=== PATIENT | male | born 1960 | race Caucasian/White ===

== ENCOUNTER → 2017-11-10 14:15 | Outpatient (CLI) | payer MEDICARE, MEDICAID, SELFPAY | PROVIDERS: PCP Family Medicine; Visit Provider Nurse Practitioner Adult Health | DX: G56.01 Carpal tunnel syndrome, right upper limb (principal); G56.21 Lesion of ulnar nerve, right upper limb; R20.2 Paresthesia of skin; I10 Essential (primary) hypertension; J44.9 Chronic obstructive pulmonary disease, unspecified; F17.210 Nicotine dependence, cigarettes, uncomplicated | CPT/HCPCS: 95909; 99214 ==

== ENCOUNTER → 2017-11-16 09:15 | Outpatient (CLI) | payer MEDICARE, MEDICAID, SELFPAY | PROVIDERS: PCP Family Medicine; Visit Provider Orthopaedic Surgery | DX: G56.01 Carpal tunnel syndrome, right upper limb (principal) | CPT/HCPCS: 99214 ==

== ENCOUNTER → 2017-12-06 13:29 | Outpatient (CLI) | payer MEDICARE, MEDICAID, SELFPAY | PROVIDERS: PCP Family Medicine; Visit Provider Orthopaedic Surgery | DX: Z47.89 Encounter for other orthopedic aftercare (principal); G56.01 Carpal tunnel syndrome, right upper limb ==

== ENCOUNTER 2017-12-12 01:14 | Inpatient (IN) | payer MEDICARE, SELFPAY ==
[2017-12-12] VITALS (153 sets, daily range): BP systolic 104–149; BP diastolic 54–112; PULSE 68–98; RESP 12–30; TEMP 36.4–37.2; O2SAT 89–98
--- NOTE | 2017-12-12 01:51 | ED.GENADUL_ITS ---
Discharge Plan Discharge Details Chief Complaint: PsychEval Clinical Impression: Schizoaffective disorder, Suicide attempt by hanging, Cocaine abuse with intoxication, Rhabdomyolysis Reason For Visit: EVAL Primary Care Provider: Tawanda Dooley ED Provider: Leodan Young Disposition Patient Disposition: [facility] INPATIENT Condition: Fair Home Meds and New Rx's Prescriptions: No Action lamotrigine 150 MG tablet 150 mg PO HS RF: 0 lithium carbonate 600 MG capsule 900 mg PO HS RF: 0 tiotropium bromide [Spiriva with HandiHaler] 18 MCG capsule, w/inhalation device 1 cap Inhalation DAILY RF: 0 albuterol sulfate 8.5 GM HFA aerosol inhaler 2 puff Inhalation PRN RF: 0 aspirin [Aspirin Low-Strength] 81 MG tablet,chewable 81 mg PO DAILY RF: 0 atorvastatin [Lipitor] 80 MG tablet 80 mg PO DAILY RF: 0 nitroglycerin [Nitrostat] 0.4 MG tablet, sublingual 0.4 mg Sublingual Q5 MIN PRN X3 PRNQty: 100 RF: 0 isosorbide mononitrate 30 MG tablet extended release 24 hr 30 mg PO DAILY RF: 0 pantoprazole [Protonix] 20 MG tablet,delayed release (DR/EC) 40 mg PO DAILY RF: 0 risperidone 2 MG tablet 2 mg PO HS RF: 0 ibuprofen 800 MG tablet 800 mg PO Q8H PRN PRN (Reason: Pain) Qty: 30 RF: 0 budesonide-formoterol [Symbicort] 10.2 GM HFA aerosol inhaler 10.2 gm Inhalation BID RF: 0 metoprolol succinate 25 MG tablet extended release 24 hr 50 mg PO DAILY RF: 0 Medical Decision Making [facility] Narrative Medical decision making narrative: Patient presenting for mental health evaluation after cocaine binge for the last 3 days. Tried overdosing as well as hanging himself today. States he does not want to live anymore. Complaining of all over body pain especially in the legs. With his cocaine use consider rhabdomyolysis. He is cooperative with his being here. He was seen by mental health and confirmed with him that he is suicidal and does not wish to live. He does however agree to voluntary psychiatric admission. We have placed a one-to-one patient observer with him. His is staying with him. He has been calm and cooperative here. Laboratory studies are significant for CPK of greater than 8000. He has been getting LR and we will continue 2 L bolus before cutting back to 200 and hour. [place] level is low. Alcohol level is less than 100. Aspirin and Tylenol negative. Kidney function normal. White count elevated and likely related to demarginalization. AST and ALT slightly up and likely related to his drinking. Potassium is little low and will need to be replaced. Patient is not medically cleared at this point due to the rhabdomyolysis. He will need to continue on aggressive hydration/diuresis. Case discussed with hospitalist for admission for medical clearance. He will need to remain on one- to-one observation due to his suicidal thoughts and actions. He is cooperative here in the emergency department. Lab Data Lab results reviewed: Yes I reviewed the patient's lab results. ECG Data Attestation: I personally reviewed and interpreted this ECG (s) as follows: Prior ECG tracings: not available for review Interpretation: Sinus rhythm at 93. Normal axis and intervals. No acute ST changes noted. HPI - General Adult General Mode of arrival: wheelchair . Date/Time Provider Initiated Documentation: 12/12/17 01:36 . Limitations to Documentation: no limitations . Information obtained by: patient and family . HPI Narrative-FOR DICTATION ONLY HPI Narrative: Patient is here for mental health evaluation. Patient is brought in by his . He has been binging on cocaine for the last 3 days. Reports using almost $3000 worth. Today he was drinking alcohol as well. Became depressed and upset with the fact that he had ruined 3 years of sobriety. He tried overdosing on more cocaine. He also tied a rope around his neck and jumped off a chair but landed on the floor and had no tension on the rope. Family had called 911. However they were able to talk him down and got him into their car for transport. He was followed by [facility]. Patient complains of allover body pain. He has difficulty walking because of pain and discomfort. He denies having chest pain or shortness of breath. He denies any abdominal pain. He has had no fevers or chills. Related Data Home Medications Medication Instructions Recorded Confirmed lamotrigine 150 mg PO HS 06/17/13 12/12/17 lithium carbonate 900 mg PO HS 06/17/13 12/12/17 tiotropium bromide [Spiriva with 1 cap INHALATION DAILY 06/17/13 12/12/17 HandiHaler] albuterol sulfate 2 puff INHALATION PRN 11/13/13 12/12/17 aspirin [Aspirin Low-Strength] 81 mg PO DAILY 09/25/14 12/12/17 atorvastatin [Lipitor] 80 mg PO DAILY 09/25/14 12/12/17 isosorbide mononitrate 30 mg PO DAILY 05/20/15 12/12/17 pantoprazole [Protonix] 40 mg PO DAILY 05/20/15 12/12/17 risperidone 2 mg PO HS 05/20/15 12/12/17 budesonide-formoterol [Symbicort] 10.2 gm INHALATION BID 09/15/16 12/12/17 metoprolol succinate 50 mg PO DAILY 09/15/16 12/12/17 Previous Rx's Medication Instructions Recorded nitroglycerin [Nitrostat] 0.4 mg SUBLINGUAL Q5 MIN PRN X3 09/25/14 PRN #100 tab.subl ibuprofen 800 mg PO Q8H PRN PRN #30 tablet 07/11/16 Allergies Allergy/AdvReac Type Severity Reaction Status Date / Time No Known Allergies Allergy Unverified 12/12/17 05:15 General Stated Complaint: PsychEval ZEINAB: 2 Review of Systems Constitutional Denies chills, Denies fever(s), Denies headache(s), Reports malaise and Reports weakness ENT Denies headache(s), Reports mouth pain and Denies sore throat Cardiovascular Denies chest pain, Denies syncope, Denies palpitations and Denies dyspnea Respiratory Denies cough and Denies dyspnea Gastrointestinal Denies abdominal pain, Denies diarrhea, Denies nausea and Denies vomiting Musculoskeletal Reports myalgias, Reports muscle weakness, Denies numbness and Reports stiffness Integumentary/Breasts Denies erythema and Denies rash Neurologic Denies confusion, Denies syncope, Denies headache(s), Denies numbness and Reports weakness Psychiatric Denies confusion, Reports depression, Reports irritability and Reports suicidal ideation Endocrine Denies palpitations [facility] Medical History CAD (coronary artery disease) (Chronic) COPD (chronic obstructive pulmonary disease) (Chronic) GERD (gastroesophageal reflux disease) (Chronic) HTN (hypertension) (Chronic) Hypercholesterolemia (Chronic) Social History Smoking/Tobacco Use Status: Current every day Surgical History H/O heart artery stent (Chronic) Exam Const General: cooperative, comfortable and not combative Nutritional Appearance: obese Orientation: alert and oriented x3 HENDC Head: normal to inspection, normocephalic and atraumatic Mouth: no drooling, oral mucosa abnormal erythematous and white patches (few scattered) and no trismus Throat: uvula midline Eyes Sclera: sclerae normal Pupils: PERRL EOM: EOM intact bilaterally Neck Neck: full ROM and trachea midline Chest Chest: normal inspection of the chest Resp Effort & Inspection: normal respiratory effort Auscultation: wheezes scattered wheezes Cardio Rate: regular rate Rhythm: regular rhythm Heart Sounds: S1 normal and S2 normal GI Palpation: soft, no guarding and nontender Skin Trauma: abrasion (rope burn anterior neck extending to bilateral angle of jaw) Neuro General: alert, oriented x3, no focal motor deficits, CN's II-XI intact bilaterally and not confused Course Vital Signs Temperature 97.7 F 12/12/17 01:33 Pulse 84 12/12/17 01:33 Respiratory Rate 20 12/12/17 01:33 Blood Pressure 127/79 12/12/17 01:33 Pulse Oximetry 98 12/12/17 01:33 Temperature 97.7 F 12/12/17 01:33 Pulse 84 12/12/17 01:33 Respiratory Rate 20 12/12/17 01:33 Blood Pressure 127/79 12/12/17 01:33 Pulse Oximetry 98 12/12/17 01:33
[2017-12-12 02:04] LABS: Bilirubin Negative (Negative); Blood Moderate (Negative); Clarity Clear; Glucose Negative (Negative); Ketones 15 mg/dL (Negative); Leukocyte Esterase Negative (Negative); Nitrite Negative (Negative); Specific Gravity >= 1.030 (1.005-1.025); Urobilinogen 0.2 EU/dL (Up TO 0.2); pH 5.5 (5-8)
[2017-12-12 02:11] LABS: Bacteria Moderate HPF (Negative); Crystals Negative HPF (Negative); Epithelial Cells Rare HPF (Negative); Mucus Moderate (Negative); Other Cells Rare Transitional (Negative); WBC 0-2 HPF (0-5)
[2017-12-12] MEDS: Lactated Ringers 1,000 ML 200 ML IV ×3 (02:11→15:11)
[2017-12-12 02:12] LABS: *AMPHETAMINES SCREEN URINE Negative (Negative); *BARBITURATES SCREEN URINE Negative (Negative); *BENZODIAZEPINES SCREEN URINE Negative (Negative); C & S Indicated? Yes; Cannabinoids THC Negative (Negative); Cocaine Screen,Urine POSITIVE (Negative); METHADONE URINE SCREEN Negative (Negative); OPIATES URINE SCREEN Negative (Negative)
[2017-12-12] MEDS: Normal Saline Flush 10 ML SYR IVP (02:12)
[2017-12-12 02:22] LABS: Tricyclic Antidepressants Negative (Negative)
[2017-12-12 02:26] LABS: Abs Immature Grans 0.04 k/cumm (0.0-0.09); HCT 42.9 % (40.0-50.0); HGB 14.9 g/dL (13.5-17.5); Mean Corp. HGB Concentration 34.7 g/dL (32.0-36.0); Mean Corpuscular Hemoglobin 31.3 pg (27.0-33.0); Mean Corpuscular Volume 90.1 fL (80-95); Mean Platelet Volume 9.1 fL (8.0-11.0); Platelet Count 224 x1000/uL (130-400); RBC 4.76 m/cumm (4.50-6.00); RBC Distribution Width 13.6 % (11.8-14.1); White Blood Cell Count 16.82 k/cumm (4.4-10.8)
[2017-12-12] MEDS: Lactated Ringers 1,000 ML 1000 ML IV (02:35)
--- NOTE | 2017-12-12 02:42 | PDOC.MHCN ---
Presenting Issue: *How did they arrive here at ER and why did they come: Patient arrived by private vehicle with a police escort as the [facility] Police responded to the scene where the patient was actively trying to hang and kill himself Precipitating Factors: *Assessment of Safety SI/HI (address delusions if pertaining to the SI/HI) Patient is actively suicidal and frequently states that he just wants to . Patient is also relapsing from cocaine after being sober for three years. He states that he has been on cocaine for three days straight. Disposition: *Behavior:Patient is laying on the bed talking with this functional tester typewriters *Eye Contact:Direct at time but often burrying hus head in the pillow *Mood:Sad *Affect:Tearful *Appetite:Patient states that he has not eaten in the last three days *Sleep (trouble falling/staying asleep):Patient states that he has not really slept in the last three days Plan: The patient will remain at the hospital as a safety precaution until he is able to be placed in a mental health treatment facility.
--- NOTE | 2017-12-12 02:44 | NUR.NOTE ---
Nursing Note: Care management called and has spoken with mental health. Care plan established.
[2017-12-12 02:46] LABS: ALT 117 U/L (12-78); AST 308 U/L (15-37); Albumin 3.7 g/dL (3.4-5.0); Alkaline Phosphatase 112 U/L (46-116); BUN 14 mg/dL (7-18); Bilirubin, Total 0.7 mg/dL (0.2-1.0); CREATININE 1.02 mg/dL (0.70-1.30); Calcium 8.9 mg/dL (8.5-10.1); Chloride 99 mmol/L (98-107); ETHANOL BLOOD 86.1 mg/dL (<3); Glucose 96 mg/dL (70-100); Potassium 3.2 mmol/L (3.5-5.1); Sodium 135 mmol/L (136-145); TSH 0.68 uIU/mL (0.358-3.74); Total Protein 7.4 g/dL (6.4-8.2)
--- NOTE | 2017-12-12 02:48 | PDOC.MHCN_ITS ---
Presenting Issue: *How did they arrive here at ER and why did they come: Patient arrived by private vehicle with a police escort as the [facility] Police responded to the scene where the patient was actively trying to hang and kill himself Precipitating Factors: *Assessment of Safety SI/HI (address delusions if pertaining to the SI/HI) Patient is actively suicidal and frequently states that he just wants to . Patient is also relapsing from cocaine after being sober for three years. He states that he has been on cocaine for three days straight. Disposition: *Behavior:Patient is laying on the bed talking with this freelance copywriter *Eye Contact:Direct at time but often burrying hus head in the pillow *Mood:Sad *Affect:Tearful *Appetite:Patient states that he has not eaten in the last three days *Sleep (trouble falling/staying asleep):Patient states that he has not really slept in the last three days Plan: The patient will remain at the hospital as a safety precaution until he is able to be placed in a mental health treatment facility.
[2017-12-12 02:53] LABS: Absolute Eosinophil Count 0.34 k/cumm (0.0-0.7); Absolute Lymphocyte Count 1.01 k/cumm (1.2-3.4); Absolute Monocyte Count 2.02 k/cumm (0.11-0.7); Absolute Neutrophil Count 13.46 k/cumm (1.2-6.7); Diff Comment Manual Differential; RBC Morphology Normal
[2017-12-12 02:57] LABS: Lithium 0.29 mmol/L (0.60-1.20)
[2017-12-12 03:01] LABS: Salicylate 5.5 mg/dL (2.8-20.0)
[2017-12-12 03:03] LABS: Acetaminophen < 2 ug/mL (10-30)
[2017-12-12 03:11] LABS: Creatine Kinase > 8000 U/L (39-308)
--- NOTE | 2017-12-12 03:32 | NUR.NOTE ---
Nursing Note: pt given food per request, on bed and eating. Awake, alert, cooperative.
--- NOTE | 2017-12-12 03:45 | NUR.NOTE ---
Nursing Note: red and white excoriated area in mouth- pain made worse by tomato soup. Offered pt cold meal options which were eaten. Reported this finding to MD Young.
--- NOTE | 2017-12-12 05:28 | W.PM.HP.N ---
CC: drug abuse HPI: Chandan is 57 yo with h/o substance abuse, sober times 3 years. 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 Became distraught and was running around home with rope around neck. Mother summoned police who brought him in. Main complaint at this time is of total body myalgia. Inittial w/u in ER of note for rhabdo with CPK > 8000, with normal creatinine. Patient started on IVF and admitted. Seen by Mental health, voluntary admit, pending stabilization of medical issues. All: NKDA Med: see below PMH Substance abuse, COPD, CAD (s/p stent), GERD, bipolar PE: 142/71, pulse 94, RR 20 HEENT no signs trauma, neck supple, lungs scattered wheeze, heart somewhat distant but RRR,abdomen prtruberant, soft, nonotender; /rectal deferred; ext: trace pedal edema; neuro A+O, moves all 4's Lab:see below: A/P: Substance abuse: monitor Rhabdo, presumed secondary to cocaine: IVF, follow creatinine COPD: prn [facility] Mental health: usual meds, follow with mental health hypokalemia: replace and monitor [facility] Medical History CAD (coronary artery disease) (Chronic) COPD (chronic obstructive pulmonary disease) (Chronic) GERD (gastroesophageal reflux disease) (Chronic) HTN (hypertension) (Chronic) Hypercholesterolemia (Chronic) Social History Smoking/Tobacco Use Status: Current every day Surgical History H/O heart artery stent (Chronic) Meds Home Medications Medication Instructions Recorded Confirmed Type lamotrigine 150 mg PO HS 06/17/13 12/12/17 History lithium carbonate 900 mg PO HS 06/17/13 12/12/17 History tiotropium bromide [Spiriva with 1 cap INHALATION DAILY 06/17/13 12/12/17 History HandiHaler] albuterol sulfate 2 puff INHALATION PRN 11/13/13 12/12/17 History aspirin [Aspirin Low-Strength] 81 mg PO DAILY 09/25/14 12/12/17 History atorvastatin [Lipitor] 80 mg PO DAILY 09/25/14 12/12/17 History isosorbide mononitrate 30 mg PO DAILY 05/20/15 12/12/17 History pantoprazole [Protonix] 40 mg PO DAILY 05/20/15 12/12/17 History risperidone 2 mg PO HS 05/20/15 12/12/17 History budesonide-formoterol [Symbicort] 10.2 gm INHALATION BID 09/15/16 12/12/17 History metoprolol succinate 50 mg PO DAILY 09/15/16 12/12/17 History Allergies Allergy/AdvReac Type Severity Reaction Status Date / Time No Known Allergies Allergy Unverified 12/12/17 05:15 Results Labs : 12/12/17 02:06 12/12/17 06:25 Abnormal lab results 12/12/17 12/12/17 12/12/17 Range/Units 01:40 02:06 02:06 WBC (4.4-10.8) k/cumm Absolute Neutrophils (1.2-6.7) k/cumm Absolute Lymphocytes (1.2-3.4) k/cumm Absolute Monocytes (0.11-0.7) k/cumm Sodium 135 L (136-145) mmol/L Potassium 3.2 L (3.5-5.1) mmol/L Anion Gap 14.0 H (3-11) mmol/L AST 308 H (15-37) U/L ALT 117 H (12-78) U/L Creatine Kinase > 8000 H (39-308) U/L Ur Specific [place] >= 1.030 H (1.005-1.025) Urine Protein 100 H (Negative) mg/dL Urine Ketones 15 H (Negative) mg/dL Urine Blood Moderate H (Negative) Urine RBC 3-5 H (0-2) Acetaminophen < 2 L (10-30) ug/mL [place] (0.60-1.20) mmol/L 12/12/17 12/12/17 Range/Units 02:06 02:06 WBC 16.82 H (4.4-10.8) k/cumm Absolute Neutrophils 13.46 H (1.2-6.7) k/cumm Absolute Lymphocytes 1.01 L (1.2-3.4) k/cumm Absolute Monocytes 2.02 H (0.11-0.7) k/cumm Sodium (136-145) mmol/L Potassium (3.5-5.1) mmol/L Anion Gap (3-11) mmol/L AST (15-37) U/L ALT (12-78) U/L Creatine Kinase (39-308) U/L Ur Specific [place] (1.005-1.025) Urine Protein (Negative) mg/dL Urine Ketones (Negative) mg/dL Urine Blood (Negative) Urine RBC (0-2) Acetaminophen (10-30) ug/mL [place] 0.29 L (0.60-1.20) mmol/L Diabetes panel 12/12/17 Range/Units 02:06 Sodium 135 L (136-145) mmol/L Potassium 3.2 L (3.5-5.1) mmol/L Chloride 99 (98-107) mmol/L Carbon Dioxide 22.0 (21.0-32.0) mmol/L BUN 14 (7-18) mg/dL Creatinine 1.02 (0.70-1.30) mg/dL Glucose 96 (70-100) mg/dL Calcium 8.9 (8.5-10.1) mg/dL AST 308 H (15-37) U/L ALT 117 H (12-78) U/L Alkaline Phosphatase 112 (46-116) U/L Total Protein 7.4 (6.4-8.2) g/dL Albumin 3.7 (3.4-5.0) g/dL Thyroid panel 12/12/17 Range/Units 02:06 TSH 0.68 (0.358-3.74) uIU/mL Calcium panel 12/12/17 Range/Units 02:06 Calcium 8.9 (8.5-10.1) mg/dL Albumin 3.7 (3.4-5.0) g/dL Pituitary panel 12/12/17 Range/Units 02:06 Sodium 135 L (136-145) mmol/L Potassium 3.2 L (3.5-5.1) mmol/L Chloride 99 (98-107) mmol/L Carbon Dioxide 22.0 (21.0-32.0) mmol/L BUN 14 (7-18) mg/dL Creatinine 1.02 (0.70-1.30) mg/dL Glucose 96 (70-100) mg/dL Calcium 8.9 (8.5-10.1) mg/dL TSH 0.68 (0.358-3.74) uIU/mL Adrenal panel 12/12/17 Range/Units 02:06 Sodium 135 L (136-145) mmol/L Potassium 3.2 L (3.5-5.1) mmol/L Chloride 99 (98-107) mmol/L Carbon Dioxide 22.0 (21.0-32.0) mmol/L BUN 14 (7-18) mg/dL Creatinine 1.02 (0.70-1.30) mg/dL Glucose 96 (70-100) mg/dL Calcium 8.9 (8.5-10.1) mg/dL Total Bilirubin 0.7 (0.2-1.0) mg/dL AST 308 H (15-37) U/L ALT 117 H (12-78) U/L Alkaline Phosphatase 112 (46-116) U/L Total Protein 7.4 (6.4-8.2) g/dL Albumin 3.7 (3.4-5.0) g/dL Laboratory Tests 12/12/17 12/12/17 12/12/17 01:40 01:40 02:06 WBC RBC Hgb Hct MCV MCH MCHC RDW Plt Count MPV Immature Gran % Neutrophils % Lymphocytes % Monocytes % Eosinophils % Basophils % Absolute Neutrophils Band Neutrophils Absolute Lymphocytes Absolute Monocytes Absolute Eosinophils Absolute Basophils Differential Comment RBC Morphology Sodium 135 L Potassium 3.2 L Chloride 99 Carbon Dioxide 22.0 Anion Gap 14.0 H BUN 14 Creatinine 1.02 Estimated GFR/1.73 m2 >= 60.00 Glucose 96 Calcium 8.9 Total Bilirubin 0.7 AST 308 H ALT 117 H Alkaline Phosphatase 112 Creatine Kinase > 8000 H Total Protein 7.4 Albumin 3.7 TSH 0.68 Urine Color Yellow Urine Clarity Clear Urine pH 5.5 Ur Specific [place] >= 1.030 H Urine Protein 100 H Urine Ketones 15 H Urine Blood Moderate H Urine Nitrite Negative Urine Bilirubin Negative Urine Urobilinogen 0.2 Ur Leukocyte Esterase Negative Urine RBC 3-5 H Urine WBC 0-2 Ur Epithelial Cells Rare Urine Crystals Negative Urine Bacteria Moderate Urine Casts Urine Mucus Moderate Urine Other Rare transitional Ur Culture Indicated? Yes Urine Glucose Negative Salicylates Urine Opiates Screen Negative Urine Methadone Screen Negative Acetaminophen Ur Barbiturates Screen Negative Ur Tricyclics Screen Negative Ur Amphetamines Screen Negative U Benzodiazepines Scrn Negative [place] Urine Cocaine Screen Positive Ur THC Screen Negative Ethyl Alcohol 86.1 12/12/17 12/12/17 12/12/17 02:06 02:06 02:06 WBC 16.82 H RBC 4.76 Hgb 14.9 Hct 42.9 MCV 90.1 MCH 31.3 MCHC 34.7 RDW 13.6 Plt Count 224 MPV 9.1 Immature Gran % See Differential Neutrophils % 76.0 Lymphocytes % 6.0 Monocytes % 12.0 Eosinophils % 2.0 Basophils % 0.0 Absolute Neutrophils 13.46 H Band Neutrophils 4.0 Absolute Lymphocytes 1.01 L Absolute Monocytes 2.02 H Absolute Eosinophils 0.34 Absolute Basophils 0.00 Differential Comment Manual differential RBC Morphology Normal Sodium Potassium Chloride Carbon Dioxide Anion Gap BUN Creatinine Estimated GFR/1.73 m2 Glucose Calcium Total Bilirubin AST ALT Alkaline Phosphatase Creatine Kinase Total Protein Albumin TSH Urine Color Urine Clarity Urine pH Ur Specific [place] Urine Protein Urine Ketones Urine Blood Urine Nitrite Urine Bilirubin Urine Urobilinogen Ur Leukocyte Esterase Urine RBC Urine WBC Ur Epithelial Cells Urine Crystals Urine Bacteria Urine Casts Urine Mucus Urine Other Ur Culture Indicated? Urine Glucose Salicylates 5.5 Urine Opiates Screen Urine Methadone Screen Acetaminophen < 2 L Ur Barbiturates Screen Ur Tricyclics Screen Ur Amphetamines Screen U Benzodiazepines Scrn [place] 0.29 L Urine Cocaine Screen Ur THC Screen Ethyl Alcohol
--- NOTE | 2017-12-12 05:43 | NUR.NOTE ---
Nursing Note: Pt remains in room with at bedside, 1:1 continued. Has been visited by ED MD and hospitalist. Pt's concern of heartburn relayed to provider. Pt given milk to attempt to ease discomfort.
--- NOTE | 2017-12-12 06:22 | NUR.NOTE ---
Nursing Note: Pt c/o pain high in neck by jaw line. Pt initially thought this was r/t previous painful swallowing/yeast in mouth and throat. Pt states now that this is from the two small ropes I have tied up on my neck. They must have tightened when I kicked the chair out from underneath me. Pt denies LOC and notes he fell to the floor directly after knocking out the chair. No distinct discoloration in area of pain.
--- NOTE | 2017-12-12 06:29 | PDOC.ERCMPRO ---
Care Management Progress Note CM paged at 0230 from ED for MH Pt. Chief Complaint: Colton attempted to hang himself today and had also attempted to overdose on cocaine. Transported to the hospital by his , Yesi, who has remained at his side. Colton expresses that he does not wish to continue living but is willing to get some help and would accept admission for inpatient psychiatric stabilization and treatment. Suicide precautions and Direct 1:1 Observation have been ordered by the MD. CM will respond to ED to assess patient after patient has been medically cleared and assessed by screener. If screener deems patient meets criteria for psychiatric stabilization CM will facilitate interdepartmental huddle with [facility] screener for safety planning considerations and meet with patient to review [facility] policy and safety plan, establish individual wishes for treatment and maintain patient rights. In the interim; please note safety plan below to guide patient care while awaiting further assessment in the ED. SAFETY PLAN: 1. Will remain on suicide precautions and in paper clothes. 2. Will remain in room under direct supervision of one-on-one staff at all times provided by OUSMANE, THERAPEUTIC RECREATION SPECIALIST balcony worker. ([employer]) 3. May have paper cups, plates, finger foods as well as a metal spoon with which to eat meals. [facility] staff will be responsible for accounting of utensils after meals. 4. Follow [facility] Management of the Admitted Behavioral Health Patient policy. 5. Comfort bath system only. 6. No personal belongings 7. , Yesi Bailey, and mother, Nora Bailey, may visit. If deemed appropriate for inpatient psychiatric care, safety plan will be established with patient, and care team, to adhere to patient goals, identify restrictions based on behavioral status, address nutrition, and determine allowed personal belongings, tools for hygiene and personal care. As well plan will determine level of activity including ambulation, level of supervision, visitors, and determine privileges based on level of acuity, behaviors and level of engagement by patient.
[2017-12-12 06:36] LABS: CREATININE 0.81 mg/dL (0.70-1.30)
--- NOTE | 2017-12-12 06:41 | CMPROGNOTE_ITS ---
Care Management Progress Note CM paged at 0230 from ED for MH Pt. Chief Complaint: Colton attempted to hang himself today and had also attempted to overdose on cocaine. Transported to the hospital by his , Yesi, who has remained at his side. Colton expresses that he does not wish to continue living but is willing to get some help and would accept admission for inpatient psychiatric stabilization and treatment. Suicide precautions and Direct 1:1 Observation have been ordered by the MD. CM will respond to ED to assess patient after patient has been medically cleared and assessed by screener. If screener deems patient meets criteria for psychiatric stabilization CM will facilitate interdepartmental huddle with [facility] screener for safety planning considerations and meet with patient to review [facility] policy and safety plan, establish individual wishes for treatment and maintain patient rights. In the interim; please note safety plan below to guide patient care while awaiting further assessment in the ED. SAFETY PLAN: 1. Will remain on suicide precautions and in paper clothes. 2. Will remain in room under direct supervision of one-on-one staff at all times provided by OUSMANE, [employer] offset printing operator. ([employer]) 3. May have paper cups, plates, finger foods as well as a metal spoon with which to eat meals. [facility] staff will be responsible for accounting of utensils after meals. 4. Follow [facility] Management of the Admitted Behavioral Health Patient policy. 5. Comfort bath system only. 6. No personal belongings 7. , Yesi Bailey, and mother, Nora Bailey, may visit. If deemed appropriate for inpatient psychiatric care, safety plan will be established with patient, and care team, to adhere to patient goals, identify restrictions based on behavioral status, address nutrition, and determine allowed personal belongings, tools for hygiene and personal care. As well plan will determine level of activity including ambulation, level of supervision, visitors, and determine privileges based on level of acuity, behaviors and level of engagement by patient.
[2017-12-12] MEDS: Potassium Chloride 20 MEQ TABCR PO ×2 (06:59→10:13)
--- NOTE | 2017-12-12 07:19 | NUR.NOTE ---
Nursing Note: report given to Nancy HAMILTON in ICU- will receive pt at 0730. Pt has been sleeping intermittently and is easily awoken by voice. Remains 1:1 for suicide precautions.
[2017-12-12] MEDS: Ibuprofen 800 MG TAB PO ×2 (08:05→20:51)
[2017-12-12] MEDS: Metoprolol CR 50 MG TABCR PO (09:09)
[2017-12-12] MEDS: Pantoprazole 20 MG TABCR 40 MG PO (09:12)
[2017-12-12] MEDS: lamoTRIgine 25 MG TAB 100 MG PO (10:10)
[2017-12-12] MEDS: LITHIUM CARBONATE 300 MG CAP 600 MG PO (10:11)
[2017-12-12] MEDS: risperiDONE 1 MG TAB 2 MG PO ×2 (10:11→21:31)
[2017-12-12] MEDS: Aspirin 81 MG CHEW PO (10:12)
[2017-12-12] MEDS: Isosorbide Mononitrate 30 MG TABCR PO (10:12)
[2017-12-12] MEDS: VANCOMYCIN 1,500 MG in Normal Saline 500 ML 333.3333 MG IVPB (10:33)
--- NOTE | 2017-12-12 11:14 | PGE_ITS ---
Assessment and Plan (1) Schizoaffective disorder: Current visit: Yes Status: Acute Stable in the past with lithium, Lamictal, Risperdal. Is unsure if he has been compliant with his medications over the last few days. Loxley level on admission is subtherapeutic and he did miss his medications last night. Will have nursing administer these this morning with plan for at bedtime administration as well. Currently seems to have appropriate behavior, speech and good insight into common triggers for his suicidal ideation and attempts. Mental health and case management is following with plans to proceed with voluntary psychiatric admission upon discharge. Is currently not followed by a psychiatrist although he would likely benefit from this as an outpatient. Would be amenable to seeing someone at [facility] or [facility]. (2) Polysubstance abuse: Current visit: Yes Status: Acute With recent relapse after 3-1/2 years of sobriety. Admits to injecting cocaine and drinking alcohol. Will monitor for signs of withdrawal, however has only been using for the past 3 days. Would benefit from support services as an outpatient. (3) Suicide attempt by hanging: Current visit: Yes Status: Acute Suicide attempts are typically preceded by relapse of drugs and alcohol. This is a known trigger for him. Is still feeling suicidal. Plan is to proceed with a voluntary psychiatric admission once his acute medical problems have resolved. (4) Rhabdomyolysis: Current visit: Yes Status: Acute Continues with diffuse myalgias, worse to bilateral lower extremities. Continue IV fluids. We will monitor daily CPK and kidney function. (5) Cellulitis of left upper extremity: Start date: 12/12/17 Current visit: Yes Status: Acute Symptoms concerning for cellulitis related to recent IV drug use. White blood cell count elevated. This was initially thought to be secondary to demarginalization, however could be related to infectious process. We will obtain blood cultures ?2 today and initiate treatment with vancomycin IV in order to cover for MRSA. Pharmacy to dose. Although kidney function was normal on admission, this will need to be monitored closely as he is in rhabdo. Subjective Patient reports: afebrile Interval history since last seen: Mr. Bailey is a 57 yo male with pmhx significant for schizoaffective disorder, multiple suicide attempts and polysubstance abuse who was admitted to the hospitalist service after injecting cocaine for 3 days resulting in rhabdo and suicide attempt by hanging. Currently his is at the bedside with him. He reports persistent feelings of wanting to . States that he had been clean for the past 3 1/2 years until 3 days ago when he walked into a local restaraunt and saw his former drug dealer. He impulsively approached him and requested to buy drugs despite having no recent cravings or thoughts about doing drugs. He then began injecting cocaine into his L AC. This was followed by remorse and extreme feelings of guilt which precipitated his attempt at suicide by hanging. Currently he reports persistent muscle aches, mostly in bilateral lower extremities. His L arm is also quite painful. Nursing reports concerns regarding possible cellulitis of the L AC. The area is tender, slightly reddened and warm to the touch. Review of systems: 10 point review of systems obtained with pertinent positives noted in HPI, otherwise negative. Exam Const General: cooperative, no acute distress, well developed, disheveled and well hydrated Nutritional Appearance: obese Orientation: alert, awake and oriented x3 HENMT Head: normal to inspection, normocephalic and atraumatic Ears: hearing grossly normal bilaterally and external ears normal General nose exam: external nose normal and nares normal Face and sinus: normal facial exam Mouth: oral mucosae normal, lip normal and tongue normal Teeth and gingiva: abnormal tooth or associated gingiva (poor dentition) Throat: posterior oropharynx normal Eyes General: appearance normal, both eyes and all related structures Visual Mckeon: normal visual mckeon by confrontation Eyelids: eyelids normal Conjunctivae: conjunctivae normal Sclera: sclerae normal Pupils: PERRL EOM: EOM intact bilaterally Neck Neck: full ROM, supple and other (faint ligature micah around base of neck) Carotids: normal carotid upstroke Chest Chest: normal inspection of the chest Resp Effort & Inspection: normal respiratory effort and able to speak in complete sentences Auscultation: diminished lung sounds Cardio Jugular venous pressure: no JVD Palpation: normal PMI Rate: regular rate Rhythm: regular rhythm Heart Sounds: S1 normal and S2 normal Pulses: radial pulses present and dorsalis pedis pulses present GI Inspection: normal to inspection Palpation: soft and no hepatosplenomegaly Auscultation: hyperactive bowel sounds General: deferred Skin Lesions: lesion noted Full body images: 2 1. Puncture site noted to the left AC with surrounding erythema extending down the anterior aspect of the left forearm. Area is tender, warm to the touch. No open areas or drainage. Neuro General: alert, awake, oriented x3, moves all extremities and normal light touch , pain and propioception Cranial Nerves: CN's II-XI intact bilaterally Cognition: normal cognition Speech: speech normal Motor: muscle tone normal throughout Extrem General: normal to inspection, no clubbing, cyanosis or edema and edema Psych Appearance: grossly normal and disheveled Mental Status: mental status grossly normal Speech and Movement: speech and movement normal Affect: sad and anxious affect Attitude: cooperative Thought Process: normal Thought Content: normal Insight: insight good Objective Objective Clinical Data: Abnormal lab results 12/12/17 12/12/17 12/12/17 Range/Units 01:40 02:06 02:06 WBC (4.4-10.8) k/cumm Absolute Neutrophils (1.2-6.7) k/cumm Absolute Lymphocytes (1.2-3.4) k/cumm Absolute Monocytes (0.11-0.7) k/cumm Sodium 135 L (136-145) mmol/L Potassium 3.2 L (3.5-5.1) mmol/L Anion Gap 14.0 H (3-11) mmol/L AST 308 H (15-37) U/L ALT 117 H (12-78) U/L Creatine Kinase > 8000 H (39-308) U/L Ur Specific [place] >= 1.030 H (1.005-1.025) Urine Protein 100 H (Negative) mg/dL Urine Ketones 15 H (Negative) mg/dL Urine Blood Moderate H (Negative) Urine RBC 3-5 H (0-2) Acetaminophen < 2 L (10-30) ug/mL Loxley (0.60-1.20) mmol/L 12/12/17 12/12/17 Range/Units 02:06 02:06 WBC 16.82 H (4.4-10.8) k/cumm Absolute Neutrophils 13.46 H (1.2-6.7) k/cumm Absolute Lymphocytes 1.01 L (1.2-3.4) k/cumm Absolute Monocytes 2.02 H (0.11-0.7) k/cumm Sodium (136-145) mmol/L Potassium (3.5-5.1) mmol/L Anion Gap (3-11) mmol/L AST (15-37) U/L ALT (12-78) U/L Creatine Kinase (39-308) U/L Ur Specific [place] (1.005-1.025) Urine Protein (Negative) mg/dL Urine Ketones (Negative) mg/dL Urine Blood (Negative) Urine RBC (0-2) Acetaminophen (10-30) ug/mL Loxley 0.29 L (0.60-1.20) mmol/L Vital Signs Temp 36.5 C 12/12/17 01:33 Pulse 95 H 12/12/17 07:21 Resp 17 12/12/17 07:21 BP 142/79 H 12/12/17 07:21 Pulse Ox 96 12/12/17 07:21 Intake & Output 12/11/17 12/11/17 12/12/17 11:59 23:59 11:59 Intake Total 3170 / 3170 Balance 3170 / 3170 Weight 113.3 kg Intake: IV 3170 / 3170 Laboratory Results WBC 16.82 k/cumm (4.4-10.8) H 12/12/17 02:06 RBC 4.76 m/cumm (4.50-6.00) 12/12/17 02:06 Hgb 14.9 g/dL (13.5-17.5) 12/12/17 02:06 Hct 42.9 % (40.0-50.0) 12/12/17 02:06 MCV 90.1 fL (80-95) 12/12/17 02:06 MCH 31.3 pg (27.0-33.0) 12/12/17 02:06 MCHC 34.7 g/dL (32.0-36.0) 12/12/17 02:06 RDW 13.6 % (11.8-14.1) 12/12/17 02:06 Plt Count 224 x1000/uL (130-400) 12/12/17 02:06 MPV 9.1 fL (8.0-11.0) 12/12/17 02:06 Immature Gran % See Differential 12/12/17 02:06 Neutrophils % 76.0 12/12/17 02:06 Lymphocytes % 6.0 12/12/17 02:06 Monocytes % 12.0 12/12/17 02:06 Eosinophils % 2.0 12/12/17 02:06 Basophils % 0.0 12/12/17 02:06 Absolute Neutrophils 13.46 k/cumm (1.2-6.7) H 12/12/17 02:06 Band Neutrophils 4.0 % 12/12/17 02:06 Absolute Lymphocytes 1.01 k/cumm (1.2-3.4) L 12/12/17 02:06 Absolute Monocytes 2.02 k/cumm (0.11-0.7) H 12/12/17 02:06 Absolute Eosinophils 0.34 k/cumm (0.0-0.7) 12/12/17 02:06 Absolute Basophils 0.00 k/cumm (0.0-0.2) 12/12/17 02:06 Differential Comment Manual differential 12/12/17 02:06 RBC Morphology Normal 12/12/17 02:06 Sodium 135 mmol/L (136-145) L 12/12/17 02:06 Potassium 3.2 mmol/L (3.5-5.1) L 12/12/17 02:06 Chloride 99 mmol/L (98-107) 12/12/17 02:06 Carbon Dioxide 22.0 mmol/L (21.0-32.0) 12/12/17 02:06 Anion Gap 14.0 mmol/L (3-11) H 12/12/17 02:06 BUN 14 mg/dL (7-18) 12/12/17 02:06 Creatinine 0.81 mg/dL (0.70-1.30) 12/12/17 06:25 Estimated GFR/1.73 m2 >= 60.00 (mL/min/1.73m2) 12/12/17 06:25 Glucose 96 mg/dL (70-100) 12/12/17 02:06 Calcium 8.9 mg/dL (8.5-10.1) 12/12/17 02:06 Total Bilirubin 0.7 mg/dL (0.2-1.0) 12/12/17 02:06 AST 308 U/L (15-37) H 12/12/17 02:06 ALT 117 U/L (12-78) H 12/12/17 02:06 Alkaline Phosphatase 112 U/L (46-116) 12/12/17 02:06 Creatine Kinase > 8000 U/L (39-308) H 12/12/17 02:06 Total Protein 7.4 g/dL (6.4-8.2) 12/12/17 02:06 Albumin 3.7 g/dL (3.4-5.0) 12/12/17 02:06 TSH 0.68 uIU/mL (0.358-3.74) 12/12/17 02:06 Urine Color Yellow (Yellow) 12/12/17 01:40 Urine Clarity Clear 12/12/17 01:40 Urine pH 5.5 (5-8) 12/12/17 01:40 Ur Specific [place] >= 1.030 (1.005-1.025) H 12/12/17 01:40 Urine Protein 100 mg/dL (Negative) H 12/12/17 01:40 Urine Ketones 15 mg/dL (Negative) H 12/12/17 01:40 Urine Blood Moderate (Negative) H 12/12/17 01:40 Urine Nitrite Negative (Negative) 12/12/17 01:40 Urine Bilirubin Negative (Negative) 12/12/17 01:40 Urine Urobilinogen 0.2 EU/dL (Up TO 0.2) 12/12/17 01:40 Ur Leukocyte Esterase Negative (Negative) 12/12/17 01:40 Urine RBC 3-5 (0-2) H 12/12/17 01:40 Urine WBC 0-2 HPF (0-5) 12/12/17 01:40 Ur Epithelial Cells Rare HPF (Negative) 12/12/17 01:40 Urine Crystals Negative HPF (Negative) 12/12/17 01:40 Urine Bacteria Moderate HPF (Negative) 12/12/17 01:40 Urine Casts LPF (Negative) 12/12/17 01:40 Urine Mucus Moderate (Negative) 12/12/17 01:40 Urine Other Rare transitional (Negative) 12/12/17 01:40 Ur Culture Indicated? Yes 12/12/17 01:40 Urine Glucose Negative mg/dL (Negative) 12/12/17 01:40 Salicylates 5.5 mg/dL (2.8-20.0) 12/12/17 02:06 Urine Opiates Screen Negative (Negative) 12/12/17 01:40 Urine Methadone Screen Negative (Negative) 12/12/17 01:40 Acetaminophen < 2 ug/mL (10-30) L 12/12/17 02:06 Ur Barbiturates Screen Negative (Negative) 12/12/17 01:40 Ur Tricyclics Screen Negative (Negative) 12/12/17 01:40 Ur Amphetamines Screen Negative (Negative) 12/12/17 01:40 U Benzodiazepines Scrn Negative (Negative) 12/12/17 01:40 Loxley 0.29 mmol/L (0.60-1.20) L 12/12/17 02:06 Urine Cocaine Screen Positive (Negative) 12/12/17 01:40 Ur THC Screen Negative (Negative) 12/12/17 01:40 Ethyl Alcohol 86.1 mg/dL (<3) 12/12/17 02:06 Date of service: 12/12/17 Time of Service: 09:15
--- NOTE | 2017-12-12 12:23 | W.INMHPGNOTE ---
Date of service: 12/12/17 Time of Service: 12:23 Mental Health Progress Note Progress Note: Presenting Issue: Heaven came into the ER because of suicide attempt and active SI Precipitating Factors Clhaja continues to have a SI and tried to hang himself. The clt's mother cut the rope preventing it from becoming a successful attempt. Heaven is willing to accept treatment under voluntary status. The clt has been cooperative with staff. Disposition Clt will continue to be awaiting placement at a psych facility under voluntary status. * Behavior:Heaven has been cooperative with staff. He has been expressing remorse for his action. *Eye Contact: *Mood: *Affect: *Appetite: *Sleep(troubel falling/staying asleep): Plan(please elaborate and include that physician is consulted with plan and/or placement): Clinician's Name , Title, and Signature Make sure that you are photocopying and submitting this to [facility] records Dept. to be scanned into chart.
--- NOTE | 2017-12-12 12:27 | MHPN_ITS ---
Date of service: 12/12/17 Time of Service: 12:23 Mental Health Progress Note Progress Note: Presenting Issue: Heaven came into the ER because of suicide attempt and active SI Precipitating Factors Clhaja continues to have a SI and tried to hang himself. The clt's mother cut the rope preventing it from becoming a successful attempt. Heaven is willing to accept treatment under voluntary status. The clt has been cooperative with staff. Disposition Clt will continue to be awaiting placement at a psych facility under voluntary status. * Behavior:Heaven has been cooperative with staff. He has been expressing remorse for his action. *Eye Contact: *Mood: *Affect: *Appetite: *Sleep(troubel falling/staying asleep): Plan(please elaborate and include that physician is consulted with plan and/or placement): Clinician's Name , Title, and Signature Make sure that you are photocopying and submitting this to [facility] records Dept. to be scanned into chart.
--- NOTE | 2017-12-12 12:32 | PDOC.CMPRO ---
Care Management Progress Note VOLUNTARY FOR INPATIENT PSYCHIATRIC STABILIZATION. Mikael has been struggling with SI central to recurrence of substance abuse and alcohol abuse. Per chart review he has been diagnosed with Bipolar disorder and schizoaffective disorder. His mother cut him down from an attempted hanging and she and Marcos's brought him to the [facility] Emergency Room. Since arrival, Mikael has been cooperative and appropriate in interaction. He has demonstrated appropriate coping and communication skills, has articulated his needs and concerns and is fully engaged during staff interactions. Marina of [facility] reports Mikael meets criteria and would benefit from inpatient psychiatric stabilization. Mikael remains remorseful around his actions leading up to this admission and cooperative and insightful around his need for intervention at this time. CM facilitated interdepartmental huddle. Participants: Mickie: RN, Nancy: RN, Myra, PRABHA, Marina: [facility] screener. Due to ongoing positive engagement, Mikael will have visitor and comfort privileges limited only for safety and at the nurses discretion. He was admitted to ICU Unit as a MED/SURG overflow patient-where he is insight of RN at all times. SAFETY PLAN: 1. Will remain on suicide precautions and in paper clothes. 2. Will remain in room under direct supervision of one-on-one staff at all times provided by OUSMANE, WEB CONTENT PRODUCER charge coordinator. 3. Finger foods only. 4. Follow [facility] Management of the Admitted Behavioral Health Patient policy printed and attached to the safety plan in physical chart. 5. Comfort bath system only. 6. No personal belongings 7. May have visitors at patient and RN discretion. 8. May have use of television and remote. [facility] Crisis Screener will be coordinating placement at inpatient facility, last updates included the following: Marina has called all facilities and faxed referrals. Josefina of admissions at [facility], [facility] and [place] [facility] availability and are currently reviewing referral. Marina is awaiting bed offer. Mikael was offered a bed at [facility]; per he is not yet medically cleared. Once medically cleared, referral process will resume. Patient is currently voluntarily at [facility] and seeking inpatient admission when a bed becomes available. [facility] Frontline Long Term Acute Care Registered Nurse will continue seeking placement. Please contact the Keyliner Car Chaser ([phone]) and [facility] Long Term Acute Care Registered Nurse ([phone]) for any needed changes in the Safety Plan. Safety plan has been provided to interdepartmental care team including Clinical Coordinator, Nursing Director Of Global Sales.
--- NOTE | 2017-12-12 13:50 | CMPROGNOTE_ITS ---
Care Management Progress Note VOLUNTARY FOR INPATIENT PSYCHIATRIC STABILIZATION. Mikael has been struggling with SI central to recurrence of substance abuse and alcohol abuse. Per chart review he has been diagnosed with Bipolar disorder and schizoaffective disorder. His mother cut him down from an attempted hanging and she and Marcos's brought him to the [facility] Emergency Room. Since arrival, Mikael has been cooperative and appropriate in interaction. He has demonstrated appropriate coping and communication skills, has articulated his needs and concerns and is fully engaged during staff interactions. Marina of [facility] reports Mikael meets criteria and would benefit from inpatient psychiatric stabilization. Mikael remains remorseful around his actions leading up to this admission and cooperative and insightful around his need for intervention at this time. CM facilitated interdepartmental huddle. Participants: Mickie: RN, Nancy: RN, Myra, PRABHA, Marina: [facility] screener. Due to ongoing positive engagement, Mikael will have visitor and comfort privileges limited only for safety and at the nurses discretion. He was admitted to ICU Unit as a MED/SURG overflow patient-where he is insight of RN at all times. SAFETY PLAN: 1. Will remain on suicide precautions and in paper clothes. 2. Will remain in room under direct supervision of one-on-one staff at all times provided by OUSMANE, SEAT SCOOPER MACHINE casino worker. 3. Finger foods only. 4. Follow [facility] Management of the Admitted Behavioral Health Patient policy printed and attached to the safety plan in physical chart. 5. Comfort bath system only. 6. No personal belongings 7. May have visitors at patient and RN discretion. 8. May have use of television and remote. [facility] Crisis Screener will be coordinating placement at inpatient facility, last updates included the following: Marian has called all facilities and faxed referrals. Josefina of admissions at [facility], [facility] and [place] [facility] [place] availability and are currently reviewing referral. Marina is awaiting bed offer. Mikael was offered a bed at [facility]; per he is not yet medically cleared. Once medically cleared, referral process will resume. Patient is currently voluntarily at [facility] and seeking inpatient admission when a bed becomes available. [facility] Frontline Picking Crew Supervisor will continue seeking placement. Please contact the [employer] Dried Salt Taxonomy Teacher ([phone]) and [facility] Picking Crew Supervisor ([phone]) for any needed changes in the Safety Plan. Safety plan has been provided to interdepartmental care team including Clinical Coordinator, Nursing Tourist Agent.
[2017-12-12] MEDS: Lithium Carbonate 150 MG CAP 300 MG PO (13:57)
[2017-12-12] MEDS: VANCOMYCIN 1,500 MG in Normal Saline 500 ML 333.333 MG IVPB (18:56)
[2017-12-12] MEDS: Budesonide/Formoterol 160/4.5 6 GM 60 PUFF INH IH (20:45)
[2017-12-12] MEDS: lamoTRIgine 25 MG TAB 150 MG PO (21:32)
[2017-12-12] MEDS: Lactated Ringers 1,000 ML 150 ML IV (23:34)
[2017-12-13] VITALS (35 sets, daily range): BP systolic 104–138; BP diastolic 54–83; PULSE 57–83; RESP 13–23; TEMP 36.2–37; O2SAT 91–96
[2017-12-13] MEDS: VANCOMYCIN 1,500 MG in Normal Saline 500 ML 333.333 MG IVPB ×2 (02:30→10:46)
[2017-12-13 07:01] LABS: Abs Immature Grans 0.02 k/cumm (0.0-0.09); Absolute Basophil Count 0.02 k/cumm (0.0-0.2); Absolute Eosinophil Count 0.25 k/cumm (0.0-0.7); Absolute Lymphocyte Count 1.31 k/cumm (1.2-3.4); Absolute Monocyte Count 0.74 k/cumm (0.11-0.7); Absolute Neutrophil Count 4.11 k/cumm (1.2-6.7); Basophils % 0.3; Eosinophils % 3.9; HCT 38.5 % (40.0-50.0); HGB 12.7 g/dL (13.5-17.5); Immature Grans % 0.3; Lymphocytes % 20.3; Mean Corpuscular Hemoglobin 30.9 pg (27.0-33.0); Mean Corpuscular Volume 93.7 fL (80-95); Mean Platelet Volume 9.3 fL (8.0-11.0); Monocytes % 11.5; Neutrophils % 63.7; Platelet Count 150 x1000/uL (130-400); RBC 4.11 m/cumm (4.50-6.00); RBC Distribution Width 13.4 % (11.8-14.1); White Blood Cell Count 6.45 k/cumm (4.4-10.8)
[2017-12-13 07:27] LABS: ALT 78 U/L (12-78); AST 131 U/L (15-37); Albumin 2.5 g/dL (3.4-5.0); Alkaline Phosphatase 73 U/L (46-116); Anion Gap 0.7 mmol/L (3-11); BUN 9 mg/dL (7-18); Bilirubin, Total 0.2 mg/dL (0.2-1.0); CO2 28.3 mmol/L (21.0-32.0); CREATININE 0.72 mg/dL (0.70-1.30); Calcium 8.1 mg/dL (8.5-10.1); Chloride 111 mmol/L (98-107); Glucose 104 mg/dL (70-100); Potassium 3.9 mmol/L (3.5-5.1); Sodium 140 mmol/L (136-145); Total Protein 5.5 g/dL (6.4-8.2)
[2017-12-13 07:28] LABS: Creatine Kinase 4707 U/L (39-308)
[2017-12-13] MEDS: Ibuprofen 800 MG TAB PO ×2 (08:05→17:53)
[2017-12-13] MEDS: Lactated Ringers 1,000 ML 150 ML IV ×2 (08:05→17:50)
[2017-12-13] MEDS: Pantoprazole 20 MG TABCR 40 MG PO (08:08)
--- NOTE | 2017-12-13 08:17 | PDOC.CMIN ---
- If Service Date Differs Date of service: 12/13/17 Care Management Initial Assess REASON FOR HOSPITALIZATION:: Cocaine abuse, Rhabdo PAST MEDICAL HISTORY/PAST SURGICAL HISTORY:: CAD, COPD, GERD, HTN , Hypercholesterolemia, current everyday smoker, H/O heart artery stent PREVIOUS FUNCTIONAL STATUS/SOCIAL/FAMILY SUPPORTS:: Mikael resides with his , Yesi in [place], [place]. He has five children all of whom reside in [place], [place]. Mikael has been on disability since 2011, is independent at baseline and manages his own ADLs. CURRENT FUNCTIONAL STATUS:: Mikael is sitting up in bed smiling. He is surrounded by visitors and appears to have a good support network. ADVANCE DIRECTIVES:: None on file at [facility]. Has patient been provided with information about the portal?: Yes Did the patient sign up for the portal?: No CODE STATUS:: Full Code INSURANCE COVERAGE / FINANCIAL ISSUES:: Medicaid. Medicare CURRENT HOME/COMMUNITY SERVICES/EQUIPMENT:: No current services or equipment. PRIMARY CARE PHYSICIAN:: Tawanda Dooley MD POTENTIAL DISCHARGE NEEDS:: MH evaluation; likely coordination of psychiatric stabilization. PATIENT/FAMILY EDUCATION NEEDS:: Review discharge instructions; discuss transfer process with [facility] support; community based follow up post stabilization. ANTICIPATED BARRIERS TO DISCHARGE:: None identified at this time. TRANSPORTATION:: Psychiatric stabilization transport provided by [facility]. PLAN:: Once medically cleared, referral process for psychiatric stabilization will resume and [facility] will likely transfer to psyche facility. He will transport via Supervisor Of Communications escort. will continue to support discharge planning considerations and Mikael and his in the interim. Readmission - Within the Past 30 Days Yes or No: N (Last ED visit 09/15/16)
[2017-12-13] MEDS: Budesonide/Formoterol 160/4.5 6 GM 60 PUFF INH IH ×2 (09:07→21:16)
[2017-12-13] MEDS: Metoprolol CR 50 MG TABCR PO (09:27)
[2017-12-13] MEDS: Isosorbide Mononitrate 30 MG TABCR PO (09:27)
[2017-12-13] MEDS: Aspirin 81 MG CHEW PO (09:27)
--- NOTE | 2017-12-13 10:25 | W.PM.PROGNOT ---
Assessment and Plan (1) Polysubstance abuse: Current visit: Yes Status: Acute Apparent history of IV cocaine abuse, with large amount of reported cocaine injection. Given patient's concurrent suicide attempts he has been tentatively accepted that psychiatric facility pending medical clearance. (2) Suicide attempt by hanging: Current visit: Yes Status: Acute Apparent relapse of both drug and alcohol use, with a cocaine binge resulting in a suicide attempt. Patient is currently under treatment for resultant rhabdomyolysis as well as upper extremity cellulitis, with placement into psychiatric facility pending medical clearance. (3) Rhabdomyolysis: Current visit: Yes Status: Acute Evidence of rhabdomyolysis following a prolonged episode of IV cocaine abuse with reportedly large amounts of this substance. Current CPK appears to be improving, with a current value of 4707 down from a value of greater than 8000 yesterday. Continue IV fluid at current rate and monitor volume status. Last EF of 55% by nuclear scan in 2017. Renal function is stable and at baseline. (4) Cellulitis of left upper extremity: Current visit: Yes Status: Acute Infection at site of prior IV cocaine injection. Cellulitic changes appear to be improving. For now we will continue IV vancomycin with plans to change to oral antibiotics soon. (5) Coronary atherosclerosis of [place] coronary artery: Current visit: No Status: Chronic Appears quiescent. Continue ASA, statin, BB therapy. Patient is also on Imdur and prn NTG. (6) COPD (chronic obstructive pulmonary disease): Current visit: No Status: Chronic Appears quiescent. Continue home inhaler therapy. (7) GERD (gastroesophageal reflux disease): Current visit: No Status: Chronic Continue PPI therapy. (8) Schizoaffective disorder: Current visit: No Status: Chronic Continue home regimen of lithium and Lamictal, as well as nightly risperidone. [place] level at time of admission was not elevated. (9) DVT prophylaxis: Current visit: Yes Status: Acute Initiate subcutaneous Lovenox and SCDs. Subjective Patient reports: afebrile Interval history since last seen: 57 yo male with a past medical history significant for schizoaffective disorder, multiple suicide attempts, and polysubstance abuse, admitted on December 12 from [facility] emergency department following a suicide attempt. Mr. Bailey had a reported 2-3-day history of large amounts of IV cocaine followed by suicide attempt by hanging. Injection site was the left antecubital. At time of his presentation he was noted to have evidence of a left upper extremity cellulitis at the injection site, as well as evidence of rhabdomyolysis by labs. He has been maintained on IV fluids with good urine output, as well as IV antibiotics with vancomycin. Cultures so far remain negative, and urine culture shows a mixed gram-positive rebecca less than 10,000 colonies per mL. The patient has no complaints today and reports feeling well. No overnight events were reported. Mr. Bailey remains afebrile. Exam Const General: cooperative, comfortable, no acute distress, not combative and well hydrated Nutritional Appearance: obese Orientation: alert, awake and oriented x3 Chest Chest: normal inspection of the chest Resp Effort & Inspection: normal respiratory effort and able to speak in complete sentences Auscultation: clear to auscultation bilaterally, no crackles and no wheezes Cardio Rate: regular rate Heart Sounds: S1 normal and S2 normal GI Inspection: normal to inspection Palpation: soft, no guarding and nontender Neuro General: alert, awake, oriented x3, moves all extremities, no focal motor deficits and not confused Extrem General: edema (1+ bilateral lower extremity edema) Psych Appearance: grossly normal Mental Status: mental status grossly normal Attitude: cooperative Thought Process: normal Objective Objective Clinical Data: Abnormal lab results 12/12/17 12/13/17 12/13/17 Range/Units 01:40 06:15 06:15 RBC 4.11 L (4.50-6.00) m/cumm Hgb 12.7 L D (13.5-17.5) g/dL Hct 38.5 L (40.0-50.0) % Absolute Monocytes 0.74 H (0.11-0.7) k/cumm Chloride 111 H (98-107) mmol/L Anion Gap 0.7 L (3-11) mmol/L Glucose 104 H (70-100) mg/dL Calcium 8.1 L (8.5-10.1) mg/dL AST 131 H (15-37) U/L Creatine Kinase 4707 H (39-308) U/L Total Protein 5.5 L (6.4-8.2) g/dL Albumin 2.5 L (3.4-5.0) g/dL Ur Specific [place] >= 1.030 H (1.005-1.025) Urine Protein 100 H (Negative) mg/dL Urine Ketones 15 H (Negative) mg/dL Urine Blood Moderate H (Negative) Urine RBC 3-5 H (0-2) Vital Signs Temp 37 C 12/13/17 08:28 Pulse 61 12/13/17 03:48 Resp 16 12/13/17 03:48 BP 104/54 L 12/13/17 03:48 Pulse Ox 91 L 12/13/17 03:55 Intake & Output 12/12/17 12/12/17 12/13/17 11:59 23:59 11:59 Intake Total 3170 / 3170 2570 / 2570 1000 / 1000 Output Total 525 / 525 2150 / 2150 1275 / 1275 Balance 2645 / 2645 420 / 420 -275 / -275 Weight 113.3 kg 113.3 kg 111.8 kg Intake: IV 3170 / 3170 500 / 500 1000 / 1000 Oral 2069 / 2069 Output: Urine 525 / 525 2150 / 2150 1275 / 1275 Other: Urine Color Dark Ashli Pale Yellow Yellow Urine Appearance Clear Clear Clear Hematuria Urine Odor None None Voiding Methods Urinal Urinal Urinal Laboratory Results WBC 6.45 k/cumm (4.4-10.8) 12/13/17 06:15 RBC 4.11 m/cumm (4.50-6.00) L 12/13/17 06:15 Hgb 12.7 g/dL (13.5-17.5) L D 12/13/17 06:15 Hct 38.5 % (40.0-50.0) L 12/13/17 06:15 MCV 93.7 fL (80-95) 12/13/17 06:15 MCH 30.9 pg (27.0-33.0) 12/13/17 06:15 MCHC 33.0 g/dL (32.0-36.0) 12/13/17 06:15 RDW 13.4 % (11.8-14.1) 12/13/17 06:15 Plt Count 150 x1000/uL (130-400) 12/13/17 06:15 MPV 9.3 fL (8.0-11.0) 12/13/17 06:15 Immature Gran % 0.3 12/13/17 06:15 Neutrophils % 63.7 12/13/17 06:15 Lymphocytes % 20.3 12/13/17 06:15 Monocytes % 11.5 12/13/17 06:15 Eosinophils % 3.9 12/13/17 06:15 Basophils % 0.3 12/13/17 06:15 Absolute Neutrophils 4.11 k/cumm (1.2-6.7) 12/13/17 06:15 Band Neutrophils 4.0 % 12/12/17 02:06 Absolute Lymphocytes 1.31 k/cumm (1.2-3.4) 12/13/17 06:15 Absolute Monocytes 0.74 k/cumm (0.11-0.7) H 12/13/17 06:15 Absolute Eosinophils 0.25 k/cumm (0.0-0.7) 12/13/17 06:15 Absolute Basophils 0.02 k/cumm (0.0-0.2) 12/13/17 06:15 Differential Comment Manual differential 12/12/17 02:06 RBC Morphology Normal 12/12/17 02:06 Sodium 140 mmol/L (136-145) 12/13/17 06:15 Potassium 3.9 mmol/L (3.5-5.1) D 12/13/17 06:15 Chloride 111 mmol/L (98-107) H 12/13/17 06:15 Carbon Dioxide 28.3 mmol/L (21.0-32.0) 12/13/17 06:15 Anion Gap 0.7 mmol/L (3-11) L 12/13/17 06:15 BUN 9 mg/dL (7-18) 12/13/17 06:15 Creatinine 0.72 mg/dL (0.70-1.30) 12/13/17 06:15 Estimated GFR/1.73 m2 >= 60.00 (mL/min/1.73m2) 12/13/17 06:15 Glucose 104 mg/dL (70-100) H 12/13/17 06:15 Calcium 8.1 mg/dL (8.5-10.1) L 12/13/17 06:15 Total Bilirubin 0.2 mg/dL (0.2-1.0) 12/13/17 06:15 AST 131 U/L (15-37) H 12/13/17 06:15 ALT 78 U/L (12-78) 12/13/17 06:15 Alkaline Phosphatase 73 U/L (46-116) 12/13/17 06:15 Creatine Kinase 4707 U/L (39-308) H 12/13/17 06:15 Total Protein 5.5 g/dL (6.4-8.2) L 12/13/17 06:15 Albumin 2.5 g/dL (3.4-5.0) L 12/13/17 06:15 TSH 0.68 uIU/mL (0.358-3.74) 12/12/17 02:06 Urine Color Yellow (Yellow) 12/12/17 01:40 Urine Clarity Clear 12/12/17 01:40 Urine pH 5.5 (5-8) 12/12/17 01:40 Ur Specific [place] >= 1.030 (1.005-1.025) H 12/12/17 01:40 Urine Protein 100 mg/dL (Negative) H 12/12/17 01:40 Urine Ketones 15 mg/dL (Negative) H 12/12/17 01:40 Urine Blood Moderate (Negative) H 12/12/17 01:40 Urine Nitrite Negative (Negative) 12/12/17 01:40 Urine Bilirubin Negative (Negative) 12/12/17 01:40 Urine Urobilinogen 0.2 EU/dL (Up TO 0.2) 12/12/17 01:40 Ur Leukocyte Esterase Negative (Negative) 12/12/17 01:40 Urine RBC 3-5 (0-2) H 12/12/17 01:40 Urine WBC 0-2 HPF (0-5) 12/12/17 01:40 Ur Epithelial Cells Rare HPF (Negative) 12/12/17 01:40 Urine Crystals Negative HPF (Negative) 12/12/17 01:40 Urine Bacteria Moderate HPF (Negative) 12/12/17 01:40 Urine Casts LPF (Negative) 12/12/17 01:40 Urine Mucus Moderate (Negative) 12/12/17 01:40 Urine Other Rare transitional (Negative) 12/12/17 01:40 Ur Culture Indicated? Yes 12/12/17 01:40 Urine Glucose Negative mg/dL (Negative) 12/12/17 01:40 Vancomycin Trough 13.0 ug/mL (10.0-20.0) 12/13/17 09:23 Salicylates 5.5 mg/dL (2.8-20.0) 12/12/17 02:06 Urine Opiates Screen Negative (Negative) 12/12/17 01:40 Urine Methadone Screen Negative (Negative) 12/12/17 01:40 Acetaminophen < 2 ug/mL (10-30) L 12/12/17 02:06 Ur Barbiturates Screen Negative (Negative) 12/12/17 01:40 Ur Tricyclics Screen Negative (Negative) 12/12/17 01:40 Ur Amphetamines Screen Negative (Negative) 12/12/17 01:40 U Benzodiazepines Scrn Negative (Negative) 12/12/17 01:40 [place] 0.29 mmol/L (0.60-1.20) L 12/12/17 02:06 Urine Cocaine Screen Positive (Negative) 12/12/17 01:40 Ur THC Screen Negative (Negative) 12/12/17 01:40 Ethyl Alcohol 86.1 mg/dL (<3) 12/12/17 02:06
--- NOTE | 2017-12-13 10:30 | INITIAL_ITS ---
- If Service Date Differs Date of service: 12/13/17 Care Management Initial Assess REASON FOR HOSPITALIZATION:: Cocaine abuse, Rhabdo PAST MEDICAL HISTORY/PAST SURGICAL HISTORY:: CAD, COPD, GERD, HTN , Hypercholesterolemia, current everyday smoker, H/O heart artery stent PREVIOUS FUNCTIONAL STATUS/SOCIAL/FAMILY SUPPORTS:: Mikael resides with his , Yesi in [place], [place]. He has five children all of whom reside in [place], [place]. Mikael has been on disability since 2011, is independent at baseline and manages his own ADLs. CURRENT FUNCTIONAL STATUS:: Mikael is sitting up in bed smiling. He is surrounded by visitors and appears to have a good support network. ADVANCE DIRECTIVES:: None on file at [facility]. Has patient been provided with information about the portal?: Yes Did the patient sign up for the portal?: No CODE STATUS:: Full Code INSURANCE COVERAGE / FINANCIAL ISSUES:: Medicaid. Medicare CURRENT HOME/COMMUNITY SERVICES/EQUIPMENT:: No current services or equipment. PRIMARY CARE PHYSICIAN:: Tawanda Dooley MD POTENTIAL DISCHARGE NEEDS:: MH evaluation; likely coordination of psychiatric stabilization. PATIENT/FAMILY EDUCATION NEEDS:: Review discharge instructions; discuss transfer process with [facility] support; community based follow up post stabilization. ANTICIPATED BARRIERS TO DISCHARGE:: None identified at this time. TRANSPORTATION:: Psychiatric stabilization transport provided by [facility]. PLAN:: Once medically cleared, referral process for psychiatric stabilization will resume and [facility] will likely transfer to psyche facility. He will transport via Nurse Intern escort. will continue to support discharge planning considerations and Mikael and his in the interim. Readmission - Within the Past 30 Days Yes or No: N (Last ED visit 09/15/16)
--- NOTE | 2017-12-13 10:40 | W.INMHPGNOTE ---
Date of service: 12/13/17 Time of Service: 10:41 Mental Health Progress Note Progress Note: Presenting Issue: Patient initially arrived at the emergency department after trying to hang himself. Patient was admitted for for medical concerns and will be re-evaluated by mental health on a daily basis until he can be sent to a mental health treatment facility. Precipitating Factors Patient seems to be in much better spirits and is able to laugh. He states that he frequently still has thoughts of SI but he denies SI at this current moment. The patient is future oriented and wants to get better. Disposition * Behavior: Patient is laying on the hospital bed talking to this typewriter ribbon winder while his mother and engineering professionals visit him *Eye Contact:Direct *Mood: Positive *Affect:Broad *Appetite:Good *Sleep(trouble falling/staying asleep): Patient states that he has slept a lot since being at the hospital Plan(please elaborate and include that physician is consulted with plan and/or placement): Patient will continue to be medically monitored and once cleared he will be sent to a mental health treatment facility. Clinician's Name , Title, and Signature Make sure that you are photocopying and submitting this to [facility] records Dept. to be scanned into chart.
--- NOTE | 2017-12-13 10:51 | MHPN_ITS ---
Date of service: 12/13/17 Time of Service: 10:41 Mental Health Progress Note Progress Note: Presenting Issue: Patient initially arrived at the emergency department after trying to hang himself. Patient was admitted for for medical concerns and will be re-evaluated by mental health on a daily basis until he can be sent to a mental health treatment facility. Precipitating Factors Patient seems to be in much better spirits and is able to laugh. He states that he frequently still has thoughts of SI but he denies SI at this current moment. The patient is future oriented and wants to get better. Disposition * Behavior: Patient is laying on the hospital bed talking to this financial writer while his mother and lapel baster visit him *Eye Contact:Direct *Mood: Positive *Affect:Broad *Appetite:Good *Sleep(trouble falling/staying asleep): Patient states that he has slept a lot since being at the hospital Plan(please elaborate and include that physician is consulted with plan and/or placement): Patient will continue to be medically monitored and once cleared he will be sent to a mental health treatment facility. Clinician's Name , Title, and Signature Make sure that you are photocopying and submitting this to [facility] records Dept. to be scanned into chart.
--- NOTE | 2017-12-13 12:13 | PHARADMIT ---
Addendum entered by Alessio Chowdary III 12/16/17 12:48: Pharmacy Note Subjective Patient is on suicide precautions, being seen by [facility] crisis Screener. Has cadre 01/11 Objective VS-OK Pain:08/18 Labs-OK CPK- 963 Last BM 12/13 Assessment Linezolid PO continues (for celluitis from drug abuse) On [place] PO Plan Awaiting bed and placement (voluntarily) once CPK is below 500 Original Note: Addendum entered by Alessio Chowdary III 12/15/17 16:35: Pharmacy Note Subjective MD is continuing IV fluids (LR) @ 200ml/hr to help washout, and drop CPK.(2179 down from 4707) MRSA-pending, Blood-No growth x 72hrs. Urine-mixed rebecca. On Linezolid PO. Objective VS-OK SCr-0.76 LFT's-OK Wgt- 122.9 kg Last-BM 12/13 Assessment [place] level 0.29 (0.60-1.2) Plan Watch CPK ....rhabdomyolisis Original Note: Admission Pharmacy Clinical Review cocaine abuse, rhabdo Code Status Full Code Current Weight 111.8 kg Renally Cleared and Narrow Therapeutic Index Meds Crcl ~107.00 mL/min current meds okay pt is on lithium QTc Value / Action Taken BP Control, Fever BP 104/54 afebrile Electrolytes reviewed Cl 111 DVT Prophylaxis enoxaparin Opiate Usage / Scheduled Bowel Regimen Ordered no/prn Plt/SCr for Heparin / Enoxaparin plt 150 SCr 0.72 INR for Warfarin n/a H/H stable, WBC/Bands h/h 12.7/38.5 wbc 6.45 Antibiotic appropriateness vanco Cultures and Sensitivities blood cultures no growth at 24 hours; urine culture grew gram positive rebecca Surgical ABX d/c within 24 hr n/a DM control / Insulin Dosing BG 104 n/a Heart Failure (Check EF%) (LAURA's, B-Block, Diuretics) metoprolol IV to PO Switch n/a Home Meds Reviewed -multiple anticholinergic meds: tiotropium, risperidone -ibuprofen may enhance the adverse effects of aspirin (increased bleed risk) -ibuprofen may enhance the serum concentration of lithium Home Meds Not Ordered atorvastatin, nitroglycerin Comments vanco dose 1500 mg Q8H, trough came back a bit low at 13. 2000 mg Q8H would target a trough of 15.4, but that dosing is a bit high so MD wanted to continue the 1500 mg Q8H dosing for now
--- NOTE | 2017-12-13 15:04 | PDOC.CMPRO ---
Care Management Progress Note Mikael is not yet medically cleared. The safety plan remains in effect with no needed changes at this time. He remains pleasant and cooperative in interaction and fully engaged in all interactions. SAFETY PLAN: 1. Will remain on suicide precautions and in paper clothes. 2. Will remain in room under direct supervision of one-on-one staff at all times provided by OUSMANE, SEATER GRINDER diesel engine inspector. 3. Finger foods only. 4. Follow [facility] Management of the Admitted Behavioral Health Patient policy printed and attached to the safety plan in physical chart. 5. Comfort bath system only. 6. No personal belongings 7. May have visitors at patient and RN discretion. 8. May have use of television and remote. Patient is currently voluntarily at [facility] and seeking inpatient admission when a bed becomes available. [facility] Frontline Equipment Operator/Laborer/Supervisor will continue seeking placement. Please contact the Appraiser Lay Brother ([phone]) and [facility] Equipment Operator/Laborer/Supervisor ([phone]) for any needed changes in the Safety Plan. Safety plan has been provided to interdepartmental care team including Clinical Coordinator, Nursing J2Ee Java Developer.
--- NOTE | 2017-12-13 15:22 | CMPROGNOTE_ITS ---
Care Management Progress Note Mikael is not yet medically cleared. The safety plan remains in effect with no needed changes at this time. He remains pleasant and cooperative in interaction and fully engaged in all interactions. SAFETY PLAN: 1. Will remain on suicide precautions and in paper clothes. 2. Will remain in room under direct supervision of one-on-one staff at all times provided by OUSMANE, DINING CAR HOP skein mercerizing machine operator. 3. Finger foods only. 4. Follow [facility] Management of the Admitted Behavioral Health Patient policy printed and attached to the safety plan in physical chart. 5. Comfort bath system only. 6. No personal belongings 7. May have visitors at patient and RN discretion. 8. May have use of television and remote. Patient is currently voluntarily at [facility] and seeking inpatient admission when a bed becomes available. [facility] Frontline Curriculum And Assessment Director will continue seeking placement. Please contact the Funeral Service Manager Impact Retail Service Merchandiser ([phone]) and [facility] Curriculum And Assessment Director ([phone]) for any needed changes in the Safety Plan. Safety plan has been provided to interdepartmental care team including Clinical Coordinator, Nursing Land Surveyor Manager.
[2017-12-13] MEDS: Docusate Sodium 100 MG CAP PO (17:53)
[2017-12-13] MEDS: Normal Saline Flush 10 ML SYR IVP (17:53)
[2017-12-13] MEDS: VANCOMYCIN 1,500 MG in Normal Saline 500 ML 333 MG IVPB (21:15)
[2017-12-13] MEDS: risperiDONE 1 MG TAB 2 MG PO (21:20)
[2017-12-13] MEDS: lamoTRIgine 25 MG TAB 150 MG PO (22:30)
[2017-12-14] VITALS (8 sets, daily range): BP systolic 113–146; BP diastolic 66–80; PULSE 56–64; RESP 16–20; TEMP 36.3–36.9; O2SAT 93–98
[2017-12-14] MEDS: Lactated Ringers 1,000 ML 150 ML IV ×2 (03:33→11:21)
[2017-12-14] MEDS: VANCOMYCIN 1,500 MG in Normal Saline 500 ML 333.333 MG IVPB ×2 (04:03→11:22)
[2017-12-14 07:45] LABS: ALT 90 U/L (12-78); AST 113 U/L (15-37); Albumin 2.6 g/dL (3.4-5.0); Alkaline Phosphatase 77 U/L (46-116); Anion Gap 3.5 mmol/L (3-11); BUN 8 mg/dL (7-18); Bilirubin, Total 0.2 mg/dL (0.2-1.0); CO2 27.5 mmol/L (21.0-32.0); CREATININE 0.64 mg/dL (0.70-1.30); Calcium 8.1 mg/dL (8.5-10.1); Chloride 111 mmol/L (98-107); Glucose 100 mg/dL (70-100); Potassium 3.9 mmol/L (3.5-5.1); Sodium 142 mmol/L (136-145); Total Protein 5.5 g/dL (6.4-8.2)
[2017-12-14 07:46] LABS: Creatine Kinase 3723 U/L (39-308)
[2017-12-14] MEDS: Isosorbide Mononitrate 30 MG TABCR PO (08:15)
[2017-12-14] MEDS: Pantoprazole 20 MG TABCR 40 MG PO (08:15)
[2017-12-14] MEDS: Aspirin 81 MG CHEW PO (08:15)
[2017-12-14] MEDS: Metoprolol CR 50 MG TABCR PO (08:15)
[2017-12-14] MEDS: Budesonide/Formoterol 160/4.5 6 GM 60 PUFF INH IH ×2 (08:20→20:22)
--- NOTE | 2017-12-14 11:43 | PDOC.CMPRO ---
Care Management Progress Note S/O: Mikael was reviewed in interdisciplinary rounds meeting; MD reports a few more days anticipated prior to medical clearance for MH consult and resumption of psychiatric stabilization placement process. Mikael continues to be monitored closely; per MD his muscle enzymes continue to decrease with the use of IV fluids but this will be a slow process. Mikael continues to be treated with IV Vanco for cellulitis on his arm from injection sights. Mikael was lying in bed, his at his bedside when CM met with him. CM reviewed safety plan and inpatient process of medical care prior to MH consultation. Mikael was fully engaged in conversation, asked appropriate questions and was pleasant in interaction. He advocated for the ability to ambulate through the hallways with his , and be permitted a shower today; interdisciplinary team is in agreement these changes are appropriate in relation to his continued cooperation and appropriate affect and engagement with all staff. A: 57 year old male admitted to [facility] 12/12/17 for Cocaine abuse, attempted hanging; SI and Rhabdo P: Once medically cleared, Mikael will be evaluated by Crisis Screener at [facility] who will likely resume process for inpatient psychiatric stabilization placement. CM will continue to follow; support discharge planning considerations and support Mikael and his while inpatient. Transportation TBD by disposition. Mikael will have visitor and comfort privileges limited only for safety and at the nurses discretion. SAFETY PLAN: 1. Will remain on suicide precautions and in paper clothes. 2. Will remain under direct supervision of one-on-one staff at all times provided by COMPUTER SYSTEMS CONSULTANT, EXPLOSIVE OPERATOR SUPERVISOR can conveyor feeder. 3. Finger foods only. 4. Follow [facility] Management of the Admitted Behavioral Health Patient policy printed and attached to the safety plan in physical chart. 5. Mikael is permitted to ambulate independently in the hallway, and have use of shower room for hygiene. 6. Mikael may have use of Activity Cart at RN discretion as well as permitted personal items at RN discretion; NO SHARPS. 7. May have visitors at patient and RN discretion. 8. May have use of television and remote. Patient is currently voluntarily at [facility] and seeking inpatient admission when a bed becomes available. [facility] Frontline Treasurer [employer] will continue seeking placement. Please contact the Warehouse General Laborer Line Leader ([phone]) and [facility] Treasurer [employer] Bank ([phone]) for any needed changes in the Safety Plan. Safety plan has been provided to interdepartmental care team including Clinical Coordinator, Nursing Colon Therapist.
--- NOTE | 2017-12-14 12:00 | CMPROGNOTE_ITS ---
Care Management Progress Note S/O: Mikael was reviewed in interdisciplinary rounds meeting; MD reports a few more days anticipated prior to medical clearance for MH consult and resumption of psychiatric stabilization placement process. Mkiael continues to be monitored closely; per MD his muscle enzymes continue to decrease with the use of IV fluids but this will be a slow process. Mikael continues to be treated with IV Vanco for cellulitis on his arm from injection sights. Mikael was lying in bed, his at his bedside when CM met with him. CM reviewed safety plan and inpatient process of medical care prior to MH consultation. Mikael was fully engaged in conversation, asked appropriate questions and was pleasant in interaction. He advocated for the ability to ambulate through the hallways with his , and be permitted a shower today; interdisciplinary team is in agreement these changes are appropriate in relation to his continued cooperation and appropriate affect and engagement with all staff. A: 57 year old male admitted to [facility] 12/12/17 for Cocaine abuse, attempted hanging ; SI and Rhabdo P: Once medically cleared, Mikael will be evaluated by Crisis Screener at [facility] who will likely resume process for inpatient psychiatric stabilization placement. CM will continue to follow; support discharge planning considerations and support Mikael and his while inpatient. Transportation TBD by disposition. Mikael will have visitor and comfort privileges limited only for safety and at the nurses discretion. SAFETY PLAN: 1. Will remain on suicide precautions and in paper clothes. 2. Will remain under direct supervision of one-on-one staff at all times provided by PATTERN FILER, ASSEMBLY DEPARTMENT SUPERVISOR janitorial assistant. 3. Finger foods only. 4. Follow [facility] Management of the Admitted Behavioral Health Patient policy printed and attached to the safety plan in physical chart. 5. Mikael is permitted to ambulate independently in the hallway, and have use of shower room for hygiene. 6. Mikael may have use of Activity Cart at RN discretion as well as permitted personal items at RN discretion; NO SHARPS. 7. May have visitors at patient and RN discretion. 8. May have use of television and remote. Patient is currently voluntarily at [facility] and seeking inpatient admission when a bed becomes available. [facility] Frontline Metal Weather Stripper will continue seeking placement. Please contact the Mental Measurements Teacher Store Facility Technician ([phone]) and [facility] Metal Weather Stripper ([phone]) for any needed changes in the Safety Plan. Safety plan has been provided to interdepartmental care team including Clinical Coordinator, Nursing Car Sander.
--- NOTE | 2017-12-14 14:54 | PGE_ITS ---
Assessment and Plan (1) Polysubstance abuse: Current visit: Yes Status: Acute Apparent history of IV cocaine abuse, with large amount of reported cocaine injection. Given patient's concurrent suicide attempts he has been tentatively accepted that psychiatric facility pending medical clearance. (2) Suicide attempt by hanging: Current visit: Yes Status: Acute Apparent relapse of both drug and alcohol use, with a cocaine binge resulting in a suicide attempt. Patient is currently under treatment for resultant rhabdomyolysis as well as upper extremity cellulitis, with placement into psychiatric facility pending medical clearance. (3) Rhabdomyolysis: Current visit: Yes Status: Acute Evidence of rhabdomyolysis following a prolonged episode of IV cocaine abuse with reportedly large amounts of this substance. Current CPK appears to be improving, with a current value down to the 300's from an original value of greater than 8000. Continue but increase IV fluid rate and monitor volume status. Last EF of 55% by nuclear scan in 2017. Renal function is stable and at baseline. (4) Cellulitis of left upper extremity: Current visit: Yes Status: Acute Infection at site of prior IV cocaine injection. Cellulitic changes appear to be improving. For now we will continue IV vancomycin with plans to change to oral antibiotics today with Linezolid, and check MRSA swab.. (5) Coronary atherosclerosis of [place] coronary artery: Current visit: No Status: Chronic Appears quiescent. Continue ASA, statin, BB therapy. Patient is also on Imdur and prn NTG. (6) COPD (chronic obstructive pulmonary disease): Current visit: No Status: Chronic Appears quiescent. Continue home inhaler therapy. (7) GERD (gastroesophageal reflux disease): Current visit: No Status: Chronic Continue PPI therapy. (8) Schizoaffective disorder: Current visit: No Status: Chronic Continue home regimen of lithium and Lamictal, as well as nightly risperidone. [place] level at time of admission was not elevated. (9) DVT prophylaxis: Current visit: Yes Status: Acute Continue subcutaneous Lovenox and SCDs. Subjective Patient reports: afebrile Interval history since last seen: 57 yo male with a past medical history significant for schizoaffective disorder, multiple suicide attempts, and polysubstance abuse, admitted on December 12 from [facility] emergency department following a suicide attempt. Mr. Bailey had a reported 2-3-day history of large amounts of IV cocaine followed by suicide attempt by hanging. Injection site was the left antecubital. At time of his presentation he was noted to have evidence of a left upper extremity cellulitis at the injection site, as well as evidence of rhabdomyolysis by labs. He has been maintained on IV fluids with good urine output, as well as IV antibiotics with vancomycin. Cultures so far remain negative, and urine culture shows a mixed gram-positive rebecca less than 10,000 colonies per mL. CPK continues to improve as well, and renal function remains intact. The patient has no complaints today and reports feeling well. No overnight events were reported. Mr. Bailey remains afebrile. Exam Const General: cooperative, comfortable, no acute distress, well developed and not combative Nutritional Appearance: obese Orientation: alert, awake and oriented x3 Neck Neck: supple Resp Effort & Inspection: normal respiratory effort and able to speak in complete sentences Auscultation: clear to auscultation bilaterally, no crackles, diminished lung sounds and no wheezes Cardio Rate: regular rate Heart Sounds: S1 normal and S2 normal Pulses: radial pulses present GI Inspection: normal to inspection Palpation: soft, no guarding and nontender Extrem General: no clubbing, cyanosis or edema Objective Objective Clinical Data: Abnormal lab results 12/14/17 Range/Units 06:45 Chloride 111 H (98-107) mmol/L Creatinine 0.64 L (0.70-1.30) mg/dL Calcium 8.1 L (8.5-10.1) mg/dL AST 113 H (15-37) U/L ALT 90 H (12-78) U/L Creatine Kinase 3723 H (39-308) U/L Total Protein 5.5 L (6.4-8.2) g/dL Albumin 2.6 L (3.4-5.0) g/dL Vital Signs Temp 36.9 C 12/14/17 13:25 Pulse 57 L 12/14/17 13:25 Resp 18 12/14/17 13:25 BP 134/80 12/14/17 13:25 Pulse Ox 98 12/14/17 13:25 Intake & Output 12/13/17 12/14/17 12/14/17 23:59 11:59 23:59 Intake Total 1601.5 / 1601.5 3500.0 / 3500.0 740 / 740 Output Total 375 / 375 2400 / 2400 Balance 1226.5 / 1226.5 1100.0 / 1100.0 740 / 740 Weight 118.8 kg Intake: IV 1097.5 / 1097.5 3500.0 / 3500.0 500 / 500 Oral 504 / 504 240 / 240 Output: Urine 375 / 375 2400 / 2400 Other: Urine Color Yellow Yellow Urine Appearance Clear Clear Urine Odor Normal Stool Size Large Stool Characteristics Soft Formed Brown Voiding Methods Urinal Toilet Laboratory Results WBC 6.45 k/cumm (4.4-10.8) 12/13/17 06:15 RBC 4.11 m/cumm (4.50-6.00) L 12/13/17 06:15 Hgb 12.7 g/dL (13.5-17.5) L D 12/13/17 06:15 Hct 38.5 % (40.0-50.0) L 12/13/17 06:15 MCV 93.7 fL (80-95) 12/13/17 06:15 MCH 30.9 pg (27.0-33.0) 12/13/17 06:15 MCHC 33.0 g/dL (32.0-36.0) 12/13/17 06:15 RDW 13.4 % (11.8-14.1) 12/13/17 06:15 Plt Count 150 x1000/uL (130-400) 12/13/17 06:15 MPV 9.3 fL (8.0-11.0) 12/13/17 06:15 Immature Gran % 0.3 12/13/17 06:15 Neutrophils % 63.7 12/13/17 06:15 Lymphocytes % 20.3 12/13/17 06:15 Monocytes % 11.5 12/13/17 06:15 Eosinophils % 3.9 12/13/17 06:15 Basophils % 0.3 12/13/17 06:15 Absolute Neutrophils 4.11 k/cumm (1.2-6.7) 12/13/17 06:15 Band Neutrophils 4.0 % 12/12/17 02:06 Absolute Lymphocytes 1.31 k/cumm (1.2-3.4) 12/13/17 06:15 Absolute Monocytes 0.74 k/cumm (0.11-0.7) H 12/13/17 06:15 Absolute Eosinophils 0.25 k/cumm (0.0-0.7) 12/13/17 06:15 Absolute Basophils 0.02 k/cumm (0.0-0.2) 12/13/17 06:15 Differential Comment Manual differential 12/12/17 02:06 RBC Morphology Normal 12/12/17 02:06 Sodium 142 mmol/L (136-145) 12/14/17 06:45 Potassium 3.9 mmol/L (3.5-5.1) 12/14/17 06:45 Chloride 111 mmol/L (98-107) H 12/14/17 06:45 Carbon Dioxide 27.5 mmol/L (21.0-32.0) 12/14/17 06:45 Anion Gap 3.5 mmol/L (3-11) 12/14/17 06:45 BUN 8 mg/dL (7-18) 12/14/17 06:45 Creatinine 0.64 mg/dL (0.70-1.30) L 12/14/17 06:45 Estimated GFR/1.73 m2 >= 60.00 (mL/min/1.73m2) 12/14/17 06:45 Glucose 100 mg/dL (70-100) 12/14/17 06:45 Calcium 8.1 mg/dL (8.5-10.1) L 12/14/17 06:45 Total Bilirubin 0.2 mg/dL (0.2-1.0) 12/14/17 06:45 AST 113 U/L (15-37) H 12/14/17 06:45 ALT 90 U/L (12-78) H 12/14/17 06:45 Alkaline Phosphatase 77 U/L (46-116) 12/14/17 06:45 Creatine Kinase 3723 U/L (39-308) H 12/14/17 06:45 Total Protein 5.5 g/dL (6.4-8.2) L 12/14/17 06:45 Albumin 2.6 g/dL (3.4-5.0) L 12/14/17 06:45 TSH 0.68 uIU/mL (0.358-3.74) 12/12/17 02:06 Urine Color Yellow (Yellow) 12/12/17 01:40 Urine Clarity Clear 12/12/17 01:40 Urine pH 5.5 (5-8) 12/12/17 01:40 Ur Specific [place] >= 1.030 (1.005-1.025) H 12/12/17 01:40 Urine Protein 100 mg/dL (Negative) H 12/12/17 01:40 Urine Ketones 15 mg/dL (Negative) H 12/12/17 01:40 Urine Blood Moderate (Negative) H 12/12/17 01:40 Urine Nitrite Negative (Negative) 12/12/17 01:40 Urine Bilirubin Negative (Negative) 12/12/17 01:40 Urine Urobilinogen 0.2 EU/dL (Up TO 0.2) 12/12/17 01:40 Ur Leukocyte Esterase Negative (Negative) 12/12/17 01:40 Urine RBC 3-5 (0-2) H 12/12/17 01:40 Urine WBC 0-2 HPF (0-5) 12/12/17 01:40 Ur Epithelial Cells Rare HPF (Negative) 12/12/17 01:40 Urine Crystals Negative HPF (Negative) 12/12/17 01:40 Urine Bacteria Moderate HPF (Negative) 12/12/17 01:40 Urine Casts LPF (Negative) 12/12/17 01:40 Urine Mucus Moderate (Negative) 12/12/17 01:40 Urine Other Rare transitional (Negative) 12/12/17 01:40 Ur Culture Indicated? Yes 12/12/17 01:40 Urine Glucose Negative mg/dL (Negative) 12/12/17 01:40 Vancomycin Trough 13.0 ug/mL (10.0-20.0) 12/13/17 09:23 Salicylates 5.5 mg/dL (2.8-20.0) 12/12/17 02:06 Urine Opiates Screen Negative (Negative) 12/12/17 01:40 Urine Methadone Screen Negative (Negative) 12/12/17 01:40 Acetaminophen < 2 ug/mL (10-30) L 12/12/17 02:06 Ur Barbiturates Screen Negative (Negative) 12/12/17 01:40 Ur Tricyclics Screen Negative (Negative) 12/12/17 01:40 Ur Amphetamines Screen Negative (Negative) 12/12/17 01:40 U Benzodiazepines Scrn Negative (Negative) 12/12/17 01:40 [place] 0.29 mmol/L (0.60-1.20) L 12/12/17 02:06 Urine Cocaine Screen Positive (Negative) 12/12/17 01:40 Ur THC Screen Negative (Negative) 12/12/17 01:40 Ethyl Alcohol 86.1 mg/dL (<3) 12/12/17 02:06
[2017-12-14] MEDS: Ibuprofen 800 MG TAB PO (15:39)
[2017-12-14] MEDS: Lactated Ringers 1,000 ML 200 ML IV ×2 (18:39→23:59)
[2017-12-14] MEDS: Linezolid 600 MG TAB PO (20:23)
[2017-12-14] MEDS: Senna TAB 1 TAB PO (21:42)
[2017-12-14] MEDS: risperiDONE 1 MG TAB 2 MG PO (21:42)
[2017-12-14] MEDS: lamoTRIgine 100 MG TAB 150 MG PO (22:15)
[2017-12-15] VITALS (7 sets, daily range): BP systolic 120–165; BP diastolic 68–85; PULSE 19–63; RESP 16–59; TEMP 36.5–37.2; O2SAT 93–97
[2017-12-15] MEDS: Lactated Ringers 1,000 ML 200 ML IV ×4 (04:43→22:08)
[2017-12-15 07:41] LABS: ALT 96 U/L (12-78); AST 83 U/L (15-37); Albumin 2.8 g/dL (3.4-5.0); Alkaline Phosphatase 84 U/L (46-116); Anion Gap 5.1 mmol/L (3-11); BUN 7 mg/dL (7-18); Bilirubin, Total 0.3 mg/dL (0.2-1.0); CO2 28.9 mmol/L (21.0-32.0); CREATININE 0.76 mg/dL (0.70-1.30); Calcium 8.2 mg/dL (8.5-10.1); Chloride 109 mmol/L (98-107); Glucose 101 mg/dL (70-100); Potassium 3.9 mmol/L (3.5-5.1); Sodium 143 mmol/L (136-145); Total Protein 6.1 g/dL (6.4-8.2)
[2017-12-15 07:42] LABS: Creatine Kinase 2179 U/L (39-308)
[2017-12-15] MEDS: Budesonide/Formoterol 160/4.5 6 GM 60 PUFF INH IH ×2 (09:30→19:30)
[2017-12-15] MEDS: Pantoprazole 20 MG TABCR 40 MG PO (09:47)
[2017-12-15] MEDS: Linezolid 600 MG TAB PO ×2 (09:48→19:30)
[2017-12-15] MEDS: Aspirin 81 MG CHEW PO (09:49)
[2017-12-15] MEDS: Metoprolol CR 50 MG TABCR PO (09:54)
[2017-12-15] MEDS: Isosorbide Mononitrate 30 MG TABCR PO (09:54)
[2017-12-15] MEDS: Docusate Sodium 100 MG CAP PO ×2 (10:01→19:30)
--- NOTE | 2017-12-15 13:37 | PGE_ITS ---
Assessment and Plan (1) Polysubstance abuse: Current visit: Yes Status: Acute History of IV cocaine abuse, with large amount of reported cocaine injection in the days prior to admission. Given patient's concurrent suicide attempts he has been tentatively accepted that psychiatric facility pending medical clearance. (2) Suicide attempt by hanging: Current visit: Yes Status: Acute Apparent relapse of both drug and alcohol use, with a cocaine binge resulting in a suicide attempt. Patient is currently under treatment for resultant rhabdomyolysis as well as upper extremity cellulitis at the site of Cocaine injection, with placement into psychiatric facility pending medical clearance. (3) Rhabdomyolysis: Current visit: Yes Status: Acute Evidence of rhabdomyolysis following a prolonged episode of IV cocaine abuse with reportedly large amounts of this substance. Current CPK appears to be improving, with a current value down to the 2179s from an original value of greater than 8000, 3723 yesterday. Continue increased IV fluid rate and monitor volume status. Last EF of 55% by nuclear scan in 2017. Renal function is stable and at baseline. (4) Cellulitis of left upper extremity: Current visit: Yes Status: Acute Infection at site of prior IV cocaine injection. Cellulitic changes appear to be improved. IV Vancomycin discontinued yesterday, and Linezolid started yesterday - Day #4 total of antibiotic therapy. MRSA swab pending. (5) Coronary atherosclerosis of [place] coronary artery: Current visit: No Status: Chronic Appears quiescent. Continue ASA, statin, BB therapy. Patient is also on Imdur and prn NTG. (6) COPD (chronic obstructive pulmonary disease): Current visit: No Status: Chronic Appears quiescent. Continue home inhaler therapy. (7) GERD (gastroesophageal reflux disease): Current visit: No Status: Chronic Continue PPI therapy. (8) Schizoaffective disorder: Current visit: No Status: Chronic Continue home regimen of lithium and Lamictal, as well as nightly risperidone. [place] level at time of admission was not elevated. (9) DVT prophylaxis: Current visit: Yes Status: Acute Continue subcutaneous Lovenox and SCDs. Subjective Patient reports: afebrile Interval history since last seen: 57 yo male with a past medical history significant for schizoaffective disorder, multiple suicide attempts, and polysubstance abuse, admitted on December 12 from [facility] emergency department following a suicide attempt. Mr. Bailey had a reported 2-3-day course of large amounts of IV cocaine use followed by a suicide attempt by hanging. At time of his presentation he was noted to have evidence of a left upper extremity cellulitis at his injection site, as well as evidence of rhabdomyolysis by labs. He has been maintained on IV fluids with good urine output, as well as IV antibiotics with vancomycin. Cultures so far remain negative, and urine culture shows a mixed gram-positive rebecca less than 10,000 colonies per mL. CPK continues to improve as well, and renal function remains intact. He was changed to oral antibiotic therapy yesterday without worsening symptoms. The patient has no complaints today and reports feeling well. No overnight events were reported. Mr. Bailey remains afebrile. Exam Const General: cooperative, comfortable and no acute distress Orientation: awake and oriented x3 Neuro General: alert, awake and oriented x3 Speech: speech normal Psych Appearance: grossly normal Mental Status: mental status grossly normal Speech and Movement: speech and movement normal Attitude: cooperative Thought Process: normal Thought Content: normal Insight: insight good Objective Objective Clinical Data: Abnormal lab results 12/15/17 Range/Units 06:44 Chloride 109 H (98-107) mmol/L Glucose 101 H (70-100) mg/dL Calcium 8.2 L (8.5-10.1) mg/dL AST 83 H (15-37) U/L ALT 96 H (12-78) U/L Creatine Kinase 2179 H (39-308) U/L Total Protein 6.1 L (6.4-8.2) g/dL Albumin 2.8 L (3.4-5.0) g/dL Vital Signs Temp 36.5 C 12/15/17 07:45 Pulse 62 12/15/17 10:05 Resp 17 12/15/17 07:45 BP 165/84 H 12/15/17 10:05 Pulse Ox 94 L 12/15/17 09:30 Intake & Output 12/14/17 12/15/17 12/15/17 23:59 11:59 23:59 Intake Total 3830.000 / 3830.000 194.667 / 1945.7 Balance 3830.000 / 3830.000 1945.1945. Weight 122.9 kg Intake: IV 3350.000 / 3350.000 1945.7 / 1946.667 Oral 480 / 480 Other: Urine Color Yellow Yellow Urine Appearance Clear Clear Urine Odor Normal Normal Comment up ad kathya Voided into toilet amount unknown Voiding Methods Toilet Toilet Laboratory Results WBC 6.45 k/cumm (4.4-10.8) 12/13/17 06:15 RBC 4.11 m/cumm (4.50-6.00) L 12/13/17 06:15 Hgb 12.7 g/dL (13.5-17.5) L D 12/13/17 06:15 Hct 38.5 % (40.0-50.0) L 12/13/17 06:15 MCV 93.7 fL (80-95) 12/13/17 06:15 MCH 30.9 pg (27.0-33.0) 12/13/17 06:15 MCHC 33.0 g/dL (32.0-36.0) 12/13/17 06:15 RDW 13.4 % (11.8-14.1) 12/13/17 06:15 Plt Count 150 x1000/uL (130-400) 12/13/17 06:15 MPV 9.3 fL (8.0-11.0) 12/13/17 06:15 Immature Gran % 0.3 12/13/17 06:15 Neutrophils % 63.7 12/13/17 06:15 Lymphocytes % 20.3 12/13/17 06:15 Monocytes % 11.5 12/13/17 06:15 Eosinophils % 3.9 12/13/17 06:15 Basophils % 0.3 12/13/17 06:15 Absolute Neutrophils 4.11 k/cumm (1.2-6.7) 12/13/17 06:15 Band Neutrophils 4.0 % 12/12/17 02:06 Absolute Lymphocytes 1.31 k/cumm (1.2-3.4) 12/13/17 06:15 Absolute Monocytes 0.74 k/cumm (0.11-0.7) H 12/13/17 06:15 Absolute Eosinophils 0.25 k/cumm (0.0-0.7) 12/13/17 06:15 Absolute Basophils 0.02 k/cumm (0.0-0.2) 12/13/17 06:15 Differential Comment Manual differential 12/12/17 02:06 RBC Morphology Normal 12/12/17 02:06 Sodium 143 mmol/L (136-145) 12/15/17 06:44 Potassium 3.9 mmol/L (3.5-5.1) 12/15/17 06:44 Chloride 109 mmol/L (98-107) H 12/15/17 06:44 Carbon Dioxide 28.9 mmol/L (21.0-32.0) 12/15/17 06:44 Anion Gap 5.1 mmol/L (3-11) 12/15/17 06:44 BUN 7 mg/dL (7-18) 12/15/17 06:44 Creatinine 0.76 mg/dL (0.70-1.30) 12/15/17 06:44 Estimated GFR/1.73 m2 >= 60.00 (mL/min/1.73m2) 12/15/17 06:44 Glucose 101 mg/dL (70-100) H 12/15/17 06:44 Calcium 8.2 mg/dL (8.5-10.1) L 12/15/17 06:44 Total Bilirubin 0.3 mg/dL (0.2-1.0) 12/15/17 06:44 AST 83 U/L (15-37) H 12/15/17 06:44 ALT 96 U/L (12-78) H 12/15/17 06:44 Alkaline Phosphatase 84 U/L (46-116) 12/15/17 06:44 Creatine Kinase 2179 U/L (39-308) H 12/15/17 06:44 Total Protein 6.1 g/dL (6.4-8.2) L 12/15/17 06:44 Albumin 2.8 g/dL (3.4-5.0) L 12/15/17 06:44 TSH 0.68 uIU/mL (0.358-3.74) 12/12/17 02:06 Urine Color Yellow (Yellow) 12/12/17 01:40 Urine Clarity Clear 12/12/17 01:40 Urine pH 5.5 (5-8) 12/12/17 01:40 Ur Specific [place] >= 1.030 (1.005-1.025) H 12/12/17 01:40 Urine Protein 100 mg/dL (Negative) H 12/12/17 01:40 Urine Ketones 15 mg/dL (Negative) H 12/12/17 01:40 Urine Blood Moderate (Negative) H 12/12/17 01:40 Urine Nitrite Negative (Negative) 12/12/17 01:40 Urine Bilirubin Negative (Negative) 12/12/17 01:40 Urine Urobilinogen 0.2 EU/dL (Up TO 0.2) 12/12/17 01:40 Ur Leukocyte Esterase Negative (Negative) 12/12/17 01:40 Urine RBC 3-5 (0-2) H 12/12/17 01:40 Urine WBC 0-2 HPF (0-5) 12/12/17 01:40 Ur Epithelial Cells Rare HPF (Negative) 12/12/17 01:40 Urine Crystals Negative HPF (Negative) 12/12/17 01:40 Urine Bacteria Moderate HPF (Negative) 12/12/17 01:40 Urine Casts LPF (Negative) 12/12/17 01:40 Urine Mucus Moderate (Negative) 12/12/17 01:40 Urine Other Rare transitional (Negative) 12/12/17 01:40 Ur Culture Indicated? Yes 12/12/17 01:40 Urine Glucose Negative mg/dL (Negative) 12/12/17 01:40 Vancomycin Trough 13.0 ug/mL (10.0-20.0) 12/13/17 09:23 Salicylates 5.5 mg/dL (2.8-20.0) 12/12/17 02:06 Urine Opiates Screen Negative (Negative) 12/12/17 01:40 Urine Methadone Screen Negative (Negative) 12/12/17 01:40 Acetaminophen < 2 ug/mL (10-30) L 12/12/17 02:06 Ur Barbiturates Screen Negative (Negative) 12/12/17 01:40 Ur Tricyclics Screen Negative (Negative) 12/12/17 01:40 Ur Amphetamines Screen Negative (Negative) 12/12/17 01:40 U Benzodiazepines Scrn Negative (Negative) 12/12/17 01:40 [place] 0.29 mmol/L (0.60-1.20) L 12/12/17 02:06 Urine Cocaine Screen Positive (Negative) 12/12/17 01:40 Ur THC Screen Negative (Negative) 12/12/17 01:40 Ethyl Alcohol 86.1 mg/dL (<3) 12/12/17 02:06
--- NOTE | 2017-12-15 15:56 | PDOC.CMPRO ---
Care Management Progress Note Mikael was sitting having coffee when CM met with him. CM reviewed safety plan and process of medical clearance to [facility] screening and answered Mikael's questions. He remains pleasant and fully engaged with staff. Mikael will have visitor and comfort privileges limited only for safety and at the nurses discretion. SAFETY PLAN: 1. Will remain on suicide precautions and in paper clothes. 2. Will remain under direct supervision of one-on-one staff at all times provided by OUSMANE, SULFUR CHLORIDE OPERATOR structural layout worker. 3. May have paper cups, plates, finger foods as well as a metal spoon with which to eat meals. [facility] staff will be responsible for accounting of utensils after meals. 4. Follow [facility] Management of the Admitted Behavioral Health Patient policy. 5. Mikael is permitted to ambulate in the hallway, and have use of shower room for hygiene. 6. Mikael may have use of Activity Cart at RN discretion as well as permitted personal items at RN discretion; NO SHARPS. 7. May have visitors at patient and RN discretion. 8. May have use of television and remote. Patient is currently voluntarily at [facility] and seeking inpatient admission when a bed becomes available. [facility] Frontline Solid Waste Collection Worker will continue seeking placement. Please contact the Cnc Mechanic Veneer Stacker ([phone]) and [facility] Solid Waste Collection Worker ([phone]) for any needed changes in the Safety Plan. Safety plan has been provided to interdepartmental care team including Clinical Coordinator, Nursing Grinding Supervisor.
--- NOTE | 2017-12-15 16:36 | CMPROGNOTE_ITS ---
Care Management Progress Note Mikael was sitting having coffee when CM met with him. CM reviewed safety plan and process of medical clearance to [facility] screening and answered Mikael's questions. He remains pleasant and fully engaged with staff. Mikael will have visitor and comfort privileges limited only for safety and at the nurses discretion. SAFETY PLAN: 1. Will remain on suicide precautions and in paper clothes. 2. Will remain under direct supervision of one-on-one staff at all times provided by OUSMANE, BED SPRING MAKER ethnographic materials conservator. 3. May have paper cups, plates, finger foods as well as a metal spoon with which to eat meals. [facility] staff will be responsible for accounting of utensils after meals. 4. Follow [facility] Management of the Admitted Behavioral Health Patient policy. 5. Mikael is permitted to ambulate in the hallway, and have use of shower room for hygiene. 6. Mikael may have use of Activity Cart at RN discretion as well as permitted personal items at RN discretion; NO SHARPS. 7. May have visitors at patient and RN discretion. 8. May have use of television and remote. Patient is currently voluntarily at [facility] and seeking inpatient admission when a bed becomes available. [facility] Frontline Vice President Planning will continue seeking placement. Please contact the Operations Supervisor Chemical Cleaning Auditing Manager ([phone]) and [facility] Vice President Planning ([phone]) for any needed changes in the Safety Plan. Safety plan has been provided to interdepartmental care team including Clinical Coordinator, Nursing Cook Chili.
--- NOTE | 2017-12-15 17:51 | NUR.NOTE ---
Nursing Note: This nurse entered into patient's room as patient and his were chatting with patient's mother. Patient's mother was asking patient's where patient's suitcase was. Patient's replied that she did not want to discuss this with this nurse was present but ultimately reported to this nurse that the suitcase was in the closet in the room. She states that only his clothes are in the suitcase no sharps. She also stated that her clothes were in the closet, along with her purse and her medications. She stated I never leave them in here when I go. This nurse discussed with patient and patient's the risk of having these things in the patient's room and offered to bring patient's belongings to the nurses' station and set up a secure place outside of the room for the patient's to store her belongings when she is visiting. Patient and patient's declined this offer. DASHA Cobb notified.
[2017-12-15] MEDS: risperiDONE 1 MG TAB 2 MG PO (22:01)
[2017-12-15] MEDS: lamoTRIgine 100 MG TAB 150 MG PO (22:01)
[2017-12-15] MEDS: Senna TAB 1 TAB PO (22:02)
[2017-12-16] VITALS (8 sets, daily range): BP systolic 127–163; BP diastolic 67–80; PULSE 56–74; RESP 18–24; TEMP 36.5–37.4; O2SAT 93–96
[2017-12-16] MEDS: Lactated Ringers 1,000 ML 200 ML IV ×5 (02:48→22:22)
[2017-12-16 07:26] LABS: Platelet Count 203 x1000/uL (130-400)
[2017-12-16 07:38] LABS: ALT 87 U/L (12-78); AST 50 U/L (15-37); Albumin 2.9 g/dL (3.4-5.0); Alkaline Phosphatase 90 U/L (46-116); Anion Gap 4.6 mmol/L (3-11); BUN 8 mg/dL (7-18); Bilirubin, Total 0.3 mg/dL (0.2-1.0); CO2 30.4 mmol/L (21.0-32.0); CREATININE 0.78 mg/dL (0.70-1.30); Calcium 8.6 mg/dL (8.5-10.1); Chloride 108 mmol/L (98-107); Creatine Kinase 963 U/L (39-308); Glucose 105 mg/dL (70-100); Sodium 143 mmol/L (136-145); Total Protein 6.2 g/dL (6.4-8.2)
[2017-12-16] MEDS: Pantoprazole 20 MG TABCR 40 MG PO (08:32)
[2017-12-16] MEDS: Metoprolol CR 50 MG TABCR PO (08:32)
[2017-12-16] MEDS: Linezolid 600 MG TAB PO (08:33)
[2017-12-16] MEDS: Isosorbide Mononitrate 30 MG TABCR PO (08:33)
[2017-12-16] MEDS: Aspirin 81 MG CHEW PO (08:33)
[2017-12-16] MEDS: Budesonide/Formoterol 160/4.5 6 GM 60 PUFF INH IH ×2 (09:48→19:51)
[2017-12-16] MEDS: Ibuprofen 800 MG TAB PO ×2 (11:02→23:32)
--- NOTE | 2017-12-16 11:07 | NUR.NOTE ---
Nursing Note: Patient's states that she sent patient's belongings and her belongings home with patient's mother, including her purse and medications.
--- NOTE | 2017-12-16 11:51 | PDOC.CMPRO ---
Care Management Progress Note Mikael continues to stabilize from a medical standpoint per MD. He will be seen by [facility] Crisis Screener later today to determine if he still meets criteria for stabilization. He remains appropriate and pleasant in interaction. Mikael will have visitor and comfort privileges limited only for safety and at the nurses discretion. SAFETY PLAN: 1. Will remain on suicide precautions and in paper clothes. 2. Will remain under direct supervision of one-on-one staff at all times provided by OUSMANE, TOBACCO FLAVORER night warehouse selector. 3. May have paper cups, plates, finger foods as well as a metal spoon with which to eat meals. [facility] staff will be responsible for accounting of utensils after meals. 4. Follow [facility] Management of the Admitted Behavioral Health Patient policy. 5. Mikael is permitted to ambulate in the hallway, and have use of shower room for hygiene. 6. Mikale may have use of Activity Cart at RN discretion as well as permitted personal items at RN discretion; NO SHARPS. 7. May have visitors at patient and RN discretion. 8. May have use of television and remote. Patient is currently voluntarily at [facility] and seeking inpatient admission when a bed becomes available. [facility] Frontline Slusher Operator will continue seeking placement. Please contact the Truck Safety Inspector Wafer Mounter ([phone]) and [facility] Slusher Operator ([phone]) for any needed changes in the Safety Plan. Safety plan has been provided to interdepartmental care team including Clinical Coordinator, Nursing Outpatient Coding Specialist.
--- NOTE | 2017-12-16 11:54 | CMPROGNOTE_ITS ---
Care Management Progress Note Mikael continues to stabilize from a medical standpoint per MD. He will be seen by [facility] Crisis Screener later today to determine if he still meets criteria for stabilization. He remains appropriate and pleasant in interaction. Mikael will have visitor and comfort privileges limited only for safety and at the nurses discretion. SAFETY PLAN: 1. Will remain on suicide precautions and in paper clothes. 2. Will remain under direct supervision of one-on-one staff at all times provided by OUSMANE, HANDWRITING EXPERT welder machine operator. 3. May have paper cups, plates, finger foods as well as a metal spoon with which to eat meals. [facility] staff will be responsible for accounting of utensils after meals. 4. Follow [facility] Management of the Admitted Behavioral Health Patient policy. 5. Mikael is permitted to ambulate in the hallway, and have use of shower room for hygiene. 6. Mikael may have use of Activity Cart at RN discretion as well as permitted personal items at RN discretion; NO SHARPS. 7. May have visitors at patient and RN discretion. 8. May have use of television and remote. Patient is currently voluntarily at [facility] and seeking inpatient admission when a bed becomes available. [facility] Frontline Flow Coordinator will continue seeking placement. Please contact the Compliance Mgr Cloth Hand ([phone]) and [facility] Flow Coordinator ([phone]) for any needed changes in the Safety Plan. Safety plan has been provided to interdepartmental care team including Clinical Coordinator, Nursing Dial Mounter.
--- NOTE | 2017-12-16 13:12 | W.INMHPGNOTE ---
Date of service: 12/16/17 Time of Service: 13:12 Mental Health Progress Note Progress Note: Presenting Issue: Patient was initially brought to the emergency department for attempting suicide by hanging. He was admitted for medical reasons unassociated with this suicide attempt. Precipitating Factors Client is able to contract for safety and is okay with the discharge plan as described below. Disposition * Behavior: Appropriate - Patient was sitting in the chair talking with this editorial writer *Eye Contact: Direct *Mood: Positive/Future Oriented *Affect: Broad *Appetite: Good *Sleep(troubel falling/staying asleep): Good Plan(please elaborate and include that physician is consulted with plan and/or placement): This patient agrees to being the intensive outpatient program through [facility]. A MACHINE CHOCOLATE MOLDER referral will also be sent for this patient due to his mental health Dx and history. This editorial writer will also attempt to move the patient's scheduled appointment with [facility] to a sooner date. The patient was given several informational brochures on substance abuse, support groups, and survivors of suicide. Clinician's Name , Title, and Signature Make sure that you are photocopying and submitting this to [facility] records Dept. to be scanned into chart.
--- NOTE | 2017-12-16 13:26 | MHPN_ITS ---
Date of service: 12/16/17 Time of Service: 13:12 Mental Health Progress Note Progress Note: Presenting Issue: Patient was initially brought to the emergency department for attempting suicide by hanging. He was admitted for medical reasons unassociated with this suicide attempt. Precipitating Factors Client is able to contract for safety and is okay with the discharge plan as described below. Disposition * Behavior: Appropriate - Patient was sitting in the chair talking with this justowriter operator *Eye Contact: Direct *Mood: Positive/Future Oriented *Affect: Broad *Appetite: Good *Sleep(troubel falling/staying asleep): Good Plan(please elaborate and include that physician is consulted with plan and/or placement): This patient agrees to being the intensive outpatient program through [facility]. A BERRY PICKER MACHINE OPERATOR referral will also be sent for this patient due to his mental health Dx and history. This justowriter operator will also attempt to move the patient's scheduled appointment with [facility] to a sooner date. The patient was given several informational brochures on substance abuse, support groups, and survivors of suicide. Clinician's Name , Title, and Signature Make sure that you are photocopying and submitting this to [facility] records Dept. to be scanned into chart.
--- NOTE | 2017-12-16 15:48 | PGE_ITS ---
Assessment and Plan (1) Polysubstance abuse: Current visit: Yes Status: Acute History of IV cocaine abuse, with large amount of reported cocaine injection in the days prior to admission. (2) Suicide attempt by hanging: Current visit: Yes Status: Acute Apparent relapse of both drug and alcohol use, with a cocaine binge resulting in a suicide attempt. Patient is currently under treatment for resultant rhabdomyolysis as well as upper extremity cellulitis at the site of Cocaine injection. Initial evaluation by mental health with recommendations for inpatient Psychiatric care - however, reevaluation today with patient deemed safe for discharge home when medicaly stable, with outpatient services. (3) Rhabdomyolysis: Current visit: Yes Status: Acute Evidence of rhabdomyolysis following a prolonged episode of IV cocaine abuse with reportedly large amounts of this substance. Current CPK appears to be improving, with a current value down to 963 from a prior values of 2179, 3723 , and an original value of greater than 8000. Continue current IV fluid rate and monitor volume status. Last EF of 55% by nuclear scan in 2017. Renal function is stable and at baseline. Will benefit from one additional day of fluids and labs. Likely discharge tomorrow morning. (4) Cellulitis of left upper extremity: Current visit: Yes Status: Acute Infection at site of prior IV cocaine injection. Cellulitic changes appear to be improved. IV Vancomycin discontinued 2 days ago, and Linezolid started yesterday - Day #5 total of antibiotic therapy. MRSA swab negative. Will change to cephalexin and continue to monitor. (5) Coronary atherosclerosis of [place] coronary artery: Current visit: No Status: Chronic Appears quiescent. Continue ASA, statin, BB therapy. Patient is also on Imdur and prn NTG. (6) COPD (chronic obstructive pulmonary disease): Current visit: No Status: Chronic Appears quiescent. Continue home inhaler therapy. (7) GERD (gastroesophageal reflux disease): Current visit: No Status: Chronic Continue PPI therapy. (8) Schizoaffective disorder: Current visit: No Status: Chronic Continue home regimen of lithium and Lamictal, as well as nightly risperidone. [place] level at time of admission was not elevated. (9) DVT prophylaxis: Current visit: Yes Status: Acute Continue subcutaneous Lovenox and SCDs. Subjective Patient reports: afebrile Interval history since last seen: 57 yo male with a past medical history significant for schizoaffective disorder, multiple suicide attempts, and polysubstance abuse, admitted on December 12 from [facility] emergency department following a suicide attempt. Mr. Bailey had a reported 2-3-day course of large amounts of IV cocaine use followed by a suicide attempt by hanging. At time of his presentation he was noted to have evidence of a left upper extremity cellulitis at his injection site, as well as evidence of rhabdomyolysis by labs. He has been maintained on IV fluids with good urine output, as well as IV antibiotics with vancomycin. Cultures so far remain negative, and urine culture shows a mixed gram-positive rebecca less than 10,000 colonies per mL. CPK continues to improve as well, and renal function remains intact. He was changed to oral antibiotic therapy 2 days ago without worsening symptoms. The patient has no complaints today and reports feeling well. No overnight events were reported. Mr. Bailey remains afebrile. Exam Const General: cooperative, comfortable and no acute distress Nutritional Appearance: obese Orientation: alert, awake and oriented x3 Psych Appearance: grossly normal Mental Status: mental status grossly normal Speech and Movement: speech and movement normal Attitude: cooperative Thought Process: normal Thought Content: normal Insight: insight good Objective Objective Clinical Data: Abnormal lab results 12/16/17 Range/Units 07:00 Chloride 108 H (98-107) mmol/L Glucose 105 H (70-100) mg/dL AST 50 H (15-37) U/L ALT 87 H (12-78) U/L Creatine Kinase 963 H (39-308) U/L Total Protein 6.2 L (6.4-8.2) g/dL Albumin 2.9 L (3.4-5.0) g/dL Vital Signs Temp 36.9 C 12/16/17 11:20 Pulse 62 12/16/17 11:20 Resp 18 12/16/17 11:20 BP 127/78 12/16/17 11:20 Pulse Ox 95 12/16/17 11:20 Intake & Output 12/15/17 12/16/17 12/16/17 23:59 11:59 23:59 Intake Total 2233.333 / 2233.333 2433.333 / 2433.333 823.333 / 823.333 Balance 2233.333 / 2233.333 2433.333 / 2433.333 823.333 / 823.333 Intake: IV 1933.333 / 5420.751 7659.333 / 1932.333 823.333 / 823.333 Oral 300 / 300 500 / 500 Other: Comment Patient OOB to toilet, voiding independently in toilet, removes hat to void. Voiding Methods Toilet Toilet Laboratory Results WBC 6.45 k/cumm (4.4-10.8) 12/13/17 06:15 RBC 4.11 m/cumm (4.50-6.00) L 12/13/17 06:15 Hgb 12.7 g/dL (13.5-17.5) L D 12/13/17 06:15 Hct 38.5 % (40.0-50.0) L 12/13/17 06:15 MCV 93.7 fL (80-95) 12/13/17 06:15 MCH 30.9 pg (27.0-33.0) 12/13/17 06:15 MCHC 33.0 g/dL (32.0-36.0) 12/13/17 06:15 RDW 13.4 % (11.8-14.1) 12/13/17 06:15 Plt Count 203 x1000/uL (130-400) 12/16/17 07:00 MPV 9.3 fL (8.0-11.0) 12/13/17 06:15 Immature Gran % 0.3 12/13/17 06:15 Neutrophils % 63.7 12/13/17 06:15 Lymphocytes % 20.3 12/13/17 06:15 Monocytes % 11.5 12/13/17 06:15 Eosinophils % 3.9 12/13/17 06:15 Basophils % 0.3 12/13/17 06:15 Absolute Neutrophils 4.11 k/cumm (1.2-6.7) 12/13/17 06:15 Band Neutrophils 4.0 % 12/12/17 02:06 Absolute Lymphocytes 1.31 k/cumm (1.2-3.4) 12/13/17 06:15 Absolute Monocytes 0.74 k/cumm (0.11-0.7) H 12/13/17 06:15 Absolute Eosinophils 0.25 k/cumm (0.0-0.7) 12/13/17 06:15 Absolute Basophils 0.02 k/cumm (0.0-0.2) 12/13/17 06:15 Differential Comment Manual differential 12/12/17 02:06 RBC Morphology Normal 12/12/17 02:06 Sodium 143 mmol/L (136-145) 12/16/17 07:00 Potassium 4.0 mmol/L (3.5-5.1) 12/16/17 07:00 Chloride 108 mmol/L (98-107) H 12/16/17 07:00 Carbon Dioxide 30.4 mmol/L (21.0-32.0) 12/16/17 07:00 Anion Gap 4.6 mmol/L (3-11) 12/16/17 07:00 BUN 8 mg/dL (7-18) 12/16/17 07:00 Creatinine 0.78 mg/dL (0.70-1.30) 12/16/17 07:00 Estimated GFR/1.73 m2 >= 60.00 (mL/min/1.73m2) 12/16/17 07:00 Glucose 105 mg/dL (70-100) H 12/16/17 07:00 Calcium 8.6 mg/dL (8.5-10.1) 12/16/17 07:00 Total Bilirubin 0.3 mg/dL (0.2-1.0) 12/16/17 07:00 AST 50 U/L (15-37) H 12/16/17 07:00 ALT 87 U/L (12-78) H 12/16/17 07:00 Alkaline Phosphatase 90 U/L (46-116) 12/16/17 07:00 Creatine Kinase 963 U/L (39-308) H 12/16/17 07:00 Total Protein 6.2 g/dL (6.4-8.2) L 12/16/17 07:00 Albumin 2.9 g/dL (3.4-5.0) L 12/16/17 07:00 TSH 0.68 uIU/mL (0.358-3.74) 12/12/17 02:06 Urine Color Yellow (Yellow) 12/12/17 01:40 Urine Clarity Clear 12/12/17 01:40 Urine pH 5.5 (5-8) 12/12/17 01:40 Ur Specific [place] >= 1.030 (1.005-1.025) H 12/12/17 01:40 Urine Protein 100 mg/dL (Negative) H 12/12/17 01:40 Urine Ketones 15 mg/dL (Negative) H 12/12/17 01:40 Urine Blood Moderate (Negative) H 12/12/17 01:40 Urine Nitrite Negative (Negative) 12/12/17 01:40 Urine Bilirubin Negative (Negative) 12/12/17 01:40 Urine Urobilinogen 0.2 EU/dL (Up TO 0.2) 12/12/17 01:40 Ur Leukocyte Esterase Negative (Negative) 12/12/17 01:40 Urine RBC 3-5 (0-2) H 12/12/17 01:40 Urine WBC 0-2 HPF (0-5) 12/12/17 01:40 Ur Epithelial Cells Rare HPF (Negative) 12/12/17 01:40 Urine Crystals Negative HPF (Negative) 12/12/17 01:40 Urine Bacteria Moderate HPF (Negative) 12/12/17 01:40 Urine Casts LPF (Negative) 12/12/17 01:40 Urine Mucus Moderate (Negative) 12/12/17 01:40 Urine Other Rare transitional (Negative) 12/12/17 01:40 Ur Culture Indicated? Yes 12/12/17 01:40 Urine Glucose Negative mg/dL (Negative) 12/12/17 01:40 Vancomycin Trough 13.0 ug/mL (10.0-20.0) 12/13/17 09:23 Salicylates 5.5 mg/dL (2.8-20.0) 12/12/17 02:06 Urine Opiates Screen Negative (Negative) 12/12/17 01:40 Urine Methadone Screen Negative (Negative) 12/12/17 01:40 Acetaminophen < 2 ug/mL (10-30) L 12/12/17 02:06 Ur Barbiturates Screen Negative (Negative) 12/12/17 01:40 Ur Tricyclics Screen Negative (Negative) 12/12/17 01:40 Ur Amphetamines Screen Negative (Negative) 12/12/17 01:40 U Benzodiazepines Scrn Negative (Negative) 12/12/17 01:40 [place] 0.29 mmol/L (0.60-1.20) L 12/12/17 02:06 Urine Cocaine Screen Positive (Negative) 12/12/17 01:40 Ur THC Screen Negative (Negative) 12/12/17 01:40 Ethyl Alcohol 86.1 mg/dL (<3) 12/12/17 02:06
[2017-12-16] MEDS: Cephalexin 500 MG CAP PO (19:51)
[2017-12-16] MEDS: Docusate Sodium 100 MG CAP PO (19:51)
[2017-12-16] MEDS: risperiDONE 1 MG TAB 2 MG PO (21:55)
[2017-12-16] MEDS: lamoTRIgine 100 MG TAB 150 MG PO (21:57)
[2017-12-16] MEDS: Senna TAB 1 TAB PO (21:57)
[2017-12-17] MEDS: Lactated Ringers 1,000 ML 200 ML IV ×2 (03:02→07:14)
[2017-12-17 04:00] VITALS: BP 144/74; PULSE 60; RESP 18; TEMP 36.8; O2SAT 93
[2017-12-17 07:30] LABS: ALT 76 U/L (12-78); AST 30 U/L (15-37); Albumin 2.9 g/dL (3.4-5.0); Alkaline Phosphatase 86 U/L (46-116); BUN 11 mg/dL (7-18); Bilirubin, Total 0.2 mg/dL (0.2-1.0); Calcium 8.4 mg/dL (8.5-10.1); Chloride 109 mmol/L (98-107); Creatine Kinase 499 U/L (39-308); Glucose 100 mg/dL (70-100); Potassium 4.1 mmol/L (3.5-5.1); Sodium 144 mmol/L (136-145); Total Protein 6.1 g/dL (6.4-8.2)
[2017-12-17 07:40] VITALS: BP 131/82; PULSE 61; RESP 17; TEMP 36.5; O2SAT 93
[2017-12-17] MEDS: Isosorbide Mononitrate 30 MG TABCR PO (07:59)
[2017-12-17] MEDS: Metoprolol CR 50 MG TABCR PO (07:59)
[2017-12-17] MEDS: Cephalexin 500 MG CAP PO ×2 (07:59→14:16)
[2017-12-17] MEDS: Aspirin 81 MG CHEW PO (07:59)
[2017-12-17] MEDS: Pantoprazole 20 MG TABCR 40 MG PO (07:59)
[2017-12-17 08:28] VITALS: O2SAT 95
[2017-12-17] MEDS: Budesonide/Formoterol 160/4.5 6 GM 60 PUFF INH IH (08:28)
--- NOTE | 2017-12-17 09:56 | PDOC.CMDIS ---
- If Service Date Differs Date of service: 12/17/17 Time of Service: 09:56 LACE Index Scoring Tool - Questions: Length of Stay (in days): 4 - 6 Acuity (Admit via E.D.?): Yes Comorbidities: Chronic Pulmonary Disease E.D. Visits: 1 - Answers: Total Score: 10 Risk of Readmission: High Risk Care Management Discharge Reason for Hospitalization: Cocaine abuse, Rhabdo Discharge Plan: Colton will be discharged home today. requested [facility] meet with Colton prior to discharge. Please see [facility], [facility] note. Colton was able to contract for safety with mental health provider. Colton makes good eye contact with he states he is ready to return home and has a supportive family. His spouse and mother are in the room. He denies any SI. provided contact number for mental health crisis and text line for crisis. Colton will be transported home via private car and spouse. He has scheduled follow up this week with [facility] and he will be attending IOP services. Patient/Family Education Needs: Discharge education, medications and follow up plan of care. Discuss mental health resources, mental health management and contact information. Family present for education and resources information. - MH Services (Omit if N/A) Current MH Services: [facility]
--- NOTE | 2017-12-17 09:59 | CMDISCH_ITS ---
- If Service Date Differs Date of service: 12/17/17 Time of Service: 09:56 LACE Index Scoring Tool - Questions: Length of Stay (in days): 4 - 6 Acuity (Admit via E.D.?): Yes Comorbidities: Chronic Pulmonary Disease E.D. Visits: 1 - Answers: Total Score: 10 Risk of Readmission: High Risk Care Management Discharge Reason for Hospitalization: Cocaine abuse, Rhabdo Discharge Plan: Colton will be discharged home today. requested [facility] meet with Colton prior to discharge. Please see [facility], [facility] note. Colton was able to contract for safety with mental health provider. Colton makes good eye contact with he states he is ready to return home and has a supportive family. His spouse and mother are in the room. He denies any SI. provided contact number for mental health crisis and text line for crisis. Colton will be transported home via private car and spouse. He has scheduled follow up this week with [facility] and he will be attending IOP services. Patient/Family Education Needs: Discharge education, medications and follow up plan of care. Discuss mental health resources, mental health management and contact information. Family present for education and resources information. - MH Services (Omit if N/A) Current MH Services: [facility]
[2017-12-17 11:45] VITALS: BP 135/79; PULSE 60; RESP 18; TEMP 36.6; O2SAT 96
--- NOTE | 2017-12-17 12:44 | PDOC.MHCN_ITS ---
Presenting Issue: *How did they arrive here at ER and why did they come: Patient's brought him to the ER several days ago after patient attempted to hang himself. He was subsequently admitted to [facility] for medical reasons. Precipitating Factors: *Assessment of Safety SI/HI (address delusions if pertaining to the SI/HI) Patient denies current SI/HI. He states he has lots of reasons to live and does not want to . Patient has a long history of alcohol and drug use but had been clean and sober for 3 1/2 years prior to his suicide attempt. On that day, he used cocaine and alcohol and felt so bad about himself and ashamed of his use that he decided to take his life. Patient now has lots of supports in place, such as his taoist, AA, Intensive Outpatient Program, etc., and feels that he can maintain his sobriety in his community. Disposition: *Behavior: Cooperative. *Eye Contact: Good. *Mood: Euthymic and future oriented. *Affect: Normal. *Appetite: Good. *Sleep (trouble falling/staying asleep): No reported sleep difficulties. Plan: Plan is for patient to discharge home with a safety plan. His has agreed to lock up all medications and dispose of the rope he tried to hang himself with. There are no guns in the home. Patient will be starting the Intensive Outpatient Program this coming week and will also be attending AA meetings. He sees Haley Kumar at [facility] for substance abuse therapy once a month and is agreeable to increasing the frequency of his appointment with Haley for a period of time. Both patient and his know how to contact [facility] emergency services and they agree to call as needed.
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
== END 2017-12-17 14:25 | disposition home or self-care (01) | DRG 897 ==
LOC: ER 06:16 → ICU 10:14 → MS 12-17 13:34 → ICU 12-27 17:26
PROVIDERS: Family Medicine; Internal Medicine; Nurse Practitioner Primary Care; Admitting Provider General Practice; Emergency Provider Emergency Medicine; PCP Family Medicine; Visit Provider Internal Medicine
DX: F14.10 Cocaine abuse, uncomplicated (principal); L03.114 Cellulitis of left upper limb; T14.91XA Suicide attempt, initial encounter; T79.6XXA Traumatic ischemia of muscle, initial encounter; S41.132A Puncture wound without foreign body of left upper arm, initial encounter; W46.0XXA Contact with hypodermic needle, initial encounter; I25.10 Atherosclerotic heart disease of native coronary artery without angina pectoris; J44.9 Chronic obstructive pulmonary disease, unspecified; K21.9 Gastro-esophageal reflux disease without esophagitis; F25.9 Schizoaffective disorder, unspecified; Z91.5 Personal history of self-harm; F10.10 Alcohol abuse, uncomplicated
CPT/HCPCS: 36410; 36415; 80053; 80307; 82550; 87040; 87081; 93005; 94640; 96360; 96361; 99223; 99231; 99232; 99233; 99239; 99285; 80178; 80202; 80320; 80329; 81003; 81015; 82565; 84443; 85025; 85049; 87086; 93010; 99221; J3490

== ENCOUNTER 2017-12-21 19:58 | Outpatient (REF) | payer MEDICARE, SELFPAY ==
[2017-12-21 21:42] LABS: Anion Gap 9.1 mmol/L (3-11); BUN 11 mg/dL (7-18); CO2 27.9 mmol/L (21.0-32.0); CREATININE 0.95 mg/dL (0.70-1.30); Calcium 8.9 mg/dL (8.5-10.1); Chloride 104 mmol/L (98-107); Creatine Kinase 190 U/L (39-308); Glucose 115 mg/dL (70-100); Sodium 141 mmol/L (136-145)
== END 2017-12-21 20:18 ==
LOC: NCHCN 19:58
PROVIDERS: PCP Family Medicine; Visit Provider Family Medicine
DX: M62.82 Rhabdomyolysis (principal); F25.0 Schizoaffective disorder, bipolar type
CPT/HCPCS: 80048; 82550

== ENCOUNTER 2018-01-01 11:56 | Emergency (ER) | payer MEDICARE, SELFPAY ==
[2018-01-01 12:06] VITALS: BP 141/81; PULSE 68; RESP 16; TEMP 36.7; O2SAT 98
[2018-01-01] MEDS: predniSONE 20 MG TAB 60 MG PO (12:15)
--- NOTE | 2018-01-01 12:42 | W.ED.GENAD ---
Discharge Plan Disposition Patient Disposition: HOME Discharge Details Chief Complaint: Orthopedic Clinical Impression: Acute gout Primary Care Provider: Tawanda Dooley ED Provider: Junior Gillis Home Meds and New Rx's Prescriptions: New prednisone 20 mg tablet 40 mg PO DAILY 4 Days Qty: 8 RF: 0 ibuprofen 600 mg tablet 600 mg PO TID PRN (Reason: pain) Qty: 30 RF: 0 Continue lamotrigine 150 MG tablet 150 mg PO HS RF: 0 lithium carbonate 600 MG capsule 900 mg PO HS RF: 0 tiotropium bromide [Spiriva with HandiHaler] 18 MCG capsule, w/inhalation device 1 cap Inhalation DAILY RF: 0 albuterol sulfate 8.5 GM HFA aerosol inhaler 2 puff Inhalation PRN RF: 0 aspirin [Aspirin Low-Strength] 81 MG tablet,chewable 81 mg PO DAILY RF: 0 atorvastatin [Lipitor] 80 MG tablet 80 mg PO DAILY RF: 0 nitroglycerin [Nitrostat] 0.4 MG tablet, sublingual 0.4 mg Sublingual Q5 MIN PRN X3 PRNQty: 100 RF: 0 isosorbide mononitrate 30 MG tablet extended release 24 hr 30 mg PO DAILY RF: 0 pantoprazole [Protonix] 20 MG tablet,delayed release (DR/EC) 40 mg PO DAILY RF: 0 risperidone 2 MG tablet 2 mg PO HS RF: 0 ibuprofen 800 MG tablet 800 mg PO Q8H PRN PRN (Reason: Pain) Qty: 30 RF: 0 budesonide-formoterol [Symbicort] 10.2 GM HFA aerosol inhaler 10.2 gm Inhalation BID RF: 0 metoprolol succinate 25 MG tablet extended release 24 hr 50 mg PO DAILY RF: 0 Discharge Instructions Instructions: Gout (ED) Additional Instructions: Please contact your primary care physician to arrange follow-up. Return to the ER for any worsening or new concerning symptoms. Referrals: Tawanda Dooley [Primary Care Provider] - Medical Decision Making 57-year-old male with history of gout here with pain in his right elbow as well as right knee consistent with prior gout flares. No signs of infection on exam. Plan is to treat for gout flare with prednisone as well as ibuprofen. Patient was advised to follow-up with his primary care physician. Patient encouraged to return should have any worsening or new concerning symptoms. HPI General Mode of arrival: ambulatory. Date/Time Provider Initiated Documentation: 01/01/18 12:02. Limitations to Documentation: no limitations. Information obtained by: patient and family (mother). HPI Narrative: 57-year-old male with history of gout presents with chief complaint of gout flare. Patient notes pain in his right elbow as well as right knee that started yesterday and have persisted. Patient states symptoms are exactly the same as prior gout flare that he last had about 6 months ago. Patient notes gout flares typically resolve with prednisone. He does not have any prednisone at home. Denies associated fever. No joint swelling or redness. Related Data Home Medications Medication Instructions Recorded Confirmed lamotrigine 150 mg PO HS 06/17/13 01/01/18 lithium carbonate 900 mg PO HS 06/17/13 01/01/18 tiotropium bromide [Spiriva with 1 cap INHALATION DAILY 06/17/13 01/01/18 HandiHaler] albuterol sulfate 2 puff INHALATION PRN 11/13/13 01/01/18 aspirin [Aspirin Low-Strength] 81 mg PO DAILY 09/25/14 01/01/18 atorvastatin [Lipitor] 80 mg PO DAILY 09/25/14 01/01/18 nitroglycerin [Nitrostat] 0.4 mg SUBLINGUAL Q5 MIN PRN X3 09/25/14 01/01/18 PRN #100 tab.subl isosorbide mononitrate 30 mg PO DAILY 05/20/15 01/01/18 pantoprazole [Protonix] 40 mg PO DAILY 05/20/15 01/01/18 risperidone 2 mg PO HS 05/20/15 01/01/18 ibuprofen 800 mg PO Q8H PRN PRN #30 tablet 07/11/16 01/01/18 budesonide-formoterol [Symbicort] 10.2 gm INHALATION BID 09/15/16 01/01/18 metoprolol succinate 50 mg PO DAILY 09/15/16 01/01/18 ibuprofen 600 mg PO TID PRN #30 tab 01/01/18 prednisone 40 mg PO DAILY 4 Days #8 tab 01/01/18 Previous Rx's Medication Instructions Recorded nitroglycerin [Nitrostat] 0.4 mg SUBLINGUAL Q5 MIN PRN X3 09/25/14 PRN #100 tab.subl ibuprofen 800 mg PO Q8H PRN PRN #30 tablet 07/11/16 ibuprofen 600 mg PO TID PRN #30 tab 01/01/18 prednisone 40 mg PO DAILY 4 Days #8 tab 01/01/18 Allergies Allergy/AdvReac Type Severity Reaction Status Date / Time No Known Allergies Allergy Unverified 01/01/18 12:10 General Stated Complaint: Orthopedic ZEINAB: 3 Review of Systems Musculoskeletal Reports as per HPI Integumentary/Breasts Denies rash [facility] Medical History Suicide attempt by hanging (Acute) Rhabdomyolysis (Acute) Cellulitis of left upper extremity (Acute) Polysubstance abuse (Acute) Coronary atherosclerosis of [place] coronary artery (Chronic 09/25/14) COPD (chronic obstructive pulmonary disease) (Chronic) GERD (gastroesophageal reflux disease) (Chronic) Schizoaffective disorder (Chronic) Old myocardial infarction (Chronic 09/25/14) detention current use of antithrombotics/antiplatelets (Chronic 09/25/14) Coronary angioplasty status (Chronic 09/25/14) Hypertension (Chronic) Hyperlipidemia (Chronic) CAD (coronary artery disease) (Chronic) COPD (chronic obstructive pulmonary disease) (Chronic) GERD (gastroesophageal reflux disease) (Chronic) HTN (hypertension) (Chronic) Hypercholesterolemia (Chronic) Social History Smoking/Tobacco Use Status: Current every day Surgical History H/O heart artery stent (Chronic) Exam Const General: cooperative and no acute distress Eyes Conjunctivae: normal conjunctivae Sclera: normal sclerae Cardio Rate: regular rate and not tachycardic Rhythm: regular rhythm Skin General skin exam: no rashes or lesions noted Neuro General: alert, awake, oriented x3 and tone normal Extrem General: no edema Other: Right elbow tender with no effusion, no warmth, overlying or swelling noted, limited range of motion, is able to flex but not fully secondary to pain; right radial pulse 2+; right knee with no warmth, swelling or effusion, or overlying erythema, limited flexion secondary to pain Psych Appearance: grossly normal Mental Status: mental status grossly normal Speech and Movement: speech and movement normal Course Vital Signs Temperature 36.7 C 01/01/18 12:06 Pulse 68 01/01/18 12:06 Respiratory Rate 16 01/01/18 12:06 Blood Pressure 141/81 H 01/01/18 12:06 Pulse Oximetry 98 01/01/18 12:06 Temperature 36.7 C 01/01/18 12:06 Temperature Source Skin 01/01/18 12:06 Pulse 68 01/01/18 12:06 Respiratory Rate 16 01/01/18 12:06 Respiratory Effort 01/01/18 12:06 Blood Pressure 141/81 H 01/01/18 12:06 Blood Pressure Position Sitting 01/01/18 12:06 Pulse Oximetry 98 01/01/18 12:06 Pain Level 10 01/01/18 12:15
--- NOTE | 2018-01-01 12:47 | ED.GENADUL_ITS ---
Discharge Plan Disposition Patient Disposition: HOME Discharge Details Chief Complaint: Orthopedic Clinical Impression: Acute gout Primary Care Provider: Tawanda Dooley ED Provider: Junior Gillis Home Meds and New Rx's Prescriptions: New prednisone 20 mg tablet 40 mg PO DAILY 4 Days Qty: 8 RF: 0 ibuprofen 600 mg tablet 600 mg PO TID PRN (Reason: pain) Qty: 30 RF: 0 Continue lamotrigine 150 MG tablet 150 mg PO HS RF: 0 lithium carbonate 600 MG capsule 900 mg PO HS RF: 0 tiotropium bromide [Spiriva with HandiHaler] 18 MCG capsule, w/inhalation device 1 cap Inhalation DAILY RF: 0 albuterol sulfate 8.5 GM HFA aerosol inhaler 2 puff Inhalation PRN RF: 0 aspirin [Aspirin Low-Strength] 81 MG tablet,chewable 81 mg PO DAILY RF: 0 atorvastatin [Lipitor] 80 MG tablet 80 mg PO DAILY RF: 0 nitroglycerin [Nitrostat] 0.4 MG tablet, sublingual 0.4 mg Sublingual Q5 MIN PRN X3 PRNQty: 100 RF: 0 isosorbide mononitrate 30 MG tablet extended release 24 hr 30 mg PO DAILY RF: 0 pantoprazole [Protonix] 20 MG tablet,delayed release (DR/EC) 40 mg PO DAILY RF: 0 risperidone 2 MG tablet 2 mg PO HS RF: 0 ibuprofen 800 MG tablet 800 mg PO Q8H PRN PRN (Reason: Pain) Qty: 30 RF: 0 budesonide-formoterol [Symbicort] 10.2 GM HFA aerosol inhaler 10.2 gm Inhalation BID RF: 0 metoprolol succinate 25 MG tablet extended release 24 hr 50 mg PO DAILY RF: 0 Discharge Instructions Instructions: Gout (ED) Additional Instructions: Please contact your primary care physician to arrange follow-up. Return to the ER for any worsening or new concerning symptoms. Referrals: Tawanda Dooley [Primary Care Provider] - Medical Decision Making 57-year-old male with history of gout here with pain in his right elbow as well as right knee consistent with prior gout flares. No signs of infection on exam. Plan is to treat for gout flare with prednisone as well as ibuprofen. Patient was advised to follow-up with his primary care physician. Patient encouraged to return should have any worsening or new concerning symptoms. HPI General Mode of arrival: ambulatory . Date/Time Provider Initiated Documentation: 01/01/18 12:02 . Limitations to Documentation: no limitations . Information obtained by: patient and family (mother) . HPI Narrative: 57-year-old male with history of gout presents with chief complaint of gout flare. Patient notes pain in his right elbow as well as right knee that started yesterday and have persisted. Patient states symptoms are exactly the same as prior gout flare that he last had about 6 months ago. Patient notes gout flares typically resolve with prednisone. He does not have any prednisone at home. Denies associated fever. No joint swelling or redness. Related Data Home Medications Medication Instructions Recorded Confirmed lamotrigine 150 mg PO HS 06/17/13 01/01/18 lithium carbonate 900 mg PO HS 06/17/13 01/01/18 tiotropium bromide [Spiriva with 1 cap INHALATION DAILY 06/17/13 01/01/18 HandiHaler] albuterol sulfate 2 puff INHALATION PRN 11/13/13 01/01/18 aspirin [Aspirin Low-Strength] 81 mg PO DAILY 09/25/14 01/01/18 atorvastatin [Lipitor] 80 mg PO DAILY 09/25/14 01/01/18 nitroglycerin [Nitrostat] 0.4 mg SUBLINGUAL Q5 MIN PRN X3 09/25/14 01/01/18 PRN #100 tab.subl isosorbide mononitrate 30 mg PO DAILY 05/20/15 01/01/18 pantoprazole [Protonix] 40 mg PO DAILY 05/20/15 01/01/18 risperidone 2 mg PO HS 05/20/15 01/01/18 ibuprofen 800 mg PO Q8H PRN PRN #30 tablet 07/11/16 01/01/18 budesonide-formoterol [Symbicort] 10.2 gm INHALATION BID 09/15/16 01/01/18 metoprolol succinate 50 mg PO DAILY 09/15/16 01/01/18 ibuprofen 600 mg PO TID PRN #30 tab 01/01/18 prednisone 40 mg PO DAILY 4 Days #8 tab 01/01/18 Previous Rx's Medication Instructions Recorded nitroglycerin [Nitrostat] 0.4 mg SUBLINGUAL Q5 MIN PRN X3 09/25/14 PRN #100 tab.subl ibuprofen 800 mg PO Q8H PRN PRN #30 tablet 07/11/16 ibuprofen 600 mg PO TID PRN #30 tab 01/01/18 prednisone 40 mg PO DAILY 4 Days #8 tab 01/01/18 Allergies Allergy/AdvReac Type Severity Reaction Status Date / Time No Known Allergies Allergy Unverified 01/01/18 12:10 General Stated Complaint: Orthopedic ZEINAB: 3 Review of Systems Musculoskeletal Reports as per HPI Integumentary/Breasts Denies rash [facility] Medical History Suicide attempt by hanging (Acute) Rhabdomyolysis (Acute) Cellulitis of left upper extremity (Acute) Polysubstance abuse (Acute) Coronary atherosclerosis of [place] coronary artery (Chronic 09/25/14) COPD (chronic obstructive pulmonary disease) (Chronic) GERD (gastroesophageal reflux disease) (Chronic) Schizoaffective disorder (Chronic) Old myocardial infarction (Chronic 09/25/14) assisted current use of antithrombotics/antiplatelets (Chronic 09/25/14) Coronary angioplasty status (Chronic 09/25/14) Hypertension (Chronic) Hyperlipidemia (Chronic) CAD (coronary artery disease) (Chronic) COPD (chronic obstructive pulmonary disease) (Chronic) GERD (gastroesophageal reflux disease) (Chronic) HTN (hypertension) (Chronic) Hypercholesterolemia (Chronic) Social History Smoking/Tobacco Use Status: Current every day Surgical History H/O heart artery stent (Chronic) Exam Const General: cooperative and no acute distress Eyes Conjunctivae: normal conjunctivae Sclera: normal sclerae Cardio Rate: regular rate and not tachycardic Rhythm: regular rhythm Skin General skin exam: no rashes or lesions noted Neuro General: alert, awake, oriented x3 and tone normal Extrem General: no edema Other: Right elbow tender with no effusion, no warmth, overlying or swelling noted, limited range of motion, is able to flex but not fully secondary to pain ; right radial pulse 2+; right knee with no warmth, swelling or effusion, or overlying erythema, limited flexion secondary to pain Psych Appearance: grossly normal Mental Status: mental status grossly normal Speech and Movement: speech and movement normal Course Vital Signs Temperature 36.7 C 01/01/18 12:06 Pulse 68 01/01/18 12:06 Respiratory Rate 16 01/01/18 12:06 Blood Pressure 141/81 H 01/01/18 12:06 Pulse Oximetry 98 01/01/18 12:06 Temperature 36.7 C 01/01/18 12:06 Temperature Source Skin 01/01/18 12:06 Pulse 68 01/01/18 12:06 Respiratory Rate 16 01/01/18 12:06 Respiratory Effort 01/01/18 12:06 Blood Pressure 141/81 H 01/01/18 12:06 Blood Pressure Position Sitting 01/01/18 12:06 Pulse Oximetry 98 01/01/18 12:06 Pain Level 10 01/01/18 12:15
== END 2018-01-01 12:57 | disposition home or self-care (01) ==
LOC: ER 13:13
PROVIDERS: Emergency Provider Student in an Organized Health Care Education/Training Program; PCP Family Medicine
DX: M25.561 Pain in right knee (principal); M10.9 Gout, unspecified; M25.521 Pain in right elbow; J44.9 Chronic obstructive pulmonary disease, unspecified; F17.210 Nicotine dependence, cigarettes, uncomplicated; I10 Essential (primary) hypertension
CPT/HCPCS: 99283; J7512

== ENCOUNTER 2018-01-12 08:49 | Outpatient (CLI) | payer MEDICARE, SELFPAY ==
[2018-01-12 09:38] LABS: Abs Immature Grans 0.05 k/cumm (0.0-0.09); Absolute Basophil Count 0.03 k/cumm (0.0-0.2); Absolute Eosinophil Count 0.29 k/cumm (0.0-0.7); Absolute Lymphocyte Count 2.23 k/cumm (1.2-3.4); Absolute Monocyte Count 0.88 k/cumm (0.11-0.7); Absolute Neutrophil Count 6.16 k/cumm (1.2-6.7); Basophils % 0.3; HCT 46.5 % (40.0-50.0); HGB 15.4 g/dL (13.5-17.5); Immature Grans % 0.5; Lymphocytes % 23.1; Mean Corp. HGB Concentration 33.1 g/dL (32.0-36.0); Mean Corpuscular Hemoglobin 31.1 pg (27.0-33.0); Mean Corpuscular Volume 93.9 fL (80-95); Mean Platelet Volume 9.2 fL (8.0-11.0); Monocytes % 9.1; Platelet Count 210 x1000/uL (130-400); RBC 4.95 m/cumm (4.50-6.00); RBC Distribution Width 13.9 % (11.8-14.1); White Blood Cell Count 9.64 k/cumm (4.4-10.8)
[2018-01-12 09:55] LABS: Hemoglobin A1C 5.7 % (4.5-6.2)
[2018-01-12 10:21] LABS: ALT 32 U/L (12-78); AST 15 U/L (15-37); Albumin 3.6 g/dL (3.4-5.0); Alkaline Phosphatase 114 U/L (46-116); Anion Gap 7.6 mmol/L (3-11); BUN 8 mg/dL (7-18); Bilirubin, Total 0.5 mg/dL (0.2-1.0); CO2 29.4 mmol/L (21.0-32.0); CREATININE 0.77 mg/dL (0.70-1.30); Calcium 8.7 mg/dL (8.5-10.1); Chloride 104 mmol/L (98-107); Glucose 103 mg/dL (70-100); Potassium 4.1 mmol/L (3.5-5.1); Sodium 141 mmol/L (136-145); TSH (W/Ref FT4) 1.52 uIU/mL (0.358-3.74); Total Protein 6.8 g/dL (6.4-8.2)
[2018-01-12 10:23] LABS: Lithium 0.86 mmol/L (0.60-1.20)
[2018-01-13 10:34] LABS: Prolactin 30.5 ng/ml (2.1-17.7)
== END 2018-01-12 09:09 ==
PROVIDERS: PCP Family Medicine; Visit Provider Nurse Practitioner Psychiatric/Mental Health
DX: F25.0 Schizoaffective disorder, bipolar type (principal); Z51.81 Encounter for therapeutic drug level monitoring; Z79.899 Other long term (current) drug therapy
CPT/HCPCS: 36415; 80053; 80178; 83036; 84146; 84443; 85025

== ENCOUNTER 2018-09-29 08:37 | Outpatient (CLI) | payer MEDICARE, SELFPAY ==
[2018-09-29 10:16] LABS: ALT 43 U/L (12-78); AST 19 U/L (15-37); Albumin 3.7 g/dL (3.4-5.0); Alkaline Phosphatase 122 U/L (46-116); Anion Gap 6.9 mmol/L (3-11); BUN 13 mg/dL (7-18); Bilirubin, Total 0.5 mg/dL (0.2-1.0); CO2 31.1 mmol/L (21.0-32.0); CREATININE 0.83 mg/dL (0.70-1.30); Calcium 8.8 mg/dL (8.5-10.1); Calculated LDL 107; Chloride 106 mmol/L (98-107); Cholesterol 169 mg/dL (50-200); Glucose 80 mg/dL (70-100); HDL Cholesterol 30 mg/dL (40-60); Sodium 144 mmol/L (136-145); TSH 3.57 uIU/mL (0.358-3.74); Total Protein 6.9 g/dL (6.4-8.2); Triglyceride 164 mg/dL (30-150)
[2018-09-29 13:19] LABS: Lithium 0.59 mmol/L (0.60-1.20)
== END 2018-09-29 08:57 ==
PROVIDERS: PCP Family Medicine; Visit Provider Nurse Practitioner Family
DX: F25.0 Schizoaffective disorder, bipolar type (principal); Z79.899 Other long term (current) drug therapy; Z51.81 Encounter for therapeutic drug level monitoring
CPT/HCPCS: 36415; 80053; 80061; 83721; 80178; 84443

== ENCOUNTER 2018-11-04 18:25 | Emergency (ER) | payer MEDICARE, SELFPAY ==
[2018-11-04 18:28] VITALS: BP 140/89; PULSE 89; RESP 16; TEMP 37.2; O2SAT 94
--- NOTE | 2018-11-04 18:44 | ED.GENADUL_ITS ---
Discharge Plan Disposition Patient Disposition: HOME Condition: Stable Discharge Details Chief Complaint: DentalOral Clinical Impression: Pain, dental Primary Care Provider: Tawanda Dooley ED Provider: Harvey Espinoza Home Meds and New Rx's Prescriptions: New tramadol 50 mg tablet 50 mg PO Q8H PRN (Reason: pain) Qty: 12 RF: 0 clindamycin HCl 150 mg capsule 450 mg PO TID 14 Days Qty: 126 RF: 0 No Action lamotrigine 150 MG tablet 150 mg PO HS RF: 0 lithium carbonate 600 MG capsule 900 mg PO HS RF: 0 Spiriva with HandiHaler 18 MCG capsule, w/inhalation device 1 cap Inhalation DAILY RF: 0 albuterol sulfate 8.5 GM HFA aerosol inhaler 2 puff Inhalation PRN RF: 0 aspirin [Aspirin Low-Strength] 81 MG tablet,chewable 81 mg PO DAILY RF: 0 atorvastatin [Lipitor] 80 MG tablet 80 mg PO DAILY RF: 0 nitroglycerin [Nitrostat] 0.4 MG tablet, sublingual 0.4 mg Sublingual Q5 MIN PRN X3 PRNQty: 100 RF: 0 isosorbide mononitrate 30 MG tablet extended release 24 hr 30 mg PO DAILY RF: 0 pantoprazole [Protonix] 20 MG tablet,delayed release (DR/EC) 40 mg PO DAILY RF: 0 risperidone 2 MG tablet 2 mg PO HS RF: 0 ibuprofen 800 MG tablet 800 mg PO Q8H PRN PRN (Reason: Pain) Qty: 30 RF: 0 Symbicort 10.2 GM HFA aerosol inhaler 10.2 gm Inhalation BID RF: 0 metoprolol succinate 25 MG tablet extended release 24 hr 50 mg PO DAILY RF: 0 ibuprofen 600 mg tablet 600 mg PO TID PRN (Reason: pain) Qty: 30 RF: 0 Discharge Instructions Instructions: Tramadol (By mouth), Toothache (ED) Additional Instructions: follow up with your dentist if you have difficulty breathing or inability to swallow liquids return to the emergency department Medical Decision Making patient here with about 2 weeks of right upper dental pain, no dyspnea or fevers or difficulty swallowing.Has severely eroded teeth on exam with pain with percurssion to the right upper molars, no visible abscess, no swelling on the skin or redness and no pain over hyoid or restricted neck movements, no submandibular swelling, no findings to suggest rpa, seating captain,epiglotitis or ludwigs. Suspect pulpitis, will start clindamycin and given degree of pain also start tramadol. He will f/u with dentist and return precautions given. He denies actually having chset pain to me, he is just worried that the dental issues could lead to heart disease. He was advised if he has chest pain or pressure to return to the [facility] Differential Diagnosis detnal pain, pulpitis, abscess HPI General Mode of arrival: ambulatory . Date/Time Provider Initiated Documentation: 11/04/18 18:28 . Limitations to Documentation: no limitations . Information obtained by: patient . History of Present Illness 58 year old M presents to the emergency department with the chief complaint of dental pain, described as moderate, Quality is described as aching, and is localized to the mouth. Patient started experiencing this day(s) (14) and it has been constant. No relieving factors improve symptom(s), No exacerbating factors reported . Patient did receive the following treatments prior to arrival, none Related Data Home Medications Medication Instructions Recorded Confirmed Spiriva with HandiHaler 1 cap INHALATION DAILY 06/17/13 11/04/18 lamotrigine 150 mg PO HS 06/17/13 11/04/18 lithium carbonate 900 mg PO HS 06/17/13 11/04/18 albuterol sulfate 2 puff INHALATION PRN 11/13/13 11/04/18 aspirin [Aspirin Low-Strength] 81 mg PO DAILY 09/25/14 11/04/18 atorvastatin [Lipitor] 80 mg PO DAILY 09/25/14 11/04/18 nitroglycerin [Nitrostat] 0.4 mg SUBLINGUAL Q5 MIN PRN X3 09/25/14 11/04/18 PRN #100 tab.subl isosorbide mononitrate 30 mg PO DAILY 05/20/15 11/04/18 pantoprazole [Protonix] 40 mg PO DAILY 05/20/15 11/04/18 risperidone 2 mg PO HS 05/20/15 11/04/18 ibuprofen 800 mg PO Q8H PRN PRN #30 tablet 07/11/16 11/04/18 Symbicort 10.2 gm INHALATION BID 09/15/16 11/04/18 metoprolol succinate 50 mg PO DAILY 09/15/16 11/04/18 ibuprofen 600 mg PO TID PRN #30 tab 01/01/18 11/04/18 clindamycin HCl 450 mg PO TID 14 Days #126 cap 11/04/18 tramadol 50 mg PO Q8H PRN #12 tab 11/04/18 Previous Rx's Medication Instructions Recorded nitroglycerin [Nitrostat] 0.4 mg SUBLINGUAL Q5 MIN PRN X3 09/25/14 PRN #100 tab.subl ibuprofen 800 mg PO Q8H PRN PRN #30 tablet 07/11/16 ibuprofen 600 mg PO TID PRN #30 tab 01/01/18 clindamycin HCl 450 mg PO TID 14 Days #126 cap 11/04/18 tramadol 50 mg PO Q8H PRN #12 tab 11/04/18 Allergies Allergy/AdvReac Type Severity Reaction Status Date / Time No Known Allergies Allergy Unverified 11/04/18 18:34 General Stated Complaint: DentalOral ZEINAB: 3 Review of Systems Review of Systems All systems reviewed & are unremarkable except as noted in HPI and below Constitutional Denies chills, Denies fever(s) and Denies weakness ENT Denies change in voice Cardiovascular Denies chest pain and Denies dyspnea Respiratory Denies cough and Denies dyspnea Gastrointestinal Denies abdominal pain, Denies nausea and Denies vomiting Neurologic Denies weakness PFSH Social History Smoking/Tobacco Use Status: Current every day Tobacco Type: cigarettes Alcohol Intake: never Drug use: Current Sobriety Substance use type: does not use Do you feel safe at home: Yes Do you feel safe in your relationship?: Yes Exam Const General: no acute distress Orientation: alert HENMT Head: normal to inspection Ears: external ears normal General nose exam: external nose normal Mouth: moist mucous membranes Eyes General: appearance normal, both eyes and all related structures Neck Neck: normal visual inspection Resp Effort & Inspection: normal respiratory effort and able to speak in complete sentences Cardio Rate: regular rate Skin General skin exam: no rashes or lesions noted Neuro General: alert and oriented x3 Extrem General: normal to inspection Psych Mental Status: mental status grossly normal Course Vital Signs Temperature 37.2 C 11/04/18 18:28 Pulse 89 11/04/18 18:28 Respiratory Rate 16 11/04/18 18:28 Blood Pressure 140/89 11/04/18 18:28 Pulse Oximetry 94 L 11/04/18 18:28 Temperature 37.2 C 11/04/18 18:28 Temperature Source Temporal Artery Scan 11/04/18 18:28 Pulse 89 11/04/18 18:28 Respiratory Rate 16 11/04/18 18:28 Respiratory Effort Non-Labored 11/04/18 18:33 Blood Pressure 140/89 11/04/18 18:28 Blood Pressure Position Sitting 11/04/18 18:28 Pulse Oximetry 94 L 11/04/18 18:28 Oxygen Delivery Method Room Air 11/04/18 18:28 Oxygen Flow Rate 0 11/04/18 18:28 Pain Level 10 11/04/18 18:28
[2018-11-04] MEDS: Clindamycin 150 MG CAP 450 MG PO (18:50)
[2018-11-04] MEDS: traMADol 50 MG TAB PO ×2 (18:50→18:51)
== END 2018-11-04 18:55 | disposition home or self-care (01) ==
PROVIDERS: Emergency Provider Emergency Medicine; PCP Family Medicine
DX: K08.89 Other specified disorders of teeth and supporting structures (principal)
CPT/HCPCS: 99283

== ENCOUNTER 2018-11-30 16:20 | Emergency (ER) | payer MEDICARE, SELFPAY ==
[2018-11-30 16:23] VITALS: BP 141/91; PULSE 72; RESP 18; TEMP 36.7; O2SAT 96
== END 2018-11-30 17:15 ==
LOC: ER 16:44
PROVIDERS: Emergency Provider Physician Assistant; PCP Family Medicine
DX: R22.42 Localized swelling, mass and lump, left lower limb (principal); Z53.21 Procedure and treatment not carried out due to patient leaving prior to being seen by health care provider

== ENCOUNTER 2018-12-02 16:12 | Emergency (ER) | payer MEDICARE, SELFPAY ==
[2018-12-02 16:25] VITALS: BP 115/88; PULSE 80; RESP 15; TEMP 37; O2SAT 95
--- NOTE | 2018-12-02 16:48 | ED.GENADUL_ITS ---
Discharge Plan Disposition Patient Disposition: HOME Condition: Improving Discharge Details Chief Complaint: Vascular Clinical Impression: Superficial thrombophlebitis of left leg Primary Care Provider: Tawanda Dooley ED Provider: Jese Ahn Home Meds and New Rx's Prescriptions: New cephalexin 500 mg tablet 500 mg PO TID 5 Days Qty: 15 RF: 0 Continued lamotrigine 150 MG tablet 150 mg PO HS RF: 0 lithium carbonate 600 MG capsule 900 mg PO HS RF: 0 Spiriva with HandiHaler 18 MCG capsule, w/inhalation device 1 cap Inhalation DAILY RF: 0 albuterol sulfate 8.5 GM HFA aerosol inhaler 2 puff Inhalation PRN RF: 0 aspirin [Aspirin Low-Strength] 81 MG tablet,chewable 81 mg PO DAILY RF: 0 atorvastatin [Lipitor] 80 MG tablet 80 mg PO DAILY RF: 0 nitroglycerin [Nitrostat] 0.4 MG tablet, sublingual 0.4 mg Sublingual Q5 MIN PRN X3 PRNQty: 100 RF: 0 isosorbide mononitrate 30 MG tablet extended release 24 hr 30 mg PO DAILY RF: 0 pantoprazole [Protonix] 20 MG tablet,delayed release (DR/EC) 40 mg PO DAILY RF: 0 risperidone 2 MG tablet 2 mg PO HS RF: 0 Symbicort 10.2 GM HFA aerosol inhaler 10.2 gm Inhalation BID RF: 0 metoprolol succinate 25 MG tablet extended release 24 hr 50 mg PO DAILY RF: 0 Discharge Instructions Instructions: Superficial Thrombophlebitis (ED) Additional Instructions: Apply heat to area to in increase speed of healing. Continue your regular medications Take antibiotics as prescribed. Return for any acute concern Medical Decision Making 58-year-old male presents from home with his partner. He has had 2 to 3 days of left lower extremity popliteal mass and discomfort. He arrives with normal vital signs, normal oxygenation. He is tender with a palpable mass in the popliteal fossa. Does have a history of varicosities. Differential diagnosis includes superficial thrombophlebitis versus DVT. Ultrasound obtained which reveals superficial thrombophlebitis. No evidence of DVT. We will place him on warm moist heat. There is questionable overlying cellulitis therefore prescribed 5 days of Keflex. He stable for discharge home at this time. HPI General Mode of arrival: ambulatory . Date/Time Provider Initiated Documentation: 12/02/18 16:41 . Limitations to Documentation: no limitations . Information obtained by: patient . History of Present Illness 58 year old M presents to the emergency department with the chief complaint of Left lower extremity mass behind knee, described as moderate, Quality is described as dull, and is localized to the left and lower extremity. Patient reports no radiation. Patient started experiencing this day(s) and it has been constant. Rest improves symptom(s), Other factors that worsen symptoms (Pressure) . Patient notes no other symptoms.. Patient did receive the following treatments prior to arrival, none Related Data Home Medications Medication Instructions Recorded Confirmed Spiriva with HandiHaler 1 cap INHALATION DAILY 06/17/13 12/02/18 lamotrigine 150 mg PO HS 06/17/13 12/02/18 lithium carbonate 900 mg PO HS 06/17/13 12/02/18 albuterol sulfate 2 puff INHALATION PRN 11/13/13 12/02/18 aspirin [Aspirin Low-Strength] 81 mg PO DAILY 09/25/14 12/02/18 atorvastatin [Lipitor] 80 mg PO DAILY 09/25/14 12/02/18 nitroglycerin [Nitrostat] 0.4 mg SUBLINGUAL Q5 MIN PRN X3 09/25/14 12/02/18 PRN #100 tab.subl isosorbide mononitrate 30 mg PO DAILY 05/20/15 12/02/18 pantoprazole [Protonix] 40 mg PO DAILY 05/20/15 12/02/18 risperidone 2 mg PO HS 05/20/15 12/02/18 Symbicort 10.2 gm INHALATION BID 09/15/16 12/02/18 metoprolol succinate 50 mg PO DAILY 09/15/16 12/02/18 cephalexin 500 mg PO TID 5 Days #15 tab 12/02/18 Previous Rx's Medication Instructions Recorded nitroglycerin [Nitrostat] 0.4 mg SUBLINGUAL Q5 MIN PRN X3 09/25/14 PRN #100 tab.subl cephalexin 500 mg PO TID 5 Days #15 tab 12/02/18 Allergies Allergy/AdvReac Type Severity Reaction Status Date / Time No Known Allergies Allergy Unverified 12/02/18 16:30 General Stated Complaint: Vascular ZEINAB: 3 Review of Systems Review of Systems No fever, no injury, no immobilization. Denies chest pain or shortness of breath. 6 systems reviewed and otherwise negative [facility] Medical History CAD (coronary artery disease) (Chronic) Cellulitis of left upper extremity (Acute) COPD (chronic obstructive pulmonary disease) (Chronic) COPD (chronic obstructive pulmonary disease) (Chronic) Coronary atherosclerosis of [place] coronary artery (Chronic 09/25/14) GERD (gastroesophageal reflux disease) (Chronic) GERD (gastroesophageal reflux disease) (Chronic) HTN (hypertension) (Chronic) Hypercholesterolemia (Chronic) Hyperlipidemia (Chronic) Hypertension (Chronic) long-term current use of antithrombotics/antiplatelets (Chronic 09/25/14) Old myocardial infarction (Chronic 09/25/14) Polysubstance abuse (Acute) Rhabdomyolysis (Acute) Schizoaffective disorder (Chronic) Suicide attempt by hanging (Acute) Surgical History Coronary angioplasty status (Chronic 09/25/14) H/O heart artery stent (Chronic) Social History Smoking/Tobacco Use Status: Current every day Tobacco Type: cigars Per week: 35 Alcohol Intake: never Drug use: Current Sobriety Substance use type: does not use Do you feel safe at home: Yes Do you feel safe in your relationship?: Yes Exam Narrative Exam Narrative: GEN: awake, alert, oriented 3. Pleasant, well groomed, interactive. HEAD: Normocephalic, atraumatic ENT: Mucous membranes moist, oropharynx unremarkable, External ear exam unremarkable EYES: PERRL, EOMI NECK: Full ROM, no PEDRO, no menigismus CHEST/RESP: Nontender, clear to auscultation bilateral, no wheeze/rhonchi/rales CARDIOVASCULAR: RRR, no murmur, rub trini. 2+ Rad pulse bilateral ABDOMEN: Soft, nontender, no mass. +Bowel sounds EXT: Full ROM, tender popliteal mass with discrete overlying erythema. Neuro: Grossly normal neurologic exam, conversant, interactive. Psych: Speech fluent, thoughts congruent, affect normal Course Vital Signs Temperature 37 C 12/02/18 16:25 Pulse 80 12/02/18 16:25 Respiratory Rate 15 12/02/18 16:25 Blood Pressure 115/88 12/02/18 16:25 Pulse Oximetry 95 12/02/18 16:25 Temperature 37 C 12/02/18 16:25 Temperature Source Temporal Artery Scan 12/02/18 16:25 Pulse 80 12/02/18 16:25 Respiratory Rate 15 12/02/18 16:25 Respiratory Effort Non-Labored 12/02/18 16:29 Blood Pressure 115/88 12/02/18 16:25 Blood Pressure Position Sitting 12/02/18 16:25 Pulse Oximetry 95 12/02/18 16:25 Oxygen Delivery Method Room Air 12/02/18 16:25 Oxygen Flow Rate 0 12/02/18 16:25 Pain Level 5 12/02/18 16:25
--- NOTE | 2018-12-02 17:32 | DI.US_ITS ---
SYMPTOM/DIAGNOSIS: POPLITEAL MASS/PAIN LEFT LOWER EXTREMITY ULTRASOUND: There is erythema in the left posterior distal thigh. In this area there are superficial venous varicosities containing thrombus. The saphenous vein appears patent. The femoral and popliteal veins and deep calf veins also appear free of thrombus. No Jerez's cyst is seen. IMPRESSION: Superficial thrombophlebitis.
[2018-12-02 17:35] VITALS: RESP 15
[2018-12-02] MEDS: Cephalexin 500 MG CAP PO (18:28)
[2018-12-02 18:31] VITALS: BP 115/80; PULSE 80; RESP 15; TEMP 37; O2SAT 98
--- NOTE | 2018-12-02 18:35 | DI.VRAD_ITS ---
Addendum created by Alessio Alexander MD on 12/02/2018 7:29:20 PM EDT There is a voice-recognition error in the associated report. The 2nd IMPRESSION should read: Thrombosed superficial varices in the posterior distal left thigh subjacent to the region of cutaneous ERYTHEMA. Initial report created on 12/02/2018 6:34:58 PM EDT EXAM: US Duplex Left Lower Extremity Veins, Limited EXAM DATE/TIME: 12/02/2018 6:07 PM CLINICAL HISTORY: 58 years old, male; Pain; Leg, lower; Left TECHNIQUE: Imaging protocol: Real-time Duplex ultrasound of the Left Lower Extremity with 2-D ojeda scale, color Doppler flow and spectral waveform analysis with image documentation. Limited exam focused on the left lower extremity veins. COMPARISON: No relevant prior studies available. FINDINGS: Left deep veins: Interrogation of the left common femoral, superficial femoral, popliteal, and posterior tibial veins reveals no evidence of thrombus. Left superficial veins: The left greater saphenous vein appears patent. Imaging in the region of cutaneous erythema in the posterior distal left thigh reveals thrombosed superficial varices. Soft tissues: No gross soft tissue abnormality is demonstrated. IMPRESSION: 1. No sonographic evidence of DVT, left lower extremity. 2. Thrombosed superficial varices in the posterior distal left thigh subjacent to the region of cutaneous emphysema. Dictated and Authenticated by: Alessio Alexander MD. Ordering:STEVIE Sawant MD
== END 2018-12-02 17:20 | disposition home or self-care (01) ==
PROVIDERS: Emergency Provider Emergency Medicine; PCP Family Medicine
DX: I80.02 Phlebitis and thrombophlebitis of superficial vessels of left lower extremity (principal); I83.92 Asymptomatic varicose veins of left lower extremity; Z79.02 Long term (current) use of antithrombotics/antiplatelets; J44.9 Chronic obstructive pulmonary disease, unspecified; F17.200 Nicotine dependence, unspecified, uncomplicated; I10 Essential (primary) hypertension
CPT/HCPCS: 99284; 93971

== ENCOUNTER 2019-06-16 18:22 | Emergency (ER) | payer MEDICARE, SELFPAY ==
[2019-06-16 18:26] VITALS: BP 156/89; PULSE 61; RESP 16; TEMP 36; O2SAT 95
--- NOTE | 2019-06-16 18:39 | ED.GENADUL_ITS ---
Discharge Plan Disposition Patient Disposition: HOME Condition: Stable Discharge Details Chief Complaint: DentalOral Clinical Impression: Dental infection Primary Care Provider: Tawanda Dooley ED Provider: Josefina Ayala Home Meds and New Rx's Prescriptions: New clindamycin HCl 150 mg capsule 450 mg PO TID 7 Days Qty: 63 RF: 0 Continued lamotrigine 150 MG tablet 150 mg PO HS RF: 0 lithium carbonate 600 MG capsule 900 mg PO HS RF: 0 Spiriva with HandiHaler 18 MCG capsule, w/inhalation device 1 cap Inhalation DAILY RF: 0 albuterol sulfate 8.5 GM HFA aerosol inhaler 2 puff Inhalation PRN RF: 0 aspirin [Aspirin Low-Strength] 81 MG tablet,chewable 81 mg PO DAILY RF: 0 atorvastatin [Lipitor] 80 MG tablet 80 mg PO DAILY RF: 0 nitroglycerin [Nitrostat] 0.4 MG tablet, sublingual 0.4 mg Sublingual Q5 MIN PRN X3 PRNQty: 100 RF: 0 isosorbide mononitrate 30 MG tablet extended release 24 hr 30 mg PO DAILY RF: 0 pantoprazole [Protonix] 20 MG tablet,delayed release (DR/EC) 40 mg PO DAILY RF: 0 risperidone 2 MG tablet 2 mg PO HS RF: 0 budesonide-formoterol [Symbicort] 10.2 GM HFA aerosol inhaler 10.2 gm Inhalation BID RF: 0 metoprolol succinate 25 MG tablet extended release 24 hr 50 mg PO DAILY RF: 0 Discharge Instructions Instructions: Dental Caries (ED) Additional Instructions: Take the antibiotics until finished. Alternate tylenol and motrin as needed and directed for pain. Take tramadol for pain not relieved with Tylenol or Motrin. Call your dentist on Tuesday morning to schedule a follow-up appointment for evaluation. Return to the emergency department if you develop any worsening or concerning symptoms. Discharge Data Discharge Physician: Josefina Ayala Medical Decision Making 59-year-old male presents with left lower dental pain for the past week, worsening pain now with left-sided facial swelling for the past few days. Poor dentition throughout. Patient has tenderness of teeth around #21-23. There is no abscess noted. There is left-sided facial swelling but without induration or crepitus. No trismus, drooling or submandibular swelling. Patient denies relief with Tylenol or Motrin. He took 3 doses of penicillin from an old prescription today without relief. Will treat with clindamycin. Patient requested stronger pain medication. 1 dose of tramadol given here as well as 2 tabs to go. Patient given dental follow-up list if needed. Usual and customary return precautions given prior to discharge. HPI General Mode of arrival: ambulatory . Date/Time Provider Initiated Documentation: 06/16/19 18:26 . Limitations to Documentation: no limitations . Information obtained by: patient . History of Present Illness 59 year old M presents to the emergency department with the chief complaint of Left lower dental pain, left-sided facial swelling, Patient started experiencing this week(s) (1) and it has been constant. No relieving factors improve symptom(s), Other factors that worsen symptoms (Chewing) . Patient notes denies fever/chills. Patient did receive the following treatments prior to arrival, NSAID and other (Tylenol) Related Data Home Medications Medication Instructions Recorded Confirmed Spiriva with HandiHaler 1 cap INHALATION DAILY 06/17/13 06/16/19 lamotrigine 150 mg PO HS 06/17/13 06/16/19 lithium carbonate 900 mg PO HS 06/17/13 06/16/19 albuterol sulfate 2 puff INHALATION PRN 11/13/13 06/16/19 aspirin [Aspirin Low-Strength] 81 mg PO DAILY 09/25/14 06/16/19 atorvastatin [Lipitor] 80 mg PO DAILY 09/25/14 06/16/19 nitroglycerin [Nitrostat] 0.4 mg SUBLINGUAL Q5 MIN PRN X3 09/25/14 06/16/19 PRN #100 tab.subl isosorbide mononitrate 30 mg PO DAILY 05/20/15 12/02/18 pantoprazole [Protonix] 40 mg PO DAILY 05/20/15 06/16/19 risperidone 2 mg PO HS 05/20/15 06/16/19 budesonide-formoterol [Symbicort] 10.2 gm INHALATION BID 09/15/16 06/16/19 metoprolol succinate 50 mg PO DAILY 09/15/16 06/16/19 clindamycin HCl 450 mg PO TID 7 Days #63 cap 06/16/19 Previous Rx's Medication Instructions Recorded nitroglycerin [Nitrostat] 0.4 mg SUBLINGUAL Q5 MIN PRN X3 09/25/14 PRN #100 tab.subl clindamycin HCl 450 mg PO TID 7 Days #63 cap 06/16/19 Allergies Allergy/AdvReac Type Severity Reaction Status Date / Time No Known Allergies Allergy Unverified 06/16/19 18:29 General Stated Complaint: DentalOral ZEINAB: 4 Review of Systems All systems reviewed & are unremarkable except as noted in HPI and below Constitutional Constitutional: Reports as per HPI, Denies chills and Denies fever(s) Eyes Eyes: Denies blurry vision ENT Ears, Nose, Mouth, and Throat: Reports dental pain, Denies dizziness, Denies sore throat, Denies throat swelling and Reports other (L facial swelling) Cardiovascular Cardiovascular: Denies chest pain and Denies dyspnea Respiratory Respiratory: Denies cough and Denies dyspnea Gastrointestinal Gastrointestinal: Denies abdominal pain, Denies diarrhea and Denies vomiting Genitourinary Genitourinary: Denies hematuria and Denies dysuria Musculoskeletal Musculoskeletal: Denies back pain and Denies numbness Integumentary/Breasts Skin/Breast: Denies lesions and Denies rash Neurologic Neurologic: Denies dizziness, Denies focal weakness and Denies numbness Allergic/Immunologic Allergic/Immunologic: Denies throat swelling [facility] Social History Smoking/Tobacco Use Status: Current every day Tobacco Type: cigars Per week: 35 Alcohol Intake: never Drug use: Current Sobriety Substance use type: does not use Do you feel safe at home: Yes Do you feel safe in your relationship?: Yes Exam Const General: cooperative, healthy appearing and no acute distress [facility] Head: normal to inspection Ears: hearing grossly normal bilaterally, external ears normal and TM's normal bilaterally General nose exam: external nose normal Face images: 1. Mild to moderate left-sided facial swelling. No induration, fluctuance, crepitus, erythema, ecchymosis. Mouth: oral mucosae normal Teeth image: 1. Tenderness to palpation. Dental caries noted. Poor dentition. No abscess noted. Throat: posterior oropharynx normal Eyes General: appearance normal, both eyes and all related structures Neck Neck: normal visual inspection, no meningeal signs, trachea midline, supple, No submandibular swelling and other (No edema, induration or swelling of submandibular region) Resp Effort & Inspection: normal respiratory effort and able to speak in complete sentences Cardio Rate: regular rate Skin General skin exam: no rashes or lesions noted Neuro General: alert, awake and oriented x3 Motor: muscle tone normal throughout Extrem General: normal to inspection and full ROM Psych Appearance: grossly normal Affect: normal affect Course Vital Signs Vital signs: Vital Signs Temperature 96.8 F L 06/16/19 18:26 Pulse 61 06/16/19 18:26 Respiratory Rate 16 06/16/19 18:26 Blood Pressure 156/89 H 06/16/19 18:26 Pulse Oximetry 95 06/16/19 18:26 Temperature 96.8 F L 06/16/19 18:26 Temperature Source Skin 06/16/19 18:26 Pulse 61 06/16/19 18:26 Respiratory Rate 16 06/16/19 18:26 Respiratory Effort Non-Labored 06/16/19 18:26 Blood Pressure 156/89 H 06/16/19 18:26 Pulse Oximetry 95 06/16/19 18:26 Oxygen Delivery Method Room Air 06/16/19 18:26 Oxygen Flow Rate 0 06/16/19 18:26 Pain Level 9 06/16/19 18:32
[2019-06-16] MEDS: Clindamycin 150 MG CAP 450 MG PO ×2 (18:56)
[2019-06-16] MEDS: traMADol 50 MG TAB PO (18:56)
== END 2019-06-16 19:00 | disposition home or self-care (01) ==
PROVIDERS: Emergency Provider Physician Assistant; PCP Family Medicine
DX: R68.84 Jaw pain (principal); K04.7 Periapical abscess without sinus; R22.0 Localized swelling, mass and lump, head
CPT/HCPCS: 99283

== ENCOUNTER 2019-06-26 15:26 | Outpatient (REF) | payer MEDICARE, SELFPAY ==
[2019-06-26 19:29] LABS: Lithium 0.28 mmol/L (0.60-1.20)
[2019-06-26 19:41] LABS: Anion Gap 7.5 mmol/L (3-11); BUN 14 mg/dL (7-18); CO2 29.5 mmol/L (21.0-32.0); CREATININE 0.85 mg/dL (0.70-1.30); Calcium 8.5 mg/dL (8.5-10.1); Chloride 106 mmol/L (98-107); Glucose 71 mg/dL (74-106); Potassium 4.2 mmol/L (3.5-5.1); Sodium 143 mmol/L (136-145); TSH (W/Ref FT4) 1.68 uIU/mL (0.36-3.74)
[2019-06-26 20:15] LABS: Hemoglobin A1C 5.7 % (3.8-5.6)
== END 2019-06-26 15:46 ==
LOC: NCHCN 15:26
PROVIDERS: PCP Family Medicine; Visit Provider Family Medicine
DX: R73.03 Prediabetes (principal); Z79.899 Other long term (current) drug therapy; F25.0 Schizoaffective disorder, bipolar type; Z51.81 Encounter for therapeutic drug level monitoring
CPT/HCPCS: 80048; 80178; 83036; 84443

== ENCOUNTER 2019-07-26 18:51 | Outpatient (CLI) | payer MEDICARE, SELFPAY ==
[2019-07-26 18:25] LABS: HGB 15.3 g/dL (13.5-17.5); Mean Corpuscular Volume 91.1 fL (80-95); Mean Platelet Volume 9.6 fL (8.0-11.0); Platelet Count 247 x1000/uL (130-400); RBC 4.94 m/cumm (4.50-6.00); RBC Distribution Width 13.8 % (11.8-14.1); White Blood Cell Count 10.76 k/cumm (4.4-10.8)
[2019-07-26 18:29] LABS: ALT 31 U/L (16-63); AST 17 U/L (15-37); Albumin 3.6 g/dL (3.4-5.0); Alkaline Phosphatase 92 U/L (46-116); Anion Gap 8.7 mmol/L (3-11); BUN 10 mg/dL (7-18); Bilirubin, Total 0.5 mg/dL (0.2-1.0); C-Reactive Protein 0.96 mg/dL (0.0-0.3); CO2 27.3 mmol/L (21.0-32.0); CREATININE 0.87 mg/dL (0.70-1.30); Calcium 8.9 mg/dL (8.5-10.1); Chloride 105 mmol/L (98-107); Glucose 131 mg/dL (74-106); Potassium 3.9 mmol/L (3.5-5.1); Sodium 141 mmol/L (136-145); TSH (W/Ref FT4) 0.83 uIU/mL (0.36-3.74); Total Protein 6.5 g/dL (6.4-8.2)
[2019-07-26 19:05] LABS: Lithium 0.42 mmol/L (0.60-1.20)
[2019-07-27 13:34] LABS: COVID-19 RT-PCR Result Negative (Negative)
== END 2019-07-26 19:11 ==
PROVIDERS: PCP Family Medicine; Visit Provider Nurse Practitioner Family
DX: R11.0 Nausea (principal); F25.0 Schizoaffective disorder, bipolar type; Z51.81 Encounter for therapeutic drug level monitoring; Z79.899 Other long term (current) drug therapy; Z11.59 Encounter for screening for other viral diseases
CPT/HCPCS: 80053; 85027; 87505; U0003; 80178; 84443; 86140; 87177

== ENCOUNTER 2019-07-30 13:16 | Outpatient (CLI) | payer MEDICARE, SELFPAY ==
--- NOTE | 2019-07-30 11:39 | DI.CT_ITS ---
EXAM: CT ABDOMEN PELVIS W CLINICAL HISTORY: NAUSEA, R11.0, ? DIVERTICULITIS. TECHNIQUE: Imaging Protocol: Axial computed tomography images with coronal and sagittal reformatted images were created and reviewed CONTRAST MATERIAL: Intravenous: Omnipaque 350 Contrast volume:100 ml Oral: yes COMPARISON: CHEST ABD PELVIS WITH CONTRAST from 05/28/2009 FINDINGS: ABDOMEN: Lung Bases: There are bilateral areas of scarring in the lower lobes which appear unchanged when comp ared with 2010. No acute infiltrate is seen.. Liver: Moderate fatty infiltration. No measurable mass. Gallbladder and biliary tract: No radiodense calculus or dilation. Pancreas: Normal density, no abnormal calcifications or inflammatory process. Spleen: Normal. Kidneys: Normal size, contour and axis. No radiodense stones or obstructive uropathy. No masses seen. Adrenal glands: No masses seen. Abdominal Aorta: 3.1 centimeter distal abdominal aortic aneurysm. Moderate vascular calcification. PELVIS: Bladder: Symmetric distention, no gross wall thickening. Bowel: No obstruction or bowel wall thickening. Mild sigmoid diverticulosis. No evidence of divertic ulitis. The appendix appears normal. Stomach and small bowel are unremarkable. Peritoneal cavity: No ascites, collection or mesenteric inflammatory response. Bones: Degenerative changes are seen in the spine. There are old right lower rib fractures. Reproductive organs: Within normal limits. Lymph nodes: Unremarkable. Impression: Mild sigmoid diverticulosis. No evidence of diverticulitis. 3.1 centimeter distal abdominal aortic aneurysm. DATA REPOSITORY: All CT scans at this facility are submitted to the National Radiology Data Registry (NRDR) Dose Index Registry (DIR) with the [employer] (ACR). RADIATION OPTIMIZATION: All CT scans at this facility use at least one of these dose optimization te chniques: automated exposure control; mA and/or kV adjustment per patient size (includes targeted exa ms where dose is matched to clinical indication); or iterative reconstruction.
[2019-07-30] MEDS: Omnipaque 350 MG/ML 100 ML BTL IJ (16:02)
--- NOTE | 2019-07-30 16:40 | DI.VRAD_ITS ---
PROCEDURE INFORMATION: Exam: CT Abdomen And Pelvis With Contrast Exam date and time: 07/30/2019 4:02 PM Age: 59 years old Clinical indication: Patient HX: Nausea, diverticulitis TECHNIQUE: Imaging protocol: Computed tomography of the abdomen and pelvis with intravenous contrast. COMPARISON: No relevant prior studies available. FINDINGS: Lungs: Mild atelectasis at the lung bases. In addition there is a tubular area of peribronchial consolidation in the posterior segment the left lower lobe measuring approximately 3 by 1.5 x 2 cm. Liver: Normal. No mass. Gallbladder and bile ducts: Normal. No calcified stones. No ductal dilation. Pancreas: Normal. No ductal dilation. Spleen: Normal. No splenomegaly. Adrenals: Normal. No mass. Kidneys and ureters: Normal. No hydronephrosis. Stomach and bowel: Stomach shows no abnormality. No dilatation of the small bowel. Oral contrast is passed the all the way through the small bowel to the sigmoid colon to some extent. There are few diverticula left colon but no identifiable surrounding inflammation. Appendix: No evidence of appendicitis. Intraperitoneal space: Unremarkable. No free air. No significant fluid collection. Vasculature: Unremarkable. No abdominal aortic aneurysm. Lymph nodes: Unremarkable. No enlarged lymph nodes. Bladder: The anterior superior wall of the urinary bladder is somewhat thickened but this area seen to be collapsed on the sagittal images so this is probably of no significance. Reproductive: Unremarkable as visualized. Bones/joints: Severe degenerative changes of facet joints in the lower lumbar spine specially on the right side. Moderate spondylosis in the visualized lower lumbar spine. Soft tissues: Large amount of intra-abdominal fat. Left inguinal canal is much wider than the right distally but there is no herniation of bowel. IMPRESSION: 1. Minimal diverticulosis but no definite evidence of acute diverticulitis 2. Findings suggesting a small area of pneumonia in the left lower lobe Dictated and Authenticated by: Harvey Obrien MD. Ordering:HOMERO Gibson MD
== END 2019-07-30 13:36 ==
PROVIDERS: PCP Family Medicine; Visit Provider Nurse Practitioner Family
DX: R11.0 Nausea (principal); J98.4 Other disorders of lung; K76.0 Fatty (change of) liver, not elsewhere classified; I71.4 Abdominal aortic aneurysm, without rupture; K57.30 Diverticulosis of large intestine without perforation or abscess without bleeding
CPT/HCPCS: 74177; J3490

== ENCOUNTER 2019-08-14 15:22 | Outpatient (REF) | payer MEDICARE, SELFPAY ==
[2019-08-16 16:01] LABS: COVID-19 RT-PCR Result Not Detected ((See Note))
== END 2019-08-14 15:42 ==
LOC: NCHCN 15:22
PROVIDERS: PCP Family Medicine; Visit Provider Physician Assistant
DX: R68.83 Chills (without fever) (principal)
CPT/HCPCS: U0003

== ENCOUNTER 2019-08-20 17:15 | Emergency (ER) | payer MEDICARE, SELFPAY ==
[2019-08-20] VITALS (22 sets, daily range): BP systolic 129–138; BP diastolic 76–84; PULSE 60–78; RESP 12–22; TEMP 36.7–37; O2SAT 92–99
[2019-08-20 18:30] LABS: Abs Immature Grans 0.05 k/cumm (0.0-0.09); Absolute Basophil Count 0.05 k/cumm (0.0-0.2); Absolute Eosinophil Count 0.45 k/cumm (0.0-0.7); Absolute Lymphocyte Count 3.62 k/cumm (1.2-3.4); Absolute Monocyte Count 0.97 k/cumm (0.11-0.7); Absolute Neutrophil Count 7.02 k/cumm (1.2-6.7); Basophils % 0.4; Eosinophils % 3.7; HCT 43.2 % (40.0-50.0); HGB 15.1 g/dL (13.5-17.5); Immature Grans % 0.4 %; Lactate 1.5 mmol/L (0.6-1.4); Lymphocytes % 29.8; Mean Corpuscular Volume 91.5 fL (80-95); Mean Platelet Volume 9.2 fL (8.0-11.0); Neutrophils % 57.7; Platelet Count 241 x1000/uL (130-400); RBC 4.72 m/cumm (4.50-6.00); RBC Distribution Width 13.7 % (11.8-14.1); White Blood Cell Count 12.16 k/cumm (4.4-10.8)
[2019-08-20 18:49] LABS: ALT 36 U/L (16-63); AST 17 U/L (15-37); Albumin 3.5 g/dL (3.4-5.0); Alkaline Phosphatase 99 U/L (46-116); Anion Gap 7.7 mmol/L (3-11); BUN 11 mg/dL (7-18); Bilirubin, Total 0.4 mg/dL (0.2-1.0); CO2 28.3 mmol/L (21.0-32.0); CREATININE 0.91 mg/dL (0.70-1.30); Chloride 104 mmol/L (98-107); Glucose 113 mg/dL (74-106); Lipase 118 U/L (73-393); Potassium 3.6 mmol/L (3.5-5.1); Sodium 140 mmol/L (136-145); Total Protein 6.7 g/dL (6.4-8.2); Troponin I < 0.05 ng/Ml (<0.06)
[2019-08-20] MEDS: Normal Saline 1,000 ML 1000 ML IV (18:50)
[2019-08-20] MEDS: Normal Saline Flush 10 ML SYR IVP ×2 (18:51→19:41)
--- NOTE | 2019-08-20 19:21 | ED.GENADUL_ITS ---
Discharge Plan Disposition Patient Disposition: HOME Condition: Stable Discharge Details Chief Complaint: RespSymp Clinical Impression: Pneumonia, High lithium level Primary Care Provider: Tawanda Dooley ED Provider: Lorna Faustin Home Meds and New Rx's Prescriptions: New doxycycline hyclate 100 mg capsule 100 mg PO BID Qty: 20 RF: 0 Continued lamotrigine 150 MG tablet 150 mg PO HS RF: 0 Spiriva with HandiHaler 18 MCG capsule, w/inhalation device 1 cap Inhalation DAILY RF: 0 albuterol sulfate 8.5 GM HFA aerosol inhaler 2 puff Inhalation PRN RF: 0 aspirin [Aspirin Low-Strength] 81 MG tablet,chewable 81 mg PO DAILY RF: 0 atorvastatin [Lipitor] 80 MG tablet 80 mg PO DAILY RF: 0 nitroglycerin [Nitrostat] 0.4 MG tablet, sublingual 0.4 mg Sublingual Q5 MIN PRN X3 PRNQty: 100 RF: 0 isosorbide mononitrate 30 MG tablet extended release 24 hr 30 mg PO DAILY RF: 0 pantoprazole [Protonix] 20 MG tablet,delayed release (DR/EC) 40 mg PO DAILY RF: 0 risperidone 2 MG tablet 2 mg PO HS RF: 0 budesonide-formoterol [Symbicort] 10.2 GM HFA aerosol inhaler 10.2 gm Inhalation BID RF: 0 metoprolol succinate 25 MG tablet extended release 24 hr 50 mg PO DAILY RF: 0 amoxicillin 875 mg tablet 875 mg PO BID RF: 0 Discontinued lithium carbonate 600 MG capsule 900 mg PO HS RF: 0 Discharge Instructions Instructions: Pneumonia (ED) Additional Instructions: Drink plenty of fluids. Stop amoxicillin previously prescribed. Use doxycycline prescribed as discussed. Hold lithium for the next 2 days. Please have follow-up labs. Lab slip was provided for recheck. Please follow-up with your primary care doctor promptly in the next 2 to 3 days for reevaluation of your labs as discussed. Expect improvement in the next 2 to 3 days. If no notable improvement have recheck with PCP. Return for any worsening symptoms or alarming concerns if needed sooner. Discharge Data Discharge Date/Time-TO BE ENTERED AT DEPARTURE: 08/20/19 22:00 Medical Decision Making 59-year-old patient presenting the of generalized malaise. Patient reports he has recently been diagnosed with a pneumonia in the left lower lobe for which he was treated with Augmentin and azithromycin initially. Patient reports no significant relief after initial course of antibiotics. Patient reports he was then prescribed a subsequent course of amoxicillin for which she has been compliant in the last 7 days. Patient reports has 3 days remaining on prescription. Patient does report after beginning his recent course of antibiotics he did feel improved for 3 days then symptoms began to return specifically malaise, fatigue, decreased appetite, nausea. Patient reports cough and mild worsening of his shortness of breath persist. Patient denies any fevers but does report occasional chills. Has been checking temperature regularly and has been noted to be afebrile. Patient denies night sweats. Patient denies any active chest pain. Denies radicular chest symptoms. Patient denies dizziness. Does report mild headaches intermittently relieved with ibuprofen. Patient is concerned with the possibility of persistent pneumonia. Patient reports compliant with his medications. Patient reports abdominal pain he previously experienced has improved. Patient has been able to eat and drink without difficulty. Patient does report some loose stools which he feels is likely secondary to recent antibiotic use. Denies profuse diarrhea. Patient does report decreased p.o. intake due to decrease in appetite and mild concern of dehydration. Patient has a medical history pertinent for hyper lipidemia, COPD, hypertension, coronary artery disease, [place] with stenting, psych history, substance abuse history, GERD, schizoaffective disorder. Patient appears nontoxic in no apparent distress. Initial vital signs reviewed. Patient has no obvious tachypnea or increase in respiratory effort. Patient's oxygen saturation on room air is 96%. Patient's breath sounds do reveal diffuse rhonchi and expiratory wheeze present. Patient's abdomen is soft and nontender. Patient has no significant distal edema. Patient cardio exam within normal limits. We will plan to check baseline labs, given patient has had 2 full courses of antibiotics with transient improvement in his symptoms now return of symptoms with known lower lobe pneumonia based on previous imaging by PCP we will plan to CT chest at this time rule out PE. Patient does have a significant cardiac history including stent placement several years ago for [place]. We will plan to check troponins as patient does report mild chest pressure and shortness of breath although denies chest pain which he reports he presented with for [place] in the past. No obvious fluid retention pattern. I doubt CHF. Denies obvious dysuria or urgency. Making normal amounts of urine reportedly. Patient's initial labs reveal mild leukocytosis with a white blood cell count of 12.16. Patient's electrolytes within normal limit. Very mild bump of lactate at 1.5 although patient reports feeling dehydrated which I attribute this to. Initial troponin is negative. Lipase is normal. Patient's urinalysis unremarkable for obvious infection. Patient's EKG reveals a heart rate of 65. Sinus rhythm. No ST segment changes. QTc 414. This was reviewed with Dr. Vargas. Patient CTA reveals no evidence of pulmonary embolism. Describes a bibasilar infiltrate however lungs are described as left lower lobe infiltrate versus atelectasis. Patient did have lung nodule which is noted to be 0.7 cm in the right lower lobe in the peripheral lung. Degenerative changes of the spine. Patient is feeling well at this time. Patient's lithium level noted to be 1.4. This is high compared to his baseline. This could be due to dehydration, could be due to recent antibiotic use, could be due to NSAIDs which patient reportedly has used for headache. Recommended this patient holds medication for the next 48 hours. Patient was provided a lab slip for which he can have repeat labs and follow-up with PCP. Patient agrees with this plan of care. Given patient's CT findings Given patient's CT findings, nontoxic appearance and normal vital signs I do feel outpatient management is most appropriate at this time. Patient did receive 1 L of IV fluids in the ER. Will recommend changing course of antibiotics to doxycycline for broader spectrum coverage and the amoxicillin he is currently taking. Will recommend prompt follow-up with PCP. Discussed pulmonary nodule noted on CT imaging. Recommended follow-up with PCP. Patient agrees with this plan of care. Patient second troponin returns normal. We will plan to discharge home at this time. Patient agrees with this plan of care. The patient was stable and requested discharge. Prior to discharge, my usual and customary return precautions were reviewed with the patient - this included follow-up instructions and reasons to return to the Emergency Department if conditions worsens, does not improve as expected, or other new concerns arise. HPI General Date/Time Provider Initiated Documentation: 08/20/19 17:22 . HPI Narrative: Is a 59-year-old patient presenting to the emergency room for return of malaise. Patient reports he described a general malaise and baseline cough he had a CT scan as an outpatient which identified a left lower lobe pneumonia. Patient had a CT scan for abdominal pain which has since improved. Patient denies measured fevers. Patient reports mild fatigue, intermittent chest pressure, chills without night sweats. Patient does report mild increase in his shortness of breath specifically when climbing stairs or with exertion. Patient does report some baseline shortness of breath as he is a chronic smoker and continues to smoke however does report this is somewhat increased compared to his baseline. Patient denies any chest pain. Patient denies any radicular chest pain symptoms. Patient denies obvious headache or dizziness. Patient does report decrease in appetite and a vague nausea without vomiting. Patient attributes nausea to decreased appetite and not eating enough. Patient denies significant bowel change. Patient does report occasional diarrhea which he attributes to current antibiotic use. Denies any blood with bowel movements. Again denies abdominal pain. Patient reports he has completed 2 courses of antibiotics. Patient currently taking amoxicillin on day 7. Patient reports he felt signific antly improved for the first 3 days of his antibiotic use then reports symptoms began to return specifically malaise. Related Data Home Medications Medication Instructions Recorded Confirmed Spiriva with HandiHaler 1 cap INHALATION DAILY 06/17/13 08/20/19 lamotrigine 150 mg PO HS 06/17/13 08/20/19 albuterol sulfate 2 puff INHALATION PRN 11/13/13 08/20/19 aspirin [Aspirin Low-Strength] 81 mg PO DAILY 09/25/14 08/20/19 atorvastatin [Lipitor] 80 mg PO DAILY 09/25/14 08/20/19 nitroglycerin [Nitrostat] 0.4 mg SUBLINGUAL Q5 MIN PRN X3 09/25/14 08/20/19 PRN #100 tab.subl isosorbide mononitrate 30 mg PO DAILY 05/20/15 08/20/19 pantoprazole [Protonix] 40 mg PO DAILY 05/20/15 08/20/19 risperidone 2 mg PO HS 05/20/15 08/20/19 budesonide-formoterol [Symbicort] 10.2 gm INHALATION BID 09/15/16 08/20/19 metoprolol succinate 50 mg PO DAILY 09/15/16 08/20/19 amoxicillin 875 mg PO BID 08/20/19 08/20/19 doxycycline hyclate 100 mg PO BID #20 cap 08/20/19 Previous Rx's Medication Instructions Recorded nitroglycerin [Nitrostat] 0.4 mg SUBLINGUAL Q5 MIN PRN X3 09/25/14 PRN #100 tab.subl doxycycline hyclate 100 mg PO BID #20 cap 08/20/19 Allergies Allergy/AdvReac Type Severity Reaction Status Date / Time No Known Allergies Allergy Unverified 08/20/19 17:40 General Stated Complaint: RespSymp ZEINAB: 3 Review of Systems All systems reviewed & are unremarkable except as noted in HPI and below Constitutional Constitutional: Reports chills, Reports fatigue, Denies fever(s), Denies headache(s), Reports lethargy, Reports malaise and Reports poor appetite ENT Ears, Nose, Mouth, and Throat: Denies headache(s), Denies sinus pressure and Reports sore throat Cardiovascular Cardiovascular: Denies chest pain, Denies diaphoresis, Denies syncope, Denies leg edema, Denies lightheadedness, Denies radiating jaw, neck or arm pain and Reports dyspnea Respiratory Respiratory: Reports chest congestion, Reports cough, Denies pain on inspiration, Denies pain with cough, Reports dyspnea and Reports wheezing Gastrointestinal Gastrointestinal: Denies abdominal pain, Reports diarrhea, Reports nausea and Denies vomiting Neurologic Neurologic: Denies syncope and Denies headache(s) Endocrine Endocrine: Reports fatigue Allergic/Immunologic Allergic/Immunologic: Reports wheezing [facility] Medical History CAD (coronary artery disease) (Chronic) Cellulitis of left upper extremity (Acute) COPD (chronic obstructive pulmonary disease) (Chronic) COPD (chronic obstructive pulmonary disease) (Chronic) Coronary atherosclerosis of [place] coronary artery (Chronic 09/25/14) GERD (gastroesophageal reflux disease) (Chronic) GERD (gastroesophageal reflux disease) (Chronic) HTN (hypertension) (Chronic) Hypercholesterolemia (Chronic) Hyperlipidemia (Chronic) Hypertension (Chronic) 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 Alert and oriented. HENMT: Head nomocephalic, normal to inspection. Atraumatic. Hearing grossly normal. External ear canal no erythema or swelling. TM normal bilaterally. Nose normal to inspection. No rhinnorhea. Normal facial exam. Oral mucosa normal. Tounge normal. Dentition normal. Patient to posterior oropharynx. Uvula midline. EYES: General normal appearance. Alignment normal. Eyelids normal. Conjunctiva normal. Sclera normal. PERRL. NECK: Normal visual inspection. FROM. No lymphadenopathy. Trachea midline. No Midline tenderness. CHEST: Normal insepection of the chest. RESP: Normal respiratory effort. Speaking full sentences. No cough. No wheezing. No retractions. Rhonchi and expiratory wheeze. Breath sound equal and present bilaterally. CARDIO: No JVD. Normal PMI. Regular Rate. Regular Rhythm. Normal peripheral pulses. GI: Normal inspection of abdomen. No distension. Soft. Nontender. Bowel sounds present in all 4 quadrants. No rebound. No gaurding. MUSCULOSKELETAL: Normal Gait. FROM of all extremities. Distal neurovascularly intact. Sensation intact distally. SKIN: Normal. Dry. No rashes. NEURO: Alert and awake. Speech clear. PSYCH: Normal affect. Cooperative. Course Vital Signs Vital signs: Vital Signs Temperature 37 C 08/20/19 17:33 Pulse 78 08/20/19 17:33 Respiratory Rate 18 08/20/19 17:33 Blood Pressure 132/84 08/20/19 17:33 Pulse Oximetry 96 08/20/19 17:33 Temperature 37 C 08/20/19 17:33 Temperature Source Tympanic 08/20/19 17:33 Pulse 78 08/20/19 17:33 Respiratory Rate 18 08/20/19 17:33 Respiratory Effort 08/20/19 17:39 Blood Pressure 132/84 08/20/19 17:33 Pulse Oximetry 96 08/20/19 17:33 Oxygen Delivery Method Room Air 08/20/19 17:33 Oxygen Flow Rate 0 08/20/19 17:33 Lab/Test Results Lab/Test Results: Laboratory Tests Range/Units 05/02/2808/20/19 08/20/19 18:20 18:20 18:20 WBC (4.4-10.8) k/cumm 12.16 H RBC (4.50-6.00) m/cumm 4.72 Hgb (13.5-17.5) g/dL 15.1 Hct (40.0-50.0) % 43.2 MCV (80-95) fL 91.5 MCH (27.0-33.0) pg 32.0 MCHC (32.0-36.0) g/dL 35.0 RDW (11.8-14.1) % 13.7 Plt Count (130-400) x1000/uL 241 MPV (8.0-11.0) fL 9.2 Immature Gran % % 0.4 Neutrophils % 57.7 Lymphocytes % 29.8 Monocytes % 8.0 Eosinophils % 3.7 Basophils % 0.4 Absolute Neutrophils (1.2-6.7) k/cumm 7.02 H Absolute Lymphocytes (1.2-3.4) k/cumm 3.62 H Absolute Monocytes (0.11-0.7) k/cumm 0.97 H Absolute Eosinophils (0.0-0.7) k/cumm 0.45 Absolute Basophils (0.0-0.2) k/cumm 0.05 Sodium (136-145) mmol/L 140 Potassium (3.5-5.1) mmol/L 3.6 Chloride (98-107) mmol/L 104 Carbon Dioxide (21.0-32.0) mmol/L 28.3 Anion Gap (3-11) mmol/L 7.7 BUN (7-18) mg/dL 11 Creatinine (0.70-1.30) mg/dL 0.91 Estimated GFR/1.73 m2 (mL/min/1.73m2) >= 60.00 Glucose (74-106) mg/dL 113 H Lactate (0.6-1.4) mmol/L 1.5 H Calcium (8.5-10.1) mg/dL 9.0 Total Bilirubin (0.2-1.0) mg/dL 0.4 AST (15-37) U/L 17 ALT (16-63) U/L 36 Alkaline Phosphatase (46-116) U/L 99 Troponin I (<0.06) ng/Ml < 0.05 Total Protein (6.4-8.2) g/dL 6.7 Albumin (3.4-5.0) g/dL 3.5 Lipase (73-393) U/L 118
--- NOTE | 2019-08-20 19:35 | DI.CT_ITS ---
EXAM: CT CHEST PE CTA CLINICAL HISTORY: malaise, SOB, cough, recent pneumonia tx x 2 w/abx TECHNIQUE: Axial CT angiography was performed with multi-slice acquisition and multi-planar and/or 3 D reconstructions. COMPARISON: CT CHEST ABD PELVIS WITH CONTRAST from 05/28/[address] ABDOMEN PELVIS W from 07/30/2019 FINDINGS: CT angiography of the chest was performed with a bolus infusion of 100 cc of Omnipaque 350. Images ob tained through the upper abdomen show unremarkable appearance of visualized portions of the liver, sp ymranda, pancreas, adrenals and kidneys. Comparison prior chest CT 05/28/2009 again shows a peripheral area right lower lobe scarring. There i s a calcified granuloma in the right lower lobe. There is a focal area of scarring and/or atelectasis at the left lung base peripherally which is slightly larger than on the previous examination, now me asuring about 38 x 17 millimeters on transaxial images as compared to about 38 x 14 millimeters on pr ior study. The possibility of additional areas of atelectasis or scarring versus superimposed acute c onsolidation or mass. No other new intrapulmonary findings. Tracheobronchial tree appears intact. No mediastinal or hilar adenopathy. No evidence of pulmonary embolic disease. No thoracic aortic aneurysm or dissection, ascending thorac ic aorta mildly ectatic at 41 millimeters. IMPRESSION: Interval increase in size of left basilar area of radiopacity, this may reflect additional interval a reas of scarring over the 10 year interval, new focal consolidation or mass not excluded. Follow-up c hest CT recommended in 3 months.
[2019-08-20] MEDS: Normal Saline - Diluent 50 ML VIAL IV (19:40)
[2019-08-20] MEDS: Omnipaque 350 MG/ML 100 ML BTL IJ (19:40)
[2019-08-20 20:01] LABS: Bilirubin Negative (Negative); Blood Negative (Negative); Clarity Clear (Clear); Glucose Negative (Negative); Ketones Negative (Negative); Leukocyte Esterase Negative (Negative); Nitrite Negative (Negative); Specific Gravity 1.025 (1.005-1.025); Urobilinogen 0.2 EU/dL (Up TO 0.2)
--- NOTE | 2019-08-20 20:04 | DI.VRAD_ITS ---
PROCEDURE INFORMATION: Exam: CT Angiography Chest With Contrast Exam date and time: 08/20/2019 7:32 PM Age: 59 years old Clinical indication: Cough and shortness of breath; Prior surgery; Surgery date: 6+ months; Surgery type: Heart artery stent; Patient HX: Malaise, SOB, cough, recent pneumonia tx x 2 w/abx. HX of copd, cad, hypertension, TECHNIQUE: Imaging protocol: Computed tomographic angiography of the chest with intravenous contrast. 3D rendering: MIP and/or 3D reconstructed images were created by the technologist. Radiation optimization: All CT scans at this facility use at least one of these dose optimization techniques: automated exposure control; mA and/or kV adjustment per patient size (includes targeted exams where dose is matched to clinical indication); or iterative reconstruction. Contrast material: OMNIPAQUE 350; Contrast volume: 100 ml; Contrast route: IV RAC; COMPARISON: CR CHEST 2 VIEWS PA,LAT 06/13/2017 10:08 FINDINGS: Pulmonary arteries: No evidence for pulmonary embolus. Aorta: Atherosclerotic disease. Lungs: Emphysematous changes of the lung mckeon. Left lower lobe infiltrate versus atelectasis. 0.7 cm right lower lobe peripheral lung nodule. Calcified granuloma right lower lobe. Pleural space: Unremarkable. No pneumothorax. No pleural effusion. Heart: Cardiomegaly. Coronary artery disease. Lymph nodes: Mediastinal and hilar lymph nodes. Bones/joints: Multiple old right rib fractures. Multilevel degenerative scoliotic changes of the thoracic spine. Anterior wedging of several midthoracic vertebra. Soft tissues: Unremarkable. IMPRESSION: 1. No evidence for pulmonary embolus. 2. Bibasilar infiltrates. Emphysematous lung disease. 3. 0.7 cm right lower lobe peripheral pulmonary nodule. 4. Cardiomegaly. Coronary artery disease. Atherosclerotic disease. 5. Hepatic steatosis. 2017 Fleischner Society guidelines for management of pulmonary nodules are as follows: Solid Nodules 6-8 mm nodules (solitary): Low risk patient - CT at 6-12 months; then consider CT at 18-24 months High risk patient - CT at 6-12 months; then CT at 18-24 months Dictated and Authenticated by: Dimple Last MD. Ordering:LYNDSEY Rothman MD
[2019-08-20 20:16] LABS: Bacteria Negative HPF (Negative); C & S Indicated? No; Casts Negative LPF (Negative); Crystals Negative HPF (Negative); Epithelial Cells Negative HPF (Negative); Mucus Moderate (Negative); RBC Negative HPF (0-2); WBC 0-2 HPF (0-5)
[2019-08-20 21:31] LABS: Troponin I < 0.05 ng/Ml (<0.06)
== END 2019-08-20 22:00 | disposition home or self-care (01) ==
LOC: ER 22:02
PROVIDERS: Emergency Provider Physician Assistant; PCP Family Medicine
DX: R78.89 Finding of other specified substances, not normally found in blood (principal); J18.9 Pneumonia, unspecified organism; R91.8 Other nonspecific abnormal finding of lung field; I10 Essential (primary) hypertension; J44.9 Chronic obstructive pulmonary disease, unspecified; F17.210 Nicotine dependence, cigarettes, uncomplicated
CPT/HCPCS: 36415; 71275; 80053; 83690; 93005; 96360; 99285; 80178; 81003; 81015; 83605; 84484; 85025; 93010; J3490

== ENCOUNTER 2019-08-23 02:02 | Outpatient (CLI) | payer MEDICARE, SELFPAY ==
[2019-08-23 18:50] LABS: Lithium < 0.20 mmol/L (0.60-1.20)
== END 2019-08-23 02:22 ==
PROVIDERS: PCP Family Medicine; Visit Provider Physician Assistant
DX: F25.0 Schizoaffective disorder, bipolar type (principal); Z51.81 Encounter for therapeutic drug level monitoring
CPT/HCPCS: 36415; 80178

== ENCOUNTER 2019-09-12 03:02 | Outpatient (CLI) | payer MEDICARE, SELFPAY ==
[2019-09-12 10:49] LABS: Lithium 0.56 mmol/L (0.60-1.20)
[2019-09-12 10:59] LABS: ALT 43 U/L (16-63); AST 18 U/L (15-37); Albumin 3.8 g/dL (3.4-5.0); Alkaline Phosphatase 118 U/L (46-116); Anion Gap 4.9 mmol/L (3-11); BUN 9 mg/dL (7-18); Bilirubin, Total 0.5 mg/dL (0.2-1.0); CO2 30.1 mmol/L (21.0-32.0); Calcium 9.2 mg/dL (8.5-10.1); Chloride 105 mmol/L (98-107); Glucose 124 mg/dL (74-106); Potassium 3.5 mmol/L (3.5-5.1); Sodium 140 mmol/L (136-145); Total Protein 6.8 g/dL (6.4-8.2)
== END 2019-09-12 03:22 ==
PROVIDERS: PCP Family Medicine; Visit Provider Nurse Practitioner Family
DX: F25.0 Schizoaffective disorder, bipolar type (principal); Z51.81 Encounter for therapeutic drug level monitoring; Z79.899 Other long term (current) drug therapy; F31.9 Bipolar disorder, unspecified
CPT/HCPCS: 36415; 80053; 80178; 84443

== ENCOUNTER → 2019-09-28 02:42 | Outpatient (CLI) | payer MEDICARE, SELFPAY ==
[2019-09-28] MEDS: Omnipaque 350 MG/ML 100 ML BTL IJ (14:09)
[2019-09-28] MEDS: Normal Saline - Diluent 50 ML VIAL IV (14:09)
--- NOTE | 2019-09-28 14:10 | DI.CT_ITS ---
EXAM: CT CHEST W CLINICAL HISTORY: LUNG MASS, R91.8, COPD, 3-MO F/U TECHNIQUE: Imaging Protocol: Axial computed tomography images with coronal and sagittal reformatted images were created and reviewed CONTRAST MATERIAL: Intravenous: Omnipaque 350 Contrast volume:structured data in ml. COMPARISON: CT CHEST ABD PELVIS WITH CONTRAST from 05/28/2009 CR CHEST 2 VIEWS PA,LAT from 08/11/[address] CHEST PE CTA from 08/20/2019 FINDINGS: The exam is mildly limited by respiratory motion at the lung bases. Tracheobronchial tree: Patent where visualized. Mediastinum and Mel: No dominant adenopathy or fluid collection. Pulmonary parenchyma: Interval improvement in the previously noted area of atelectasis at the left lo wer lobe. Scarring is again noted at the right lung base. There are mild changes of paraseptal emphy sema in the upper lobes. No infiltrates or effusions are seen. Pleura: No effusion or pneumothorax. Heart: The heart is not dilated. Coronary artery stents are seen. Aorta: Thoracic aorta non-dilated. Upper abdomen: Fatty infiltration of the liver. Lymph nodes: Within normal limits. Bones: Old right rib fractures. Degenerative changes and scoliosis in the thoracic spine. IMPRESSION: Mildly limited exam due to respiratory motion at the lung bases. Interval improvement in area of ate lectasis at the left lung base. No definite mass. RADIATION DOSE DELIVERED: 657.61mGy.cm Total DLP DATA REPOSITORY: All CT scans at this facility are submitted to the National Radiology Data Registry (NRDR) Dose Index Registry (DIR) with the [employer] (ACR). RADIATION OPTIMIZATION: All CT scans at this facility use at least one of these dose optimization te chniques: automated exposure control; mA and/or kV adjustment per patient size (includes targeted exa ms where dose is matched to clinical indication); or iterative reconstruction.
== END ==
PROVIDERS: PCP Family Medicine; Visit Provider Family Medicine
DX: R91.8 Other nonspecific abnormal finding of lung field (principal); J44.9 Chronic obstructive pulmonary disease, unspecified; J43.8 Other emphysema; K76.0 Fatty (change of) liver, not elsewhere classified; J98.11 Atelectasis
CPT/HCPCS: 71260; J3490

== ENCOUNTER 2019-11-01 13:19 | Inpatient (IN) | payer MEDICARE, SELFPAY ==
[2019-11-01] VITALS (54 sets, daily range): BP systolic 129–147; BP diastolic 59–79; PULSE 64–97; RESP 4–37; TEMP 37.1–37.3; O2SAT 91–99
--- NOTE | 2019-11-01 13:00 | RT.EKG_ITS ---
APPROVED REPORT Exam: Resting ECG Patient Location: E HR:84 bpm ECG Measurements Heart Rate 84 AXIS GA 179 P 55 QRSd 98 QRS 7 QT 370 T [id number] QTc 438 <Conclusion> Sinus rhythm...normal P axis, V-rate 60- 99 Nonspecific T abnormalities, inferior leads...T <-0.10mV, II III aVF. Less than 1mm ST depression in V5-V6 new compared to old EKG. No acute ST elevation.
--- NOTE | 2019-11-01 13:17 | NUR.NOTE ---
pt states he does not know all his medications states he is here frequently and we have them all Nursing Note:
[2019-11-01 13:34] LABS: Abs Immature Grans 0.06 k/cumm (0.0-0.09); Absolute Basophil Count 0.06 k/cumm (0.0-0.2); Absolute Eosinophil Count 0.38 k/cumm (0.0-0.7); Absolute Monocyte Count 1.27 k/cumm (0.11-0.7); Absolute Neutrophil Count 17.18 k/cumm (1.2-6.7); Basophils % 0.3; Eosinophils % 1.8; HCT 42.5 % (40.0-50.0); HGB 14.7 g/dL (13.5-17.5); Immature Grans % 0.3 %; Lymphocytes % 10.4; Mean Corp. HGB Concentration 34.6 g/dL (32.0-36.0); Mean Corpuscular Hemoglobin 31.2 pg (27.0-33.0); Mean Corpuscular Volume 90.2 fL (80-95); Mean Platelet Volume 8.7 fL (8.0-11.0); Neutrophils % 81.2; Platelet Count 253 x1000/uL (130-400); RBC 4.71 m/cumm (4.50-6.00); RBC Distribution Width 13.8 % (11.8-14.1); White Blood Cell Count 21.16 k/cumm (4.4-10.8)
--- NOTE | 2019-11-01 13:45 | DI.RAD_ITS ---
EXAM: XR PORTABLE CHEST AP CLINICAL HISTORY: Chest pain, shortness of breath, history of COPD TECHNIQUE: 2D digital imaging was performed. COMPARISON: CR CHEST 2 VIEWS PA,LAT from 08/11/2017 FINDINGS: MEDIASTINUM: Normal. HEART: Normal. PULMONARY VASCULATURE: Normal. LUNGS: Clear. PLEURAL SPACE: No pleural effusion or pneumothorax. BONE:Old right rib fractures. Degenerative changes in the spine. OTHER FINDINGS:Low lung volumes. IMPRESSION: 1. No acute pulmonary findings. 2. Low lung volumes. DATA REPOSITORY: RADIATION DOSE DELIVERED:
--- NOTE | 2019-11-01 13:49 | ED.GENADUL_ITS ---
Discharge Plan Disposition Patient Disposition: [facility] INPATIENT Condition: Improving Discharge Details Chief Complaint: SOB Clinical Impression: Chest pain, COPD with acute exacerbation, Suicidal thoughts, Cocaine abuse Admit Date/Time: 11/01/19 18:20 Admit Provider: Sunday Tejada Attending Provider: Sunday Tejada Primary Care Provider: Tawanda Dooley ED Provider: Junior Gillis [facility] Course Hospital Course: Mr Bailey is a 59 year old male with PMHx of COPD, CAD, schizoaffective disorder, polysubstance use disorder, and a history of prior suicide attempt, who was admitted on [facility] hospitalist service from 11/01/2019 until 11/02/2019 for acute exacerbation of COPD with hypoxia, requiring 2L of O2 to saturate 90%, as well as suicidal ideation while intoxicated with cocaine, alcohol, and THC. The patient had not been compliant with his outpatient psychiatric regimen. His CXR was negative for PNA. He ruled out for COVID-19 by nasopharyngeal PCR. He was treated with empiric doxycycline as well as systemic and inhaled corticosteroids with significant improvement of his symptoms. He was evaluated by mental health and was cleared with plan to follow up with [facility] for psychiatric management. The patient is motivated to go to AA/NA and has a plan to return to work. He is working on trying to identify his triggers. He improved unexpected early from the COPD stand point and was transitioned to PO antibiotics and steroids on discharge. He does not require oxygen on discharge - his oxygen saturation was 92% on room air with exercise. He will need to follow up with his PCP and [facility] in 1 week. Care for patient as well as completion of his discharge summary on day of discharge took 40 minutes. Discharge Instructions Instructions: Cocaine Abuse (DC), COPD (Chronic Obstructive Pulmonary Disease) (DC), Alcohol Use Disorder (DC) Additional Instructions: Return to the hospital with any fever, bleeding, chest pain, shortness of breath. Finish your antibiotics and steroids as prescribed. Use sunscreen while on doxycycline and stay away from the sun - it can cause sun sensitivity. Follow up with your PCP in 1 week as well as with [facility] and with AA/NA. Care Plan Goals: [facility] to have one prescriber managing all psychiatric prescriptions. Forms: Nursing Discharge Form Referrals: Tawanda Dooley [Primary Care Provider] - (please call the office to follow up. ) Discharge Data Discharge Date/Time-TO BE ENTERED AT DEPARTURE: 11/01/19 22:35 Medical Decision Making <Saritha Saucedo - Last Filed: 11/02/19 08:33> 59-year-old male presents the chief complaint of shortness of breath and chest pain after 2-day binge of cocaine use. He also reports suicidal ideation and not wanting to breathe anymore. He he does also endorse some vodka use. He has been having some recent changes to his lithium doses. Has not taken any of his meds for the last couple of days. He reports 5 out of 10 chest pain left sternal which radiates into his back. Positive nausea, no vomiting no diarrhea no abdominal pain. Upon initial exam he does have some expiratory wheezes throughout. He does have a history of suicide attempt by hanging, COPD, GERD, schizoaffective disorder, old myocardial infarction, he has had coronary stents, hypertension, hyperlipidemia. He does appear somewhat intoxicated and history is somewhat limited at this time. At this time work-up ordered including cardiac work-up, mental health evaluation ordered with sitter at bedside, will get patient into paper scrubs informed that we do need to get a urine sample from patient. At this time patient is being medically cleared before we get a mental health evaluation. Portable chest x-ray ordered. Normal saline 1 L and 1 mg of lorazepam ordered. Initial EKG was reviewed by Josefina Ayala MD ER attending, possible V5 and V6 ST depression. 1417: Initial lab work which is resulted includes white blood cell count to 21. 16, hemoglobin 14.7, hematocrit 42.5%, absolute neutrophils 17.18, sodium 140, potassium 3.1, BUN/creatinine within normal limits, initial troponin is less than 0.05. UDS is pending, ethyl alcohol pending, lithium level pending. Alcohol level is 31.5, lithium level is less than 0.20, acetaminophen level is less than 2, salicylate level is 3.9, at this time patient is sleeping quietly, breathing eupneic, sitter at bedside. This time I do recommend admission for further observation for acute coronary syndrome and COPD exacerbation, care is to be handed off pending urine drug screen, repeat troponin and mental health evaluation at a later time, to oncoming provider Dr. Junior Gillis. Discussed case in details with him, verbalized understanding. <Junior Gillis MD - Last Filed: 11/05/19 16:50> 1600??care signed out by LAURA Saucedo with plan to follow-up on delta troponin, reassess patient after neb treatment, maintain CPSO for suicidal thoughts. Please see LAURA Saucedo's documentation regarding initial ED presentation and course. Briefly, Mr. Escoto is a 59-year-old male here with past medical history significant for coronary artery disease status post OR, COPD, hypertension, hyperlipidemia, recent cocaine use today, here with chest pain, shortness of breath, also note of mild cough. Patient denies recent fever and no recent co ncerning travel or exposure history for COVID-19. Patient was determined to be a PUI based on cough. Chest x-ray interpreted by radiology as negative. Patient continues to have wheeze despite initial DuoNeb treatment. Will repeat DuoNeb treatment and give Solu-Medrol 125 mg for presumed COPD exacerbation. 1800 --EKG was reviewed and interpreted by me and concerning for ST depressions laterally. No STEMI. Initial troponin negative. Repeat delta troponin negative, unchanged from prior. Plan will be to admit with plan for cardiac monitoring and ACS rule out. Call to hospitalist to admit. HPI <Saritha Saucedo - Last Filed: 11/02/19 08:33> General Mode of arrival: EMS . Date/Time Provider Initiated Documentation: 11/01/19 13:29 . Limitations to Documentation: no limitations . Information obtained by: patient . HPI Narrative: 59-year-old male presents the chief complaint of shortness of breath and chest pain after 2-day binge of coca ine use. He also reports suicidal ideation and not wanting to breathe anymore. He he does also endorse some vodka use. He has been having some recent changes to his lithium doses. Has not taken any of his meds for the last couple of days. He reports 5 out of 10 chest pain left sternal which radiates into his back. Positive nausea, no vomiting no diarrhea no abdominal pain. Upon initial exam he does have some expiratory wheezes throughout. He does have a history of suicide attempt by hanging, COPD, GERD, schizoaffective disorder, old myocardial infarction, he has had coronary stents, hypertension, hyperlipidemia. He does appear somewhat intoxicated and history is somewhat limited at this time. Related Data Home Medications Medication Instructions Recorded Confirmed lamotrigine 150 mg PO HS 06/17/13 11/01/19 albuterol sulfate 2 puff INHALATION PRN 11/13/13 11/01/19 aspirin [Aspirin Low-Strength] 81 mg PO DAILY 09/25/14 11/01/19 atorvastatin [Lipitor] 80 mg PO DAILY 09/25/14 11/01/19 nitroglycerin [Nitrostat] 0.4 mg SUBLINGUAL Q5 MIN PRN X3 09/25/14 11/01/19 PRN #100 tab.subl isosorbide mononitrate 30 mg PO DAILY 05/20/15 11/01/19 pantoprazole [Protonix] 40 mg PO DAILY 05/20/15 11/01/19 risperidone 2 mg PO HS 05/20/15 11/01/19 metoprolol succinate 50 mg PO DAILY 09/15/16 11/01/19 Breo Ellipta 1 INHALATION DAILY 11/02/19 Incruse Ellipta 1 INHALATION DAILY 11/02/19 doxycycline hyclate 100 mg PO Q12H #8 cap 11/02/19 prednisone 40 mg PO DAILY #6 tab 11/02/19 Previous Rx's Medication Instructions Recorded nitroglycerin [Nitrostat] 0.4 mg SUBLINGUAL Q5 MIN PRN X3 09/25/14 PRN #100 tab.subl doxycycline hyclate 100 mg PO Q12H #8 cap 11/02/19 prednisone 40 mg PO DAILY #6 tab 11/02/19 Allergies Allergy/AdvReac Type Severity Reaction Status Date / Time No Known Allergies Allergy Unverified 11/01/19 13:14 General Stated Complaint: SOB ZEINAB: 2 Review of Systems <Saritha Saucedo - Last Filed: 11/02/19 08:33> Narrative: Constitutional: Appears somewhat intoxicated, he is able to serve my questions appropriately. Normal body habitus. He appears tearful and anxious. HEENT: Denies trauma, blurry vision, nasal discharge, sore throat, trouble swallowing. Chest: Denies palpitations, irregular rhythm, positive left sternal chest pain, nonproductive cough, does have a history of hypertension and coronary artery disease. Respiratory: Denies hemoptysis. Positive shortness of breath, expiratory wheezes, nonproductive cough. GI: Denies abdominal pain, diarrhea, constipation. Positive nausea no vomiting. : Denies dysuria, hematuria, flank pain, rectal bleeding. Neuro: Denies dizziness, blurry vision, weakness, syncope, headache or facial numbness. Hematologic: Denies easy bruising, intolerance to heat or cold, hair loss. Psychiatric Psychiatric: Reports as per HPI, Reports hopelessness, Reports irritability, Reports mood swings and Reports suicidal ideation Comments: Poly substance abuse including cocaine and alcohol PFS <Saritha Saucedo - Last Filed: 11/02/19 08:33> Medical History (Updated 11/02/19 @ 13:24 by Vivien Harris MD) CAD (coronary artery disease) (Chronic) Cellulitis of left upper extremity (Acute) COPD (chronic obstructive pulmonary disease) (Chronic) Coronary atherosclerosis of [place] coronary artery (Chronic 09/25/14) GERD (gastroesophageal reflux disease) (Chronic) HTN (hypertension) (Chronic) Hypercholesterolemia (Chronic) Hyperlipidemia (Chronic) 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 (Chronic 09/25/14) Old myocardial infarction (Chronic 09/25/14) Polysubstance abuse (Chronic) Rhabdomyolysis (Acute) Schizoaffective disorder (Chronic) Suicide attempt by hanging (Acute) Surgical History Coronary angioplasty status (Chronic 09/25/14) H/O heart artery stent (Chronic) Social History Smoking/Tobacco Use Status: Current every day Tobacco Type: cigars Per week: 35 Alcohol Intake: current Alcohol type: hard liquor Drug use: Binges Substance use type: crack/cocaine Do you feel safe at home: Yes Do you feel safe in your relationship?: Yes Exam <Saritha Saucedo - Last Filed: 11/02/19 08:33> Narrative Exam Narrative: Constitutional: Alert and oriented x3. Appears stated age. Normal body habitus. Appears somewhat intoxicated, Head: Normocephalic, no trauma. Eyes: Pupils PERRLA, Red reflex noted, EOM's intact. Eyelids symmetrical without lesions, discharge, or swelling. ENT: Bilateral TM's WNL, External ear normal to inspection, no mastoid TTP, swelling, or erythema, Nasal turbinates WNL, no nasal discharge. Normal dentition, Posterior pharynx WNL, no exudate. Chest: RRR, Normal S1, S2, distal pulses intact. Resp: Lungs scattered expiratory wheezes bilaterally, no rales, or rhonchi. Abdomen: Soft nondistended, nontender to palpation all 4 quadrants. Musculoskeletal: Normal gait, 5/5 strength to all four extremities. Skin: No suspicious rashes or lesions. Capillary refill less than 2 sec. no pitting edema noted to his bilateral lower extremities. Neurologic: Cranial nerves II-XII intact. Alert and oriented x 3. DTR's intact. Hematologic/Lymphatic: No ecchymosis, no lymphadenopathy. Course <Saritha Saucedo - Last Filed: 11/02/19 08:33> Vital Signs Vital signs: Vital Signs Temperature 37.3 C 11/01/19 13:07 Pulse 86 11/01/19 13:07 Respiratory Rate 20 11/01/19 13:07 Blood Pressure 144/70 H 11/01/19 13:07 Pulse Oximetry 99 11/01/19 13:07 Temperature 37.3 C 11/01/19 13:07 Temperature Source Skin 11/01/19 13:07 Pulse 86 11/01/19 13:07 Respiratory Rate 16 11/01/19 13:21 Respiratory Effort Non-Labored 11/01/19 13:21 Respiratory Depth Normal 11/01/19 13:21 Respiratory Pattern Normal 11/01/19 13:21 Blood Pressure 144/70 H 11/01/19 13:07 Pulse Oximetry 99 11/01/19 13:07 Oxygen Delivery Method Room Air 11/01/19 13:07 Oxygen Flow Rate 0 11/01/19 13:07 Pain Level 0 11/01/19 13:07 Lab/Test Results Lab/Test Results: Laboratory Tests Range/Units 11/01/19 13:15 WBC (4.4-10.8) k/cumm 21.16 H RBC (4.50-6.00) m/cumm 4.71 Hgb (13.5-17.5) g/dL 14.7 Hct (40.0-50.0) % 42.5 MCV (80-95) fL 90.2 MCH (27.0-33.0) pg 31.2 MCHC (32.0-36.0) g/dL 34.6 RDW (11.8-14.1) % 13.8 Plt Count (130-400) x1000/uL 253 MPV (8.0-11.0) fL 8.7 Immature Gran % % 0.3 Neutrophils % 81.2 Lymphocytes % 10.4 Monocytes % 6.0 Eosinophils % 1.8 Basophils % 0.3 Absolute Neutrophils (1.2-6.7) k/cumm 17.18 H Absolute Lymphocytes (1.2-3.4) k/cumm 2.20 Absolute Monocytes (0.11-0.7) k/cumm 1.27 H Absolute Eosinophils (0.0-0.7) k/cumm 0.38 Absolute Basophils (0.0-0.2) k/cumm 0.06 Sign Out <Saritha Saucedo - Last Filed: 11/02/19 08:33> Sign Out Data: Sign Out Comment: Care to be handed off pending repeat troponin, mental health evaluation, urine drug screen. Possible admission. Last updated by Saritha Saucedo at 11/01/19 16:25
[2019-11-01 13:50] LABS: ALT 22 U/L (16-63); AST 14 U/L (15-37); Albumin 3.5 g/dL (3.4-5.0); Alkaline Phosphatase 87 U/L (46-116); Anion Gap 10.9 mmol/L (3-11); BUN 12 mg/dL (7-18); Bilirubin, Total 0.9 mg/dL (0.2-1.0); CO2 27.1 mmol/L (21.0-32.0); CREATININE 0.78 mg/dL (0.70-1.30); Calcium 8.7 mg/dL (8.5-10.1); Chloride 102 mmol/L (98-107); Glucose 96 mg/dL (74-106); Potassium 3.1 mmol/L (3.5-5.1); Sodium 140 mmol/L (136-145); Total Protein 7.3 g/dL (6.4-8.2)
[2019-11-01 13:53] LABS: Troponin I < 0.05 ng/mL (<0.06)
--- NOTE | 2019-11-01 14:18 | PDOC.CMSAFED ---
- If Service Date Differs Date of service: 11/01/19 Time of Service: 14:31 Care Management Safety Plan Marcos presents to the ED due to SOB and chest pain. Reportedly, Mikael relapsed on cocaine after a five year period of sobriety (with one notable relapse resulting in suicide attempt). He has a history of schizoaffective disorder, polysubstance use, bipolar disorder, suicide attempt by hanging. He has recently used cocaine; smoking the substance within the last hour as well as injecting; reports using one ounce in the last twenty four hours. Per chart review: IOP and [employer] referral completed 12/2017 r/t mental health diagnosis and history, as part of discharge plan during [facility] admission for attempted suicide by hanging. CM will respond to ED to assess patient after patient has been medically cleared and assessed by screener. If screener deems patient meets criteria for psychiatric stabilization CM will facilitate interdepartmental huddle with [facility] screener for safety planning considerations and meet with patient to review [facility] policy and safety plan, establish individual wishes for treatment and maintain patient rights. In the interim; please note safety plan below to guide patient care while awaiting further assessment in the ED. INTERIM SAFETY PLAN: 1. Will remain on suicide precautions and in paper clothes. 2. Will remain in room under direct supervision of one-on-one staff at all times provided by [employer], NET FRONT END DEVELOPER set up operator tool. 3. May have paper cups, plates, finger foods as well as a cardboard spoon with which to eat meals. 4. Follow [facility] Management of the Admitted Behavioral Health Patient policy. 5. Comfort bath system only. 6. No personal belongings 7. No visitors. 8. Phone contact limited to legal contact at this time. 9. Due to INTERIM status, if patient wishes to leave [facility], the [facility] rocket test fire worker must be contacted to re-evaluate patient prior to patient exiting the building. If deemed appropriate for inpatient psychiatric care, safety plan will be established with patient, and care team, to adhere to patient goals, identify restrictions based on behavioral status, address nutrition, and determine allowed personal belongings, tools for hygiene and personal care. As well plan will determine level of activity including ambulation, level of supervision, visitors, and determine privileges based on level of acuity, behaviors and level of engagement by patient.
[2019-11-01] MEDS: Albuterol/Ipratropium 3 ML UPD VIAL UPD ×2 (14:27→17:43)
[2019-11-01] MEDS: LORazepam 2 MG/ML VIAL 1 MG IVP (14:28)
[2019-11-01] MEDS: Normal Saline 1,000 ML 1000 ML IV (14:28)
[2019-11-01 14:42] LABS: ETHANOL BLOOD 31.5 mg/dL (<3); TSH 0.55 uIU/mL (0.36-3.74)
[2019-11-01 15:23] LABS: Salicylate 3.9 mg/dL (2.8-20.0)
[2019-11-01 15:24] LABS: Acetaminophen < 2 ug/mL (10-30); Lithium < 0.20 mmol/L (0.60-1.20)
--- NOTE | 2019-11-01 16:00 | RT.EKG_ITS ---
APPROVED REPORT Exam: Resting ECG Patient Location: E HR:86 bpm ECG Measurements Heart Rate 86 AXIS TN 177 P 40 QRSd 85 QRS 4 QT 360 T 34 QTc 433 <Conclusion> Sinus rhythm...normal P axis, V-rate 60- [address] dep V5-V6 - no change Abnormal Electrocardiogram
[2019-11-01 16:42] LABS: Troponin I < 0.05 ng/mL (<0.06)
[2019-11-01] MEDS: methylPREDNISolone SUCC 125 MG VIAL IVP (17:44)
[2019-11-01 18:07] LABS: *AMPHETAMINES SCREEN URINE Negative (Negative); *BARBITURATES SCREEN URINE Negative (Negative); *BENZODIAZEPINES SCREEN URINE Negative (Negative); Cannabinoids THC POSITIVE (Negative); Cocaine Screen,Urine POSITIVE (Negative); METHADONE URINE SCREEN Negative (Negative); OPIATES URINE SCREEN Negative (Negative)
[2019-11-01 18:09] LABS: Tricyclic Antidepressants Negative (Negative)
--- NOTE | 2019-11-01 18:15 | HPE_ITS ---
Date of service: 11/01/19 Time of Service: 18:15 Assessment and Plan Assessment and plan (1) COPD exacerbation: Start date: 11/01/19 Status: Acute Assessment and plan: This 59-year-old gentleman who presented with shortness of breath and cough but no fever but had to be an exacerbation of COPD. He was treated with nebulizers and IV Solu-Medrol and will be continued on HFA treatment with IV Solu-Medrol and respiratory support. He will be continued on IV doxycycline having oral doxycycline as an outpatient by history. There is no infiltrate on chest x-ray. (2) Suicidal ideation: Start date: 11/01/19 Status: Acute Assessment and plan: Patient was expressing suicidal ideation but can not be seen by mental health until cleared from his intoxication. They will see him in the morning. Patient does have a schizoaffective disorder. (3) Polysubstance abuse: Status: Chronic Assessment and plan: Patient chronically abuses multiple substances and recently was using cocaine and alcohol. He will be supported tonight with hopefully clearing his medication for mental health valuation in the morning. (4) Coronary atherosclerosis of [place] coronary artery: Status: Chronic Assessment and plan: Patient stated he had pain but had no evidence ischemia and had negative troponins in the ED. He will be trended with troponins overnight with telemetry and observation. The patient does have a history of previous [place] with coronary artery stenting. He is a full code. Qualifiers: Associated angina: without angina [place] vs. transplanted heart: [place] heart Qualified Code(s): I25.10 - Atherosclerotic heart disease of [place] coronary artery without angina pectoris History of Present Illness History of Present Illness Chief Complaint: Shortness of breath and chest pain Narrative: This is a 59-year-old gentleman who has a history of polysubstance use who presented to the ED complaining of shortness of breath and chest pain after a 2-day binge of cocaine use. He also has a history of daily vodka use. He reported suicidal ideation of not wanting to be anymore in the ED but was intoxicated and in respiratory distress with mental health consulted but not to see him until he cleared his drug use. The patient apparently often presents with some complaints. He has had a mild cough and is a PUI because of his cough. He was admitted to the negative pressure room. At the time I saw the patient he was sleeping and snoring with minimal conversation. See ED record which was reviewed for present and past history as well as review of systems. Review of Systems Narrative: 13 point review of systems otherwise unrevealing or unobtainable with patient giving minimal history. [facility] Medical History (Updated 11/02/19 @ 00:37 by Sunday Tejada) CAD (coronary artery disease) (Chronic) Cellulitis of left upper extremity (Acute) COPD (chronic obstructive pulmonary disease) (Chronic) Coronary atherosclerosis of [place] coronary artery (Chronic 09/25/14) GERD (gastroesophageal reflux disease) (Chronic) HTN (hypertension) (Chronic) Hypercholesterolemia (Chronic) Hyperlipidemia (Chronic) care home current use of antithrombotics/antiplatelets (Chronic 09/25/14) Old myocardial infarction (Chronic 09/25/14) Polysubstance abuse (Chronic) Rhabdomyolysis (Acute) Schizoaffective disorder (Chronic) Suicide attempt by hanging (Acute) Surgical History Coronary angioplasty status (Chronic 09/25/14) H/O heart artery stent (Chronic) Social History Smoking/Tobacco Use Status: Current every day Tobacco Type: cigars Per week: 35 Alcohol Intake: current Alcohol type: hard liquor Drug use: Binges Substance use type: crack/cocaine Do you feel safe at home: Yes Do you feel safe in your relationship?: Yes Meds Home Medications and Allergies Home Medications Medication Instructions Recorded Confirmed Type Spiriva with HandiHaler 1 cap INHALATION DAILY 06/17/13 11/01/19 History lamotrigine 150 mg PO HS 06/17/13 11/01/19 History albuterol sulfate 2 puff INHALATION PRN 11/13/13 11/01/19 History aspirin [Aspirin Low-Strength] 81 mg PO DAILY 09/25/14 11/01/19 History atorvastatin [Lipitor] 80 mg PO DAILY 09/25/14 11/01/19 History nitroglycerin [Nitrostat] 0.4 mg SUBLINGUAL Q5 MIN PRN X3 09/25/14 11/01/19 Rx PRN #100 tab.subl isosorbide mononitrate 30 mg PO DAILY 05/20/15 11/01/19 History pantoprazole [Protonix] 40 mg PO DAILY 05/20/15 11/01/19 History risperidone 2 mg PO HS 05/20/15 11/01/19 History budesonide-formoterol [Symbicort] 10.2 gm INHALATION BID 09/15/16 11/01/19 History metoprolol succinate 50 mg PO DAILY 09/15/16 11/01/19 History Allergies Allergy/AdvReac Type Severity Reaction Status Date / Time No Known Allergies Allergy Unverified 11/01/19 13:14 Exam Narrative Exam Narrative: General: Patient appears appropriate for age, disheveled with un clean hands and poor hygiene overall, snoring and awakens easily but not oriented to time or purpose but possibly oriented to place and person. He is in no acute distress and minimally conversant. HEENT: Shortcut hair and normocephalic, external ears normal, eyes with pupils equal and reactive to light symmetrically with extraocular intact and sclera anicteric. Oropharynx with dry mucosa and patient mouth breathing with poor dentition and discolored teeth. Neck: Supple without JVD. Lungs: Bronchovesicular breath sounds diffusely with rhonchi and slight expiratory wheeze with prolonged expiration. Decreased aeration diffusely. No focalizing rales or rhonchi. Heart: Distant heart sounds regular rate and rhythm with no appreciable murmurs or gallop. It sounds are observed by adventitious respiratory sounds. Event: Protuberant contour but soft and nontender to palpation with no palpable hepatomegaly. Bowel sounds positive all quadrants. Genitalia/rectal: Exam deferred. Extremities: No pitting edema, stenosis or clubbing. Capillary refill. Skin: Unkempt, slightly pale with rough texture and fair turgor. No rashes noted. Neuro: Cranial nerves II through XII grossly intact, no focalizing motor deficits. Normal muscle tone. No Babinski's. Psych: Flattened affect with minimal conversation and anxious when roused with verbal stimuli. Depressed mood. Results Imaging Imaging Studies: EXAM: XR PORTABLE CHEST AP CLINICAL HISTORY: Chest pain, shortness of breath, history of COPD TECHNIQUE: 2D digital imaging was performed. COMPARISON: CR CHEST 2 VIEWS PA,LAT from 08/11/2017 FINDINGS: MEDIASTINUM: Normal. HEART: Normal. PULMONARY VASCULATURE: Normal. LUNGS: Clear. PLEURAL SPACE: No pleural effusion or pneumothorax. BONE:Old right rib fractures. Degenerative changes in the spine. OTHER FINDINGS:Low lung volumes. IMPRESSION: 1. No acute pulmonary findings. 2. Low lung volumes. DATA REPOSITORY: RADIATION DOSE DELIVERED: Ordered By: Saritha Saucedo CC: Dictated By: Leodan Lea M.D. 11/01/19 1551 Labs Result diagrams: 11/01/19 13:15 11/01/19 13:15 Labs: Laboratory Results - last 24 hr 11/01/19 11/01/19 11/01/19 13:15 13:15 14:05 WBC 21.16 H RBC 4.71 Hgb 14.7 Hct 42.5 MCV 90.2 MCH 31.2 MCHC 34.6 RDW 13.8 Plt Count 253 MPV 8.7 Immature Gran % 0.3 Neutrophils % 81.2 Lymphocytes % 10.4 Monocytes % 6.0 Eosinophils % 1.8 Basophils % 0.3 Absolute Neutrophils 17.18 H Absolute Lymphocytes 2.20 Absolute Monocytes 1.27 H Absolute Eosinophils 0.38 Absolute Basophils 0.06 Sodium 140 Potassium 3.1 L Chloride 102 Carbon Dioxide 27.1 Anion Gap 10.9 BUN 12 Creatinine 0.78 Estimated GFR/1.73 m2 >= 60.00 Glucose 96 Calcium 8.7 Magnesium 2.0 Total Bilirubin 0.9 AST 14 L ALT 22 Alkaline Phosphatase 87 Troponin I < 0.05 Total Protein 7.3 Albumin 3.5 TSH Salicylates 3.9 Urine Opiates Screen Urine Methadone Screen Acetaminophen < 2 Ur Barbiturates Screen Ur Tricyclics Screen Ur Amphetamines Screen U Benzodiazepines Scrn [place] Urine Cocaine Screen Ur THC Screen Ethyl Alcohol 11/01/19 11/01/19 11/01/19 14:05 14:05 16:00 WBC RBC Hgb Hct MCV MCH MCHC RDW Plt Count MPV Immature Gran % Neutrophils % Lymphocytes % Monocytes % Eosinophils % Basophils % Absolute Neutrophils Absolute Lymphocytes Absolute Monocytes Absolute Eosinophils Absolute Basophils Sodium Potassium Chloride Carbon Dioxide Anion Gap BUN Creatinine Estimated GFR/1.73 m2 Glucose Calcium Magnesium Total Bilirubin AST ALT Alkaline Phosphatase Troponin I < 0.05 Total Protein Albumin TSH 0.55 Salicylates Urine Opiates Screen Urine Methadone Screen Acetaminophen Ur Barbiturates Screen Ur Tricyclics Screen Ur Amphetamines Screen U Benzodiazepines Scrn [place] < 0.20 L Urine Cocaine Screen Ur THC Screen Ethyl Alcohol 31.5 11/01/19 17:37 WBC RBC Hgb Hct MCV MCH MCHC RDW Plt Count MPV Immature Gran % Neutrophils % Lymphocytes % Monocytes % Eosinophils % Basophils % Absolute Neutrophils Absolute Lymphocytes Absolute Monocytes Absolute Eosinophils Absolute Basophils Sodium Potassium Chloride Carbon Dioxide Anion Gap BUN Creatinine Estimated GFR/1.73 m2 Glucose Calcium Magnesium Total Bilirubin AST ALT Alkaline Phosphatase Troponin I Total Protein Albumin TSH Salicylates Urine Opiates Screen Negative Urine Methadone Screen Negative Acetaminophen Ur Barbiturates Screen Negative Ur Tricyclics Screen Negative Ur Amphetamines Screen Negative U Benzodiazepines Scrn Negative [place] Urine Cocaine Screen Positive A Ur THC Screen Positive A Ethyl Alcohol Last Vital Signs Temp 37.3 C 11/01/19 13:07 Pulse 77 11/01/19 17:31 Resp 21 11/01/19 17:40 BP 135/73 11/01/19 17:31 Pulse Ox 93 L 11/01/19 17:43 COVID-19 Screening Have you,or household,traveled outside [place] in last 14 days?: No Had IN PERSON contact w/suspected or confirmed C-19 person: No
[2019-11-01 22:23] LABS: Troponin I < 0.05 ng/mL (<0.06)
[2019-11-01] MEDS: lamoTRIgine 100 MG TAB 150 MG PO (23:00)
[2019-11-01] MEDS: Heparin 5,000 UNITS/ML VIAL 5000 UNITS SC (23:00)
[2019-11-01] MEDS: risperiDONE 1 MG TAB 2 MG PO (23:01)
[2019-11-01] MEDS: Metoprolol 25 MG TAB PO (23:01)
[2019-11-01] MEDS: DOXYCYCLINE 100 MG in Normal Saline 100 ML IVPB (23:45)
[2019-11-02] MEDS: POTASSIUM CHLORIDE 10 MEQ/100 ML BAG 100 MEQ IVPB ×2 (01:55→03:26)
[2019-11-02] MEDS: Acetaminophen 325 MG TAB PO (02:24)
[2019-11-02] MEDS: methylPREDNISolone SUCC 125 MG VIAL 80 MG IVP (02:26)
[2019-11-02] MEDS: Normal Saline Flush 10 ML SYR IVP ×2 (02:26→09:04)
[2019-11-02 04:33] VITALS: BP 128/39; PULSE 58; RESP 18; TEMP 36.9; O2SAT 93
[2019-11-02] MEDS: Metoprolol 25 MG TAB PO ×2 (05:23→14:24)
[2019-11-02 05:58] LABS: HCT 43.4 % (40.0-50.0); HGB 14.8 g/dL (13.5-17.5); Mean Corp. HGB Concentration 34.1 g/dL (32.0-36.0); Mean Corpuscular Hemoglobin 30.8 pg (27.0-33.0); Mean Corpuscular Volume 90.4 fL (80-95); Platelet Count 247 x1000/uL (130-400); RBC Distribution Width 13.4 % (11.8-14.1); White Blood Cell Count 11.57 k/cumm (4.4-10.8)
[2019-11-02] MEDS: Heparin 5,000 UNITS/ML VIAL 5000 UNITS SC ×2 (06:06→14:25)
[2019-11-02 06:21] LABS: ALT 24 U/L (16-63); AST 13 U/L (15-37); Albumin 3.1 g/dL (3.4-5.0); Alkaline Phosphatase 81 U/L (46-116); Anion Gap 8.3 mmol/L (3-11); BUN 17 mg/dL (7-18); Bilirubin, Total 0.6 mg/dL (0.2-1.0); CO2 25.7 mmol/L (21.0-32.0); CREATININE 0.69 mg/dL (0.70-1.30); Calcium 9.1 mg/dL (8.5-10.1); Chloride 105 mmol/L (98-107); Glucose 149 mg/dL (74-106); Potassium 4.5 mmol/L (3.5-5.1); Sodium 139 mmol/L (136-145); Total Protein 6.9 g/dL (6.4-8.2); Troponin I < 0.05 ng/mL (<0.06)
[2019-11-02 08:36] VITALS: BP 122/65; PULSE 62; RESP 18; TEMP 36.4; O2SAT 90
[2019-11-02 08:41] LABS: COVID-19 RT-PCR UVMMC Result Negative (Negative)
[2019-11-02] MEDS: Atorvastatin 40 MG TAB 80 MG PO (09:03)
[2019-11-02] MEDS: Aspirin 81 MG CHEW PO (09:03)
[2019-11-02] MEDS: DOXYCYCLINE 100 MG in Normal Saline 100 ML IVPB (09:03)
[2019-11-02] MEDS: Pantoprazole 40 MG TABCR PO (09:03)
[2019-11-02] MEDS: Isosorbide Mononitrate 30 MG TABCR PO (09:03)
[2019-11-02] MEDS: Budesonide/Formoterol 80/4.5 6.9 GM 60 PUFF INH IH (09:12)
[2019-11-02] MEDS: Umeclidinium 7 CAP INHALER 1 CAP IH (09:13)
[2019-11-02] MEDS: predniSONE 20 MG TAB 40 MG PO (10:35)
[2019-11-02 12:13] VITALS: BP 102/64; PULSE 64; RESP 18; TEMP 36.3; O2SAT 92
--- NOTE | 2019-11-02 12:19 | CMPROGNOTE_ITS ---
Care Management Progress Note S/O: Mikael was lying in bed when CM met with him. He was forthcoming with information including substance use, mental health considerations and current service connection. Social/Cultural: Supportive , Son with RICHAR, difficult relationship due to having to distance to abstain from substances. Colton reports attending years of AA meetings and identifies with the Christianity buddhism which he reports healed him and is a large system of support. 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 He identified this as a positive and also as a loss and reported he was allowed to drink and it was like being a kid again. Colton reports he kept a bottle of [place] in his shop for a week, taking nips and did well with this. He reports the second bottle he bought was gone in one day. Bio: Colton reports being prescribed [place] with good effect for the last fifteen years. He reports seroquel was added to his med list after his discharge from [facility] in 2018. Colton shares that his lithium dose was tapered six weeks ago resulting in what he describes as a downward spiral. CM provided patient education around triggers and Colton identified his triggers/factors in relapse (son, money, freedom, friends, adrenaline of selling items). CM reviewed community based supports as well as inpatient options; Colton reported he had been to rehab thirty times prior and felt confident in navigating the systems. Colton was screened by Jennifer; [facility] who created a safety plan with Colton to return home, determining he did not currently meet criteria for inpatient stabilization. Please refer to her note for further information. A: 59 year old male admitted to [facility] 11/01/19 for COPD Exacerbation, Polysubstance use, SI P: Colton will have referrals for primary medication management with [facility] provider, connection with a [facility] [employer] (Trena Hawkins) and will follow up with his PCP and plan of care as prescribed. CM provided additional resources for RICHAR including [facility] information and local supports. Colton will transport home via private vehicle with his .
--- NOTE | 2019-11-02 13:10 | W.PM.DS.N ---
Date of service: 11/02/19 Time of Service: 13:11 DS: Diagnosis Discharge Diagnosis (1) COPD exacerbation: Status: Acute (2) Suicidal ideation: Status: Acute (3) Polysubstance abuse: Status: Chronic (4) Coronary atherosclerosis of [place] coronary artery: Status: Chronic (5) COVID-19 ruled out by laboratory testing: Status: Acute Discharge Plan Disposition Patient Disposition: HOME Condition: Improving Discharge Details Chief Complaint: SOB Clinical Impression: Chest pain, COPD with acute exacerbation, Suicidal thoughts, Cocaine abuse Reason For Visit: COPD EXAC,POLYSUBSTANCE ABUSE,SUICIDALIDEATION,CAD Admit Date/Time: 11/01/19 18:20 Admit Provider: Sunday Tejada Attending Provider: Sunday Tejada Primary Care Provider: Tawanda Dooley ED Provider: Junior Gillis [place] [facility] Hospital Course: Mr Bailey is a 59 year old male with PMHx of COPD, CAD, schizoaffective disorder, polysubstance use disorder, and a history of prior suicide attempt, who was admitted on [facility] hospitalist service from 11/01/2019 until 11/02/2019 for acute exacerbation of COPD with hypoxia, requiring 2L of O2 to saturate 90%, as well as suicidal ideation while intoxicated with cocaine, alcohol, and THC. The patient had not been compliant with his outpatient psychiatric regimen. His CXR was negative for PNA. He ruled out for COVID-19 by nasopharyngeal PCR. He was treated with empiric doxycycline as well as systemic and inhaled corticosteroids with significant improvement of his symptoms. He was evaluated by mental health and was cleared with plan to follow up with [facility] for psychiatric management. The patient is motivated to go to AA/NA and has a plan to return to work. He is working on trying to identify his triggers. He improved unexpected early from the COPD stand point and was transitioned to PO antibiotics and steroids on discharge. He does not require oxygen on discharge - his oxygen saturation was 92% on room air with exercise. He will need to follow up with his PCP and [facility] in 1 week. Care for patient as well as completion of his discharge summary on day of discharge took 40 minutes. Home Meds and New Rx's Prescriptions: New prednisone 20 mg Tablet 40 mg PO DAILY Qty: 6 RF: 0 doxycycline hyclate 100 mg Capsule 100 mg PO Q12H Qty: 8 RF: 0 Continued lamotrigine 150 MG tablet 150 mg PO HS RF: 0 albuterol sulfate 8.5 GM HFA aerosol inhaler 2 puff Inhalation PRN RF: 0 aspirin [Aspirin Low-Strength] 81 MG tablet,chewable 81 mg PO DAILY RF: 0 atorvastatin [Lipitor] 80 MG tablet 80 mg PO DAILY RF: 0 nitroglycerin [Nitrostat] 0.4 MG tablet, sublingual 0.4 mg Sublingual Q5 MIN PRN X3 PRNQty: 100 RF: 0 isosorbide mononitrate 30 MG tablet extended release 24 hr 30 mg PO DAILY RF: 0 pantoprazole [Protonix] 20 MG tablet,delayed release (DR/EC) 40 mg PO DAILY RF: 0 risperidone 2 MG tablet 2 mg PO HS RF: 0 metoprolol succinate 25 MG tablet extended release 24 hr 50 mg PO DAILY RF: 0 Breo Ellipta 100-25 mcg/dose blister with device 1 INHALATION DAILY RF: 0 Incruse Ellipta 62.5 mcg/actuation blister with device 1 INHALATION DAILY RF: 0 Discharge Instructions Instructions: Cocaine Abuse (DC), COPD (Chronic Obstructive Pulmonary Disease) (DC), Alcohol Use Disorder (DC) Additional Instructions: Return to the hospital with any fever, bleeding, chest pain, shortness of breath. Finish your antibiotics and steroids as prescribed. Use sunscreen while on doxycycline and stay away from the sun - it can cause sun sensitivity. Follow up with your PCP in 1 week as well as with [facility] and with AA/NA. Care Plan Goals: [facility] to have one prescriber managing all psychiatric prescriptions. Referrals: Tawanda Dooley [Primary Care Provider] - Activity:: Activity as Tolerated Equipment/Supplies:: No Equipment Needed Diet:: As Tolerated Discharge Orders Discharge Orders: Discharge Order (Routine); Ordered 11/02/19 Ordered By: Vivien Harris DS: Summary Status at Discharge Functional status at discharge: independent ambulation Overall status at discharge: patient is back to baseline Mental Status: mental status grossly normal Speech and Movement: speech clear and restless Mood: anxious mood Affect: animated and anxious affect Exam Narrative Exam Narrative: General: very pleasant obese male, speaking fast, but coherent, re-orientable, A&OX3 HEENT: EOMI, MMM Heart: RRR, no m/r/g Lungs: CTAB - diminished Abdomen: soft, nontender, nondistended Extremities: no e/c/c BLE's Psych Mental Status: mental status grossly normal Speech and Movement: speech clear and restless Mood: anxious mood Affect: animated and anxious affect DS: Data Vitals/I&O Vitals and I&O: Vital Signs Temperature 36.3 C L 11/02/19 12:13 Temperature Source Tympanic 11/02/19 12:13 Pulse 64 11/02/19 12:13 Pulse Rhythm Regular 11/01/19 23:05 Pulse 76 11/01/19 18:40 Respiratory Rate 18 11/02/19 12:13 Respiratory Effort 11/01/19 23:05 Respiratory Depth Normal 11/01/19 23:05 Respiratory Pattern Normal 11/01/19 23:05 Blood Pressure 102/64 11/02/19 12:13 Blood Pressure Mean 89 11/01/19 18:31 Pulse Oximetry 92 L 11/02/19 12:13 Oxygen Delivery Method Nasal Cannula 11/02/19 13:09 Oxygen Flow Rate 2 11/02/19 13:09 Pain Level 0 11/02/19 12:13 Intake & Output 11/01/19 11/02/19 11/02/19 23:59 11:59 23:59 Intake Total 1000 / 1000 450 / 690 240 / 690 Balance 1000 / 1000 450 / 690 240 / 690 Weight 107.7 kg Intake: IV 1000 / 1000 200 / 200 Oral 250 / 490 240 / 490 Other: Comment Voided into the toilet as per cadre report. Voiding Methods Toilet Data Completed and Pending Completed studies during hospitalization [Text1]: CXR: 1. No acute pulmonary findings. 2. Low lung volumes. Labs on day of discharge: Labs from last 24 hours 11/02/19 11/02/19 11/02/19 05:40 05:40 05:40 WBC 11.57 H D RBC 4.80 Hgb 14.8 Hct 43.4 MCV 90.4 MCH 30.8 MCHC 34.1 RDW 13.4 Plt Count 247 MPV 9.0 Immature Gran % Neutrophils % Lymphocytes % Monocytes % Eosinophils % Basophils % Absolute Neutrophils Absolute Lymphocytes Absolute Monocytes Absolute Eosinophils Absolute Basophils Sodium 139 Potassium 4.5 D Chloride 105 Carbon Dioxide 25.7 Anion Gap 8.3 BUN 17 Creatinine 0.69 L Estimated GFR/1.73 m2 >= 60.00 Glucose 149 H Calcium 9.1 Magnesium Total Bilirubin 0.6 AST 13 L ALT 24 Alkaline Phosphatase 81 Troponin I < 0.05 Total Protein 6.9 Albumin 3.1 L TSH Salicylates Urine Opiates Screen Urine Methadone Screen Acetaminophen Ur Barbiturates Screen Ur Tricyclics Screen Ur Amphetamines Screen U Benzodiazepines Scrn [place] Urine Cocaine Screen Ur THC Screen Ethyl Alcohol COVID-19 PCR Nasopharyn COVID-19 PCR Ref Test Perform Site 11/01/19 11/01/19 11/01/19 21:57 20:00 17:37 WBC RBC Hgb Hct MCV MCH MCHC RDW Plt Count MPV Immature Gran % Neutrophils % Lymphocytes % Monocytes % Eosinophils % Basophils % Absolute Neutrophils Absolute Lymphocytes Absolute Monocytes Absolute Eosinophils Absolute Basophils Sodium Potassium Chloride Carbon Dioxide Anion Gap BUN Creatinine Estimated GFR/1.73 m2 Glucose Calcium Magnesium Total Bilirubin AST ALT Alkaline Phosphatase Troponin I < 0.05 Total Protein Albumin TSH Cancelled Salicylates Urine Opiates Screen Negative Urine Methadone Screen Negative Acetaminophen Ur Barbiturates Screen Negative Ur Tricyclics Screen Negative Ur Amphetamines Screen Negative U Benzodiazepines Scrn Negative [place] Urine Cocaine Screen Positive A Ur THC Screen Positive A Ethyl Alcohol COVID-19 PCR Nasopharyn COVID-19 PCR Ref Test Perform Site 11/01/19 11/01/19 11/01/19 16:00 15:30 14:05 WBC RBC Hgb Hct MCV MCH MCHC RDW Plt Count MPV Immature Gran % Neutrophils % Lymphocytes % Monocytes % Eosinophils % Basophils % Absolute Neutrophils Absolute Lymphocytes Absolute Monocytes Absolute Eosinophils Absolute Basophils Sodium Potassium Chloride Carbon Dioxide Anion Gap BUN Creatinine Estimated GFR/1.73 m2 Glucose Calcium Magnesium Total Bilirubin AST ALT Alkaline Phosphatase Troponin I < 0.05 Total Protein Albumin TSH Salicylates Urine Opiates Screen Urine Methadone Screen Acetaminophen Ur Barbiturates Screen Ur Tricyclics Screen Ur Amphetamines Screen U Benzodiazepines Scrn [place] < 0.20 L Urine Cocaine Screen Ur THC Screen Ethyl Alcohol COVID-19 PCR Negative Nasopharyn COVID-19 PCR Not Applicable Ref Test Perform Site [place] [facility] lab 11/01/19 11/01/19 11/01/19 14:05 14:05 13:15 WBC 21.16 H RBC 4.71 Hgb 14.7 Hct 42.5 MCV 90.2 MCH 31.2 MCHC 34.6 RDW 13.8 Plt Count 253 MPV 8.7 Immature Gran % 0.3 Neutrophils % 81.2 Lymphocytes % 10.4 Monocytes % 6.0 Eosinophils % 1.8 Basophils % 0.3 Absolute Neutrophils 17.18 H Absolute Lymphocytes 2.20 Absolute Monocytes 1.27 H Absolute Eosinophils 0.38 Absolute Basophils 0.06 Sodium Potassium Chloride Carbon Dioxide Anion Gap BUN Creatinine Estimated GFR/1.73 m2 Glucose Calcium Magnesium Total Bilirubin AST ALT Alkaline Phosphatase Troponin I Total Protein Albumin TSH 0.55 Salicylates 3.9 Urine Opiates Screen Urine Methadone Screen Acetaminophen < 2 Ur Barbiturates Screen Ur Tricyclics Screen Ur Amphetamines Screen U Benzodiazepines Scrn [place] Urine Cocaine Screen Ur THC Screen Ethyl Alcohol 31.5 COVID-19 PCR Nasopharyn COVID-19 PCR Ref Test Perform Site 11/01/19 13:15 WBC RBC Hgb Hct MCV MCH MCHC RDW Plt Count MPV Immature Gran % Neutrophils % Lymphocytes % Monocytes % Eosinophils % Basophils % Absolute Neutrophils Absolute Lymphocytes Absolute Monocytes Absolute Eosinophils Absolute Basophils Sodium 140 Potassium 3.1 L Chloride 102 Carbon Dioxide 27.1 Anion Gap 10.9 BUN 12 Creatinine 0.78 Estimated GFR/1.73 m2 >= 60.00 Glucose 96 Calcium 8.7 Magnesium 2.0 Total Bilirubin 0.9 AST 14 L ALT 22 Alkaline Phosphatase 87 Troponin I < 0.05 Total Protein 7.3 Albumin 3.5 TSH Salicylates Urine Opiates Screen Urine Methadone Screen Acetaminophen Ur Barbiturates Screen Ur Tricyclics Screen Ur Amphetamines Screen U Benzodiazepines Scrn [place] Urine Cocaine Screen Ur THC Screen Ethyl Alcohol COVID-19 PCR Nasopharyn COVID-19 PCR Ref Test Perform Site [facility] Medical History (Updated 11/02/19 @ 13:24 by Vivien Harris MD) CAD (coronary artery disease) (Chronic) Cellulitis of left upper extremity (Acute) COPD (chronic obstructive pulmonary disease) (Chronic) Coronary atherosclerosis of [place] coronary artery (Chronic 09/25/14) GERD (gastroesophageal reflux disease) (Chronic) HTN (hypertension) (Chronic) Hypercholesterolemia (Chronic) Hyperlipidemia (Chronic) [employer] current use of antithrombotics/antiplatelets (Chronic 09/25/14) Old myocardial infarction (Chronic 09/25/14) Polysubstance abuse (Chronic) Rhabdomyolysis (Acute) Schizoaffective disorder (Chronic) Suicide attempt by hanging (Acute) Surgical History Coronary angioplasty status (Chronic 09/25/14) H/O heart artery stent (Chronic) Social History Smoking/Tobacco Use Status: Current every day Tobacco Type: cigars Per week: 35 Alcohol Intake: current Alcohol type: hard liquor Drug use: Binges Substance use type: crack/cocaine Do you feel safe at home: Yes Do you feel safe in your relationship?: Yes
--- NOTE | 2019-11-02 13:32 | PDOC.MHCN_ITS ---
Date of service: 11/02/19 Time of Service: 13:32 Mental Health Crisis Note Presenting Issue How did you arrive at the ED and why did you come: It is unsure how Colton arrived to the ER but he was admitted for ETOH and Cocaine o.d. Precipitating Factors Colton denied current SI and HI. He reported that his words were taken out of context yesterday and he said I wanted to go to sleep and go somewhere else. eh stated that this is because he had not slept due to the crack cocaine and needed to sleep. Disposition BEHAVIOR: Colton is cooperative and engaged. He sits up when asked to engage fully in the assessment. He has clear thoughts. EYE CONTACT: Eye contact is good. MOOD: Colton appears to have a normal mood. He seems a little embarrassed about his choices that lead him to the hospital AFFECT: Colton's affect is normal to discussion. APPETITE: Colton reported his appetiete is good. SLEEP(trouble falling/staying asleep: Colton reported that his sleep is okay. Plan Colton to be discharged today after he speaks with a Supervisor [employer]. He will do 2 check in's through the weekend with [facility] emergency clinicians. He admits that he needs to reconnect with his supports and be honest and start calling. He feels he is getting confused by [facility] and [facility] handling his meds and would like to have [facility] take care of all of his psych meds moving forward. Signature Clinician's Name/Title: Jennifer Givens MS, [facility] Emergency Services Clinician
[2019-11-02 14:12] VITALS: PULSE 59; PULSE 67; PULSE 88; RESP 16; RESP 20; O2SAT 92; O2SAT 95; O2SAT 96
[2019-11-02] MEDS: Albuterol HFA 8 GM 60 PUFF INH IH (14:14)
== END 2019-11-02 15:50 | disposition home or self-care (01) | DRG 191 ==
LOC: ER 18:38 → MS 19:16
PROVIDERS: Registered Nurse Emergency; Admitting Provider Family Medicine; Emergency Provider Student in an Organized Health Care Education/Training Program; PCP Family Medicine; Visit Provider Family Medicine
DX: J44.1 Chronic obstructive pulmonary disease with (acute) exacerbation (principal); R45.851 Suicidal ideations; F14.10 Cocaine abuse, uncomplicated; Z91.5 Personal history of self-harm; K21.9 Gastro-esophageal reflux disease without esophagitis; F25.9 Schizoaffective disorder, unspecified; I25.2 Old myocardial infarction; Z95.5 Presence of coronary angioplasty implant and graft; I10 Essential (primary) hypertension; E78.5 Hyperlipidemia, unspecified; I25.10 Atherosclerotic heart disease of native coronary artery without angina pectoris; F10.129 Alcohol abuse with intoxication, unspecified; F12.90 Cannabis use, unspecified, uncomplicated
CPT/HCPCS: 36415; 51701; 80053; 80307; 85027; 93005; 94618; 94640; 96361; 96374; 96375; 99223; 99239; 99285; U0003; 71045; 80178; 80320; 80329; 83735; 84443; 84484; 85025; 93010; J1644; J2060; J2930; J3480; J7512; J7620

== ENCOUNTER 2019-11-09 05:57 | Emergency (ER) | payer MEDICARE, SELFPAY ==
--- NOTE | 2019-11-09 06:00 | RT.EKG_ITS ---
APPROVED REPORT Exam: Resting ECG Patient Location: E HR:77 bpm ECG Measurements Heart Rate 77 AXIS VA 177 P 43 QRSd 90 QRS 13 QT 368 T 7 QTc 418 <Conclusion> Rate 77, intervals normal, no significant ST elevations or depressions. No evidence of STEMI. Q wav es noted in lead III, unchanged from prior EKG on 10/31. No other abnormalities. No acute changes.
[2019-11-09 06:05] VITALS: BP 146/75; PULSE 86; RESP 16; TEMP 35.9; O2SAT 95
--- NOTE | 2019-11-09 06:19 | W.ED.GENAD ---
Discharge Plan Disposition Patient Disposition: HOME Condition: Stable Discharge Details Chief Complaint: ETOHWithdr Clinical Impression: Alcohol abuse, Cocaine abuse Primary Care Provider: Tawanda Dooley ED Provider: Josefina Ayala Home Meds and New Rx's Prescriptions: Continued lamotrigine 150 MG tablet 150 mg PO HS RF: 0 albuterol sulfate 8.5 GM HFA aerosol inhaler 2 puff Inhalation PRN RF: 0 aspirin [Aspirin Low-Strength] 81 MG tablet,chewable 81 mg PO DAILY RF: 0 atorvastatin [Lipitor] 80 MG tablet 80 mg PO DAILY RF: 0 nitroglycerin [Nitrostat] 0.4 MG tablet, sublingual 0.4 mg Sublingual Q5 MIN PRN X3 PRNQty: 100 RF: 0 isosorbide mononitrate 30 MG tablet extended release 24 hr 30 mg PO DAILY RF: 0 pantoprazole [Protonix] 20 MG tablet,delayed release (DR/EC) 40 mg PO DAILY RF: 0 risperidone 2 MG tablet 2 mg PO HS RF: 0 metoprolol succinate 25 MG tablet extended release 24 hr 50 mg PO DAILY RF: 0 Breo Ellipta 100-25 mcg/dose blister with device 1 inh INHALATION DAILY RF: 0 Incruse Ellipta 62.5 mcg/actuation blister with device 1 inh INHALATION DAILY RF: 0 prednisone 20 mg Tablet 40 mg PO DAILY Qty: 6 RF: 0 doxycycline hyclate 100 mg Capsule 100 mg PO Q12H Qty: 8 RF: 0 Discharge Instructions Instructions: Abuse of Alcohol (ED), Narcotic Use Disorder (ED) Additional Instructions: Drink plenty of fluids and get plenty of rest. Refrain from abuse of alcohol and other drugs. You will receive a call from the hospital regarding the results of your COVID-19 test done today in the emergency department. If your result is negative, follow-up with [facility] regarding acceptance into their rehabilitation program. Discharge Data Discharge Date/Time-TO BE ENTERED AT DEPARTURE: 11/09/19 15:30 Discharge Physician: Josefina Ayala Medical Decision Making <Sancho Vargas DO - Last Filed: 11/09/19 21:03> 59-year-old male with a past medical history of coronary artery disease, COPD, GERD, hypertension, high cholesterol, presents today for evaluation of wanting rehab. Patient states that he has been drug-free for a bit, then last night he went on a barney of crack cocaine. This morning he states he had shot of hard liquor, and was then encouraged by his family to seek help and treatment for his recent drug use. He contacted [facility], and per the patient they recommended that he come into the ER to be evaluated. Currently the patient denies any homicidal or suicidal ideations. He states he does not want to hurt himself. He states that he is just looking for help to get off of drugs again. He denies any new or worsening chest pain or shortness of breath. She does take regular nitroglycerin. He does feel slightly anxious and feels that this might be making him feel slightly more short of breath, but definitely not worse than normal. Physical exam is unremarkable. He appears clinically sober. Out of an abundance of precaution we will get a screening EKG and chest x-ray with his crack cocaine use. Vital signs are notably stable. We did contact [facility], Michelle, discussed the case with her as well as recovery coaches that are currently diamond polisher. Through shared discussion, recovery coaches will come in at 7 AM to evaluate the patient for potential help and starting transition to [facility]. With no homicidal or suicidal ideations, I see no indication for further evaluation, and the patient's medical screening exam is otherwise unremarkable. EKG 6: 27 Rate 77, intervals normal, no significant ST elevations or depressions. No evidence of STEMI. Q waves noted in lead III, unchanged from prior EKG on 10/31. No other abnormalities. No acute changes. FINDINGS: Lungs: The lungs are mildly hyperinflated. There is mild bibasilar atelectasis. The lungs are otherwise clear. Pleural space: Unremarkable. No pleural effusion. No pneumothorax. Heart/Mediastinum: The cardiomediastinal silhouette is fairly stable in appearance, allowing for differences in technique. Bones/joints: Degenerative changes again involve the spine. There are again some chronic right rib fractures. IMPRESSION: Mild hyperinflation without focal disease. Thank you for allowing us to participate in the care of your patient. Dictated and Authenticated by: Harvey Snider MD <Josefina Ayala DO - Last Filed: 11/09/19 22:04> 0800 -- please see Dr. Vargas's note for initial presentation, exam and plan. Plan is for motor coach bus driver and mental health to evaluate this morning. 0900 -- Trena the motor coach bus driver evaluated patient at bedside and has given him information for additional outpatient rehab services. 0920 -- Jennifer from mental health evaluated patient at bedside. [facility] place [facility] 1300 -- d/w Jennifer - he will likely be accepted to [facility] but will not accept him until COVID result. He recommends admission here while awaiting COVID result. Discussed that I do not think patient requires hospital admission as he has not demonstrating any signs of acute withdrawal and would recommend he wait at home until COVID result available to then be accepted at [facility]. 1400 -- Case discussed with hospitalist who does not accept patient for admission as there is no acute indication. Case also discussed with Dr. Gillis who agrees that if patient does not require admission, can be discharged home with plan for acceptance to [facility] once COVID resulted. Patient has remained hemodynamically stable. He has no acute complaints at this time. He is agreeable with plan for discharge. field hockey and lacrosse coach Trena came and saw patient in the ED again. She will follow-up with patient tonight and tomorrow and until he can hopefully be accepted at [facility]. Usual and customary return precautions given prior to discharge. Medical Records Medical records reviewed: Yes I reviewed the patient's medical records. HPI <Sancho Vargas, DO - Last Filed: 11/09/19 21:03> General Date/Time Provider Initiated Documentation: 11/09/19 05:58. HPI Narrative: 59-year-old male with a past medical history of coronary artery disease, COPD, GERD, hypertension, high cholesterol, presents today for evaluation of wanting rehab. Patient states that he has been drug-free for a bit, then last night he went on a barney of crack cocaine. This morning he states he had shot of hard liquor, and was then encouraged by his family to seek help and treatment for his recent drug use. He contacted [facility], and per the patient they recommended that he come into the ER to be evaluated. Currently the patient denies any homicidal or suicidal ideations. He states he does not want to hurt himself. He states that he is just looking for help to get off of drugs again. He denies any new or worsening chest pain or shortness of breath. She does take regular nitroglycerin. He does feel slightly anxious and feels that this might be making him feel slightly more short of breath, but definitely not worse than normal. He denies any cough, fever, chills, hemoptysis, numbness tingling weakness, severe chest tightness, tearing or ripping sensation. He denies using any other drugs. He denies any other complaints at this time. Related Data Home Medications Medication Instructions Recorded Confirmed lamotrigine 150 mg PO HS 06/17/13 11/09/19 albuterol sulfate 2 puff INHALATION PRN 11/13/13 11/09/19 aspirin [Aspirin Low-Strength] 81 mg PO DAILY 09/25/14 11/09/19 atorvastatin [Lipitor] 80 mg PO DAILY 09/25/14 11/09/19 nitroglycerin [Nitrostat] 0.4 mg SUBLINGUAL Q5 MIN PRN X3 09/25/14 11/09/19 PRN #100 tab.subl isosorbide mononitrate 30 mg PO DAILY 05/20/15 11/09/19 pantoprazole [Protonix] 40 mg PO DAILY 05/20/15 11/09/19 risperidone 2 mg PO HS 05/20/15 11/09/19 metoprolol succinate 50 mg PO DAILY 09/15/16 11/09/19 Breo Ellipta 1 inh INHALATION DAILY 11/02/19 11/09/19 Incruse Ellipta 1 inh INHALATION DAILY 11/02/19 11/09/19 doxycycline hyclate 100 mg PO Q12H #8 cap 11/02/19 11/09/19 prednisone 40 mg PO DAILY #6 tab 11/02/19 11/09/19 Previous Rx's Medication Instructions Recorded nitroglycerin [Nitrostat] 0.4 mg SUBLINGUAL Q5 MIN PRN X3 09/25/14 PRN #100 tab.subl doxycycline hyclate 100 mg PO Q12H #8 cap 11/02/19 prednisone 40 mg PO DAILY #6 tab 11/02/19 Allergies Allergy/AdvReac Type Severity Reaction Status Date / Time No Known Allergies Allergy Unverified 11/09/19 06:09 General Stated Complaint: ETOHWithdr ZEINAB: 3 Review of Systems <Sancho Vargas DO - Last Filed: 11/09/19 21:03> All systems reviewed & are unremarkable except as noted in HPI and below PFSH <Sancho Vargas DO - Last Filed: 11/09/19 21:03> Medical History CAD (coronary artery disease) (Chronic) Cellulitis of left upper extremity (Acute) COPD (chronic obstructive pulmonary disease) (Chronic) Coronary atherosclerosis of teller coronary artery (Chronic 09/25/14) GERD (gastroesophageal reflux disease) (Chronic) HTN (hypertension) (Chronic) Hypercholesterolemia (Chronic) Hyperlipidemia (Chronic) 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 (Chronic 09/25/14) Old myocardial infarction (Chronic 09/25/14) Polysubstance abuse (Chronic) Rhabdomyolysis (Acute) Schizoaffective disorder (Chronic) Suicide attempt by hanging (Acute) Surgical History Coronary angioplasty status (Chronic 09/25/14) H/O heart artery stent (Chronic) Social History Smoking/Tobacco Use Status: Current every day Tobacco Type: cigars Per week: 35 Alcohol Intake: current Alcohol type: hard liquor Drug use: Binges Substance use type: marijuana and crack/cocaine Details: marijuana - when having a hard time sleeping; once a week; Crack - binges Do you feel safe at home: Yes Do you feel safe in your relationship?: Yes Exam <Sancho Vargas DO - Last Filed: 11/09/19 21:03> Narrative Exam Narrative: 1.Const: Well-nourished, Well-developed, appearing stated age 2.Eyes: PERRL, no conjunctival injection, and symmetrical lids. 3.ENT: Atraumatic external nose and ears. Moist MM. Neck: Symmetric, trachea midline, No thyromegaly. 4.CVS: +S1/S2, No murmurs or gallops. Peripheral pulses 2+ and equal in all extremities. Brisk capillary refill in all extremities. 5.RESP: Unlabored respiratory effort. Clear to auscultation bilaterally. No wheezes rales or rhonchi 6.GI: Soft, Nontender/Nondistended, No hepatosplenomegaly. No guarding or rebound. 7.MSK: Normocephalic/Atraumatic, Extremities w/o deformity or ttp No cyanosis or clubbing, Normal movement of all extremities 8.Skin: Warm, Dry. No rashes or lesions. 9.Neuro: belt loop cutter II-XII grossly intact. Sensation grossly intact, no focal neurologic deficits. 10.Psych: (AAO) x3. Appropriate mood and affect Course <Sancho Vargas DO - Last Filed: 11/09/19 21:03> Vital Signs Vital signs: Vital Signs Temperature 35.9 C L 11/09/19 06:05 Pulse 86 11/09/19 06:05 Respiratory Rate 16 11/09/19 06:05 Blood Pressure 146/75 H 11/09/19 06:05 Pulse Oximetry 95 11/09/19 06:05 Temperature 35.9 C L 11/09/19 06:05 Temperature Source Temporal Artery Scan 11/09/19 06:05 Pulse 86 11/09/19 06:05 Respiratory Rate 16 11/09/19 06:05 Blood Pressure 146/75 H 11/09/19 06:05 Pulse Oximetry 95 11/09/19 06:05 Pain Level 5 11/09/19 06:05 Sign Out <Sancho Vargas DO - Last Filed: 11/09/19 21:03> Sign Out Data: Sign Out Comment: Did a barney of crack cocaine and a shot of alcohol last night. Requesting help for rehab. Detox. field hockey and lacrosse coach is coming at 7, mental health wants to be contacted again once medically cleared. Follow-up on labs and reassessment after mental health assessment. Last updated by Sancho Vargas DO at 11/09/19 06:48
--- NOTE | 2019-11-09 06:41 | DI.RAD_ITS ---
EXAM: XR CHEST 2V PA LATERAL CLINICAL HISTORY: SOB after cocaine TECHNIQUE: 2D digital imaging was performed. COMPARISON: CR XR PORTABLE CHEST AP from 11/01/2019 FINDINGS: MEDIASTINUM: Normal. HEART: Normal. PULMONARY VASCULATURE: Normal. LUNGS: Mild right basilar scarring, otherwise clear. PLEURAL SPACE: No pleural effusion or pneumothorax. BONE:Old right rib fractures. Degenerative changes in the thoracic spine. IMPRESSION: No acute pulmonary findings. DATA REPOSITORY: RADIATION DOSE DELIVERED:
[2019-11-09 07:01] LABS: Abs Immature Grans 0.25 10^3/uL (0.0-0.06); Basophils % 0.3; Eosinophils % 0.4; HCT 46.7 % (40.0-50.0); HGB 15.6 g/dL (13.5-17.5); Immature Grans % 1.2; Lymphocytes % 11.3; MCH 30.8 pg (27.0-33.0); MCHC 33.4 % (32.0-36.0); MCV 92.3 fL (80-95); MPV 8.8 fL (8.0-11.0); Monocytes % 6.8; Platelet Count 228 10^3/uL (130-400); RBC 5.06 10^6/uL (4.36-5.78); RDW 13.2 % (11.8-14.1); RDW-SD 44.3 fL; WBC 20.65 10^3/uL (4.4-10.8)
[2019-11-09 07:03] LABS: Absolute Basophil Count 0.06 10^3/uL (0.0-0.2); Absolute Eosinophil Count 0.08 10^3/uL (0.0-0.7); Absolute Lymphocyte Count 2.33 10^3/uL (1.2-3.4); Absolute Neutrophil Count 16.52 10^3/uL (1.2-6.7)
[2019-11-09 07:22] LABS: Lithium 0.63 mmol/L (0.60-1.20)
[2019-11-09 07:25] LABS: Salicylate 3.3 mg/dL (2.8-20.0)
--- NOTE | 2019-11-09 07:26 | DI.VRAD_ITS ---
PROCEDURE INFORMATION: Exam: XR Chest, 2 Views Exam date and time: 11/09/2019 6:38 AM Age: 59 years old Clinical indication: Patient HX: Shortness of breath after cocaine. TECHNIQUE: Imaging protocol: XR of the chest Views: 2 views. (3 images total) COMPARISON: CR XR PORTABLE CHEST AP 11/01/2019 3:22 PM FINDINGS: Lungs: The lungs are mildly hyperinflated. There is mild bibasilar atelectasis. The lungs are otherwise clear. Pleural space: Unremarkable. No pleural effusion. No pneumothorax. Heart/Mediastinum: The cardiomediastinal silhouette is fairly stable in appearance, allowing for differences in technique. Bones/joints: Degenerative changes again involve the spine. There are again some chronic right rib fractures. IMPRESSION: Mild hyperinflation without focal disease. Dictated and Authenticated by: Harvey Snider MD. Ordering:TU Kingsley MD
[2019-11-09 07:29] LABS: Acetaminophen < 2 ug/mL (10-30)
[2019-11-09 07:32] LABS: ALT 25 U/L (16-63); AST 13 U/L (15-37); Albumin 3.6 g/dL (3.4-5.0); Alkaline Phosphatase 78 U/L (46-116); Anion Gap 7.8 mmol/L (3-11); BUN 11 mg/dL (7-18); Bilirubin, Total 0.7 mg/dL (0.2-1.0); CO2 30.2 mmol/L (21.0-32.0); CREATININE 0.81 mg/dL (0.70-1.30); Calcium 9.2 mg/dL (8.5-10.1); Chloride 101 mmol/L (98-107); Glucose 110 mg/dL (74-106); Potassium 3.4 mmol/L (3.5-5.1); Sodium 139 mmol/L (136-145); TSH (W/Ref FT4) 0.92 uIU/mL (0.36-3.74); Total Protein 7.2 g/dL (6.4-8.2)
[2019-11-09 07:33] LABS: Troponin I < 0.05 ng/mL (<0.06)
[2019-11-09 07:47] LABS: ETHANOL BLOOD < 3.0 mg/dL (<3)
[2019-11-09 09:47] LABS: Bilirubin Negative (Negative); Blood Negative (Negative); Clarity Clear (Clear); Glucose Negative (Negative); Ketones Negative (Negative); Leukocyte Esterase Negative (Negative); Nitrite Negative (Negative); Urobilinogen 0.2 EU/dL (Up TO 0.2)
--- NOTE | 2019-11-09 10:00 | NUR.NOTE ---
Patient given breakfast and orange juice at 1000.
[2019-11-09 10:03] LABS: *AMPHETAMINES SCREEN URINE Negative (Negative); *BARBITURATES SCREEN URINE Negative (Negative); *BENZODIAZEPINES SCREEN URINE Negative (Negative); Cannabinoids THC POSITIVE (Negative); Cocaine Screen,Urine POSITIVE (Negative); METHADONE URINE SCREEN Negative (Negative); OPIATES URINE SCREEN Negative (Negative)
[2019-11-09 10:05] LABS: Tricyclic Antidepressants Negative (Negative)
--- NOTE | 2019-11-09 11:22 | PDOC.MHCN_ITS ---
Date of service: 11/09/19 Time of Service: 11:22 Mental Health Crisis Note Presenting Issue How did you arrive at the ED and why did you come: Colton arrived to the ER this am with reports that he needed to go to detox due to using cocaine and wanted an admission. Precipitating Factors Colton deneid SI and HI. Thoughts are clear and organized. Disposition BEHAVIOR: I am not sure Colton is being completely honest about his use. Initially, he stated that he was not using ETOH but when he learned that he might not be accepted for admission he reported that he has been drinking a pint of Carlos Aman's daily. Otherwise he is cooperative and engaged. EYE CONTACT: Eye contact is normal. MOOD: Mood appears normal. AFFECT: Affect is appropriate to discussion. APPETITE: Colton reports appetite is good. SLEEP(trouble falling/staying asleep: Colton reports sleep is good. Plan Colton is seeking a voluntary admission. He has had all his labs done and we are waiting on the COVID results. [facility] Signature Clinician's Name/Title: Jennifer Givens MS, [facility] Emergency Services Clinician
--- NOTE | 2019-11-09 13:17 | NUR.NOTE ---
Updated on how patient is doing.
[2019-11-09 14:22] VITALS: BP 120/70; PULSE 70; TEMP 36.7; O2SAT 92
[2019-11-10 08:28] LABS: COVID-19 RT-PCR UVMMC Result Negative (Negative)
--- NOTE | 2019-11-10 08:38 | NUR.NOTE ---
Covid report printed so nursing could call patient to give result for admission to another facility.Nursing Note:
--- NOTE | 2019-11-10 08:51 | NUR.NOTE ---
spoke with Mikael about his covid test results. PAtient was negative. [facility]
== END 2019-11-09 15:30 | disposition home or self-care (01) ==
PROVIDERS: Student in an Organized Health Care Education/Training Program; Emergency Provider Physician Assistant; PCP Family Medicine
DX: F10.10 Alcohol abuse, uncomplicated (principal); F14.10 Cocaine abuse, uncomplicated; Z03.818 Encounter for observation for suspected exposure to other biological agents ruled out; I10 Essential (primary) hypertension; J44.9 Chronic obstructive pulmonary disease, unspecified; F17.210 Nicotine dependence, cigarettes, uncomplicated; I25.10 Atherosclerotic heart disease of native coronary artery without angina pectoris; Z95.5 Presence of coronary angioplasty implant and graft
CPT/HCPCS: 36415; 80053; 80307; 93005; 99285; U0003; 71046; 80178; 80320; 80329; 81003; 84443; 84484; 85025; 93010; 99284

== ENCOUNTER 2019-11-21 03:21 | Outpatient (CLI) | payer MEDICARE, SELFPAY ==
[2019-11-21 09:15] LABS: ALT 25 U/L (16-63); AST 13 U/L (15-37); Albumin 3.9 g/dL (3.4-5.0); Alkaline Phosphatase 106 U/L (46-116); Anion Gap 8.9 mmol/L (3-11); BUN 11 mg/dL (7-18); Bilirubin, Total 0.6 mg/dL (0.2-1.0); CO2 29.1 mmol/L (21.0-32.0); Calcium 9.5 mg/dL (8.5-10.1); Chloride 104 mmol/L (98-107); Glucose 94 mg/dL (74-106); Potassium 4.5 mmol/L (3.5-5.1); Sodium 142 mmol/L (136-145); TSH 1.45 uIU/mL (0.36-3.74); Total Protein 7.1 g/dL (6.4-8.2)
== END 2019-11-21 03:41 ==
PROVIDERS: PCP Family Medicine; Visit Provider Nurse Practitioner Family
DX: F31.9 Bipolar disorder, unspecified (principal); Z79.899 Other long term (current) drug therapy
CPT/HCPCS: 36415; 80053; 80178; 84443

== ENCOUNTER 2019-11-30 14:14 | Outpatient (CLI) | payer MEDICARE, SELFPAY ==
--- NOTE | 2019-11-30 | DI.RAD_ITS ---
EXAM: XR HIP LT COMPLETE AP PELVIS INDICATION: HIP PAIN, LEFT M25.552. COMPARISON: No exams were available for comparison TECHNIQUE: 2D digital imaging was performed. FINDINGS: The hip joint spaces are well maintained. There is mild acetabular spurring, greater on the right. There are mild hypertrophic changes of the SI joints, greater on the right. Spurring is also seen a t the iliac wings. The femoral heads appear intact. There are severe degenerative changes of lower lumbar spine. IMPRESSION: Mild degenerative changes of both hips. DATA REPOSITORY: RADIATION DOSE DELIVERED:
== END 2019-11-30 14:34 ==
PROVIDERS: PCP Family Medicine; Visit Provider Family Medicine
DX: M16.0 Bilateral primary osteoarthritis of hip (principal)
CPT/HCPCS: 73502

== ENCOUNTER 2020-01-16 00:40 | Outpatient (CLI) | payer MEDICARE, SELFPAY ==
[2020-01-16] MEDS: Normal Saline - Diluent 50 ML VIAL IV (08:45)
[2020-01-16] MEDS: Omnipaque 350 MG/ML 100 ML BTL IJ (09:01)
--- NOTE | 2020-01-16 09:02 | DI.CT_ITS ---
EXAM: CT CHEST W CLINICAL HISTORY: ? LUNG MASS, R91.8,COPD,SMOKER,3 MO F/U TECHNIQUE: COMPARISON: CT CT CHEST W from 09/28/2019 FINDINGS: CT examination of chest was performed bolus infusion of 70 cc of Omnipaque 350. Images obtained thro h the upper abdomen show unremarkable appearance of visualized portions of liver, spleen, adrenals, kidneys, and pancreas. Gallbladder and bile ducts are CT normal. Thoracic aorta and major branches appear intact. No evidence of pulmonary embolic disease. There is coronary artery calcification versus coronary artery stents. No mediastinal or hilar adenopathy. Examination is compared with prior scan September 27. Previous examination showed decreasing left basil ar areas of consolidation or atelectasis. There is continued decrease in degree of consolidation or atelectasis in the left lung base on today's examination. There is a well-circumscribed 10 x 6 frandy meter in diameter nodule. No new intrapulmonary nodule identified. No consolidation seen elsewhere. No pleural effusion. Tracheobronchial tree appears intact. IMPRESSION: Interval decrease in prominence of left lower lobe areas of atelectasis and/or consolidation. A well -circumscribed discrete pulmonary nodule is also seen in this area on today's examination as the cons olidation clears, follow-up CT is recommended in 3 months to rule out neoplastic disease. RADIATION DOSE DELIVERED: 800.78mGy.cm Total DLP
== END 2020-01-16 01:00 ==
PROVIDERS: PCP Family Medicine; Visit Provider Family Medicine
DX: R91.1 Solitary pulmonary nodule (principal); J98.11 Atelectasis; J44.9 Chronic obstructive pulmonary disease, unspecified; F17.210 Nicotine dependence, cigarettes, uncomplicated
CPT/HCPCS: 71260; J3490

== ENCOUNTER 2020-02-04 15:54 | Outpatient (REF) | payer MEDICARE, SELFPAY ==
--- NOTE | 2020-02-04 14:45 | SKI_PTH ---
PATIENT: Mikael Bailey LOC: NCN #:[id number] AGE/SX: 59/M ROOM: RE02/04/[address]: Tawanda Dooley : 1960 BED: DIS: 02/04/2020 SPEC #: [id number] RECD: 02/04/20 18:30 STATUS: DK REAngelique #: [id number] DELORES: 02/04/20 14:[address]: Tawanda Dooley DEPT: Surgical Specimen RECD BY: Sasha Núñez Tissues: 1 - SKIN BIOPSY(SHAVE/PUNCH) Procedures: SKIN LEVEL 4 Comments: [id number]
== END 2020-02-04 16:14 ==
LOC: NCHCN 15:54
PROVIDERS: PCP Family Medicine; Visit Provider Family Medicine
DX: L73.8 Other specified follicular disorders (principal)
CPT/HCPCS: 88305

== ENCOUNTER 2020-03-16 06:13 | Emergency (ER) | payer MEDICARE, SELFPAY ==
--- NOTE | 2020-03-16 06:16 | ED.GENADUL_ITS ---
Discharge Plan Disposition Patient Disposition: HOME Condition: Good Discharge Details Clinical Impression: Dental infection Primary Care Provider: Tawanda Dooley ED Provider: Leodan Young Meds and New Rx's Prescriptions: New amoxicillin-pot clavulanate [Augmentin] 875-125 mg tablet 1 tab PO Q12H Qty: 20 RF: 0 Continued lamotrigine 150 MG tablet 150 mg PO HS RF: 0 albuterol sulfate 8.5 GM HFA aerosol inhaler 2 puff Inhalation PRN RF: 0 aspirin [Aspirin Low-Strength] 81 MG tablet,chewable 81 mg PO DAILY RF: 0 atorvastatin [Lipitor] 80 MG tablet 80 mg PO DAILY RF: 0 nitroglycerin [Nitrostat] 0.4 MG tablet, sublingual 0.4 mg Sublingual Q5 MIN PRN X3 PRNQty: 100 RF: 0 isosorbide mononitrate 30 MG tablet extended release 24 hr 30 mg PO DAILY RF: 0 pantoprazole [Protonix] 20 MG tablet,delayed release (DR/EC) 40 mg PO DAILY RF: 0 risperidone 2 MG tablet 2 mg PO HS RF: 0 metoprolol succinate 25 MG tablet extended release 24 hr 50 mg PO DAILY RF: 0 Breo Ellipta 100-25 mcg/dose blister with device 1 inh INHALATION DAILY RF: 0 Incruse Ellipta 62.5 mcg/actuation blister with device 1 inh INHALATION DAILY RF: 0 Discharge Instructions Instructions: Dental Abscess (ED) Additional Instructions: Take antibiotic twice a day. Pain will get better as infection gets better. Continue ibuprofen and acetaminophen. Use benzocaine gel every 3-4 hours for comfort. You will need to make an appointment with dentistry. Return to ED if you develop increasing facial swelling/redness, difficulty breathing, inability to swallow. Medical Decision Making Patient with dental infection with resultant buccal cellulitis around the left mandibular area. No gingival abscess. No fluctuance appreciated. Will start Augmentin. Continue ibuprofen and acetaminophen. Benzocaine gel to help with discomfort. Follow-up with dentistry next week. Return to ED if increasing swelling/pain, difficulty breathing, inability to swallow. HPI General Mode of arrival: ambulatory . Date/Time Provider Initiated Documentation: 03/16/20 06:16 . Limitations to Documentation: no limitations . Information obtained by: patient and RN notes reviewed . HPI Narrative: Patient presents to ED with dental pain. Patient has had increasing pain over the last 3 days. Now has facial swelling. No difficulty breathing. Able to swallow. No fever. History of dental infections previously. Related Data Home Medications Medication Instructions Recorded Confirmed lamotrigine 150 mg PO HS 06/17/13 03/16/20 albuterol sulfate 2 puff INHALATION PRN 11/13/13 03/16/20 aspirin [Aspirin Low-Strength] 81 mg PO DAILY 09/25/14 03/16/20 atorvastatin [Lipitor] 80 mg PO DAILY 09/25/14 03/16/20 nitroglycerin [Nitrostat] 0.4 mg SUBLINGUAL Q5 MIN PRN X3 09/25/14 03/16/20 PRN #100 tab.subl isosorbide mononitrate 30 mg PO DAILY 05/20/15 03/16/20 pantoprazole [Protonix] 40 mg PO DAILY 05/20/15 03/16/20 risperidone 2 mg PO HS 05/20/15 03/16/20 metoprolol succinate 50 mg PO DAILY 09/15/16 03/16/20 Breo Ellipta 1 inh INHALATION DAILY 11/02/19 03/16/20 Incruse Ellipta 1 inh INHALATION DAILY 11/02/19 03/16/20 amoxicillin-pot clavulanate 1 tab PO Q12H #20 tab 03/16/20 [Augmentin] Previous Rx's Medication Instructions Recorded nitroglycerin [Nitrostat] 0.4 mg SUBLINGUAL Q5 MIN PRN X3 09/25/14 PRN #100 tab.subl amoxicillin-pot clavulanate 1 tab PO Q12H #20 tab 03/16/20 [Augmentin] Allergies Allergy/AdvReac Type Severity Reaction Status Date / Time No Known Allergies Allergy Unverified 03/16/20 06:18 General ZEINAB: 3 Review of Systems Constitutional Constitutional: Denies fever(s) ENT Ears, Nose, Mouth, and Throat: Reports dental pain, Denies dysphagia and Reports facial pain Cardiovascular Cardiovascular: Denies dyspnea Respiratory Respiratory: Denies cough and Denies dyspnea Gastrointestinal Gastrointestinal: Denies dysphagia Integumentary/Breasts Skin/Breast: Denies erythema PFSH Medical History CAD (coronary artery disease) COPD (chronic obstructive pulmonary disease) GERD (gastroesophageal reflux disease) HTN (hypertension) 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/14) Old myocardial infarction (09/25/14) Polysubstance abuse Rhabdomyolysis Schizoaffective disorder Suicide attempt by hanging Surgical History Coronary angioplasty status (09/25/14) H/O heart artery stent Social History Smoking/Tobacco Use Status: Current every day Tobacco Type: cigars Per week: 35 Smoking risk assessment performed?: Yes Alcohol Intake: current Alcohol type: hard liquor Drug use: Binges Substance use type: marijuana and crack/cocaine Details: marijuana - when having a hard time sleeping; once a week; Crack - binges Do you feel safe at home: Yes Do you feel safe in your relationship?: Yes Exam Const General: cooperative and no acute distress Orientation: alert and oriented x3 HENMT Head: normocephalic and atraumatic Face and sinus: no erythema, no fluctuance and tenderness on the left (associated with induration/swelling) mandible Mouth: tongue normal Teeth and gingiva: gingiva abnormal edematous, tender and other (no abscess), poor dentition and other (apical percussion tenderness left lower premolar/molar) Neck Neck: trachea midline, supple and no lymphadenopathy noted Resp Effort & Inspection: normal respiratory effort Skin General skin exam: no erythema and no fluctuance
[2020-03-16 06:17] VITALS: BP 140/83; PULSE 62; RESP 16; TEMP 36.4; O2SAT 97
[2020-03-16] MEDS: Amoxicillin 875/Clav. 125 TAB PO (06:35)
[2020-03-16] MEDS: Benzocaine 20% Gel 30 GM JAR MM (06:35)
== END 2020-03-16 06:35 | disposition home or self-care (01) ==
LOC: ER 06:31
PROVIDERS: Emergency Provider Emergency Medicine; PCP Family Medicine
DX: R68.84 Jaw pain (principal); K04.7 Periapical abscess without sinus; L03.211 Cellulitis of face; I10 Essential (primary) hypertension; J44.9 Chronic obstructive pulmonary disease, unspecified
CPT/HCPCS: 99283

== ENCOUNTER → 2020-05-02 03:03 | Outpatient (CLI) | payer MEDICARE, SELFPAY ==
[2020-05-02 13:18] LABS: CREATININE 0.86 mg/dL (0.70-1.30)
[2020-05-02] MEDS: Normal Saline - Diluent 50 ML VIAL IV (13:53)
[2020-05-02] MEDS: Omnipaque 350 MG/ML 100 ML BTL IJ (13:53)
--- NOTE | 2020-05-02 13:55 | DI.CT_ITS ---
EXAM: CT CHEST W CLINICAL HISTORY: 3 MO F/U LUNG NODULE,R91.8 TECHNIQUE: Imaging Protocol: Axial computed tomography images with coronal and sagittal reformatted images were created and reviewed CONTRAST MATERIAL: Intravenous: Omnipaque 350 Contrast volume:70 mL. COMPARISON: CT CT CHEST W from 01/16/2020 FINDINGS: Tracheobronchial tree: Patent where visualized. Mediastinum and Mel: No dominant adenopathy or fluid collection. Stable mediastinal and hilar lymph nodes. Pulmonary parenchyma: No consolidation or dominant measurable mass. Mild paraseptal emphysematous samantha nges are present. Atelectasis or scarring is seen in the lung bases. 1 x 0.6 cm nodule in the left lower lobe is unchanged. (Series 3, image 416). There is a persistent area of scarring, infiltrate or atelectasis in the left lower lobe. Pleura: No effusion or pneumothorax. Heart: The heart is not dilated. Moderate coronary artery calcification. No pericardial effusion. Aorta: Thoracic aorta non-dilated. Atherosclerosis. Upper abdomen: 3.1 cm infrarenal abdominal aortic aneurysm. It is incompletely imaged on this exami nation. Lymph nodes: Please see above. Bones: Normal. Soft tissues: Unremarkable. IMPRESSION: 1. Stable left lower lobe pulmonary nodule. 2. Persistent area of scarring, infiltrate or atelectasis in the left lower lobe. 3. 3.1 cm infrarenal abdominal aortic aneurysm. It is incompletely imaged on this examination. If t here is continued concern a abdominal ultrasound or CT scan of the abdomen and pelvis should be consi dered. RADIATION DOSE DELIVERED: 922.38mGy.cm Total DLP DATA REPOSITORY: All CT scans at this facility are submitted to the National Radiology Data Registry (NRDR) Dose Index Registry (DIR) with the [employer] (ACR). RADIATION OPTIMIZATION: All CT scans at this facility use at least one of these dose optimization te chniques: automated exposure control; mA and/or kV adjustment per patient size (includes targeted exa ms where dose is matched to clinical indication); or iterative reconstruction.
== END ==
PROVIDERS: PCP Family Medicine; Visit Provider Family Medicine
DX: R91.1 Solitary pulmonary nodule (principal); R91.8 Other nonspecific abnormal finding of lung field; I71.4 Abdominal aortic aneurysm, without rupture; J44.1 Chronic obstructive pulmonary disease with (acute) exacerbation
CPT/HCPCS: 71260; 82565; J3490

== ENCOUNTER 2020-05-23 10:41 | Outpatient (REF) | payer MEDICARE, SELFPAY ==
[2020-05-23 15:45] LABS: Lithium 0.6 mmol/l (0.6-1.2)
== END 2020-05-23 10:42 | disposition home or self-care (01) ==
LOC: NCHCN 10:41
PROVIDERS: PCP Family Medicine; Visit Provider Family Medicine
DX: F25.0 Schizoaffective disorder, bipolar type (principal); Z51.81 Encounter for therapeutic drug level monitoring; Z79.899 Other long term (current) drug therapy
CPT/HCPCS: 80178

== ENCOUNTER 2020-06-25 09:48 | Outpatient (REF) | payer MEDICARE, SELFPAY ==
[2020-06-25 15:50] LABS: Anion Gap 9.3 mmol/L (3-11); BUN 10 mg/dL (7-18); CO2 26.7 mmol/L (21.0-32.0); CREATININE 0.8 mg/dL (0.70-1.30); Calcium 8.9 mg/dL (8.5-10.1); Chloride 106 mmol/L (98-107); Glucose 117 mg/dL (74-106); Potassium 4.1 mmol/L (3.5-5.1); Sodium 142 mmol/L (136-145); TSH (W/Ref FT4) 1.15 uIU/mL (0.36-3.74)
== END 2020-06-25 09:49 | disposition home or self-care (01) ==
LOC: NCHCN 09:48
PROVIDERS: PCP Family Medicine; Visit Provider Family Medicine
DX: F25.0 Schizoaffective disorder, bipolar type (principal); Z51.81 Encounter for therapeutic drug level monitoring; Z79.899 Other long term (current) drug therapy
CPT/HCPCS: 80048; 84443

== ENCOUNTER 2020-07-16 16:31 | Emergency (ER) | payer MEDICARE, SELFPAY ==
--- NOTE | 2020-07-16 16:45 | RT.EKG_ITS ---
APPROVED REPORT Exam: Resting ECG Patient Location: E HR:53 bpm ECG Measurements Heart Rate 53 AXIS AL 183 P 61 QRSd 97 QRS -12 QT 419 T 47 QTc 392 Conclusion Sinus bradycardia...rate< 60
[2020-07-16 16:54] VITALS: BP 152/63; PULSE 54; RESP 18; TEMP 36.5; O2SAT 93
--- NOTE | 2020-07-16 17:39 | W.ED.GENAD ---
Discharge Plan Disposition Patient Disposition: HOME Condition: Stable Discharge Details Clinical Impression: Right sided abdominal pain, Back pain, Leukocytosis Primary Care Provider: Tawanda Dooley ED Provider: Sachin Anthony Home Meds and New Rx's Prescriptions: Continued lamotrigine 150 MG tablet 150 mg PO HS RF: 0 albuterol sulfate 8.5 GM HFA aerosol inhaler 2 puff Inhalation PRN RF: 0 aspirin [Aspirin Low-Strength] 81 MG tablet,chewable 81 mg PO DAILY RF: 0 atorvastatin [Lipitor] 80 MG tablet 80 mg PO DAILY RF: 0 nitroglycerin [Nitrostat] 0.4 MG tablet, sublingual 0.4 mg Sublingual Q5 MIN PRN X3 PRNQty: 100 RF: 0 isosorbide mononitrate 30 MG tablet extended release 24 hr 30 mg PO DAILY RF: 0 pantoprazole [Protonix] 20 MG tablet,delayed release (DR/EC) 40 mg PO DAILY RF: 0 risperidone 2 MG tablet 2 mg PO HS RF: 0 metoprolol succinate 25 MG tablet extended release 24 hr 50 mg PO DAILY RF: 0 Breo Ellipta 100-25 mcg/dose blister with device 1 inh INHALATION DAILY RF: 0 Incruse Ellipta 62.5 mcg/actuation blister with device 1 inh INHALATION DAILY RF: 0 lithium carbonate 450 mg tablet extended release 450 mg PO DAILY RF: 0 Discharge Instructions Instructions: Leukocytosis (ED), Abdominal Pain (ED), Back Pain (ED) Additional Instructions: Work-up in the ER reveals your white blood cell count is slightly elevated at 12.00. CT imaging is also unremarkable for any obvious emergent process. Take-home pack of Percocet, take as directed, remember this medication may cause drowsiness and/or constipation. Please watch for new or worsening symptoms and return to the ER for any concerns. Otherwise I would like you to contact your primary care provider tomorrow to discuss reevaluation the next 24-48 hours. Discharge Data Discharge Date/Time-TO BE ENTERED AT DEPARTURE: 07/16/20 20:34 Medical Decision Making 60-year-old gentleman presents to the ER for evaluation of right-sided abdominal and back pain that began yesterday, no obvious trauma, worse with movement. He denies any fever, nausea or vomiting. No change in bowel or bladder habit. 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 Denies penile pain, dysuria, penile discharge, pain or swelling in the scrotum or testicles. I am able to reproduce discomfort to his right abdomen but not really to his back. The pain does not appear to radiate from his abdomen into his back or from his back into his abdomen. There does seem to be some muscular component but given his age and comorbidities differential includes not excluded to appendicitis, small bowel obstruction, atypical diverticulitis, renal stone, pyelonephritis, abdominal aneurysm, etc. Will obtain IV access, laboratory values, urinalysis, and given he had chest pain last week a single EKG and troponin. Patient be given IV fluid and is requesting pain medication. Will be given 2 mg IV morphine. Laboratory values reveal minimal nonspecific leukocytosis of 12.0, hemoglobin 15.9 hematocrit 47 platelet count 193. INR 1.0. Electrolytes unremarkable. Creatinine 0.8 with a GFR greater than 60. Glucose 100 calcium 9.5 magnesium 2.0 LFTs unremarkable. Troponin less than 0.05. Lipase 95. Urinalysis negative. Given his mild nonspecific leukocytosis, lack of UTI or hematuria, will obtain CT imaging of the abdomen and pelvis with contrast. Upon reevaluation patient reports that he received moderate relief from the IV morphine. We discussed his laboratory values and we are awaiting CT imaging. CT imaging read by radiology is a stable 3 cm aortic abdominal aneurysm, no acute abnormality. Discussed CT findings with patient. He is relieved and remains much improved after the original morphine. He did not require any additional dose of morphine but is requesting something to go home as if the pain gets worse. He is otherwise comfortable discharge at this time. We will give a Percocet take-home pack. He was given strict return precautions, otherwise will contact his primary care provider tomorrow for prompt outpatient reevaluation. Patient agreeable to this plan and has no additional questions or concerns. Medical Records Medical records reviewed: Yes I reviewed the patient's medical records. Imaging Data Radiologic Study: Attestation: I personally reviewed and interpreted this imaging study as follows: Radiologist's impression: CT imaging of abdomen and pelvis with contrast reveals no acute intra-abdominal or pelvic finding. Stable 3 cm abdominal aortic aneurysm. Lab Data Lab results reviewed: Yes I reviewed the patient's lab results. Labs: Laboratory Tests Range/Units 07/16/20 07/16/20 07/16/20 17:05 17:05 17:05 WBC (4.4-10.8) 10^3/uL 12.00 H RBC (4.36-5.78) 10^6/uL 5.00 Hgb (13.5-17.5) g/dL 15.9 Hct (40.0-50.0) % 47.0 MCV (80-95) fL 94.0 MCH (27.0-33.0) pg 31.8 MCHC (32.0-36.0) % 33.8 RDW (11.8-14.1) % 12.7 Plt Count (130-400) 10^3/uL 193 MPV (8.0-11.0) fL 9.2 Immature Gran % 0.4 Neutrophils % 74.2 Lymphocytes % 16.8 Monocytes % 6.2 Eosinophils % 1.8 Basophils % 0.6 Nucleated RBC % % 0 Absolute Neutrophils (1.2-6.7) 10^3/uL 8.90 H Absolute Lymphocytes (1.2-3.4) 10^3/uL 2.02 Absolute Monocytes (0.1-0.8) 10^3/uL 0.74 Absolute Eosinophils (0.0-0.7) 10^3/uL 0.22 Absolute Basophils (0.0-0.2) 10^3/uL 0.07 PT (9.3-11.0) sec 10.0 INR (0.9-1.1) 1.0 Sodium (136-145) mmol/L 141 Potassium (3.5-5.1) mmol/L 3.9 Chloride (98-107) mmol/L 104 Carbon Dioxide (21.0-32.0) mmol/L 29.2 Anion Gap (3-11) mmol/L 7.8 BUN (7-18) mg/dL 13 Creatinine (0.70-1.30) mg/dL 0.8 Estimated GFR/1.73 m2 (mL/min/1.73m2) >= 60.00 Glucose (74-106) mg/dL 100 Calcium (8.5-10.1) mg/dL 9.5 Magnesium (1.8-2.4) mg/dL 2.0 Total Bilirubin (0.2-1.0) mg/dL 0.7 AST (15-37) U/L 20 ALT (16-63) U/L 42 Alkaline Phosphatase (46-116) U/L 106 Troponin I (<0.06) ng/mL < 0.05 Total Protein (6.4-8.2) g/dL 7.4 Albumin (3.4-5.0) g/dL 4.0 Lipase (73-393) U/L 95 Urine Color (Yellow) Urine Clarity (Clear) Urine pH (5-8) Ur Specific Cal[place]oun (1.005-1.025) Urine Protein (Negative) mg/dL Urine Ketones (Negative) mg/dL Urine Blood (Negative) Urine Nitrite (Negative) Urine Bilirubin (Negative) Urine Urobilinogen (Up TO 0.2) EU/dL Ur Leukocyte Esterase (Negative) Urine Glucose (Negative) mg/dL Range/Units 07/16/20 17:46 WBC (4.4-10.8) 10^3/uL RBC (4.36-5.78) 10^6/uL Hgb (13.5-17.5) g/dL Hct (40.0-50.0) % MCV (80-95) fL MCH (27.0-33.0) pg MCHC (32.0-36.0) % RDW (11.8-14.1) % Plt Count (130-400) 10^3/uL MPV (8.0-11.0) fL Immature Gran % Neutrophils % Lymphocytes % Monocytes % Eosinophils % Basophils % Nucleated RBC % % Absolute Neutrophils (1.2-6.7) 10^3/uL Absolute Lymphocytes (1.2-3.4) 10^3/uL Absolute Monocytes (0.1-0.8) 10^3/uL Absolute Eosinophils (0.0-0.7) 10^3/uL Absolute Basophils (0.0-0.2) 10^3/uL PT (9.3-11.0) sec INR (0.9-1.1) Sodium (136-145) mmol/L Potassium (3.5-5.1) mmol/L Chloride (98-107) mmol/L Carbon Dioxide (21.0-32.0) mmol/L Anion Gap (3-11) mmol/L BUN (7-18) mg/dL Creatinine (0.70-1.30) mg/dL Estimated GFR/1.73 m2 (mL/min/1.73m2) Glucose (74-106) mg/dL Calcium (8.5-10.1) mg/dL Magnesium (1.8-2.4) mg/dL Total Bilirubin (0.2-1.0) mg/dL AST (15-37) U/L ALT (16-63) U/L Alkaline Phosphatase (46-116) U/L Troponin I (<0.06) ng/mL Total Protein (6.4-8.2) g/dL Albumin (3.4-5.0) g/dL Lipase (73-393) U/L Urine Color (Yellow) Yellow Urine Clarity (Clear) Clear Urine pH (5-8) 6.0 Ur Specific [place] (1.005-1.025) 1.020 Urine Protein (Negative) mg/dL Negative Urine Ketones (Negative) mg/dL Negative Urine Blood (Negative) Negative Urine Nitrite (Negative) Negative Urine Bilirubin (Negative) Negative Urine Urobilinogen (Up TO 0.2) EU/dL 0.2 Ur Leukocyte Esterase (Negative) Negative Urine Glucose (Negative) mg/dL Negative ECG Data Attestation: I personally reviewed and interpreted this ECG (s) as follows: Interpretation: Please see official report by Dr. Ahn. Sinus bradycardia, ventricular rate 53. No STEMI HPI General Mode of arrival: ambulatory. Date/Time Provider Initiated Documentation: 07/16/20 16:54. Limitations to Documentation: no limitations. Information obtained by: patient. HPI Narrative: This is a 60-year-old gentleman with past medical history of COPD, CAD, GERD, schizoaffective disorder, hypertension, presenting to the ER today for evaluation of right-sided lower back and abdominal pain. He states that otherwise she has been feeling fine, the pain came on rather quickly and worsened overnight. Reports the pain is severe now. Denies any nausea or vomiting. Denies recent illness or trauma. Patient with a history of frequent chest pain, did have chest pain approximately 1 week ago which is very typical for him, took his single nitro as directed and pain resolved. Has had no chest pain since then. Denies fever, shortness of breath, dysuria, hematuria, diarrhea or constipation. No change in appetite. During his triage she reported the pain does radiate down into his penis; however, he denies any penile, scrotum or testicle pain to me. I did specifically ask him about any discomfort in his penis. He states that the pain from his abdomen causes generalized mild suprapubic pressure but no specific pain in his penis or testicles. Patient reports smoking cigars daily, and admits to both fairly frequent marijuana and alcohol use. He denies any abdominal surgical history. Reports that movement makes his pain worse Related Data Home Medications Medication Instructions Recorded Confirmed lamotrigine 150 mg PO HS 06/17/13 07/16/20 albuterol sulfate 2 puff INHALATION PRN 11/13/13 07/16/20 aspirin [Aspirin Low-Strength] 81 mg PO DAILY 09/25/14 07/16/20 atorvastatin [Lipitor] 80 mg PO DAILY 09/25/14 07/16/20 nitroglycerin [Nitrostat] 0.4 mg SUBLINGUAL Q5 MIN PRN X3 09/25/14 07/16/20 PRN #100 tab.subl isosorbide mononitrate 30 mg PO DAILY 05/20/15 07/16/20 pantoprazole [Protonix] 40 mg PO DAILY 05/20/15 07/16/20 risperidone 2 mg PO HS 05/20/15 07/16/20 metoprolol succinate 50 mg PO DAILY 09/15/16 07/16/20 Breo Ellipta 1 inh INHALATION DAILY 11/02/19 07/16/20 Incruse Ellipta 1 inh INHALATION DAILY 11/02/19 07/16/20 lithium carbonate 450 mg PO DAILY 07/16/20 07/16/20 Previous Rx's Medication Instructions Recorded nitroglycerin [Nitrostat] 0.4 mg SUBLINGUAL Q5 MIN PRN X3 09/25/14 PRN #100 tab.subl Allergies Allergy/AdvReac Type Severity Reaction Status Date / Time No Known Allergies Allergy Unverified 07/16/20 16:59 General Stated Complaint: Abd Prob ZEINAB: 3 Review of Systems Constitutional Constitutional: Denies fatigue, Denies fever(s), Denies headache(s) and Denies weakness ENT Ears, Nose, Mouth, and Throat: Denies headache(s) and Denies neck pain Cardiovascular Cardiovascular: Reports chest pain (1 week ago, resolved with nitro. None now.) and Denies dyspnea Respiratory Respiratory: Denies cough and Denies dyspnea Gastrointestinal Gastrointestinal: Reports abdominal pain, Denies constipation, Denies diarrhea, Denies nausea and Denies vomiting Genitourinary Genitourinary: Denies genital pain, Denies dysuria, Denies scrotal swelling and Denies testicular pain Musculoskeletal Musculoskeletal: Reports back pain, Denies neck pain, Denies numbness and Denies tingling Integumentary/Breasts Skin/Breast: Denies rash Neurologic Neurologic: Denies headache(s), Denies numbness, Denies tingling and Denies weakness Endocrine Endocrine: Denies fatigue [facility] Medical History CAD (coronary artery disease) COPD (chronic obstructive pulmonary disease) GERD (gastroesophageal reflux disease) HTN (hypertension) 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) Old myocardial infarction (09/25/14) Polysubstance abuse Rhabdomyolysis Schizoaffective disorder Suicide attempt by hanging Surgical History Coronary angioplasty status (09/25/14) H/O heart artery stent Social History Smoking/Tobacco Use Status: Current every day Tobacco Type: cigars Per week: 35 Smoking risk assessment performed?: Yes Alcohol Intake: current Alcohol type: hard liquor Drug use: Binges Substance use type: marijuana and crack/cocaine Details: marijuana - when having a hard time sleeping; once a week; Crack - binges Do you feel safe at home: Yes Do you feel safe in your relationship?: Yes Exam Const General: cooperative, healthy appearing, no acute distress and other (Patient appears slightly uncomfortable although he is using his cell phone ) Orientation: alert, awake and oriented x3 HENMT Head: normal to inspection, normocephalic and atraumatic Eyes General: appearance normal, both eyes and all related structures Conjunctivae: conjunctivae normal Neck Neck: normal visual inspection, full ROM, trachea midline and supple Resp Effort & Inspection: normal respiratory effort and able to speak in complete sentences Auscultation: clear to auscultation bilaterally Cardio Rate: regular rate Rhythm: regular rhythm GI Inspection: normal to inspection Palpation: soft, not firm, no guarding, no pulsatile masses, not rigid and tender (Diffuse right-sided, worse in the RLQ) not at McBurney's point and with no rebound tenderness Auscultation: normal bowel sounds Back/Spine/Pelvis Back: No back tenderness Skin General skin exam: no rashes or lesions noted Neuro General: patient alert, patient awake, patient oriented x3, moves all extremities and no focal motor deficits Cognition: normal cognition Speech: speech normal Gait: normal gait Motor: muscle tone normal throughout Sensory Exam: no sensory deficits noted Extrem General: normal to inspection, full ROM, no pedal edema and no calf tenderness Psych Appearance: grossly normal Mental Status: mental status grossly normal Course Vital Signs Vital signs: Vital Signs Temperature 36.5 C 07/16/20 16:54 Pulse 54 L 07/16/20 16:54 Respiratory Rate 18 07/16/20 16:54 Blood Pressure 152/63 H 07/16/20 16:54 Pulse Oximetry 93 07/16/20 16:54 Temperature 36.5 C 07/16/20 16:54 Temperature Source Temporal Artery Scan 07/16/20 16:54 Pulse 54 L 07/16/20 16:54 Respiratory Rate 18 07/16/20 16:54 Respiratory Effort Non-Labored 07/16/20 17:01 Blood Pressure 152/63 H 07/16/20 16:54 Blood Pressure Position Sitting 07/16/20 16:54 Pulse Oximetry 93 07/16/20 16:54 Oxygen Delivery Method Room Air 07/16/20 16:54 Oxygen Flow Rate 0 07/16/20 16:54 Pain Level 8 07/16/20 17:01
[2020-07-16 17:51] LABS: Abs Immature Grans 0.05 10^3/uL (0.0-0.06); Absolute Basophil Count 0.07 10^3/uL (0.0-0.2); Absolute Lymphocyte Count 2.02 10^3/uL (1.2-3.4); Absolute Monocyte Count 0.74 10^3/uL (0.1-0.8); Basophils % 0.6; Eosinophils % 1.8; HGB 15.9 g/dL (13.5-17.5); Immature Grans % 0.4; Lymphocytes % 16.8; MCH 31.8 pg (27.0-33.0); MCHC 33.8 % (32.0-36.0); MPV 9.2 fL (8.0-11.0); Monocytes % 6.2; Neutrophils % 74.2; Nucleated RBC 0 %; Platelet Count 193 10^3/uL (130-400); RDW 12.7 % (11.8-14.1); RDW-SD 43.9 fL
[2020-07-16] MEDS: Normal Saline 1,000 ML 1000 ML IV (17:54)
[2020-07-16] MEDS: MORPHine 10 MG/ML VIAL 2 MG IVP (17:54)
[2020-07-16 17:55] LABS: Absolute Eosinophil Count 0.22 10^3/uL (0.0-0.7)
[2020-07-16 18:05] LABS: Bilirubin Negative (Negative); Blood Negative (Negative); Clarity Clear (Clear); Glucose Negative (Negative); Ketones Negative (Negative); Leukocyte Esterase Negative (Negative); Nitrite Negative (Negative); Urobilinogen 0.2 EU/dL (Up TO 0.2)
[2020-07-16 18:13] LABS: ALT 42 U/L (16-63); AST 20 U/L (15-37); Alkaline Phosphatase 106 U/L (46-116); Anion Gap 7.8 mmol/L (3-11); BUN 13 mg/dL (7-18); Bilirubin, Total 0.7 mg/dL (0.2-1.0); CO2 29.2 mmol/L (21.0-32.0); CREATININE 0.8 mg/dL (0.70-1.30); Calcium 9.5 mg/dL (8.5-10.1); Chloride 104 mmol/L (98-107); Glucose 100 mg/dL (74-106); Lipase 95 U/L (73-393); Potassium 3.9 mmol/L (3.5-5.1); Sodium 141 mmol/L (136-145); Total Protein 7.4 g/dL (6.4-8.2)
[2020-07-16 18:29] LABS: Troponin I < 0.05 ng/mL (<0.06)
[2020-07-16] MEDS: Normal Saline Flush 10 ML SYR IVP (19:33)
[2020-07-16] MEDS: Omnipaque 350 MG/ML 100 ML BTL IJ (19:38)
[2020-07-16] MEDS: Normal Saline - Diluent 50 ML VIAL IV (19:39)
--- NOTE | 2020-07-16 19:40 | DI.CT_ITS ---
EXAM: CT ABDOMEN PELVIS W CLINICAL HISTORY: 12 wbc, RLQ and back pain, no hematuria. TECHNIQUE: Imaging Protocol: Axial computed tomography images with coronal and sagittal reformatted images were created and reviewed CONTRAST MATERIAL: Intravenous: Omnipaque 350 Contrast volume:100 ml Oral: no COMPARISON: CT CT CHEST PE CTA from 08/20/2019 FINDINGS: ABDOMEN: Lung Bases: Mild scarring or atelectasis. Coronary artery calcifications. Liver: Normal density. No measurable mass. Gallbladder and biliary tract: No radiodense calculus or dilation. Pancreas: Normal density, no abnormal calcifications or inflammatory process. Spleen: Normal. Kidneys: Normal size, contour and axis. No radiodense stones or obstructive uropathy. No masses seen. Tiny right renal cyst. Adrenal glands: No masses seen. Abdominal Aorta: Dilatation of the abdominal aorta to 3 cm, unchanged. Moderate atherosclerotic cha ges. Soft tissues: Small fatty containing umbilical hernia. Small bilateral fatty containing inguinal her nias. PELVIS: Bladder: Symmetric distention, no gross wall thickening. Bowel: No obstruction or bowel wall thickening. Normal appendix. Normal quantity of stool. Peritoneal cavity: No ascites, collection or mesenteric inflammatory response. Bones: Degenerative disc changes and facet degenerative changes. Reproductive organs: Prostate normal size. Lymph nodes: Unremarkable. Impression: Stable 3 centimeter abdominal aortic aneurysm. No acute abnormality.. RADIATION DOSE DELIVERED: 986.61mGy.cm Total DLP DATA REPOSITORY: All CT scans at this facility are submitted to the National Radiology Data Registry (NRDR) Dose Index Registry (DIR) with the [employer] (ACR). RADIATION OPTIMIZATION: All CT scans at this facility use at least one of these dose optimization te chniques: automated exposure control; mA and/or kV adjustment per patient size (includes targeted exa ms where dose is matched to clinical indication); or iterative reconstruction.
--- NOTE | 2020-07-16 20:01 | DI.VRAD_ITS ---
PROCEDURE INFORMATION: Exam: CT Abdomen And Pelvis With Contrast Exam date and time: 07/16/2020 6:18 PM Age: 60 years old Clinical indication: Abdominal pain; Localized; Right lower quadrant (rlq) TECHNIQUE: Imaging protocol: Computed tomography of the abdomen and pelvis with contrast. Radiation optimization: All CT scans at this facility use at least one of these dose optimization techniques: automated exposure control; mA and/or kV adjustment per patient size (includes targeted exams where dose is matched to clinical indication); or iterative reconstruction. Contrast material: IRII560; Contrast volume: 100 ml; Contrast route: INTRAVENOUS (IV); COMPARISON: CT ABDOMEN PELVIS W 07/30/2019 3:31 PM FINDINGS: Lungs: Multiple stable foci of bilateral lower lobe atelectasis and scarring. Moderate coronary artery calcifications. Liver: Normal. No mass. Gallbladder and bile ducts: Normal. No calcified stones. No ductal dilation. Pancreas: Normal. No ductal dilation. Spleen: Normal. No splenomegaly. Adrenal glands: Normal. No mass. Kidneys and ureters: Stable subcentimeter right renal cortical cyst. No renal, ureteric, or urinary bladder calculus. No hydronephrosis. Stomach and bowel: Unremarkable. No obstruction. No mucosal thickening. Appendix: Normal appendix. No appendicitis. Intraperitoneal space: Unremarkable. No free air. No significant fluid collection. Vasculature: Stable small abdominal aortic aneurysm measuring 3.0 cm. Lymph nodes: Unremarkable. No enlarged lymph nodes. Urinary bladder: Unremarkable as visualized. Reproductive: Unremarkable as visualized. Bones/joints: Stable multiple posterolateral right rib deformities. Stable severe posterior L4, L5, and S1 facet hypertrophy. Soft tissues: Stable umbilical and left inguinal fat containing hernias without evidence for bowel involvement. IMPRESSION: 1. No acute intra-abdominal or pelvic finding. 2. Stable 3 cm abdominal aortic aneurysm. Dictated and Authenticated by: Reinaldo Archer MD. Ordering:DEUCE Stephenson MD
== END 2020-07-16 20:34 | disposition home or self-care (01) ==
PROVIDERS: Emergency Provider Physician Assistant; PCP Family Medicine
DX: R10.31 Right lower quadrant pain (principal); M54.5 Low back pain; D72.829 Elevated white blood cell count, unspecified; R07.9 Chest pain, unspecified
CPT/HCPCS: 80053; 83690; 93005; 96374; 99285; 74177; 81003; 83735; 84484; 85025; 85610; 93010; 99284; J2270; J3490

== ENCOUNTER 2020-09-29 11:13 | Outpatient (REF) | payer MEDICARE, SELFPAY ==
[2020-09-29 15:29] LABS: Abs Immature Grans 0.05 10^3/uL (0.0-0.06); Absolute Basophil Count 0.08 10^3/uL (0.0-0.2); Absolute Eosinophil Count 0.23 10^3/uL (0.0-0.7); Absolute Lymphocyte Count 2.83 10^3/uL (1.2-3.4); Absolute Monocyte Count 0.71 10^3/uL (0.1-0.8); Absolute Neutrophil Count 6.64 10^3/uL (1.2-6.7); Basophils % 0.8; Eosinophils % 2.2; HCT 50.2 % (40.0-50.0); HGB 16.6 g/dL (13.5-17.5); Immature Grans % 0.5; Lymphocytes % 26.9; MCH 31.5 pg (27.0-33.0); MCHC 33.1 % (32.0-36.0); MCV 95.3 fL (80-95); MPV 9.6 fL (8.0-11.0); Monocytes % 6.7; Neutrophils % 62.9; Nucleated RBC 0 %; Platelet Count 248 10^3/uL (130-400); RBC 5.27 10^6/uL (4.36-5.78); RDW 12.5 % (11.8-14.1); RDW-SD 43.8 fL; WBC 10.54 10^3/uL (4.4-10.8)
[2020-09-29 16:19] LABS: ALT 30 U/L (16-63); AST 19 U/L (15-37); Albumin 4.1 g/dL (3.4-5.0); Alkaline Phosphatase 110 U/L (46-116); Anion Gap 9.2 mmol/L (3-11); BUN 21 mg/dL (7-18); Bilirubin, Total 0.6 mg/dL (0.2-1.0); CO2 26.8 mmol/L (21.0-32.0); CREATININE 0.8 mg/dL (0.70-1.30); Calcium 9.5 mg/dL (8.5-10.1); Chloride 106 mmol/L (98-107); Glucose 95 mg/dL (74-106); Potassium 4.8 mmol/L (3.5-5.1); Sodium 142 mmol/L (136-145); Total Protein 7.3 g/dL (6.4-8.2)
[2020-09-29 16:30] LABS: Troponin I < 0.05 ng/mL (<0.06)
[2020-09-29 22:45] LABS: Lithium 0.5 mmol/l (0.6-1.2)
== END 2020-09-29 11:14 | disposition home or self-care (01) ==
LOC: LBN 11:13
PROVIDERS: PCP Family Medicine; Visit Provider Physician Assistant
DX: R07.9 Chest pain, unspecified (principal)
CPT/HCPCS: 80053; 80178; 84484; 85025

== ENCOUNTER 2020-10-28 16:43 | Outpatient (REF) | payer MEDICARE, SELFPAY ==
[2020-10-28 22:53] LABS: Lithium 0.4 mmol/l (0.6-1.2)
== END 2020-10-28 16:44 | disposition home or self-care (01) ==
LOC: LBN 16:43
PROVIDERS: PCP Family Medicine; Visit Provider Nurse Practitioner Family
DX: F25.0 Schizoaffective disorder, bipolar type (principal); Z51.81 Encounter for therapeutic drug level monitoring
CPT/HCPCS: 80178

== ENCOUNTER 2020-11-07 13:02 | Outpatient (REF) | payer MEDICARE, SELFPAY ==
[2020-11-07 16:43] LABS: Lithium 0.8 mmol/l (0.6-1.2)
== END 2020-11-07 13:03 | disposition home or self-care (01) ==
LOC: LBN 13:02
PROVIDERS: PCP Family Medicine; Visit Provider Nurse Practitioner Family
DX: F25.0 Schizoaffective disorder, bipolar type (principal); Z79.899 Other long term (current) drug therapy; Z51.81 Encounter for therapeutic drug level monitoring
CPT/HCPCS: 80178

== ENCOUNTER 2021-02-02 15:18 | Outpatient (REF) | payer MEDICARE, SELFPAY ==
[2021-02-02 16:22] LABS: Lithium 0.4 mmol/l (0.6-1.2)
[2021-02-02 16:32] LABS: Anion Gap 7.7 mmol/L (3-11); BUN 12 mg/dL (7-18); CO2 30.3 mmol/L (21.0-32.0); CREATININE 0.8 mg/dL (0.70-1.30); Calcium 9.2 mg/dL (8.5-10.1); Chloride 106 mmol/L (98-107); Glucose 101 mg/dL (74-106); Potassium 4.4 mmol/L (3.5-5.1); Sodium 144 mmol/L (136-145); TSH (W/Ref FT4) 1.49 uIU/mL (0.36-3.74)
== END 2021-02-02 15:19 | disposition home or self-care (01) ==
LOC: NCHCN 15:18
PROVIDERS: PCP Family Medicine; Visit Provider Family Medicine
DX: R73.03 Prediabetes (principal); Z79.899 Other long term (current) drug therapy; Z51.81 Encounter for therapeutic drug level monitoring
CPT/HCPCS: 80048; 80178; 84443

== ENCOUNTER 2021-02-10 12:03 | Emergency (ER) | payer MEDICARE, SELFPAY ==
[2021-02-10] VITALS (20 sets, daily range): BP systolic 117–130; BP diastolic 69–79; PULSE 55–69; RESP 14–27; TEMP 37.1; O2SAT 95–99
--- NOTE | 2021-02-10 12:00 | RT.EKG_ITS ---
APPROVED REPORT Exam: Resting ECG Reason for Exam: dizzy Patient Location: E HR:61 bpm ECG Measurements Heart Rate 61 AXIS MN 177 P 73 QRSd 96 QRS 18 QT 396 T 48 QTc 399 Conclusion Sinus rhythm...normal P axis, V-rate 60- 99. Sinus. No STEMI. I have reviewed and interpreted ECG and agree with software generated interpretation.
--- NOTE | 2021-02-10 12:30 | DI.CT_ITS ---
Exam(s) CT BRAIN NECK CTA EXAM: CT BRAIN NECK CTA CLINICAL HISTORY: feels off, ataxia. TECHNIQUE: Imaging Protocol: Axial CT angiography was performed with multi-slice acquisition and mu lti-planar and/or 3D reconstructions. CONTRAST MATERIAL: Intravenous: Omnipaque 350 Contrast volume:structured data in ml COMPARISON: CT CT ABDOMEN PELVIS W from 07/16/2020 FINDINGS: CT angiography of the cervical cranial region was performed according to the usual protocol with intr avenous infusion of 85 cc of Omnipaque 350.. Initial noncontrast scanning of the head is unremarkable. Visualized lung apices are clear. Visualized portions of thoracic aorta and pulmonary arterial circul ation are unremarkable. There is no evidence of a cervical mass or adenopathy. The tracheal laryngeal structures appear intact. The common, internal, and external carotid arteries are within normal limits in the cervical region w ith no evidence of aneurysm, stenosis, or dissection. The vertebral arteries are unremarkable in appearance in the cervical region with no evidence of aneu rysm, stenosis, or dissection. Intracranial portions of the internal carotid arteries appear normal with no evidence of aneurysm, st enosis, or dissection. Intracranial vertebral arteries and basilar artery appear normal with no evidence of aneurysm, stenos is or dissection. No aneurysm identified in the region of the [id number]. The anterior, middle, and posterior cer ebral arteries and major branches appear intact with no evidence of aneurysm, stenosis, or dissection . No enhancing brain lesion identified on 5 minutes delayed images.. IMPRESSION: Negative CT angiography of the cervical cranial region. RADIATION DOSE DELIVERED: 2,342.17mGy.cmTotal DLP 2,342.17mGy.cm Total DLP 45.87mGy CTDIvol DATA REPOSITORY: All CT scans at this facility are submitted to the National Radiology Data Registry (NRDR) Dose Index Registry (DIR) with the [employer] ([employer]). RADIATION OPTIMIZATION: All CT scans at this facility use at least one of these dose optimization te chniques: automated exposure control; mA and/or kV adjustment per patient size (includes targeted exa ms where dose is matched to clinical indication); or iterative reconstruction.
--- NOTE | 2021-02-10 12:31 | W.ED.GENAD ---
Discharge Plan Disposition Patient Disposition: HOME Condition: Improving Discharge Details Clinical Impression: Altered mental status Primary Care Provider: Tawanda Dooley ED Provider: Sachin Anthony Home Meds and New Rx's Prescriptions: Continued albuterol sulfate 8.5 GM HFA aerosol inhaler 2 puff Inhalation PRN RF: 0 aspirin [Aspirin Low-Strength] 81 MG tablet,chewable 81 mg PO DAILY RF: 0 atorvastatin [Lipitor] 80 MG tablet 80 mg PO DAILY RF: 0 nitroglycerin [Nitrostat] 0.4 MG tablet, sublingual 0.4 mg Sublingual Q5 MIN PRN X3 PRNQty: 100 RF: 0 pantoprazole [Protonix] 20 MG tablet,delayed release (DR/EC) 40 mg PO DAILY RF: 0 risperidone 2 MG tablet 2 mg PO HS RF: 0 metoprolol succinate 25 MG tablet extended release 24 hr 50 mg PO DAILY RF: 0 isosorbide mononitrate 30 mg tablet extended release 24 hr 30 mg PO DAILY RF: 0 lithium carbonate 450 mg tablet extended release 1,300 mg PO DAILY RF: 0 lamotrigine 100 mg tablet 100 mg PO DAILY RF: 0 Trelegy Ellipta 100-62.5-25 mcg blister with device 1 inh inhalation DAILY RF: 0 Discharge Instructions Instructions: Altered Mental Status (ED) Additional Instructions: Your work-up here in the ER today does not reveal any obvious emergent process and you are now asymptomatic. I cannot tell you exactly why you felt the way that you did. Please watch for new or worsening symptoms and return immediately to the ER. As we discussed there is a slight, nonspecific abnormality of the MRI, radiology recommends that you have an outpatient contrast-enhanced MRI. I recommend that you contact your primary care provider tomorrow to discuss your ER visit and ongoing symptoms as well as the need to set up the outpatient MRI. Discharge Data Discharge Date/Time-TO BE ENTERED AT DEPARTURE: 02/10/21 17:04 Medical Decision Making 60-year-old male, presents to the ER today stating that his head feels euphoric and that his brain is not getting enough oxygen but denies any difficulty breathing. Patient states the symptoms began suddenly around 1030 this morning and have been fairly consistent. Reports fleeting chest pain that he gets at his baseline, not severe enough to take nitro. Patient denies recent illness or trauma. Denies headache, does report some neck pain as well as some left arm paresthesias. He unfortunately is a very difficult and vague historian. Clinically he appears well, nontoxic, neurologically intact. Given his chest pain, neck pain, arm paresthesias I do believe obtaining a cardiac rule out is reasonable although extremely low suspicion for ACS based upon his presentation. I will also obtain CT imaging of his brain to rule out stroke, again he is neurologically intact. Given his neck pain and symptoms will obtain CTA of his neck and brain to rule out dissection. Patient is comfortable with this plan and has no additional questions or concerns. Laboratory values are unremarkable for obvious emergent process. No leukocytosis, lithium level normal, negative Covid, normal electrolytes, no evidence of anemia, troponin less than 0.05. Brain CT and CTA of head and neck unremarkable per radiology. Patient reports no change in his symptoms. He is agreeable to awaiting a delta troponin. In the meantime given his symptoms are still present I will see if we are able to obtain an MRI of his brain today. It appears as though I can get an MRI of the brain at around 3-3:15 PM. Upon reevaluation I went to discuss this plan with the patient he tells me that he is now completely asymptomatic. At this time he is requesting to be discharged. I explained my concern of his overall presentation, and my desire to obtain delta troponin and MRI of the brain. Patient is agreeable to await those test but states that they are normal he would like to be discharged home. I do believe this to be a reasonable plan. I discussed MRI results with patient and . Abnormal flair, recommend outpatient MRI with contrast for further evaluation but nothing acute. Patient remains asymptomatic. Repeat EKG performed at 1624, please see official report by Dr. Ayala. Sinus bradycardia, ventricular to 56. No STEMI. Repeat troponin remains less than 0.05. Patient continues to request discharge home and reports that he is still asymptomatic. Vital signs are unremarkable, patient is hemodynamically stable. We did discuss his presentation today, his multiple comorbidities, and discussed observation admission the patient would prefer to be discharged home. Strict discharge and return precautions provided. This documentation was generated using [employer] system, please disregard any oddities of phrase or misspellings. Medical Records Medical records reviewed: Yes I reviewed the patient's medical records. Imaging Data Radiologic Study: Attestation: I personally reviewed and interpreted this imaging study as follows: Imaging: CT Scan Radiologist's impression: Exam(s) a CT:CT brain & neck CTA Exam(s) CT BRAIN NECK CTA EXAM: CT BRAIN NECK CTA CLINICAL HISTORY: feels off, ataxia. TECHNIQUE: Imaging Protocol: Axial CT angiography was performed with multi-slice acquisition and multi-planar and/or 3D reconstructions. CONTRAST MATERIAL: Intravenous: Omnipaque 350 Contrast volume:structured data in ml COMPARISON: CT CT ABDOMEN PELVIS W from 07/16/2020 FINDINGS: CT angiography of the cervical cranial region was performed according to the usual protocol with intravenous infusion of 85 cc of Omnipaque 350.. Initial noncontrast scanning of the head is unremarkable. Visualized lung apices are clear. Visualized portions of thoracic aorta and pulmonary arterial circulation are unremarkable. There is no evidence of a cervical mass or adenopathy. The tracheal laryngeal structures appear intact. The common, internal, and external carotid arteries are within normal limits in the cervical region with no evidence of aneurysm, stenosis, or dissection. The vertebral arteries are unremarkable in appearance in the cervical region with no evidence of aneurysm, stenosis, or dissection. Intracranial portions of the internal carotid arteries appear normal with no evidence of aneurysm, stenosis, or dissection. Intracranial vertebral arteries and basilar artery appear normal with no evidence of aneurysm, stenosis or dissection. No aneurysm identified in the region of the [id number]. The anterior, middle, and posterior cerebral arteries and major branches appear intact with no evidence of aneurysm, stenosis, or dissection. No enhancing brain lesion identified on 5 minutes delayed images.. IMPRESSION: Negative CT angiography of the cervical cranial region. Radiologic Study #2: Attestation: I personally reviewed and interpreted this imaging study as follows: Imaging: X-Ray Radiologist's impression: Exam(s) XR CHEST 2V PA LATERAL EXAM: XR CHEST 2V PA LATERAL CLINICAL HISTORY: feels off in the brain TECHNIQUE: COMPARISON: CR,XR XR CHEST 2V PA LATERAL from 11/09/2019 FINDINGS: The heart is not enlarged. Note is made of multiple old healed right rib fractures. There appear to be small areas of bibasilar scarring. Otherwise lungs are clear and unchanged in appearance comparison with examination November 09, 2019. No pleural effusion seen. IMPRESSION: No evidence of acute process. Radiologic Study #3: Attestation: I personally reviewed and interpreted this imaging study as follows: Imaging: MRI Radiologist's impression: Exam(s) MR BRAIN WO EXAM: MR BRAIN WO CLINICAL HISTORY: Ataxia, feels off TECHNIQUE: Multiplanar multisequence MRI of the brain was performed. COMPARISON: No exams were available for comparison FINDINGS: The ventricular system is normal in appearance. There is a 9 x 5 millimeter focus of abnormal signal in the basal ganglia posteriorly on the left, a couple of other subtle areas of abnormal signal are seen in periventricular white matter. These findings may represent early microvascular ischemic changes. However the prominence of the posterior basal ganglia focus of abnormal signal would raise some possibility of other etiologies, including demyelinating process or other inflammatory or neoplastic process. No mass effect is seen. Additional evaluation with postcontrast imaging should be considered. The orbital and temporal bone structures appear intact as does the pituitary. Diffusion weighted imaging shows no evidence of infarction. Susceptibility weighted imaging shows no evidence of intracranial hemorrhage. There is normal flow void in the [place] vasculature. IMPRESSION: Prominent focus abnormal signal on T2 weighted and FLAIR imaging in posterior basal ganglia, probably internal capsule, on the left. This may be due to early changes microvascular ischemia but the possibility of other etiologies including neoplastic, inflammatory, or demyelinating process are not excluded. Correlation with contrast enhanced MRI recommended. Lab Data Lab results reviewed: Yes I reviewed the patient's lab results. Labs: Laboratory Tests Range/Units 02/10/21 02/10/21 02/10/21 12:40 12:40 12:40 WBC (4.4-10.8) 10^3/uL 10.70 RBC (4.36-5.78) 10^6/uL 4.41 Hgb (13.5-17.5) g/dL 13.7 Hct (40.0-50.0) % 41.6 MCV (80-95) fL 94.3 MCH (27.0-33.0) pg 31.1 MCHC (32.0-36.0) % 32.9 RDW (11.8-14.1) % 12.8 Plt Count (130-400) 10^3/uL 189 MPV (8.0-11.0) fL 9.0 Immature Gran % 0.4 Neutrophils % 63.6 Lymphocytes % 23.9 Monocytes % 7.9 Eosinophils % 3.8 Basophils % 0.4 Nucleated RBC % % 0 Absolute Neutrophils (1.2-6.7) 10^3/uL 6.81 H Absolute Lymphocytes (1.2-3.4) 10^3/uL 2.56 Absolute Monocytes (0.1-0.8) 10^3/uL 0.84 H Absolute Eosinophils (0.0-0.7) 10^3/uL 0.41 Absolute Basophils (0.0-0.2) 10^3/uL 0.04 PT (9.3-11.0) sec 10.4 INR (0.9-1.1) 1.0 APTT (21.0-27.5) sec 23.6 Sodium (136-145) mmol/L 142 Potassium (3.5-5.1) mmol/L 4.1 Chloride (98-107) mmol/L 106 Carbon Dioxide (21.0-32.0) mmol/L 31.5 Anion Gap (3-11) mmol/L 4.5 BUN (7-18) mg/dL 12 Creatinine (0.70-1.30) mg/dL 0.8 Estimated GFR/1.73 m2 (mL/min/1.73m2) >= 60.00 Glucose (74-106) mg/dL 102 Calcium (8.5-10.1) mg/dL 9.1 Magnesium (1.8-2.4) mg/dL 2.2 Total Bilirubin (0.2-1.0) mg/dL 0.4 AST (15-37) U/L 17 ALT (16-63) U/L 26 Alkaline Phosphatase (46-116) U/L 81 Troponin I (<0.06) ng/mL < 0.05 Total Protein (6.4-8.2) g/dL 6.9 Albumin (3.4-5.0) g/dL 3.6 Urine Color (Yellow) Urine Clarity (Clear) Urine pH (5-8) Ur Specific [place] (1.005-1.025) Urine Protein (Negative) mg/dL Urine Ketones (Negative) mg/dL Urine Blood (Negative) Urine Nitrite (Negative) Urine Bilirubin (Negative) Urine Urobilinogen (Up TO 0.2) EU/dL Ur Leukocyte Esterase (Negative) Urine Glucose (Negative) mg/dL [place] (0.6-1.2) mmol/l COVID-19 Source SARS-CoV-2 (PCR) (Negative) Range/Units 02/10/21 02/10/21 02/10/21 12:40 13:45 13:50 WBC (4.4-10.8) 10^3/uL RBC (4.36-5.78) 10^6/uL Hgb (13.5-17.5) g/dL Hct (40.0-50.0) % MCV (80-95) fL MCH (27.0-33.0) pg MCHC (32.0-36.0) % RDW (11.8-14.1) % Plt Count (130-400) 10^3/uL MPV (8.0-11.0) fL Immature Gran % Neutrophils % Lymphocytes % Monocytes % Eosinophils % Basophils % Nucleated RBC % % Absolute Neutrophils (1.2-6.7) 10^3/uL Absolute Lymphocytes (1.2-3.4) 10^3/uL Absolute Monocytes (0.1-0.8) 10^3/uL Absolute Eosinophils (0.0-0.7) 10^3/uL Absolute Basophils (0.0-0.2) 10^3/uL PT (9.3-11.0) sec INR (0.9-1.1) APTT (21.0-27.5) sec Sodium (136-145) mmol/L Potassium (3.5-5.1) mmol/L Chloride (98-107) mmol/L Carbon Dioxide (21.0-32.0) mmol/L Anion Gap (3-11) mmol/L BUN (7-18) mg/dL Creatinine (0.70-1.30) mg/dL Estimated GFR/1.73 m2 (mL/min/1.73m2) Glucose (74-106) mg/dL Calcium (8.5-10.1) mg/dL Magnesium (1.8-2.4) mg/dL Total Bilirubin (0.2-1.0) mg/dL AST (15-37) U/L ALT (16-63) U/L Alkaline Phosphatase (46-116) U/L Troponin I (<0.06) ng/mL Total Protein (6.4-8.2) g/dL Albumin (3.4-5.0) g/dL Urine Color (Yellow) Yellow Urine Clarity (Clear) Clear Urine pH (5-8) 7.0 Ur Specific [place] (1.005-1.025) 1.020 Urine Protein (Negative) mg/dL Negative Urine Ketones (Negative) mg/dL Negative Urine Blood (Negative) Negative Urine Nitrite (Negative) Negative Urine Bilirubin (Negative) Negative Urine Urobilinogen (Up TO 0.2) EU/dL 0.2 Ur Leukocyte Esterase (Negative) Negative Urine Glucose (Negative) mg/dL Negative [place] (0.6-1.2) mmol/l 0.8 COVID-19 Source Nasal/Nares SARS-CoV-2 (PCR) (Negative) Negative Range/Units 02/10/21 16:16 WBC (4.4-10.8) 10^3/uL RBC (4.36-5.78) 10^6/uL Hgb (13.5-17.5) g/dL Hct (40.0-50.0) % MCV (80-95) fL MCH (27.0-33.0) pg MCHC (32.0-36.0) % RDW (11.8-14.1) % Plt Count (130-400) 10^3/uL MPV (8.0-11.0) fL Immature Gran % Neutrophils % Lymphocytes % Monocytes % Eosinophils % Basophils % Nucleated RBC % % Absolute Neutrophils (1.2-6.7) 10^3/uL Absolute Lymphocytes (1.2-3.4) 10^3/uL Absolute Monocytes (0.1-0.8) 10^3/uL Absolute Eosinophils (0.0-0.7) 10^3/uL Absolute Basophils (0.0-0.2) 10^3/uL PT (9.3-11.0) sec INR (0.9-1.1) APTT (21.0-27.5) sec Sodium (136-145) mmol/L Potassium (3.5-5.1) mmol/L Chloride (98-107) mmol/L Carbon Dioxide (21.0-32.0) mmol/L Anion Gap (3-11) mmol/L BUN (7-18) mg/dL Creatinine (0.70-1.30) mg/dL Estimated GFR/1.73 m2 (mL/min/1.73m2) Glucose (74-106) mg/dL Calcium (8.5-10.1) mg/dL Magnesium (1.8-2.4) mg/dL Total Bilirubin (0.2-1.0) mg/dL AST (15-37) U/L ALT (16-63) U/L Alkaline Phosphatase (46-116) U/L Troponin I (<0.06) ng/mL < 0.05 Total Protein (6.4-8.2) g/dL Albumin (3.4-5.0) g/dL Urine Color (Yellow) Urine Clarity (Clear) Urine pH (5-8) Ur Specific [place] (1.005-1.025) Urine Protein (Negative) mg/dL Urine Ketones (Negative) mg/dL Urine Blood (Negative) Urine Nitrite (Negative) Urine Bilirubin (Negative) Urine Urobilinogen (Up TO 0.2) EU/dL Ur Leukocyte Esterase (Negative) Urine Glucose (Negative) mg/dL [place] (0.6-1.2) mmol/l COVID-19 Source SARS-CoV-2 (PCR) (Negative) ECG Data Attestation: I personally reviewed and interpreted this ECG (s) as follows: Interpretation: Please see official report by Dr. Ayala. Sinus rhythm, ventricular rate of 61. No STEMI. HPI General Mode of arrival: ambulatory. Date/Time Provider Initiated Documentation: 02/10/21 12:21. Limitations to Documentation: no limitations. Information obtained by: patient. HPI Narrative: This is a 60-year-old gentleman, current smoker, past medical history of CAD, COPD, GERD, schizoaffective disorder, presenting to the ER with multiple vague complaints stating that he has felt off and euphoric in the brain since 1030 this morning, initially reported dizziness but later reports feeling more ataxic not like the room is spinning. Patient reports that at baseline he has chest pain intermittently and did have a little bit today left-sided, fleeting, but it was not severe enough to take his nitro. Patient states that he feels as though his brain is not getting enough oxygen but he does not feel any shortness of breath. Patient also tells me that he had his lithium level increased 6 days ago and wonders if his increase in lithium could be causing his symptoms. He denies recent illness or trauma. He denies any headache, visual changes. He does report mild posterior left-sided neck discomfort that he noticed today, worse with movement. He denies any cough, fever, abdominal pain, nausea, vomiting, numbness, tingling, focal weakness. Related Data Home Medications Medication Instructions Recorded Confirmed albuterol sulfate 2 puff INHALATION PRN 11/13/13 02/10/21 aspirin [Aspirin Low-Strength] 81 mg PO DAILY 09/25/14 02/10/21 atorvastatin [Lipitor] 80 mg PO DAILY 09/25/14 02/10/21 nitroglycerin [Nitrostat] 0.4 mg SUBLINGUAL Q5 MIN PRN X3 09/25/14 02/10/21 PRN #100 tab.subl pantoprazole [Protonix] 40 mg PO DAILY 05/20/15 02/10/21 risperidone 2 mg PO HS 05/20/15 02/10/21 metoprolol succinate 50 mg PO DAILY 09/15/16 07/16/20 Trelegy Ellipta 1 inh INHALATION DAILY 02/10/21 02/10/21 isosorbide mononitrate 30 mg PO DAILY 02/10/21 02/10/21 lamotrigine 100 mg PO DAILY 02/10/21 02/10/21 lithium carbonate 1,300 mg PO DAILY 02/10/21 02/10/21 Previous Rx's Medication Instructions Recorded nitroglycerin [Nitrostat] 0.4 mg SUBLINGUAL Q5 MIN PRN X3 09/25/14 PRN #100 tab.subl Allergies Allergy/AdvReac Type Severity Reaction Status Date / Time No Known Allergies Allergy Unverified 02/10/21 12:54 General ZEINAB: 3 Review of Systems Constitutional Constitutional: Denies fatigue, Denies fever(s) and Denies headache(s) Eyes Eyes: Denies change in vision ENT Ears, Nose, Mouth, and Throat: Denies headache(s) and Reports neck pain Cardiovascular Cardiovascular: Reports chest pain and Denies dyspnea Respiratory Respiratory: Denies cough and Denies dyspnea Gastrointestinal Gastrointestinal: Denies abdominal pain, Reports nausea and Denies vomiting Genitourinary Genitourinary: Denies dysuria Musculoskeletal Musculoskeletal: Denies back pain and Reports neck pain Integumentary/Breasts Skin/Breast: Denies rash Neurologic Neurologic: Denies headache(s) Endocrine Endocrine: Denies fatigue Hematologic/Lymphatic Hematologic/Lymphatic: Denies easy bleeding and Denies easy bruising [facility] Medical History CAD (coronary artery disease) COPD (chronic obstructive pulmonary disease) GERD (gastroesophageal reflux disease) HTN (hypertension) Hyperlipidemia senior care current use of antithrombotics/antiplatelets (09/25/14) Old myocardial infarction (09/25/14) Polysubstance abuse Rhabdomyolysis Schizoaffective disorder Suicide attempt by hanging Surgical History Coronary angioplasty status (09/25/14) H/O heart artery stent Social History Smoking/Tobacco Use Status: Current every day Tobacco Type: cigars Per week: 35 Smoking risk assessment performed?: Yes Alcohol Intake: never Drug use: Binges Substance use type: marijuana and crack/cocaine Details: marijuana - when having a hard time sleeping; once a week; Crack - binges Do you feel safe at home: Yes Do you feel safe in your relationship?: Yes Exam Const General: cooperative, healthy appearing, comfortable and no acute distress Orientation: alert, awake and oriented x3 HENMT Head: normal to inspection, normocephalic and atraumatic Face and sinus: normal facial exam Mouth: moist mucous membranes Throat: posterior oropharynx normal Eyes General: appearance normal, both eyes and all related structures Alignment and Position: alignment normal Periorbital: periorbital findings normal Eyelids: eyelids normal Conjunctivae: conjunctivae normal Sclera: sclerae normal Cornea: corneas normal Pupils: PERRL EOM: EOM intact bilaterally Direct ophthalmoscopy: normal light reflex Neck Neck: normal visual inspection, full ROM, no meningeal signs, trachea midline, supple and nontender Chest Chest: normal inspection of the chest Resp Effort & Inspection: normal respiratory effort and able to speak in complete sentences Auscultation: clear to auscultation bilaterally Cardio Rate: regular rate Rhythm: regular rhythm GI Palpation: soft, not firm, no guarding, no pulsatile masses and nontender Auscultation: normal bowel sounds Back/Spine/Pelvis Back: No back tenderness Skin General skin exam: no rashes or lesions noted Neuro General: patient alert, patient awake, patient oriented x3, moves all extremities and no focal motor deficits Cranial Nerves: CN's II-XI intact bilaterally Cognition: normal cognition Speech: speech normal Gait: normal gait Motor: muscle tone normal throughout, no movement abnormalities noted and no fasciculations Sensory Exam: no sensory deficits noted Extrem General: full ROM, capillary refill normal, no calf tenderness and pedal edema bilaterally pitting and 1+ (Baseline per patient) Psych Appearance: grossly normal Mental Status: mental status grossly normal
[2021-02-10 12:59] LABS: Abs Immature Grans 0.04 10^3/uL (0.0-0.06); Absolute Basophil Count 0.04 10^3/uL (0.0-0.2); Absolute Eosinophil Count 0.41 10^3/uL (0.0-0.7); Absolute Lymphocyte Count 2.56 10^3/uL (1.2-3.4); Absolute Monocyte Count 0.84 10^3/uL (0.1-0.8); Absolute Neutrophil Count 6.81 10^3/uL (1.2-6.7); Basophils % 0.4; Eosinophils % 3.8; HCT 41.6 % (40.0-50.0); HGB 13.7 g/dL (13.5-17.5); Immature Grans % 0.4; Lymphocytes % 23.9; MCH 31.1 pg (27.0-33.0); MCHC 32.9 % (32.0-36.0); MCV 94.3 fL (80-95); Monocytes % 7.9; Neutrophils % 63.6; Nucleated RBC 0 %; Platelet Count 189 10^3/uL (130-400); RBC 4.41 10^6/uL (4.36-5.78); RDW 12.8 % (11.8-14.1); RDW-SD 44.4 fL
[2021-02-10] MEDS: Normal Saline - Diluent 50 ML VIAL IV (13:02)
[2021-02-10] MEDS: Omnipaque 350 MG/ML 100 ML BTL IJ (13:03)
[2021-02-10 13:12] LABS: PTT Activated 23.6 sec (21.0-27.5); Prothrombin Time 10.4 sec (9.3-11.0)
[2021-02-10 13:14] LABS: ALT 26 U/L (16-63); AST 17 U/L (15-37); Albumin 3.6 g/dL (3.4-5.0); Alkaline Phosphatase 81 U/L (46-116); Anion Gap 4.5 mmol/L (3-11); BUN 12 mg/dL (7-18); Bilirubin, Total 0.4 mg/dL (0.2-1.0); CO2 31.5 mmol/L (21.0-32.0); CREATININE 0.8 mg/dL (0.70-1.30); Calcium 9.1 mg/dL (8.5-10.1); Chloride 106 mmol/L (98-107); Glucose 102 mg/dL (74-106); Magnesium 2.2 mg/dL (1.8-2.4); Potassium 4.1 mmol/L (3.5-5.1); Sodium 142 mmol/L (136-145); Total Protein 6.9 g/dL (6.4-8.2)
[2021-02-10 13:15] LABS: Troponin I < 0.05 ng/mL (<0.06)
--- NOTE | 2021-02-10 13:33 | DI.RAD_ITS ---
Exam(s) XR CHEST 2V PA LATERAL EXAM: XR CHEST 2V PA LATERAL CLINICAL HISTORY: feels off in the brain TECHNIQUE: COMPARISON: CR,XR XR CHEST 2V PA LATERAL from 11/09/2019 FINDINGS: The heart is not enlarged. Note is made of multiple old healed right rib fractures. There appear to be small areas of bibasilar scarring. Otherwise lungs are clear and unchanged in appearance compari son with examination November 09, 2019. No pleural effusion seen. IMPRESSION: No evidence of acute process. RADIATION DOSE DELIVERED: Total DLP
[2021-02-10 13:45] LABS: Lithium 0.8 mmol/l (0.6-1.2)
--- NOTE | 2021-02-10 13:45 | DI.MRI_ITS ---
Exam(s) MR BRAIN WO EXAM: MR BRAIN WO CLINICAL HISTORY: Ataxia, feels off TECHNIQUE: Multiplanar multisequence MRI of the brain was performed. COMPARISON: No exams were available for comparison FINDINGS: The ventricular system is normal in appearance. There is a 9 x 5 millimeter focus of abnormal signal in the basal ganglia posteriorly on the left, a couple of other subtle areas of abnormal signal are seen in periventricular white matter. These find ings may represent early microvascular ischemic changes. However the prominence of the posterior bas al ganglia focus of abnormal signal would raise some possibility of other etiologies, including demye linating process or other inflammatory or neoplastic process. No mass effect is seen. Additional ev aluation with postcontrast imaging should be considered. The orbital and temporal bone structures appear intact as does the pituitary. Diffusion weighted imaging shows no evidence of infarction. Susceptibility weighted imaging shows no evidence of intracranial hemorrhage. There is normal flow void in the [place] vasculature. IMPRESSION: Prominent focus abnormal signal on T2 weighted and FLAIR imaging in posterior basal ganglia, probably internal capsule, on the left. This may be due to early changes microvascular ischemia but the poss ibility of other etiologies including neoplastic, inflammatory, or demyelinating process are not excl uded. Correlation with contrast enhanced MRI recommended. DATA REPOSITORY:
[2021-02-10] MEDS: Normal Saline 1,000 ML 125 ML IV (13:51)
[2021-02-10 13:57] LABS: Bilirubin Negative (Negative); Blood Negative (Negative); Clarity Clear (Clear); Glucose Negative (Negative); Ketones Negative (Negative); Leukocyte Esterase Negative (Negative); Nitrite Negative (Negative); Urobilinogen 0.2 EU/dL (Up TO 0.2)
[2021-02-10 14:12] LABS: Source Nasal/Nares
[2021-02-10 15:15] LABS: COVID-19 PCR Negative (Negative)
--- NOTE | 2021-02-10 16:00 | RT.EKG_ITS ---
APPROVED REPORT Exam: Resting ECG Reason for Exam: 2nd trop/ekg Patient Location: E HR:56 bpm ECG Measurements Heart Rate 56 AXIS VA 195 P 48 QRSd 96 QRS -1 QT 414 T 28 QTc 400 Conclusion Sinus bradycardia...rate< 60. Sinus. No STEMI. I have reviewed and interpreted ECG and agree with software generated interpretation.
[2021-02-10 16:42] LABS: Troponin I < 0.05 ng/mL (<0.06)
== END 2021-02-10 17:04 | disposition home or self-care (01) ==
PROVIDERS: Emergency Provider Physician Assistant; PCP Family Medicine
DX: R41.82 Altered mental status, unspecified (principal); R27.0 Ataxia, unspecified; R07.9 Chest pain, unspecified; R20.2 Paresthesia of skin
CPT/HCPCS: 36415; 70496; 70498; 80053; 87635; 93005; 99285; 70551; 71046; 80178; 81003; 83735; 84484; 85025; 85610; 85730; 93010; J3490

== ENCOUNTER 2021-05-07 03:33 | Outpatient (CLI) | payer MEDICARE, SELFPAY ==
[2021-05-07 13:27] LABS: Anion Gap 8.2 mmol/L (3-11); BUN 10 mg/dL (7-18); CO2 29.8 mmol/L (21.0-32.0); CREATININE 0.9 mg/dL (0.70-1.30); Calcium 9.4 mg/dL (8.5-10.1); Chloride 105 mmol/L (98-107); Glucose 93 mg/dL (74-106); Potassium 4.5 mmol/L (3.5-5.1); Sodium 143 mmol/L (136-145)
== END 2021-05-07 03:34 | disposition home or self-care (01) ==
LOC: LBO 03:33
PROVIDERS: PCP Family Medicine; Visit Provider Nurse Practitioner Psychiatric/Mental Health
DX: F25.0 Schizoaffective disorder, bipolar type (principal); Z51.81 Encounter for therapeutic drug level monitoring; Z79.899 Other long term (current) drug therapy; R73.03 Prediabetes
CPT/HCPCS: 36415; 80048; 80178; 82746; 84443

== ENCOUNTER 2021-06-11 02:44 | Outpatient (CLI) | payer MEDICARE, MEDICAID, SELFPAY ==
--- NOTE | 2021-06-11 | DI.MRI_ITS ---
Exam(s) MR BRAIN WO/W EXAM: MR BRAIN WO/W CLINICAL HISTORY: F/U ABNL BRAIN MRI,R90.89,MENTAL STATUS CHANGES,LESION. TECHNIQUE: Multiplanar multisequence MRI of the brain was performed. CONTRAST MATERIAL: IV Contrast: 20 ML of Dot[place] contrast administered. COMPARISON: MR MR BRAIN WO from 02/10/2021 FINDINGS: VENTRICLES AND EXTRA AXIAL SPACES: Normal in size and morphology for the patient's age. HEMORRHAGE: None. CEREBRAL PARENCHYMA: No focus of restricted diffusion to suggest acute infarct. No space-occupying le karan identified. Decreased prominence of small focus of high signal in the left posterior basal gang scarlett/internal capsule region. Small tiny focus of high signal in the left frontal lobe, unchanged. N o associated enhancement. No new abnormalities. MIDLINE SHIFT: None. BRAINSTEM/CEREBELLUM: Normal. ENHANCEMENT: No suspicious enhancement identified. VISUALIZED PARANASAL SINUSES/MASTOIDS: Mucous retention cysts versus polyps in the maxillary and ethm oid sinuses. IMPRESSION: Decreased prominence of previously noted high signal lesion in the left basal ganglia are region. No associated enhancement or new abnormalities. DATA REPOSITORY:
--- NOTE | 2021-06-11 | DI.CT_ITS ---
Exam(s) CT CHEST WO EXAM: CT CHEST WO CLINICAL HISTORY: THORACIC BACK PAIN M54.9 LUNG NODULE R91.8. TECHNIQUE: Imaging protocol: Axial computed tomography images were obtained and coronal and sagittal reformatted images were created and reviewed. COMPARISON: CT CT CHEST W from 01/16/[address] CHEST W from 05/02/2020 CR XR CHEST 2V PA LATERAL from 02/10/2021 FINDINGS: Tracheobronchial tree: Patent where visualized. Mediastinum and Mel: No dominant adenopathy or fluid collection. Pulmonary parenchyma: No consolidation or dominant measurable mass. Scarring periphery right lung. Scarring is again noted at the left lung base adjacent to the fissure. No change in smoothly margina ya ovoid nodule in the left lower lobe near the area of scarring. Mild bronchiectasis. No new nodu les. A few scattered tiny calcified nodules are again noted. Pleura: No effusion or pneumothorax. Heart: The heart is not dilated. coronary artery calcifications are seen. Aorta: Thoracic aorta non-dilated. Upper abdomen: Unremarkable. Lymph nodes: Within normal limits. Bones:Old right rib fractures. Severe degenerative changes in the lower cervical and thoracic spine. IMPRESSION: Stable 6 by 4 millimeter nodule left lower lobe. If the patient is at high risk for lung cancer, a l ow-dose screening exam could be performed in 1 year. RADIATION DOSE DELIVERED: 697.44mGy.cm Total DLP 697.44mGy.cm Total DLP DATA REPOSITORY: All CT scans at this facility are submitted to the National Radiology Data Registry (NRDR) Dose Index Registry (DIR) with the [employer] (ACR). RADIATION OPTIMIZATION: All CT scans at this facility use at least one of these dose optimization te chniques: automated exposure control; mA and/or kV adjustment per patient size (includes targeted exa ms where dose is matched to clinical indication); or iterative reconstruction.
[2021-06-11] MEDS: Normal Saline Flush 10 ML SYR IVP (13:39)
[2021-06-11] MEDS: Gadoterate meglumine 20 ML VIAL IVP (13:40)
== END 2021-06-11 03:04 ==
PROVIDERS: PCP Family Medicine; Visit Provider Family Medicine
DX: R90.89 Other abnormal findings on diagnostic imaging of central nervous system (principal); M54.9 Dorsalgia, unspecified; R91.8 Other nonspecific abnormal finding of lung field; R91.1 Solitary pulmonary nodule
CPT/HCPCS: 70553; 71250

== ENCOUNTER → 2021-07-28 00:38 | Outpatient (CLI) | payer MEDICARE, MEDICAID, SELFPAY ==
--- NOTE | 2021-07-28 | DI.CT_ITS ---
Exam(s) CT BRAIN NECK CTA EXAM: CT BRAIN NECK CTA CLINICAL HISTORY: ABNL BRAIN MRI, R90.89, CONCERN FOR VERTEBRAL ARTERIAL DISSECTION. TECHNIQUE: Imaging Protocol: Axial CT angiography was performed with multi-slice acquisition and mu lti-planar and/or 3D reconstructions. CONTRAST MATERIAL: Intravenous: Omnipaque 350 Contrast volume:structured data in ml COMPARISON: CT CT BRAIN NECK CTA from 02/10/2021 FINDINGS: CTA Neck W: Aortic arch anatomy: The aortic arch anatomy is conventional. Anterior circulation: Both common carotid arteries ascend diameters. There is no significant stenosis at the carotid bulbs and proximal internal. Minimal partially calcified plaque on right side but no tight stenosis. Above this level both internal carotid arteries are patent the upper neck and skull base-carotid bubba ls. Posterior circulation: Both vertebral arteries arise in conventional fashion off of the subclavian arteries. There is no si gnificant stenosis at their origins off of the subclavian arteries nor in the subclavian arteries pro ximal to the vertebral artery takeoff points. The vertebral arteries both exhibit normal luminal diameters within the foramen transverse area. Ochoa roximately equal luminal diameters bilaterally. No intraluminal thrombus nor dissection. However, a t C3 level there is some partially calcified plaque on the lateral wall of the left vertebral artery with approximately 20 percent stenosis at this level. No dissection flap. Above this level both ellen tebral arteries contribute to the formation of the basilar artery at the skull base. CTA Brain W: Anterior circulation: Both internal carotid arteries are patent in the skull base-carotid canals and the intracavernous asp ects of internal carotid arteries are patent. Supraclinoid aspects are patent. A1 segments are mortensen nt bilaterally as are the anterior cerebral arteries. There is no evidence of aneurysm at the level of the anterior communicating artery. Both middle cerebral arteries are patent. No intraluminal thrombus. No tight stenosis. No aneurysm s. Posterior circulation: Basilar artery is formed by both vertebral arteries at the skull base and ascends in the midline. Di stally gives off superior cerebellar arteries and above this level terminates as patent bilateral pos terior cerebral arteries. CT BRAIN: There is no evidence of intracranial hemorrhage, mass effect, or shift of midline structures. There are no extra-axial fluid collections. Ventricles are not enlarged or shifted. There are no ring enh ancing lesions in the brain and no abnormal meningeal enhancement. Incidentally noted are multiple benign-appearing mucosal thickening in the maxillary sinuses and ethm oidal air cells, either polyps of post inflammatory retention cysts. Also mucosal thickening in the sphenoid sinuses and frontoethmoidal recesses. IMPRESSION: 1. No hemodynamically significant stenosis in the carotid arteries in the neck. 2. Focal partially calcified mural plaque seen in the upper left vertebral artery at approximately C 2 level. Approximately 20 percent stenosis at this level. No dissection. 3. Patent intracranial arteries. No tight stenosis. No intraluminal thrombus. No aneurysms evide nt. No acute intracranial findings. RADIATION DOSE DELIVERED: 2,329.81mGy.cm Total DLP DATA REPOSITORY: All CT scans at this facility are submitted to the National Radiology Data Registry (NRDR) Dose Index Registry (DIR) with the [employer] (ACR). RADIATION OPTIMIZATION: All CT scans at this facility use at least one of these dose optimization te chniques: automated exposure control; mA and/or kV adjustment per patient size (includes targeted exa ms where dose is matched to clinical indication); or iterative reconstruction.
[2021-07-28 08:53] LABS: CREATININE 0.9 mg/dL (0.70-1.30)
[2021-07-28] MEDS: Omnipaque 350 MG/ML 100 ML BTL 85 ML IJ (09:57)
== END ==
PROVIDERS: PCP Family Medicine; Visit Provider Family Medicine
DX: R90.89 Other abnormal findings on diagnostic imaging of central nervous system (principal); I67.2 Cerebral atherosclerosis; J34.89 Other specified disorders of nose and nasal sinuses; Z01.812 Encounter for preprocedural laboratory examination
CPT/HCPCS: 70496; 70498; 82565; J3490

== ENCOUNTER → 2021-09-14 00:57 | Outpatient (CLI) | payer MEDICARE, MEDICAID, SELFPAY ==
--- NOTE | 2021-09-14 10:37 | DI.RAD_ITS ---
Exam(s) XR LUMBAR SPINE COMPLETE EXAM: XR LUMBAR SPINE COMPLETE CLINICAL HISTORY: LOW BACK PAIN,M54.50. TECHNIQUE: 2D digital imaging was performed. Five views. COMPARISON: CR LUMBAR SPINE COMPLETE from 11/19/[address] ABDOMEN PELVIS W from 07/16/2020 FINDINGS: BONES: Transitional type vertebral body with partial sacralization of S1. No fracture or destructive lesion. Vertebral bodies are normal in height. There are facet degenerative changes greatest at L5 four 5 and L5-S1 on the right. DISKS: Mild narrowing of the L 4 5 disc space. Endplate osteophytes.. ALIGNMENT: Lumbar spinal alignment is within normal limits. SOFT TISSUE: Normal. IMPRESSION: Degenerative changes, greatest of the right-sided facets at L4-5 and L5-S1.. DATA REPOSITORY: RADIATION DOSE DELIVERED:
== END ==
PROVIDERS: PCP Family Medicine; Visit Provider Physician Assistant
DX: M54.59 Other low back pain (principal); M51.36 Other intervertebral disc degeneration, lumbar region; M47.817 Spondylosis without myelopathy or radiculopathy, lumbosacral region
CPT/HCPCS: 72110

== ENCOUNTER 2021-10-20 01:20 | Outpatient (CLI) | payer MEDICARE, SELFPAY ==
--- NOTE | 2021-10-20 | DI.CT_ITS ---
Exam(s) CT CHEST WO EXAM: CT CHEST WO CLINICAL HISTORY: F/U 1 CM LUNG NODULE ON LT. TECHNIQUE: Imaging protocol: Axial computed tomography images were obtained and coronal and sagittal reformatted images were created and reviewed. COMPARISON: CT CT CHEST WO from 06/11/2021 FINDINGS: The examination is limited due to patient motion artifact. Tracheobronchial tree: Patent where visualized. Pulmonary parenchyma: There is again seen an area of scarring in the left lingula. The nodular densi ty previously discussed measures 0.8 cm. No new pulmonary nodules are present. Mild paraseptal cyst ic changes are present. Mediastinum and Mel: No dominant adenopathy or fluid collection. The esophagus is unremarkable. Thyroid gland: Unremarkable. Pleura: No effusion or pneumothorax. Heart: The heart is not dilated. Coronary artery calcifications and/or vascular stents are present. No pericardial effusion. Aorta: Thoracic aorta non-dilated. Atherosclerosis is present. Upper abdomen: Unremarkable. Lymph nodes: Within normal limits. Soft tissues: Unremarkable. Bones:Within normal limits for the patient's age. There are old healed right rib fractures. IMPRESSION: 1. 0.8 cm left lower lobe pulmonary nodule. In low risk patients a follow-up examination in 6-12 mon ths is recommended. In high risk patients, history of smoking or other risk factors) an initial foll ow-up in 6-12 months follow-up by if repeat examination in 18-24 months is recommended. (Shira et al, 2017). 2. No acute pulmonary process. RADIATION DOSE DELIVERED: 668.18mGy.cm Total DLP 668.18mGy.cm Total DLP DATA REPOSITORY: All CT scans at this facility are submitted to the National Radiology Data Registry (NRDR) Dose Index Registry (DIR) with the [employer] (ACR). RADIATION OPTIMIZATION: All CT scans at this facility use at least one of these dose optimization te chniques: automated exposure control; mA and/or kV adjustment per patient size (includes targeted exa ms where dose is matched to clinical indication); or iterative reconstruction.
--- NOTE | 2021-10-20 | DI.NM_ITS ---
APPROVED REPORT Exam: Exercise Treadmill Patient Location: Out-Patient Room/Bed: Stress Nurse: Karen Olvera RN Ordering Provider:ROSANNA GAMBOA, Contact Number: [phone] BMI: 31.56 Baseline Rhythm: Sinus Bradycardia Indications: Left arm pain, CAD, smoker, previous cardiac pain Medical History Medical History: CAD, hx LA, hypertension, hyperlipidemia, smoker current, COPD, polysubstance abuse Cardiac Medications: Aspirin, atorvastatin, nitroglycerin, isosorbide mononitrate, pantoprazole, meto prolol succinate Allergies: NKA Cardiac Risk Factors: Hypertension, hyperlipidemia, COPD, smoker current, famly hx, CVD Previous Cardiac Procedures: pci w/ RADHA x3 Pretest Chest Pain Characteristics: None Exercise History: Indeterminate Physical Disabilities: None Lung Sounds: Clear to auscultation Heart Sounds: Regular Stress Test Details Test: Exercise stress converted to pharmacologic stress due to failure to obtain a diagnostic stress test. Reason for pharmacologic stress test: changed from exercise stress test due to inability to reach t arget heart rate. Nuclear Acquisition: Rest Tc-99m/Stress Tc-99m 1 day Rest Isotope: Tc-99m Sestamibi. Dose: 11.5 Date: 10/20/2021 Injection Time: 1130 Stress Isotope: Tc-99m Sestamibi. Dose: 37.5 Date: 10/20/2021 Injection Time: 1325 HR Resting HR Supine: 55 bpm Max Heart Rate (APMHR): 161.033380 bpm Resting HR Standin bpm Target HR (85% APMHR): 136.543060 bpm Max HR Achieved: 102 bpm % of APMHR: 63.35 Recovery HR: 70 bpm HR response to stress: Normal HR response to stress Comment: Metoprolol succinate not held prior to testing BP Resting BP Supine: 128/82 mmHg Resting BP Standin/86 mmHg Max BP: 136/82 mmHg Recovery BP: 122/80 mmHg BP response to stress: Normal blood pressure response to stress. ECG Resting ECG: Sinus Bradycardia, Sinus Rhythm Ectopy: Rare PVC Stress ECG: Sinus Tachycardia ST Change: No significant ST segment changes noted, Nondiagnostic low heart rate Arrhythmia: Rare PAC and PVCs Recovery ECG: Sinus Rhythm Recovery ST Change: No significant ST segment changes noted, Nondiagnostic low heart rate Recovery Arrhythmia: Rare PACs Clinical Reason for Termination: Fatigue Stress Symptoms: General Fatigue, Dyspnea, L arm numbness Exercise duration: 5 min20 sec Highest Stage Reached: Stage 2: 2.5 mph at 12% grade. Exercise capacity: 7.05 METs Angina Score: None Rate Pressure Product: 93902 Stress ECG Conclusion 1. The resting electrocardiogram showed poor R wave progression 2. Patient underwent testing using a combination of treadmill exercise and pharmacologic stress with regadenoson 3. Blunted heart rate response to exercise. Peak heart rate achieved was 63% of predicted for age 4. The electrocardiographic portion of the test was nondiagnostic due to inadequate heart rate 5. There were no significant dysrhythmias 6. See MPI report Stress Test Summary STAGE Time (mins) Speed (mph) Grade (%) HR BP SpO2 SYMPTOMS METS Supine 55 128/82 Standing 78 122/86 SpO2 97% 1 3 1.7 10 90 128/78 SpO2 97% 4.6 2 6 2.5 12 100 Moderate SOB, SpO2 97% 7 1 min post Lexiscan injection 102 132/68 Moderate SOB, L arm numbness, SpO2 98% 3 min post Lexiscan injection 75 136/82 Symptoms resolved, SpO2 98% 6 min post Lexiscan injection 70 122/80 SpO2 98% Exercise stress converted to pharmacologic stress in second stage of Deandre protocol due to failure to obtain target heart rate. Pt ambulated at 0.6-0.7 mph and 0% grade during Lexiscan administration. P t tolerated exercise and pharmacologic stress well. MPI Conclusion Myocardial perfusion is normal. There is no evidence of ischemia or prior infarction EF 50%, wall motion is normal Radiologist Interpretation Radiologist Interpretation by: Leodan Lea MD Interpretation Date/Time: 10/20/2021 17:30:01
[2021-10-20] MEDS: Regadenoson 0.4 MG/5 ML SYR IVP (13:47)
== END 2021-10-20 01:40 ==
PROVIDERS: PCP Family Medicine; Visit Provider Family Medicine
DX: M79.602 Pain in left arm (principal); F17.210 Nicotine dependence, cigarettes, uncomplicated; R91.8 Other nonspecific abnormal finding of lung field; R00.0 Tachycardia, unspecified; R00.1 Bradycardia, unspecified; I10 Essential (primary) hypertension; J44.9 Chronic obstructive pulmonary disease, unspecified; R07.9 Chest pain, unspecified; I25.10 Atherosclerotic heart disease of native coronary artery without angina pectoris
CPT/HCPCS: 71250; 78452; 93016; 93018; 93017; J2785

== ENCOUNTER 2022-01-04 17:14 | Outpatient (REF) | payer MEDICARE, SELFPAY ==
[2022-01-04 20:06] LABS: NT-proBNP 76 pg/mL (<300)
== END 2022-01-04 17:15 | disposition home or self-care (01) ==
LOC: NCHCN 17:14
PROVIDERS: PCP Family Medicine; Visit Provider Family Medicine
DX: R06.09 Other forms of dyspnea (principal)
CPT/HCPCS: 83880

== ENCOUNTER 2022-04-20 17:59 | Outpatient (REF) | payer MEDICARE, SELFPAY ==
[2022-04-20 15:53] LABS: Bilirubin Negative (Negative); Blood Negative (Negative); Clarity Clear (Clear); Glucose Negative (Negative); Ketones Negative (Negative); Leukocyte Esterase Negative (Negative); Nitrite Negative (Negative); Specific Gravity 1.015 (1.005-1.025); Urobilinogen 0.2 EU/dL (Up TO 0.2)
[2022-04-20 16:18] LABS: Lithium 0.8 mmol/l (0.6-1.2)
[2022-04-20 16:19] LABS: TSH (W/Ref FT4) 1.99 uIU/mL (0.36-3.74)
== END 2022-04-20 18:00 | disposition home or self-care (01) ==
LOC: LBN 17:59
PROVIDERS: PCP Family Medicine; Visit Provider Family Medicine
DX: Z79.899 Other long term (current) drug therapy (principal)
CPT/HCPCS: 80178; 81003; 84443

== ENCOUNTER 2022-06-14 13:04 | Inpatient (IN) | payer MEDICARE, SELFPAY ==
[2022-06-14] VITALS (42 sets, daily range): BP systolic 118–186; BP diastolic 71–122; PULSE 59–93; RESP 12–24; TEMP 36.8–37; O2SAT 93–99
--- NOTE | 2022-06-14 13:00 | RT.EKG_ITS ---
APPROVED REPORT Exam: Resting ECG Reason for Exam: sob Patient Location: E HR:78 bpm ECG Measurements Heart Rate 78 AXIS NE 194 P 36 QRSd 99 QRS 3 QT 350 T [id number] QTc 398 Conclusion Sinus rhythm...normal P axis, V-rate 60- 99
--- NOTE | 2022-06-14 13:56 | W.ED.GENAD ---
Discharge Plan Discharge Details Chief Complaint: Chest Pain Primary Care Provider: Tawanda Dooley ED Provider: Tawanda Estrella Home Meds and New Rx's Prescriptions: No Action cyclobenzaprine 10 mg Tablet 10 mg PO TID PRN olanzapine 5 mg tablet 1 tab PO DAILY PRN Patient Comments: TAKE 1 TABLET BY MOUTH DIRECTED TAKE ONLY IF NEEDED FOR MODD SWINGS clopidogrel 75 mg tablet 1 tab PO DAILY Clear Eyes For Dry Eyes 1-0.25 % Drops OPHTHALMIC (EYE) bupropion HCl [Wellbutrin] 100 mg Tablet 150 mg PO BID Rx Instructions: am and mid day dosing bupropion HCl [Wellbutrin] 100 mg Tablet 200 mg PO HS acetaminophen 500 mg Tablet 1,000 mg PO TID PRN isosorbide mononitrate 60 mg tablet extended release 24 hr 60 mg PO DAILY Compression Stocking miscellaneous lithium carbonate 450 mg tablet extended release 1,200 mg PO DAILY Patient Comments: TAKE 1 TABLET BY MOUTH EVERY DAY Trelegy Ellipta 100-62.5-25 mcg blister with device 1 inh inhalation DAILY clindamycin HCl 300 mg capsule 300 mg PO TID nabumetone 750 mg tablet 750 mg PO BID PRN albuterol sulfate 8.5 GM HFA aerosol inhaler 2 puff Inhalation PRN aspirin [Aspirin Low-Strength] 81 MG tablet,chewable 81 mg PO DAILY atorvastatin [Lipitor] 80 MG tablet 80 mg PO DAILY nitroglycerin [Nitrostat] 0.4 MG tablet, sublingual 0.4 mg Sublingual Q5 MIN PRN X3 PRNQty: 100 0RF pantoprazole [Protonix] 20 MG tablet,delayed release (DR/EC) 40 mg PO DAILY risperidone 2 MG tablet 3 mg PO HS metoprolol succinate 25 MG tablet extended release 24 hr 50 mg PO DAILY lamotrigine 100 mg tablet 100 mg PO DAILY Patient Comments: TAKE 1 TABLET BY MOUTH EVERY DAY Trelegy Ellipta 100-62.5-25 mcg blister with device 1 inh inhalation DAILY Medical Decision Making This is a hypertensive but normothermic and not tachycardic 62-year-old male with a history of COPD and unintentional weight gain with bilateral B-lines on echocardiogram concerning for what appears to be concerning for new onset diastolic heart failure. ECG with no ST segment abnormalities. However his ECG does have loss of precordial T wave balance concerning for hyperacute T waves. Given his chest pain with exertion I am concerned for angina. He is not having pain at rest to suggest unstable angina. Given his calf pain will obtain duplex study to assess for PE. He is not hypoxic so I do not feel that he requires hospitalization. No fevers no cough to suggest pneumonia. His vital signs are not consistent with sepsis. Breath sounds equal so I am not concerned for pneumothorax. Furthermore no recent trauma. Venous blood gas lacks acidemia but is significant for a mild hypercarbia. No significant wheezes to suggest COPD exacerbation. Concerning his calf pain he has not recently been on any fluoroquinolones and he has negative Lala test so I am not concerned for Achilles tendon rupture. He has no pain out of proportion to suggest necrotizing soft tissue infection. There are no signs of cellulitis cellulitis based on no erythema. No fluctuance to suggest abscess. 3:12pm I spoke with Tsering Brock SWITCHMAN at [facility] from cardiology who accepted patient for tomorrow on behalf of Dr. Valero. Will order repeat troponin. She advised heparinization if the patient develops chest pain at rest or had a positive troponin. His age-adjusted D-dimer was positive so we will proceed to CTA for PE. We will treat with 40 mg of IV furosemide. We will keep patient n.p.o. at midnight. We will provide him with a heart healthy diet. He confirms full code. 3:55 PM I spoke with Dr. Pineda who graciously excepted the patient for hospitalization. We will make him n.p.o. at midnight. I have ordered a COVID swab for the patient. His duplex study was negative for DVT and his CAT scan showed no sign of PE nor infiltrate. HPI General Date/Time Provider Initiated Documentation: 06/14/22 13:47. HPI Narrative: This is 62-year-old male with a history of COPD, coronary artery disease, GERD, schizoaffective disorder, and hypertension now in the emergency department in setting of shortness of breath and left-sided arm and chest pain that began yesterday. Patient notes that his legs have been swollen over the past several weeks. He says his left calf hurts more than his right calf. He has not recently been on antibiotics. He denies any trauma to his calf. He says he feels more short of breath when he ambulates. He also developed a left-sided chest pressure when he ambulates. He has had no recent antibiotics. He denies routine tobacco, ethanol, and illicits. He says that his shortness of breath is not worse when he lays flat. He denies paroxysmal nocturnal dyspnea. He said that he had ultrasound performed of his calf approximately 5 months ago at [facility] and he did not have a DVT. He previously had a stent placed in [place]. He had previously used cocaine. He has never had a PE nor DVT. He has unintentionally gained 60 pounds in the past 6 months. He has had no recent fevers nausea nor vomiting. Related Data Home Medications Medication Instructions Recorded Confirmed albuterol sulfate 90 mcg/actuation 2 puff inhalation PRN 11/13/13 06/14/22 aerosol inhaler aspirin 81 mg chewable tablet 81 mg PO DAILY 09/25/14 06/14/22 (Aspirin Low-Strength) atorvastatin 80 mg tablet (Lipitor) 80 mg PO DAILY 09/25/14 06/14/22 nitroglycerin 0.4 mg sublingual 0.4 mg sublingual Q5 MIN PRN X3 09/25/14 06/14/22 tablet (Nitrostat) PRN ##100 pantoprazole 20 mg tablet,delayed 40 mg PO DAILY 05/20/15 06/14/22 release (Protonix) risperidone 2 mg tablet 3 mg PO HS 05/20/15 06/14/22 metoprolol succinate 25 mg 50 mg PO DAILY 09/15/16 06/14/22 tablet,extended release 24 hr fluticasone fur. 100 mcg-umeclid 1 inh inhalation DAILY 02/10/21 06/14/22 62.5 mcg-vilant 25 mcg inhalat.powder (Trelegy Ellipta) lamotrigine 100 mg tablet 100 mg PO DAILY 02/10/21 06/14/22 Compression Stocking miscellaneous 03/20/21 03/24/21 isosorbide mononitrate 60 mg 60 mg PO DAILY 03/20/21 06/14/22 tablet,extended release 24 hr clindamycin HCl 300 mg capsule 300 mg PO TID 06/24/21 fluticasone fur. 100 mcg-umeclid 1 inh inhalation DAILY 06/24/21 06/14/22 62.5 mcg-vilant 25 mcg inhalat.powder (Trelegy Ellipta) lithium carbonate 450 mg 1,200 mg PO DAILY 06/24/21 06/14/22 tablet,extended release nabumetone 750 mg tablet 750 mg PO BID PRN 06/24/21 06/14/22 acetaminophen 500 mg tablet 1,000 mg PO TID PRN 09/22/21 06/14/22 bupropion HCl 100 mg tablet 150 mg PO BID 09/22/21 09/22/21 bupropion HCl 100 mg tablet 200 mg PO HS 09/22/21 09/22/21 carboxymethylcellulose-glycerin 1 drp ophthalmic (eye) 09/22/21 %-0.25 % eye drops clopidogrel 75 mg tablet 1 tab PO DAILY 09/22/21 06/14/22 cyclobenzaprine 10 mg tablet 10 mg PO TID PRN 09/22/21 06/14/22 olanzapine 5 mg tablet 1 tab PO DAILY PRN 09/22/21 06/14/22 Previous Rx's Medication Instructions Recorded nitroglycerin 0.4 mg sublingual 0.4 mg sublingual Q5 MIN PRN X3 09/25/14 tablet (Nitrostat) PRN ##100 Allergies Allergy/AdvReac Type Severity Reaction Status Date / Time No Known Allergies Allergy Unverified 06/14/22 13:19 General Stated Complaint: Chest Pain ZEINAB: 2 PFSH All Active Problems (Updated 09/22/21 @ 13:11 by Mirtha Salmon RN) Tinnitus, bilateral (Acute) Medical History (Updated 09/22/21 @ 13:11 by Mirtha Salmon RN) Abnormal brain MRI Alcohol dependence in remission Altered mental status Back pain CAD (coronary artery disease) Cellulitis of left upper extremity Chronic low back pain COPD (chronic obstructive pulmonary disease) COPD (chronic obstructive pulmonary disease) COPD exacerbation Coronary atherosclerosis of [place] coronary artery (09/25/14) COVID-19 ruled out by laboratory testing Depression DVT prophylaxis Edema of both ankles GERD (gastroesophageal reflux disease) GERD (gastroesophageal reflux disease) Gout of ankle Hearing loss History of hepatitis C HTN (hypertension) Hyperlipidemia Hypertension 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/antiplatelets (09/25/14) Low back pain Lower urinary tract symptoms Lung nodule Old myocardial infarction (09/25/14) Osteoarthritis of hips, bilateral Polysubstance abuse Prediabetes Rhabdomyolysis Right sided abdominal pain Schizoaffective disorder Schizoaffective disorder, bipolar type Seasonal allergies Sebaceous cyst Sensorineural hearing loss, bilateral Smoking Suicidal ideation Suicide attempt by hanging Thoracic back pain Surgical History (Updated 03/24/21 @ 10:23 by Antolin Edge MD) Coronary angioplasty status (09/25/14) H/O heart artery stent 3 History of tonsillectomy and adenoidectomy Family History Father Stroke Mother Lung cancer Other Cancer Social History Smoking/Tobacco Use Status: Former Tobacco Use Smoking risk assessment performed?: Yes Alcohol Intake: never Drug use: Current Sobriety Substance use type: marijuana and crack/cocaine Details: marijuana - when having a hard time sleeping; once a week; Crack - binges Pets and animals: Yes (4) Pets and animals: dog(s) Do you feel safe at home: Yes Do you feel safe in your relationship?: Yes Exam Narrative Exam Narrative: General: Well-appearing in no acute distress speaking in complete sentences. Head: Normocephalic, atraumatic Ear, nose, mouth, throat: Grossly normal inspection. Normal voice, handling secretions normally. Neck: Trachea midline. Cardiovascular: Well-perfused distal extremities. Regular rate and rhythm. 1+ bilateral lower extremity pitting edema. Respiratory: Nonlabored respiration. Bibasilar crackles. Gastrointestinal: Nondistended abdomen. Musculoskeletal: Left-sided calf tenderness. Negative Homans' sign. Negative Lala test. Moving all 4 extremities spontaneously. Skin: Normal for age and race, grossly normal temperature and turgor. No acute rash. Neurologic: Alert and appropriate, no apparent acute deficits. Psychiatric: Mood and manner are appropriate. Grooming and personal hygiene are appropriate. Course Vital Signs Vital signs: Vital Signs Temperature 36.8 C 06/14/22 13:13 Pulse 70 06/14/22 13:13 Respiratory Rate 18 06/14/22 13:13 Blood Pressure 166/100 H 06/14/22 13:13 Pulse Oximetry 96 06/14/22 13:13 Temperature 36.8 C 06/14/22 13:13 Temperature Source Oral 06/14/22 13:13 Pulse 70 06/14/22 13:13 Respiratory Rate 18 06/14/22 13:13 Respiratory Effort Normal 06/14/22 13:23 Blood Pressure 166/100 H 06/14/22 13:13 Blood Pressure Position Sitting 06/14/22 13:13 Pulse Oximetry 96 06/14/22 13:13 Oxygen Delivery Method Room Air 06/14/22 13:13 Oxygen Flow Rate 0 06/14/22 13:13 Pain Level 10 06/14/22 13:13 POCUS Exam (ED) Limited Cardiac Exam DATE OF EXAM: 06/14/22 TIME OF EXAM: 14:29 REASON FOR EXAM: Dyspnea VISUALIZED STRUCTURES: Four Chambers, Left ventricle and LVOT VIEW OBTAINED: Apical 4-Chamber, Parasternal long-axis, Subxiphoid and Other (Bilateral lungs with B-lines. No significant pericardial effusion.) DIFFERENTIAL DIAGNOSES: Good squeeze, aortic outflow tract less than 4 cm, no significant pericardial effusion. RV less than LV. Exam complete
[2022-06-14 14:07] LABS: BE (Venous) 5 mmol/L (-2-3); HCO3 (Venous) 30 mmol/L (23-28); O2 Sat (Venous) 65 %; TCO2 (Venous) 28 mmol/L (24-29); pCO2 (Venous) 55 mmHg (41-51); pH (Venous) 7.35 (7.31-7.41); pO2 (Venous) 34 mmHg
[2022-06-14 14:08] LABS: HCT 42.2 % (40.0-50.0); HGB 13.7 g/dL (13.5-17.5); MCHC 32.5 % (32.0-36.0); MCV 92 fL (80-95); MPV 9.1 fL (8.0-11.0); Platelet Count 215 10^3/uL (130-400); RBC 4.57 10^6/uL (4.36-5.78); RDW 12.8 % (11.8-14.1); WBC 7.61 10^3/uL (4.4-10.8)
--- NOTE | 2022-06-14 14:15 | DI.US_ITS ---
Exam(s) US LOWER EXTREMITY VENOUS LT EXAM: US LOWER EXTREMITY VENOUS LT CLINICAL HISTORY: Left calf pain. TECHNIQUE: Lower extremity venous ultrasound performed using grayscale, color-flow, and spectral Do ppler analysis. COMPARISON: No exams were available for comparison FINDINGS: The common femoral, femoral and popliteal veins demonstrate normal compressibility, augmentation, and color Doppler. The posterior tibial veins are patent. No saphenous vein thrombosis or other superfi cial venous thrombosis is seen. No hematoma or Jerez's cyst is seen. IMPRESSION: Negative lower extremity ultrasound. No evidence of DVT. DATA REPOSITORY:
[2022-06-14 14:34] LABS: Anion Gap 5.9 mmol/L (3-11); BUN 12 mg/dL (7-18); CO2 31.1 mmol/L (21.0-32.0); Calcium 9.4 mg/dL (8.5-10.1); Chloride 108 mmol/L (98-107); Estimated GFR 86.16 (mL/min/1.73m2); Glucose 145 mg/dL (74-106); NT-proBNP 64 pg/mL (<300); Potassium 3.9 mmol/L (3.5-5.1); Sodium 145 mmol/L (136-145); Troponin I < 50 ng/L (<or=60)
[2022-06-14 14:39] LABS: D-Dimer 721 ng/mlFEU (<500)
[2022-06-14] MEDS: Omnipaque 350 MG/ML 100 ML BTL IJ (15:05)
[2022-06-14] MEDS: Normal Saline - Diluent 50 ML VIAL IJ (15:06)
--- NOTE | 2022-06-14 15:15 | DI.CT_ITS ---
Exam(s) CT CHEST PE CTA EXAM: CT CHEST PE CTA CLINICAL HISTORY: Shortness of breath chest pain. TECHNIQUE: Imaging Protocol: Axial CT angiography was performed with multi-slice acquisition and mu lti-planar reconstructions as well as axial, coronal and sagittal MIP reconstructions. CONTRAST MATERIAL: Intravenous: Omnipaque 350 Contrast volume:100 ml COMPARISON: CR XR PORTABLE CHEST AP from 11/01/2019 CR,XR XR CHEST 2V PA LATERAL from 11/09/[address] CHEST WO from 06/11/2021 CT,NM,TMT NM MPI REST STRESS GRP from 10/20/[address] CHEST WO from 10/20/2021 FINDINGS: Pulmonary Arteries: No evidence of filling defect to suggest pulmonary emboli. Tracheobronchial tree: Patent where visualized. Mediastinum and Mle: No dominant adenopathy or fluid collection. Pulmonary parenchyma: Evaluation limited due to respiratory motion and expiratory changes. Bilateral basilar scarring similar to prior. The nodule was mentioned in the left lower lobe adjacent to the area of scarring her this is not visible on the current exam.. Mild emphysematous changes. Pleura: No effusion or pneumothorax. Heart: The heart is mildly dilated. coronary artery calcifications are seen. Aorta: Thoracic aorta non-dilated. No aneurysm. No dissection. Upper abdomen: Unremarkable. Bones: Old right rib fractures. Scoliosis and degenerative changes noted in the thoracic spine.. Tubes, Catheters, and Lines: None IMPRESSION: No evidence of pulmonary embolism. Areas of bibasilar scarring. Findings called to Dr. Estrella of the emergency department. RADIATION DOSE DELIVERED: 625.62mGy.cm Total DLP DATA REPOSITORY: All CT scans at this facility are submitted to the National Radiology Data Registry (NRDR) Dose Index Registry (DIR) with the [employer] (ACR). RADIATION OPTIMIZATION: All CT scans at this facility use at least one of these dose optimization te chniques: automated exposure control; mA and/or kV adjustment per patient size (includes targeted exa ms where dose is matched to clinical indication); or iterative reconstruction.
[2022-06-14 15:18] LABS: Lithium 0.8 mmol/l (0.6-1.2)
[2022-06-14] MEDS: Aspirin 81 MG CHEW 324 MG CH (15:37)
--- NOTE | 2022-06-14 16:06 | W.PM.HP.N ---
Date of service: 06/14/22 Time of Service: 16:06 Assessment and Plan Assessment and plan (1) Unstable angina: Status: Acute Assessment and plan: patient has symptoms of exertional dyspnea and chest pressure and left arm pain/pressure/heaviness that has now progressed to occur at rest (even waking him up at night). This has been associated w/ markedly elevated blood pressures. While this may represent unstable angina and reactive hypertension, it very may well be that his symptoms are d/t acute worsening of his essential hypertension i.e. accelerating hypertension leading to worsening diastolic HF. So far he has had two negative troponin I levels, effectively ruling out recent MD. His BP has improved some since the lasix and he is feeling a bit better. I will continue to diurese him, continue his DAPT, imdur, Toprol XL but hold on heparinization unless he has dynamic ST-T changes or an increase in his troponin. I have added norvasc to his BP regimen and for tonight if he gets very hypertensive then he should get an iv vasodilator such as hydralazine or if accompanied w/ chest pain then NTG drip should be started and he should be moved to ICU and [facility] [place] called to try to get him transferred tonight. It is my understanding that [facility] [place] accepted the patient for transfer tomorrow pending bed availability Professional time spent interviewing and examining patient, discussion of goals of care with hospital team (care management, nursing and consulting professionals) was 60 minutes. (2) HTN (hypertension): Assessment and plan: see above (3) CHF (congestive heart failure), NYHA class III: Status: Acute Assessment and plan: continue lasix 40 mg IV Q12H (4) Coronary atherosclerosis of [place] coronary artery: Assessment and plan: cont. DAPT, BB, nitrates, statin Qualifiers: [place] vs. transplanted heart: nome heart Associated angina: without angina Qualified Code(s): I25.10 - Atherosclerotic heart disease of [place] coronary artery without angina pectoris (5) COPD (chronic obstructive pulmonary disease): Assessment and plan: continue home Trelegy however, he has no active bronchospasms and therefore I have not written for any immediate acting bronchodilator. If he were to begin wheezing tonight I would suspect pulmonary edema rather than bronchospastic disease (6) GERD (gastroesophageal reflux disease): Assessment and plan: cont. protonix. His symptoms do not sound like GERD pains History of Present Illness History of Present Illness Chief Complaint: Dyspnea and left arm aching Narrative: 62-year-old male with a history of previous myocardial infarction's and for coronary stents with the last one placed about 10 years ago. Previous coronary work-up and treatment was at the [facility] in [facility]. Patient has known hypertension hyperlipidemia as well as bipolar disorder COPD and GERD. Beginning last week he noticed increasing bilateral leg edema and on Tuesday he was having severe aching in his left calf and over the weekend started having intermittent aching in his left arm like a heavy feeling in his arm that would come and go not associated with any significant chest pain but was associated with increasing exertional dyspnea and chest pressure. Said the discomfort is even woken him up at night. Work-up in the emergency department included routine labs including CBC, CMP, TSH, serial troponin I levels, proBNP as well as CTA of the chest, venous duplex scan of his legs and EKGs. CBC was unremarkable there is no leukocytosis or anemia. CMP was unremarkable with normal renal and liver function tests although random glucose was elevated at 145. TSH was normal. Serial troponin I levels were normal at less than 50x2 sets. proBNP was within normal limits at 64. EKG showed some new subtle ST-T changes in limb leads I, aVL and V5 V6 with T wave flattening compared to his previous ECG. Clinically the patient was found to be hypertensive and having evidence of congestive failure with bibasilar rales 2+ pitting edema in his legs. He was treated with 40 mg of Lasix IV push. On arrival he was not having any chest pain and did not receive any nitroglycerin. He was noted to be very hypertensive With a blood pressure 166/100 on arrival and further blood pressure readings up to 186/122. After the Lasix his blood pressures come down to 160/76. Heart rate on arrival was 59 bpm throughout the day and is climbed to the 70s and 80s. Pulse oximetry is very between 98 and 94% on room air. CTA of chest was negative for PE. he has mild cardiomegaly and bibasilar scarring but no pulmonary edema or effusion and no TAA. Venous duplex of legs was negative for DVT. Dr. Estrella, ED provider, spoke with [facility] cardiology services who agreed to accept the patient in transfer tomorrow morning for probable cardiac catheterization. They recommend he be kept n.p.o. tonight and plan for transfer tomorrow. They advised against heparinization. Patient was given aspirin and he will receive his usual home medications of metoprolol and Imdur as well as atorvastatin and Plavix. He was boarded in the emergency department pending bed availability on medical/surgical floor. Currently he is free of any chest pain or pressure and is not dyspneic at rest. Review of Systems All systems reviewed & are unremarkable except as noted in HPI and below PFSH All Active Problems (Updated 06/14/22 @ 20:19 by Sachin Logan MD) Unstable angina (Acute) CHF (congestive heart failure), NYHA class III (Acute) Tinnitus, bilateral (Acute) Medical History Abnormal brain MRI Alcohol dependence in remission Altered mental status Back pain CAD (coronary artery disease) Cellulitis of left upper extremity Chronic low back pain COPD (chronic obstructive pulmonary disease) COPD (chronic obstructive pulmonary disease) COPD exacerbation Coronary atherosclerosis of [place] coronary artery (09/25/14) COVID-19 ruled out by laboratory testing Depression DVT prophylaxis Edema of both ankles GERD (gastroesophageal reflux disease) GERD (gastroesophageal reflux disease) Gout of ankle Hearing loss History of hepatitis C HTN (hypertension) Hyperlipidemia Hypertension 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/antiplatelets (09/25/14) Low back pain Lower urinary tract symptoms Lung nodule Old myocardial infarction (09/25/14) Osteoarthritis of hips, bilateral Polysubstance abuse Prediabetes Rhabdomyolysis Right sided abdominal pain Schizoaffective disorder Schizoaffective disorder, bipolar type Seasonal allergies Sebaceous cyst Sensorineural hearing loss, bilateral Smoking Suicidal ideation Suicide attempt by hanging Thoracic back pain Surgical History Coronary angioplasty status (09/25/14) H/O heart artery stent 3 History of tonsillectomy and adenoidectomy Family History Father Stroke Mother Lung cancer Other Cancer Social History Smoking/Tobacco Use Status: Former Tobacco Use Smoking risk assessment performed?: Yes Alcohol Intake: never Drug use: Current Sobriety Substance use type: marijuana and crack/cocaine Details: marijuana - when having a hard time sleeping; once a week; Crack - binges Pets and animals: Yes (4) Pets and animals: dog(s) Do you feel safe at home: Yes Do you feel safe in your relationship?: Yes Meds Allergies and Home Medications Allergies Allergy/AdvReac Type Severity Reaction Status Date / Time No Known Allergies Allergy Unverified 06/14/22 13:19 Home Medications Medication Instructions Recorded Confirmed Type albuterol sulfate 90 mcg/actuation 2 puff inhalation PRN 11/13/13 06/14/22 History aerosol inhaler aspirin 81 mg chewable tablet 81 mg PO DAILY 09/25/14 06/14/22 History (Aspirin Low-Strength) atorvastatin 80 mg tablet (Lipitor) 80 mg PO QPM 09/25/14 06/14/22 History nitroglycerin 0.4 mg sublingual 0.4 mg sublingual Q5 MIN PRN X3 09/25/14 06/14/22 Rx tablet (Nitrostat) PRN ##100 pantoprazole 20 mg tablet,delayed 40 mg PO QPM 05/20/15 06/14/22 History release (Protonix) risperidone 2 mg tablet 3 mg PO HS 05/20/15 06/14/22 History metoprolol succinate 25 mg 50 mg PO QPM 09/15/16 06/14/22 History tablet,extended release 24 hr fluticasone fur. 100 mcg-umeclid 1 inh inhalation DAILY 02/10/21 06/14/22 History 62.5 mcg-vilant 25 mcg inhalat.powder (Trelegy Ellipta) lamotrigine 100 mg tablet 100 mg PO QPM 02/10/21 06/14/22 History Compression Stocking miscellaneous 03/20/21 03/24/21 History fluticasone fur. 100 mcg-umeclid 1 inh inhalation DAILY 06/24/21 06/14/22 History 62.5 mcg-vilant 25 mcg inhalat.powder (Trelegy Ellipta) acetaminophen 500 mg tablet 1,000 mg PO TID PRN 09/22/21 06/14/22 History carboxymethylcellulose-glycerin 1 drp ophthalmic (eye) 09/22/21 History %-0.25 % eye drops clopidogrel 75 mg tablet 1 tab PO QPM 09/22/21 06/14/22 History olanzapine 5 mg tablet 1 tab PO DAILY PRN 09/22/21 06/14/22 History isosorbide mononitrate 30 mg 30 mg PO QPM 06/14/22 06/14/22 History tablet,extended release 24 hr lithium carbonate 300 mg 1,200 mg PO QPM 06/14/22 06/14/22 History tablet,extended release Exam Narrative Exam Narrative: Obese pleasant white male who is alert and oriented person place time circumstance. He is attended to by one of his caregivers who reviewed his medications with me. Colton appears to be in no acute respiratory distress he is alert and oriented to person place time circumstance. HEENT is unremarkable Neck is supple obese soft nontender normal range of motion no JVD normal carotid pulses no bruits no thyromegaly Lungs are clear anteriorly posterior he has some fine bibasilar rales no rhonchi or wheezes Heart sounds to be regular without appreciable murmur rub or gallops. Abdomen is obese soft nontender no organomegaly no bruits no palpable masses normal bowel sounds Lower extremities with 2+ pitting edema from the upper tibia down to his ankles. Calves are soft nontender to palpation negative Homans' sign. Neuro exam grossly intact no focal motor deficits. Results Labs 06/14/22 14:00 06/14/22 14:00 Labs: Laboratory Results - last 24 hr 06/14/22 06/14/22 06/14/22 14:00 14:00 14:00 WBC 7.61 RBC 4.57 Hgb 13.7 Hct 42.2 MCV 92 MCH 30.0 MCHC 32.5 RDW 12.8 Plt Count 215 MPV 9.1 D-Dimer 721 H VBG pH VBG pCO2 VBG pO2 VBG HCO3 VBG Total CO2 VBG O2 Saturation VBG Base Excess Sodium 145 Potassium 3.9 Chloride 108 H Carbon Dioxide 31.1 Anion Gap 5.9 BUN 12 Creatinine 1.0 Est GFR (CKD-EPI 2020) 86.16 Glucose 145 H Calcium 9.4 Troponin I < 50 NT-Pro-B Natriuret Pep 64 [place] 06/14/22 06/14/22 06/14/22 14:00 14:53 15:16 WBC RBC Hgb Hct MCV MCH MCHC RDW Plt Count MPV D-Dimer VBG pH 7.35 VBG pCO2 55 H VBG pO2 34 VBG HCO3 30 H VBG Total CO2 28 VBG O2 Saturation 65 VBG Base Excess 5 H Sodium Potassium Chloride Carbon Dioxide Anion Gap BUN Creatinine Est GFR (CKD-EPI 2020) Glucose Calcium Troponin I Cancelled NT-Pro-B Natriuret Pep [place] 0.8 06/14/22 18:17 WBC RBC Hgb Hct MCV MCH MCHC RDW Plt Count MPV D-Dimer VBG pH VBG pCO2 VBG pO2 VBG HCO3 VBG Total CO2 VBG O2 Saturation VBG Base Excess Sodium Potassium Chloride Carbon Dioxide Anion Gap BUN Creatinine Est GFR (CKD-EPI 2020) Glucose Calcium Troponin I Cancelled NT-Pro-B Natriuret Pep [place] Last Vital Signs Temp 36.8 C 06/14/22 13:13 Pulse 63 06/14/22 14:31 Resp 15 06/14/22 14:31 BP 151/71 H 06/14/22 14:31 Pulse Ox 97 06/14/22 14:31 Time Spent Time spent with Patient: 55-74 minutes Time was spent: preparing to see the patient(eg.review tests), obtaining and/or reviewing separately otained hiistory, ordering medications,tests, procedures, referring, communicating with other health housekeeper child care (Dr. Estrella), indepentently interpreting results, counseling the patient and care coordination
[2022-06-14 16:18] LABS: Source Nasal/Nares
[2022-06-14 16:48] LABS: COVID-19 PCR Negative (Negative)
[2022-06-14 17:11] LABS: Troponin I < 50 ng/L (<or=60)
[2022-06-14] MEDS: Atorvastatin 40 MG TAB 80 MG PO (20:12)
[2022-06-14 20:26] LABS: Troponin I < 50 ng/L (<or=60)
[2022-06-14] MEDS: amLODIPine 5 MG TAB PO (21:17)
[2022-06-14] MEDS: Clopidogrel 75 MG TAB PO (21:18)
[2022-06-14] MEDS: risperiDONE 1 MG TAB 3 MG PO (21:18)
[2022-06-14] MEDS: lamoTRIgine 100 MG TAB PO (21:18)
[2022-06-14] MEDS: Isosorbide Mononitrate 30 MG TABCR PO (21:21)
[2022-06-14] MEDS: Metoprolol CR 50 MG TABCR PO (21:21)
[2022-06-15] VITALS (7 sets, daily range): BP systolic 111–160; BP diastolic 63–77; PULSE 54–97; RESP 18; TEMP 36.7–37.1; O2SAT 90–98
[2022-06-15 07:13] LABS: Anion Gap 5.7 mmol/L (3-11); BUN 19 mg/dL (7-18); CO2 30.3 mmol/L (21.0-32.0); CREATININE 0.9 mg/dL (0.70-1.30); Calcium 9.5 mg/dL (8.5-10.1); Chloride 107 mmol/L (98-107); Estimated GFR 97.78 (mL/min/1.73m2); Glucose 135 mg/dL (74-106); Magnesium 2.1 mg/dL (1.8-2.4); Potassium 4.1 mmol/L (3.5-5.1); Sodium 143 mmol/L (136-145)
[2022-06-15] MEDS: Tiotropium Bromide-Respimat 10 PUFF INH 2 PUFF IH (08:16)
[2022-06-15] MEDS: Budesonide/Formoterol 80/4.5 6.9 GM 60 PUFF INH IH (08:16)
[2022-06-15] MEDS: Pantoprazole 40 MG TABCR PO (09:41)
[2022-06-15] MEDS: Furosemide 40 MG/4 ML VIAL IVP ×2 (09:41→16:09)
[2022-06-15] MEDS: Normal Saline Flush 10 ML SYR IVP ×2 (09:41→16:09)
--- NOTE | 2022-06-15 10:20 | INITIAL_ITS ---
- If Service Date Differs Date of service: 06/15/22 Time of Service: 10:20 Care Management Initial Assess REASON FOR HOSPITALIZATION:: Unstable angina PAST MEDICAL HISTORY/PAST SURGICAL HISTORY:: Medical History . Abnormal brain MRI. Alcohol dependence in remission. Altered mental status. Back pain. CAD (coronary artery disease). Cellulitis of left upper extremity. Chronic low back pain. COPD (chronic obstructive pulmonary disease). COPD (chronic obstructive pulmonary disease). COPD exacerbation. Coronary atherosclerosis of [place] coronary artery (09/25/14). COVID-19 ruled out by laboratory testing. Depression. DVT prophylaxis. Edema of both ankles. GERD (gastroesophageal reflux disease). GERD (gastroesophageal reflux disease). Gout of ankle. Hearing loss. History of hepatitis C. HTN (hypertension). Hyperlipidemia. Hypertension. Leukocytosis. 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 Low back pain. Lower urinary tract symptoms. Lung nodule. Old myocardial infarction (09/25/14). Osteoarthritis of hips, bilateral. Polysubstance abuse. Prediabetes. Rhabdomyolysis. Right sided abdominal pain. Schizoaffective disorder. Schizoaffective disorder, bipolar type. Seasonal allergies. Sebaceous cyst. Sensorineural hearing loss, bilateral. Smoking. Suicidal ideation. Suicide attempt by hanging. Thoracic back pain. Surgical History . Coronary angioplasty status (09/25/14). H/O heart artery stent. 3. History of tonsillectomy and adenoidectomy
--- NOTE | 2022-06-15 15:46 | CMPROGNOTE_ITS ---
- If Service Date Differs Date of service: 06/15/22 Time of Service: 15:46 Care Management Progress Note Per Dr. Logan, Colton [place] [facility] [place] will [place] when a bed becomes available. He will transport via EMS, coordinated by nursing boat outfitting supervisor.
--- NOTE | 2022-06-15 15:46 | PDOC.CMPRO ---
- If Service Date Differs Date of service: 06/15/22 Time of Service: 15:46 Care Management Progress Note Per Dr. Logan, Colton has been accepted at [facility] and will transfer when a bed becomes available. He will transport via EMS, coordinated by nursing human resources supervisor.
--- NOTE | 2022-06-15 15:54 | PGE_ITS ---
Date of Service Date of service: 06/15/22 Time of Service: 15:54 Assessment and Plan Assessment and plan (1) Unstable angina: Status: Acute Assessment and plan: I am not entirely convinced his initial symptoms were unstable angina but he has known CAD and should either have stress MPI to rule out worsening ischemia or a cardiac cath. I would favor doing stress MPI first then if positive proceed w/ cath. However, [facility] [place] already accepted him for transfer to service of Dr. Patricia Valero. Professional time spent interviewing and examining patient, discussion of goals of care with hospital team (care management, nursing and consulting professionals) was 30 minutes. (2) HTN (hypertension): Assessment and plan: BP improved after additions of amlodipine last night. cont. his metoprolol and Imdur (3) CHF (congestive heart failure), NYHA class III: Status: Acute Assessment and plan: improved after iv lasix (4) Coronary atherosclerosis of [place] coronary artery: Assessment and plan: cont. DAPT, BB, nitrates, statin Qualifiers: [place] vs. transplanted heart: [place] heart Associated angina: without angina Qualified Code(s): I25.10 - Atherosclerotic heart disease of [place] coronary artery without angina pectoris (5) COPD (chronic obstructive pulmonary disease): Assessment and plan: continue home Trelegy however, he has no active bronchospasms and therefore I have not written for any immediate acting bronchodilator. If he were to begin wheezing tonight I would suspect pulmonary edema rather than bronchospastic disease (6) GERD (gastroesophageal reflux disease): Assessment and plan: cont. protonix. His symptoms do not sound like GERD pains Subjective Subjective Interval history since last seen: Patient denies any further arm or chest discomfort. He describes intermittent, transient and fleeting w/in seconds of visual scotomat in which he sees what appears to be a fish net like pattern in front of his eyes. No loss of visual f ields. He can not discern whether or not this is in one eye or both as he has not tried to close either eye when this happens. He says that this will occur several times per hour. This was occurring prior to admission but has become more frequent. No associated paresthesias or paraparesis. Exam Narrative Exam Narrative: Obese white male who is alert and oriented, no acute distress, pain free Lungs: clear Heart: RRR Neuro: no focal VF devicits, normal EOMI, no facial asymmetry and normal speech and normal strength and ROM Objective Last Vital Signs Temp 36.9 C 06/15/22 15:25 Pulse 97 H 06/15/22 15:25 Resp 18 06/15/22 15:25 BP 111/63 06/15/22 15:25 Pulse Ox 94 06/15/22 15:25 Laboratory Results - last 24 hr 06/14/22 06/14/22 06/14/22 16:12 16:50 19:56 Sodium Potassium Chloride Carbon Dioxide Anion Gap BUN Creatinine Est GFR (CKD-EPI 2020) Glucose Calcium Magnesium Troponin I < 50 < 50 COVID-19 Source Nasal/Nares SARS-CoV-2 (PCR) Negative 06/15/22 06:20 Sodium 143 Potassium 4.1 Chloride 107 Carbon Dioxide 30.3 Anion Gap 5.7 BUN 19 H Creatinine 0.9 Est GFR (CKD-EPI 2020) 97.78 Glucose 135 H Calcium 9.5 Magnesium 2.1 Troponin I COVID-19 Source SARS-CoV-2 (PCR) Time Spent with Patient Time Spent with Patient: 25-34 minutes Time was spent: preparing to see the patient(eg.review tests), ordering medications,tests, procedures, indepentently interpreting results, counseling the patient and care coordination
--- NOTE | 2022-06-15 16:36 | NUR.NOTE ---
Nursing Note: Nurse to nurse report;LARRY Acevedo RN ([phone]. Transfer via ambulance to [address] Pt stable, alert and oriented x3, no chest pain no SOB. IV hep lock to Left AC flush and patent. Reported: pt hx and last vital sign,and medication given.
--- NOTE | 2022-06-15 16:48 | DSE_ITS ---
Date of service: 06/15/22 Time of Service: 16:48 DS: Diagnosis Discharge Diagnosis (1) Unstable angina: Status: Acute Asessment and Plan: Patient presented with accelerating symptoms of left arm pressure and pain and left-sided chest pressure worse with exertion now occurring at rest. Patient had some nonspecific lateral ST-T wave abnormalities in limb leads I and aVL and V6. Discomfort had been relieved by nitroglycerin prior to arriving to emergency department. On arrival to the ED he was found to be in mild CHF. Admission labs include serial troponins that came back negative. proBNP was within normal limits at 64 but jpakf-of-mare ultrasound of his lungs showed bilateral B-lines and the patient had bibasilar rales along with 2+ peripheral edema of his legs and feet. Patient was noted to be very hypertensive on arrival to the emergency department with blood pressure 166/100 and further blood pressure readings in the 170s to 180s over diastolic readings in the 110s to 120. Patient was treated with IV Lasix 40 mg and diuresed quite well. Norvasc 5 mg was added to his regimen and overnight his blood pressures markedly improved at the time of discharge blood pressures down to 111/63. He had no further symptoms of chest or arm discomfort. He diuresed nearly 3 L of fluid overnight. He was maintained on dual antiplatelet therapy with Plavix and aspirin and kept on his metoprolol XL along with his Imdur. Patient was excepted in transfer to [facility] service to the cardiology service of Dr.Danette Valero. He was transferred in stable condition via ambul ance. Note patient was not heparinized per the recommendation of cardiology services at [facility]. (2) HTN (hypertension): Asessment and Plan: See above (3) CHF (congestive heart failure), NYHA class III: Status: Acute Asessment and Plan: As above (4) Coronary atherosclerosis of [place] coronary artery: Asessment and Plan: Patient was kept on Imdur, Toprol-XL, aspirin, Plavix, atorvastatin. Patient be transferred to [facility] for further cardiac work-up which may include but not limited to stress MPI and/or cardiac catheterization. 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 (5) COPD (chronic obstructive pulmonary disease): Asessment and Plan: Patient had no symptoms of exacerbation of his ED he was kept on his usual bronchodilators. As we did not have Trelegy was substituted Symbicort and put him on Spiriva. (6) GERD (gastroesophageal reflux disease): Asessment and Plan: Was not taking a PPI on admission the 4 we added Protonix to his regimen. (7) Visual field scotoma: Status: Acute Asessment and Plan: Patient complained of intermittent transient fleeting visual scotomata in which she described what look like a fish net without loss of visual acuity and no other associated focal neurologic deficits. Patient was transferred before we had a chance to do further neurologic work-up. Recommend he have an MRI and MRA of the brain given his previous history of TIAs. Discharge Plan Disposition Patient Disposition: Transfer-Acute Inpatient Care Specific Acute Inpt Facility: [facility] Condition: Good Discharge Details Reason For Visit: Unstable Angina Admit Date/Time: 06/14/22 15:57 Admit Provider: Sachin Logan Attending Provider: Sachin Logan [facility]: 62-year-old male with history of coronary artery disease and coronary stents last one placed by 10 years ago after myocardial infarction. Who has history of hypertension hyperlipidemia as well as bipolar disorder and COPD and GERD. Patient presented with increasing bilateral leg edema along with new onset intermittent left arm aching and heaviness along with chest discomfort. Patient ruled out for acute myocardial infarction was found to be in acute congestive heart failure received IV Lasix which improved his dyspnea. Patient also noted intermittent visual scotomata without focal neurologic deficits. Our emergency department provider had contacted [facility] cardiology at the time of the patient's presentation emergency department and he was ac cepted for transfer to [facility] to the service of Dr. Patricia Valero. Patient never had any further chest pain/pressure and no arm discomfort. EKG on admisson did show non-specific ST-T changes in I, avL and V6 which were not seen on prior ECG from 02/10/21. Serial troponin I were normal. CT chest did not show any PE but demonstrated bibasilar scarring. Venous duplex of his legs was negative for DVT. Patient was given lasix 40 mg IVP in the ED and begun on lasix 40 mg IV q12h. He diuresed over 3 liters. His BP which was rather hypertensive on admission w/ BP of 166/100 to 186/120 came down after addition of norvasc and lasix and his usual meds. BP at ct was 111/63. Patient was transferred before further workup could be performed regarding his visual scotomata. It is recommended that he have an MRI and MRA brain given his prior hx of CVA/TIA. Home Meds and New Rx's Prescriptions: No Action olanzapine 5 mg tablet 1 tab PO DAILY PRN Patient Comments: TAKE 1 TABLET BY MOUTH DIRECTED TAKE ONLY IF NEEDED FOR MODD SWINGS clopidogrel 75 mg tablet 1 tab PO QPM Clear Eyes For Dry Eyes 1-0.25 % Drops OPHTHALMIC (EYE) acetaminophen 500 mg Tablet 1,000 mg PO TID PRN Compression Stocking miscellaneous Trelegy Ellipta 100-62.5-25 mcg blister with device 1 inh inhalation DAILY albuterol sulfate 8.5 GM HFA aerosol inhaler 2 puff Inhalation PRN aspirin [Aspirin Low-Strength] 81 MG tablet,chewable 81 mg PO DAILY atorvastatin [Lipitor] 80 MG tablet 80 mg PO QPM nitroglycerin [Nitrostat] 0.4 MG tablet, sublingual 0.4 mg Sublingual Q5 MIN PRN X3 PRNQty: 100 0RF pantoprazole [Protonix] 20 MG tablet,delayed release (DR/EC) 40 mg PO QPM risperidone 2 MG tablet 3 mg PO HS metoprolol succinate 25 MG tablet extended release 24 hr 50 mg PO QPM lithium carbonate 300 mg tablet extended release 1,200 mg PO QPM Patient Comments: Take 4 tablet by mouth every evening isosorbide mononitrate 30 mg tablet extended release 24 hr 30 mg PO QPM Patient Comments: Take 1 tablet by mouth once a day for chest pain lamotrigine 100 mg tablet 100 mg PO QPM Patient Comments: TAKE 1 TABLET BY MOUTH EVERY DAY Trelegy Ellipta 100-62.5-25 mcg blister with device 1 inh inhalation DAILY Discharge Instructions Instructions: Angina, Heart Failure (DC), Chest Pain (DC), Bradycardia (DC) Stand Alone Forms: Nursing Discharge Form Referrals: Tawanda Dooley [Primary Care Provider] - (Follow up per Discharge from [facility] ) Activity:: Activity as Tolerated Equipment/Supplies:: No Equipment Needed Diet:: Low Sodium Discharge Orders Discharge Orders: Discharge Order (Routine); Ordered 03/07/23 Ordered By: Sachin Logan DS: Summary Time Spent with Patient providing and/or coordinating discharge services: Less than 30 minutes Specific discharge activities: Interview/exam of patient; review of discharge instructions, completion of prescriptions/discharge instructions; discussion w/ nursing and CM; documentation of hospital visit Status at Discharge Functional status at discharge: independent ambulation Overall status at discharge: patient is progressing back to baseline Mental Status: mental status grossly normal Speech and Movement: speech and movement normal Mood: congruent mood Affect: normal affect Exam Narrative Exam Narrative: Obese white male who is alert and oriented, no acute distress, pain free Lungs: clear Heart: RRR Neuro: no focal VF devicits, normal EOMI, no facial asymmetry and normal speech and normal strength and ROM Psych Mental Status: mental status grossly normal Speech and Movement: speech and movement normal Mood: congruent mood Affect: normal affect DS: Data Vitals/I&O Vitals and I&O: Vital Signs Temperature 36.9 C 06/15/22 15:25 Temperature Source Tympanic 06/15/22 15:25 Pulse 97 H 06/15/22 15:25 Pulse Rhythm Regular 06/15/22 15:44 Pulse 72 06/14/22 18:20 Respiratory Rate 18 06/15/22 15:25 Respiratory Effort Normal, Non-Labored 06/15/22 15:44 Respiratory Depth Normal 06/15/22 15:44 Respiratory Pattern Normal 06/15/22 15:44 Blood Pressure 111/63 06/15/22 15:25 Blood Pressure Mean 108 06/14/22 18:16 Blood Pressure Position Sitting 06/14/22 13:13 Pulse Oximetry 94 06/15/22 15:25 Oxygen Delivery Method Room Air 06/15/22 15:25 Oxygen Flow Rate 0 06/15/22 15:25 Pain Level 0 06/15/22 07:16 Intake & Output 06/14/22 06/15/22 06/15/22 23:59 11:59 23:59 Intake Total 104 / 104 30 / 30 Output Total 800 / 800 1850 / 2550 700 / 2550 Balance -696 / -696 -1820 / -2520 -700 / -2520 Weight 121.88 kg Intake: IV 104 / 104 Oral 30 / 30 Output: Urine 800 / 800 1850 / 2550 700 / 2550 Other: Urine Color Yellow Pale Straw Yellow Urine Appearance Clear Clear Clear Urine Odor None Voiding Methods Urinal Urinal Urinal Data Completed and Pending Labs on day of discharge: Labs from last 24 hours 06/15/22 06/14/22 06/14/22 06:20 19:56 16:50 Sodium 143 Potassium 4.1 Chloride 107 Carbon Dioxide 30.3 Anion Gap 5.7 BUN 19 H Creatinine 0.9 Est GFR (CKD-EPI 2020) 97.78 Glucose 135 H Calcium 9.5 Magnesium 2.1 Troponin I < 50 < 50 SARS-CoV-2 (PCR) 06/14/22 16:12 Sodium Potassium Chloride Carbon Dioxide Anion Gap BUN Creatinine Est GFR (CKD-EPI 2020) Glucose Calcium Magnesium Troponin I SARS-CoV-2 (PCR) Negative PFSH All Active Problems (Updated 06/15/22 @ 16:49 by Sachin Logan MD) Visual field scotoma (Acute) Unstable angina (Acute) CHF (congestive heart failure), NYHA class III (Acute) Tinnitus, bilateral (Acute) Medical History Abnormal brain MRI Alcohol dependence in remission Altered mental status Back pain CAD (coronary artery disease) Cellulitis of left upper extremity Chronic low back pain COPD (chronic obstructive pulmonary disease) COPD (chronic obstructive pulmonary disease) COPD exacerbation Coronary atherosclerosis of [place] coronary artery (09/25/14) COVID-19 ruled out by laboratory testing Depression DVT prophylaxis Edema of both ankles GERD (gastroesophageal reflux disease) GERD (gastroesophageal reflux disease) Gout of ankle Hearing loss History of hepatitis C HTN (hypertension) Hyperlipidemia Hypertension 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 (09/25/14) Low back pain Lower urinary tract symptoms Lung nodule Old myocardial infarction (09/25/14) Osteoarthritis of hips, bilateral Polysubstance abuse Prediabetes Rhabdomyolysis Right sided abdominal pain Schizoaffective disorder Schizoaffective disorder, bipolar type Seasonal allergies Sebaceous cyst Sensorineural hearing loss, bilateral Smoking Suicidal ideation Suicide attempt by hanging Thoracic back pain Surgical History Coronary angioplasty status (09/25/14) H/O heart artery stent 3 History of tonsillectomy and adenoidectomy Family History Father Stroke Mother Lung cancer Other Cancer Social History Smoking/Tobacco Use Status: Former Tobacco Use Smoking risk assessment performed?: Yes Alcohol Intake: never Drug use: Current Sobriety Substance use type: marijuana and crack/cocaine Details: marijuana - when having a hard time sleeping; once a week; Crack - binges Pets and animals: Yes (4) Pets and animals: dog(s) Do you feel safe at home: Yes Do you feel safe in your relationship?: Yes Time Spent with Patient Time Spent with Patient: <45 minutes Time was spent: care coordination
== END 2022-06-15 17:33 | disposition short-term general hospital (02) | DRG 302 ==
LOC: ER 13:51 → MS 18:34
PROVIDERS: Admitting Provider Internal Medicine; Emergency Provider Emergency Medicine; PCP Family Medicine; Visit Provider Internal Medicine
DX: I25.110 Atherosclerotic heart disease of native coronary artery with unstable angina pectoris (principal); I50.33 Acute on chronic diastolic (congestive) heart failure; I50.30 Unspecified diastolic (congestive) heart failure; I11.0 Hypertensive heart disease with heart failure; K21.9 Gastro-esophageal reflux disease without esophagitis; J44.9 Chronic obstructive pulmonary disease, unspecified; I25.2 Old myocardial infarction; Z95.5 Presence of coronary angioplasty implant and graft; E78.5 Hyperlipidemia, unspecified; F31.9 Bipolar disorder, unspecified; F10.21 Alcohol dependence, in remission; M54.9 Dorsalgia, unspecified; Z79.02 Long term (current) use of antithrombotics/antiplatelets; M54.50 Low back pain, unspecified; G89.29 Other chronic pain; M10.9 Gout, unspecified; Z86.19 Personal history of other infectious and parasitic diseases; F25.1 Schizoaffective disorder, depressive type; F14.90 Cocaine use, unspecified, uncomplicated; F12.90 Cannabis use, unspecified, uncomplicated; Z87.891 Personal history of nicotine dependence; H53.453 Other localized visual field defect, bilateral; Z86.73 Personal history of transient ischemic attack (TIA), and cerebral infarction without residual deficits
CPT/HCPCS: 36415; 71275; 80048; 82805; 85027; 87635; 93005; 93308; 94640; 80178; 83735; 83880; 84484; 85379; 93010; 93971; 94664; 99223; 99238; J1940; J3490

== ENCOUNTER 2022-07-02 20:44 | Emergency (ER) | payer MEDICARE, SELFPAY ==
[2022-07-02] VITALS (75 sets, daily range): BP systolic 114–163; BP diastolic 48–88; PULSE 61–80; RESP 12–22; TEMP 36.5; O2SAT 94–100
--- NOTE | 2022-07-02 20:45 | RT.EKG_ITS ---
APPROVED REPORT Exam: Resting ECG Reason for Exam: Arm numbness Patient Location: E HR:71 bpm ECG Measurements Heart Rate 71 AXIS ND 192 P 72 QRSd 105 QRS 41 QT 453 T -2 QTc 492 Conclusion Sinus rhythm...normal P axis, V-rate 60- 99 Ventricular premature complex...V complex w/ short R-R interval Aberrant conduction of SV complex(es)...aberrant shape, ND 80-220 Borderline repol abnormality, diffuse leads...ST dep, T flat/neg, ant/lat/inf Normal sinus rhythm at a rate of 71 with normal axis. Interventricular conduction delay. ST segment depressions V3 through V6. New T wave inversion in lead III and aVF. Compared to prior ST segment depressions are new and inferior T wave inversions are new. QTc is also now prolonged.
--- NOTE | 2022-07-02 20:48 | ED.GENADUL_ITS ---
Discharge Plan Discharge Details Chief Complaint: Chest Pain Primary Care Provider: Tawanda Dooley ED Provider: Tawanda Estrella Home Meds and New Rx's Prescriptions: No Action olanzapine 5 mg tablet 1 tab PO DAILY PRN Patient Comments: TAKE 1 TABLET BY MOUTH DIRECTED TAKE ONLY IF NEEDED FOR MODD SWINGS clopidogrel 75 mg tablet 1 tab PO QAM Clear Eyes For Dry Eyes 1-0.25 % Drops OPHTHALMIC (EYE) acetaminophen 500 mg Tablet 1,000 mg PO TID PRN Compression Stocking miscellaneous Trelegy Ellipta 100-62.5-25 mcg blister with device 1 inh inhalation DAILY albuterol sulfate 8.5 GM HFA aerosol inhaler 2 puff Inhalation PRN aspirin [Aspirin Low-Strength] 81 MG tablet,chewable 81 mg PO DAILY atorvastatin [Lipitor] 80 MG tablet 80 mg PO QPM nitroglycerin [Nitrostat] 0.4 MG tablet, sublingual 0.4 mg Sublingual Q5 MIN PRN X3 PRNQty: 100 0RF pantoprazole [Protonix] 20 MG tablet,delayed release (DR/EC) 40 mg PO QPM risperidone 2 MG tablet 2 mg PO HS lithium carbonate 300 mg tablet extended release 1,200 mg PO QPM Patient Comments: Take 4 tablet by mouth every evening isosorbide mononitrate 30 mg tablet extended release 24 hr 30 mg PO QAM Patient Comments: Take 1 tablet by mouth once a day for chest pain furosemide 40 mg tablet 40 mg PO DAILY Patient Comments: Take 1 tablet by mouth once a day carvedilol 6.25 mg tablet 6.25 mg PO BID Patient Comments: Take 1 tablet by mouth twice a day thiamine HCl (vitamin B1) 100 mg tablet 100 mg PO DAILY Patient Comments: Take 1 tablet by mouth once a day levetiracetam 750 mg tablet 750 mg PO BID Patient Comments: Take 1 tablet by mouth twice a day lamotrigine 100 mg tablet 100 mg PO QPM Patient Comments: TAKE 1 TABLET BY MOUTH EVERY DAY Trelegy Ellipta 100-62.5-25 mcg blister with device 1 inh inhalation DAILY Medical Decision Making In this 62-year-old male with a history of hypertension hyperlipidemia GERD, COPD, bipolar disorder and coronary artery disease status post PCI to the RCA in 2014, tobacco use, and cocaine use with left arm left arm numbness and more pronounced ST segment depressions on ECG will obtain 2 sets of troponins given my concern for ACS. Patient does not appear markedly overloaded though he did recently recently receive diuresis as an inpatient in the setting of acute on chronic CHF. His recent reassuring nuclear pharmacological stress test was reassuring without evidence of ischemia or scar. He does not appear to be in acute CHF so we will defer diuresis at this point time. I considered CVA however the patient is neurologically intact moving his extremity well with no dysarthria. Given his sharp transient chest pain and lack of hypotension I am not concerned for aortic dissection. He does feel short of breath which could be secondary to his underlying COPD however based on his age will obtain a D-dimer to assess for any pulmonary embolism. We will repeat ECG along with troponin. Patient will require signout to the oncoming overnight provider. 10:24 PM Patient had felt short of breath and requested oxygen. His nurse placed oxygen prongs on his nose I asked her not to turn on the oxygen as the patient was not hypoxic. When I reassessed him he felt markedly improved with the nasal prongs in place breathing room air. I advised him that he was not on any supplemental oxygen. He felt that the psychological benefits of the nasal cannula was helping him. His arm numbness had resolved. I advised him that if his repeat troponin was negative and his repeat ECG showed no worsening ST segment depressions or any acute injury pattern that he would be appropriate for discharge with outpatient PMD follow-up. We will sign patient out to the [facility] overnight provider Dr. Espinoza. Based on the years criteria I would tolerate a D-dimer less than or equal to 1000 nanograms per milliliter. 11:25 PM D-dimer negative based on years criteria. Patient signed out to Dr. Espinoza. Chronic conditions affecting the care of the patient: Obesity MANSOOR hypertension h yperlipidemia coronary artery disease History obtained from an outside historian: N/A External record review: [facility] [place] Diagnostic interpretations performed by me: [Per my independent interpretation chest x-ray shows:] No acute cardiopulmonary process [Per my independent interpretation EKG shows:] Normal sinus rhythm at a rate of 71 with normal axis. Interventricular conduction delay. ST segment depressions V3 through V6. New T wave inversion in lead III and aVF. Compared to prior ST segment depressions are new and inferior T wave inversions are new. QTc is also now prolonged. Medications: Aspirin Social determinants of health affecting disposition: N/A Management discussed with: Dr. Espinoza Treatment/interventions considered: Tertiary care transfer but deferred given initial negative troponin. Response to therapies provided: Improved with rest in the ED HPI General Date/Time Provider Initiated Documentation: 07/02/22 20:48 . HPI Narrative: This is a 62-year-old male with a history of hypertension hyperlipidemia GERD, COPD, bipolar disorder and coronary artery disease status post PCI to the RCA in 2014, tobacco use, and cocaine use now in the emergency department in the setting of chest pain. Patient was diuresed as an inpatient in the setting of acute on chronic CHF. He was transferred to [facility] [place] earlier this month and he had a nuclear pharmacological stress test without evidence of ischemia or scar. Today he reports that at approximately 4 PM after waking up at 3 PM he noticed left arm numbness. This was associated with a sharp, several second episode of left-sided chest pain. He did not feel that his chest pain was severe enough to take nitroglycerin. He reports also that he has had some shortness of breath with exertion. He continues to smoke tobacco. He denies any recent cocaine use. He denies any focal weakness. Related Data Home Medications Medication Instructions Recorded Confirmed albuterol sulfate 90 mcg/actuation 2 puff inhalation PRN 11/13/13 07/02/22 aerosol inhaler aspirin 81 mg chewable tablet 81 mg PO DAILY 09/25/14 07/02/22 (Aspirin Low-Strength) atorvastatin 80 mg tablet (Lipitor) 80 mg PO QPM 09/25/14 07/02/22 nitroglycerin 0.4 mg sublingual 0.4 mg sublingual Q5 MIN PRN X3 09/25/14 07/02/22 tablet (Nitrostat) PRN ##100 pantoprazole 20 mg tablet,delayed 40 mg PO QPM 05/20/15 07/02/22 release (Protonix) risperidone 2 mg tablet 2 mg PO HS 05/20/15 07/02/22 fluticasone fur. 100 mcg-umeclid 1 inh inhalation DAILY 02/10/21 07/02/22 62.5 mcg-vilant 25 mcg inhalat.powder (Trelegy Ellipta) lamotrigine 100 mg tablet 100 mg PO QPM 02/10/21 07/02/22 Compression Stocking miscellaneous 03/20/21 03/24/21 fluticasone fur. 100 mcg-umeclid 1 inh inhalation DAILY 06/24/21 07/02/22 62.5 mcg-vilant 25 mcg inhalat.powder (Trelegy Ellipta) acetaminophen 500 mg tablet 1,000 mg PO TID PRN 09/22/21 07/02/22 carboxymethylcellulose-glycerin 1 drp ophthalmic (eye) 09/22/21 %-0.25 % eye drops clopidogrel 75 mg tablet 1 tab PO QAM 09/22/21 07/02/22 olanzapine 5 mg tablet 1 tab PO DAILY PRN 09/22/21 07/02/22 isosorbide mononitrate 30 mg 30 mg PO QAM 06/14/22 07/02/22 tablet,extended release 24 hr lithium carbonate 300 mg 1,200 mg PO QPM 06/14/22 07/02/22 tablet,extended release carvedilol 6.25 mg tablet 6.25 mg PO BID 07/02/22 07/02/22 furosemide 40 mg tablet 40 mg PO DAILY 07/02/22 07/02/22 levetiracetam 750 mg tablet 750 mg PO BID 07/02/22 07/02/22 thiamine HCl (vitamin B1) 100 mg 100 mg PO DAILY 07/02/22 07/02/22 tablet Previous Rx's Medication Instructions Recorded nitroglycerin 0.4 mg sublingual 0.4 mg sublingual Q5 MIN PRN X3 09/25/14 tablet (Nitrostat) PRN ##100 Allergies Allergy/AdvReac Type Severity Reaction Status Date / Time No Known Allergies Allergy Unverified 07/02/22 20:59 General ZEINAB: 2 PFSH All Active Problems (Updated 06/15/22 @ 16:49 by Sachin Logan MD) Visual field scotoma (Acute) Unstable angina (Acute) CHF (congestive heart failure), NYHA class III (Acute) Tinnitus, bilateral (Acute) Medical History Abnormal brain MRI Alcohol dependence in remission Altered mental status Back pain CAD (coronary artery disease) Cellulitis of left upper extremity Chronic low back pain COPD (chronic obstructive pulmonary disease) COPD (chronic obstructive pulmonary disease) COPD exacerbation Coronary atherosclerosis of [place] coronary artery (09/25/14) COVID-19 ruled out by laboratory testing Depression DVT prophylaxis Edema of both ankles GERD (gastroesophageal reflux disease) GERD (gastroesophageal reflux disease) Gout of ankle Hearing loss History of hepatitis C HTN (hypertension) Hyperlipidemia Hypertension 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 (09/25/14) Low back pain Lower urinary tract symptoms Lung nodule Old myocardial infarction (09/25/14) Osteoarthritis of hips, bilateral Polysubstance abuse Prediabetes Rhabdomyolysis Right sided abdominal pain Schizoaffective disorder Schizoaffective disorder, bipolar type Seasonal allergies Sebaceous cyst Sensorineural hearing loss, bilateral Smoking Suicidal ideation Suicide attempt by hanging Thoracic back pain Surgical History Coronary angioplasty status (09/25/14) H/O heart artery stent 3 History of tonsillectomy and adenoidectomy Family History Father Stroke Mother Lung cancer Other Cancer Social History Smoking/Tobacco Use Status: Former Tobacco Use Smoking risk assessment performed?: Yes Alcohol Intake: never Drug use: Current Sobriety Substance use type: marijuana and crack/cocaine Details: marijuana - when having a hard time sleeping; once a week; Crack - binges Pets and animals: Yes (4) Pets and animals: dog(s) Do you feel safe at home: Yes Do you feel safe in your relationship?: Yes Exam Narrative Exam Narrative: General: Well-appearing in no acute distress speaking in complete sentences. Head: Normocephalic, atraumatic Ear, nose, mouth, throat: Grossly normal inspection. Normal voice, handling secretions normally. Neck: Trachea midline. Cardiovascular: Well-perfused distal extremities. Regular rate and rhythm. No murmurs. Respiratory: Nonlabored respiration. Clear lungs bilaterally. Gastrointestinal: Nondistended abdomen. Musculoskeletal: No significant lower extremity pitting edema. Moving all 4 extremities spontaneously. Left arm warm well perfused. 2+ left radial pulse. Sensation and motor function intact in the left hand across the radial, median, and ulnar nerve distributions. Skin: Normal for age and race, grossly normal temperature and turgor. No acute rash. Neurologic: Alert and appropriate, no apparent acute deficits. Psychiatric: Mood and manner are appropriate. Grooming and personal hygiene are appropriate.
--- NOTE | 2022-07-02 21:00 | DI.RAD_ITS ---
Exam(s) XR PORTABLE CHEST AP EXAM: XR PORTABLE CHEST AP CLINICAL HISTORY: Left arm numbness TECHNIQUE: 2D digital imaging was performed. COMPARISON: CR XR CHEST 2V PA LATERAL from 02/10/2021 CR XR LUMBAR SPINE COMPLETE from 09/14/2021 FINDINGS: Leads overlie the chest. The exam is mildly limited by under penetration at the lung bases. LUNGS: Mild basilar scarring. No infiltrates visible. No pleural abnormality seen. HEART: Normal size. AORTA: Normal diameter. BONES: Degenerative changes noted in the thoracic spine. Soft tissues: Unremarkable. IMPRESSION: No acute findings. DATA REPOSITORY: RADIATION DOSE DELIVERED:
[2022-07-02] MEDS: Aspirin 81 MG CHEW 243 MG CH (21:13)
[2022-07-02 21:42] LABS: ALT 35 U/L (16-63); AST 28 U/L (15-37); Albumin 3.7 g/dL (3.4-5.0); Alkaline Phosphatase 137 U/L (46-116); BUN 15 mg/dL (7-18); Bilirubin, Total 0.5 mg/dL (0.2-1.0); Chloride 105 mmol/L (98-107); Estimated GFR 86.16 (mL/min/1.73m2); Glucose 173 mg/dL (74-106); Magnesium 2.1 mg/dL (1.8-2.4); NT-proBNP 34 pg/mL (<300); Potassium 3.6 mmol/L (3.5-5.1); Sodium 142 mmol/L (136-145); Total Protein 7.4 g/dL (6.4-8.2); Troponin I < 50 ng/L (<or=60)
[2022-07-02 21:50] LABS: HCT 36.5 % (40.0-50.0); HGB 12.3 g/dL (13.5-17.5); MCH 30.1 pg (27.0-33.0); MCHC 33.7 % (32.0-36.0); MCV 90 fL (80-95); MPV 8.9 fL (8.0-11.0); Platelet Count 207 10^3/uL (130-400); RBC 4.08 10^6/uL (4.36-5.78); RDW 12.7 % (11.8-14.1); RDW-SD 41.6 fL
--- NOTE | 2022-07-02 22:25 | DI.VRAD_ITS ---
PROCEDURE INFORMATION: Exam: XR Chest Exam date and time: 07/02/2022 9:18 PM Age: 62 years old Clinical indication: Other: Left arm numbnes TECHNIQUE: Imaging protocol: Radiologic exam of the chest. Views: 1 view. COMPARISON: CT CHEST PE CTA 06/14/2022 3:09 PM FINDINGS: Lungs: Pulmonary vasculature grossly normal. No gross pulmonary infiltrates or edema pattern. Question mild peribronchial thickening and perihilar streaking, possibly changes of bronchitis versus chronic scarring and subsegmental atelectasis. 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 Pleural spaces: No pleural effusion. No pneumothorax. Heart/Mediastinum: Mild cardiomegaly. No tracheal/mediastinal shift. Vasculature: Mild aortic ectasia/tortuosity. Bones/joints: No acute osseous abnormalities are identified. Chronic healed bilateral rib fractures again noted. Mild thoracic spondylosis. IMPRESSION: 1. No definite acute process. 2. Chronic rib fractures and mild chronic fibrosis or atelectasis in the peripheral right base. 3. Question slight peribronchial thickening and perihilar stranding bilaterally, possibly changes of bronchitis versus mild interstitial scarring and subsegmental atelectasis. Dictated and Authenticated by: Tawanda Corrales MD. Ordering:ORA Neff MD
[2022-07-02 22:40] LABS: D-Dimer 918 ng/mlFEU (<500)
[2022-07-03] VITALS (9 sets, daily range): BP systolic 128–160; BP diastolic 72–82; PULSE 62–72; RESP 17–21; TEMP 36.5; O2SAT 94–96
--- NOTE | 2022-07-03 | RT.EKG_ITS ---
APPROVED REPORT Exam: Resting ECG Reason for Exam: Chest pain Patient Location: E HR:62 bpm ECG Measurements Heart Rate 62 AXIS NH 220 P 54 QRSd 111 QRS 20 QT 414 T [id number] QTc 421 Conclusion Sinus rhythm...normal P axis, V-rate 60- 99 Ventricular premature complex...V complex w/ short R-R interval Prolonged NH interval...NH >210, V-rate 50- 90 motion artifact v6 no stemi
[2022-07-03 00:35] LABS: Troponin I < 50 ng/L (<or=60)
--- NOTE | 2022-07-03 00:52 | ED.PROG_ITS ---
Date of service: 07/03/22 Time of Service: 00:53 Medical Decision Making pt stable, in no distress and no complaints now. His second ekg continued mild lateral depressions but no active chest pain and staes his biggest complaint was left arm numbness that has resolved. Discussed results with him, including nega tive troponins. Offered observation admission but given recent [place] [facility] and reassuring workup he declines, which I feel is reasonable. He is stable for d/c, he will f/u with pcp and return precautions given Lab Data Lab results reviewed: Yes I reviewed the patient's lab results. ECG Data Attestation: I personally reviewed and interpreted this ECG (s) as follows: Prior ECG tracings: available for review Interpretation: sinus rhythm, pvcs, rate of 65, no stemi, mild lateral depressions, v6 motion artifact Sign Out Sign Out Data: Sign Out Comment: Follow-up repeat troponin and ECG at midnight in this patient's with known coronary artery disease had left arm numbness with ST depressions on initial ECG. Last updated by Tawanda Estrella MD at 07/02/22 23:28 Discharge Plan Disposition Patient Disposition: Home Condition: Stable Discharge Details Clinical Impression: Left arm numbness Primary Care Provider: Tawanda Dooley ED Provider: Harvey Espinoza Home Meds and New Rx's Prescriptions: Continued olanzapine 5 mg tablet 1 tab PO DAILY PRN Patient Comments: TAKE 1 TABLET BY MOUTH DIRECTED TAKE ONLY IF NEEDED FOR MODD SWINGS clopidogrel 75 mg tablet 1 tab PO QAM carboxymethylcellulose-glycern 1-0.25 % Drops OPHTHALMIC (EYE) acetaminophen 500 mg Tablet 1,000 mg PO TID PRN Compression Stocking miscellaneous Trelegy Ellipta 100-62.5-25 mcg blister with device 1 inh inhalation DAILY albuterol sulfate 8.5 GM HFA aerosol inhaler 2 puff Inhalation PRN aspirin [Aspirin Low-Strength] 81 MG tablet,chewable 81 mg PO DAILY atorvastatin [Lipitor] 80 MG tablet 80 mg PO QPM nitroglycerin [Nitrostat] 0.4 MG tablet, sublingual 0.4 mg Sublingual Q5 MIN PRN X3 PRNQty: 100 0RF pantoprazole [Protonix] 20 MG tablet,delayed release (DR/EC) 40 mg PO QPM risperidone 2 MG tablet 2 mg PO HS lithium carbonate 300 mg tablet extended release 1,200 mg PO QPM Patient Comments: Take 4 tablet by mouth every evening isosorbide mononitrate 30 mg tablet extended release 24 hr 30 mg PO QAM Patient Comments: Take 1 tablet by mouth once a day for chest pain furosemide 40 mg tablet 40 mg PO DAILY Patient Comments: Take 1 tablet by mouth once a day carvedilol 6.25 mg tablet 6.25 mg PO BID Patient Comments: Take 1 tablet by mouth twice a day thiamine HCl (vitamin B1) 100 mg tablet 100 mg PO DAILY Patient Comments: Take 1 tablet by mouth once a day levetiracetam 750 mg tablet 750 mg PO BID Patient Comments: Take 1 tablet by mouth twice a day lamotrigine 100 mg tablet 100 mg PO QPM Patient Comments: TAKE 1 TABLET BY MOUTH EVERY DAY Trelegy Ellipta 100-62.5-25 mcg blister with device 1 inh inhalation DAILY Discharge Instructions Additional Instructions: Your workup today was reassuring against this being related to your heart follow up with your primary care provider within 1 week if you feel more ill, have severe worsening pain or difficulty breathing return to the emergency department
== END 2022-07-03 01:01 | disposition home or self-care (01) ==
PROVIDERS: Emergency Medicine; Emergency Provider Emergency Medicine; PCP Family Medicine
DX: R20.0 Anesthesia of skin (principal); F32.A Depression, unspecified; I11.0 Hypertensive heart disease with heart failure; I50.9 Heart failure, unspecified; J44.9 Chronic obstructive pulmonary disease, unspecified; I25.10 Atherosclerotic heart disease of native coronary artery without angina pectoris; Z79.51 Long term (current) use of inhaled steroids; Z79.82 Long term (current) use of aspirin; Z86.718 Personal history of other venous thrombosis and embolism; Z79.01 Long term (current) use of anticoagulants; Z95.5 Presence of coronary angioplasty implant and graft
CPT/HCPCS: 36415; 80053; 85027; 93005; 99284; 71045; 83735; 83880; 84484; 85025; 85379; 93010

== ENCOUNTER 2022-08-27 17:58 | Emergency (ER) | payer MEDICARE, SELFPAY ==
[2022-08-27] VITALS (37 sets, daily range): BP systolic 121–142; BP diastolic 65–93; PULSE 90–102; RESP 11–24; TEMP 36.9; O2SAT 94–97
--- NOTE | 2022-08-27 18:00 | RT.EKG_ITS ---
APPROVED REPORT Exam: Resting ECG Reason for Exam: CHF Patient Location: E HR:100 bpm ECG Measurements Heart Rate 100 AXIS PA 172 P 21 QRSd 109 QRS 23 QT 437 T -85 QTc 564 Conclusion Sinus tachycardia...rate> 99 Borderline repol abnormality, diffuse leads...ST dep, T flat/neg, ant/lat/inf Prolonged QT interval...QTc >500mS
--- OUTSIDE RECORDS SUMMARY | 2022-08-27 18:03 | XMS_ITS | CCD ---
Author Name Unknown Address [address] [place] [address] [phone] Organization Unknown Address [address] [place] [address] [phone] Care Team Providers Care Furnace Attendant Name Role Phone ROSANNA GAMBOA Attending Physician [phone] Vital Signs Unknown or Not Available. Allergies Unknown or Not Available. Procedures Unknown or Not Available. History of Immunizations Unknown or Not Available. Problems Unknown or Not Available. Results Unknown or Not Available. Active Medications Unknown or Not Available. Medications Administered During Visit Unknown or Not Available. Encounters Encounter Diagnosis Diagnosis Code Start Date Chronic obstructive pulmonary disease, unspecifi ed J449 12/18/2021 Social History Unknown or Not Available. Patient Decision Aids Unknown or Not Available. Discharge Instructions You were admitted to [facility] on 12/18/2021 11:13 with a principal diagnosis of Chronic obstructive pulmonary disease, unspecified You were discharged from [facility] on 12/18/2021 11:13 Should you have any questions prior to discharge, please contact a member of your healthcare team. If you have left the hospital and have any questions, please contact your primary care physician. Chief Complaint and Reason For Visit Unknown or Not Available. Function Status Unknown or Not Available. Plan of Care Unknown or Not Available. Referral/Transition of Care Unknown or Not Available.
--- OUTSIDE RECORDS SUMMARY | 2022-08-27 18:03 | XMS_ITS | CCD ---
Author Name Unknown Address [address] [place] [address] [phone] Organization Unknown Address [address] [place] [address] [phone] Care Team Providers Care Grass Farmer Name Role Phone ROSANNA GAMBOA Attending Physician [phone] Vital Signs Unknown or Not Available. Allergies Unknown or Not Available. Procedures Unknown or Not Available. History of Immunizations Unknown or Not Available. Problems Unknown or Not Available. Results BASIC METABOLIC PANEL (BMP) - Collect Date/Time: 12/03/2021 14:39 Test Name Code Test Result Test Units Test Ref Rang e GLUCOSE 2345-7 148 mg/dL L=70 H=116 BUN 3094-0 17 mg/dL L=6 H=25 CREATININE 2160-0 0.87 mg/dL L=0.67 H=1.17 SODIUM SERUM 2951-2 144 mmol/L L=136 H=145 POTASSIUM SERUM 2823-3 3.9 mmol/L L=3.4 H=5 .2 CHLORIDE SERUM 2075-0 105 mmol/L L=96 H=110 CARBON DIOXIDE (CO2) 2028-9 28 mmol/L L=22 H=34 ANION GAP 71623-6 10.7 mmol/L CALCIUM SERUM 82972-1 8.8 mg/dL L=8.2 H=10. 2 AGE 61 years eGFR (non-Afr.Amer.) 21730-9 90 mL/min eGFR (Afr-[place]) 47739-2 109 mL/min LIPID PANEL* - Collect Date/ Time: 12/03/2021 14:39 Test Name Code Test Result Test Units Test Ref Rang e CHOLESTEROL 2093-3 184 mg/dL L=0 H=200 TRIGLYCERIDES 2571-8 229 mg/dL L=56 H=240 HDL 2085-9 44 mg/dL L=30 H=74 non-HDL-C 98258-2 140 mg/dL L=0 H=160 LDL (CALC) 51773-2 94 mg/dL L=0 H=130 % HDL 23.9 % Chol/HDL Ratio 9830-1 4.2 L=0.0 H=4. 9 CHD Relative Risk 0.8 x Avg L=0.0 H =1.0 LDL/HDL Ratio 57020-3 2.1 L=0.0 H=3.5 CHD Relative Risk. 0.6 x Avg L=0.0 H=1.0 FASTING STATUS: NON FASTING N/A HEP B SURF ANTIGEN* - Collec t Date/Time: 12/03/2021 14:39 Test Name Code Test Result Test Units Test Ref Rang e Hep B Surface Ag Negative N/A Negative HEP C VIRUS RNA QUANT BY PCR * - Collect Date/Time: 12/03/2021 14:39 Test Name Code Test Result Test Units Test Ref Rang e HCV RNA DetectionQualitative Undetected N/A Undetected HIV 1/2 ANTIGEN AND ANTIBODY SCREEN - Collect Date/Time: 12/03/2021 14:39 Test Name Code Test Result Test Units Test Ref Rang e HIV 1/2 Antigen andAntibody Negative N/A Negative QUANTIFERON TEST FOR TB [facility] C - Collect Date/Time: 12/03/2021 14:39 Test Name Code Test Result Test Units Test Ref Rang e TB1 Ag minus Nil 0.80 IU/ml TB2 Ag minus Nil 0.86 IU/mL TB Interpretation Positive N/A Negativ e Active Medications Unknown or Not Available. Medications Administered During Visit Unknown or Not Available. Encounters Encounter Diagnosis Diagnosis Code Start Date Adult health examination [id number] Social History Unknown or Not Available. Patient Decision Aids Unknown or Not Available. Discharge Instructions You were admitted to [facility] on 12/03/2021 14:13 with a principal diagnosis of Encounter for general adult medical examination without abnormal findings You had the following tests done:BASIC METABOLIC PANEL (BMP)HEP B SURF ANTIGEN*HEP C VIRUS RNA QUANT BY PCR*HIV 1/2 ANTIGEN AND ANTIBODY SCREENLIPID PANEL*QUANTIFERON TEST FOR TB [facility] You were discharged from [facility] on 12/03/2021 14:13 Should you have any questions prior to [...]
--- OUTSIDE RECORDS SUMMARY | 2022-08-27 18:03 | XMS_ITS | CCD ---
Author Name Unknown Address [address] [place] [address] [phone] Organization Unknown Address [address] [place] [address] [phone] Care Team Providers Care Data Manager Name Role Phone DARREN MCCLURE Attending Physician [phone] DARREN MCCLURE Rounding (Secondary) Physician [phone] Vital Signs Unknown or Not Available. Allergies Allergy Code Allergy Type Reaction Status No Known Drug Allergies 0 No known drug allergies Active Procedures Unknown or Not Available. History of Immunizations Unknown or Not Available. Problems Unknown or Not Available. Results Unknown or Not Available. Active Medications Unknown or Not Available. Medications Administered During Visit Unknown or Not Available. Encounters Encounter Diagnosis Diagnosis Code Start Date Atherosclerotic heart diseas e of [place] coronary artery without angina pectoris I2510 02/16/2022 Social History Unknown or Not Available. Patient Decision Aids Unknown or Not Available. Discharge Instructions You were admitted to [facility] on 02/16/2022 07:40 with a principal diagnosis of Atherosclerotic heart disease of [place] coronary artery without angina pectoris You were discharged from [facility] on 02/16/2022 00:00 Should you have any questions prior to [...]
--- OUTSIDE RECORDS SUMMARY | 2022-08-27 18:04 | XMS_ITS | CCD ---
Author Name Unknown Address [address] [place] [address] [id number] Organization Unknown Address [address] [place] [address] [phone] Care Team Providers Care Regional Sales Engineer Name Role Phone JOSE DAVID HOYT Attending Physician [phone] JOSE DAVID HOYT Er Physician [phone] MICHELLE Jack Registered Nurse [phone] Vital Signs Vital Sign Value Unit Date/Time Recent/Initial ? BMI (Body Mass Index) 35.87 kg/m^2 03/13/2022 14: 18 Initial VS Weight Measured 250 lbs 03/13/2022 14:18 Ini tial VS Height 70 in 03/13/2022 14:18 Initial VS BSA (Body Surface Area) 2.37 m^2 03/13/2022 1 4:18 Initial VS BP Systolic 135 mmHg 03/13/2022 14:18 Initial VS BP Diastolic 65 mmHg 03/13/2022 14:18 Initia l VS Respiratory Rate 18 bpm 03/13/2022 14:18 In itial VS Heart Rate 74 bpm 03/13/2022 14:18 Initial VS O2 % BldC Oximetry 96 % 03/13/2022 14:18 Initial VS Body Temperature 36.8 degrees 03/13/2022 14:18 In itial VS Allergies Allergy Code Allergy Type Reaction Status No Known Drug Allergies 0 No known drug allergies Active Procedures Unknown or Not Available. History of Immunizations Unknown or Not Available. Problems Unknown or Not Available. Results Unknown or Not Available. Active Medications Unknown or Not Available. Medications Administered During Visit Unknown or Not Available. Encounters Encounter Diagnosis Diagnosis Code Start Date Unspecified superficial inju ry of right knee, initial encounter [id number] 03/13/2022 Social History Unknown or Not Available. Patient Decision Aids Unknown or Not Available. Discharge Instructions You were admitted to [facility] on 03/13/2022 13:54 with a principal diagnosis of Unspecified superficial injury of right knee, initial encounter You were discharged from [facility] on 03/13/2022 15:10 Should you have any questions prior to discharge, please contact a member of your healthcare team. If you have left the hospital and have any questions, please contact your primary care physician. Chief Complaint and Reason For Visit Chief Complaint Date of Onset NEED NEW BRACE FOR LEG INJURY Function Status Unknown or Not Available. Plan of Care Unknown or Not Available. Referral/Transition of Care Unknown or Not Available.
--- OUTSIDE RECORDS SUMMARY | 2022-08-27 18:04 | XMS_ITS | CCD ---
Author Name Unknown Address [address] [place] [address] [phone] Organization Unknown Address [address] [place] [address] [phone] Care Team Providers Care Saas Architect Name Role Phone DARREN MCCLURE Attending Physician [phone] Vital Signs Unknown or Not Available. Allergies Allergy Code Allergy Type Reaction Status No Known Drug Allergies 0 No known drug allergies Active Procedures Unknown or Not Available. History of Immunizations Unknown or Not Available. Problems Unknown or Not Available. Results BASIC METABOLIC PANEL (BMP) - Collect Date/Time: 02/16/2022 11:47 Test Name Code Test Result Test Units Test Ref Rang e GLUCOSE 2345-7 91 mg/dL L=70 H=116 BUN 3094-0 17 mg/dL L=6 H=25 CREATININE 2160-0 0.87 mg/dL L=0.67 H=1.17 SODIUM SERUM 2951-2 139 mmol/L L=136 H=145 POTASSIUM SERUM 2823-3 4.7 mmol/L L=3.4 H=5 .2 CHLORIDE SERUM 2075-0 103 mmol/L L=96 H=110 CARBON DIOXIDE (CO2) 2028-9 32 mmol/L L=22 H=34 ANION GAP 07440-1 4.3 mmol/L CALCIUM SERUM 69634-9 9.0 mg/dL L=8.2 H=10. 2 AGE 61 years eGFR (non-Afr.Amer.) 99741-1 90 mL/min eGFR (Afr-[place]) 61555-9 109 mL/min BNP (PRO-B NATRIURETIC PEPTI DE) - Collect Date/Time: 02/16/2022 11:47 Test Name Code Test Result Test Units Test Ref Rang e NT-proBNP 52750-7 187.0 pg/mL L=0.0 H=125 LIPID PANEL* - Collect Date/ Time: 02/16/2022 11:47 Test Name Code Test Result Test Units Test Ref Rang e CHOLESTEROL 2093-3 173 mg/dL L=0 H=200 TRIGLYCERIDES 2571-8 137 mg/dL L=56 H=240 HDL 2085-9 43 mg/dL L=30 H=74 non-HDL-C 88997-3 130 mg/dL L=0 H=160 LDL (CALC) 38252-5 103 mg/dL L=0 H=130 % HDL 24.9 % Chol/HDL Ratio 9830-1 4.0 L=0.0 H=4. 9 CHD Relative Risk 0.8 x Avg L=0.0 H =1.0 LDL/HDL Ratio 40584-3 2.4 L=0.0 H=3.5 CHD Relative Risk. 0.7 x Avg L=0.0 H=1.0 FASTING STATUS: NOT KNOWN N/A SGOT (AST) - Collect Date/Ti me: 02/16/2022 11:47 Test Name Code Test Result Test Units Test Ref Rang e SGOT (AST) 1920-8 17 U/L L=15 H=37 SGPT (ALT) - Collect Date/Ti me: 02/16/2022 11:47 Test Name Code Test Result Test Units Test Ref Rang e SGPT (ALT) 1742-6 31 U/L L=12 H=78 TROPONIN HIGH SENSITIVITY* - Collect Date/Time: 02/16/2022 11:47 Test Name Code Test Result Test Units Test Ref Rang e TROPONIN HS 7.2 pg/mL L=0.0 H=60.4 Specimen seq. ADM. N/A CBC W/ DIFFERENTIAL* - Colle ct Date/Time: 02/16/2022 11:47 Test Name Code Test Result Test Units Test Ref Rang e WBC 6690-2 7.95 th/cmm L=5.00 H=10.00 NEUT % 59.4 % L=40.0 H=80.0 LYMPH % 24.3 % L=10.0 H=50.0 MONO % 52319-9 9.1 % L=2.0 H=12.0 EOS % 5.5 % L=0.0 H=8.0 BASO % 0.8 % L=0.0 H=3.0 IG % 2514-8 0.9 % L=0.0 H=1.1 NRBC % 03769-2 0.0 % L=0.0 H=0.0 NEUT abs count 751-8 4.7 th/cmm L=1.6 H=8. 4 LYMPH abs count 731-0 1.9 th/cmm L=1.5 H=4 .0 MONO abs count 742-7 0.7 th/cmm L=0.2 H=1. 0 EOS abs count 711-2 0.4 th/cmm L=0.0 H=0.5 BASO abs count 704-7 0.1 th/cmm L=0.0 H=0. 2 IG abs count 91254-3 0.1 th/cmm L=0.0 H=0.1 NRBC abs count 31157-9 0.0 mil/cmm L=0.0 H=0. 0 RBC 789-8 4.36 mil/cmm L=4.30 H=6.20 HEMOGLOBIN 718-7 13.6 gm/dL L=13.0 H=17.0 HEMATOCRIT 4544-3 41 % L=45 H=52 MCV 787-2 94 fL L=82 H=92 MCH 785-6 31.2 pg L=27.0 H=31.0 MCHC 786-4 33.1 % L=32.0 H=36.0 RDW-SD 788-0 44.3 fL L=39.0 H=49.0 PLATELET COUNT 777-3 205 th/cmm L=150 H=45 0 Active Medications Unknown or Not Available. Medications Administered During Visit Unknown or Not Available. 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 Patient Decision Aids Unknown or Not Available. Discharge Instructions You were admitted to [facility] on 02/16/2022 18:55 with a principal diagnosis of Atherosclerotic heart disease of [place] coronary artery without angina pectoris You had the following tests done:BASIC METABOLIC PANEL (BMP)BNP (PRO-B NATRIURETIC PEPTIDE)CBC W/ DIFFERENTIAL*LIPID PANEL*SGOT (AST)SGPT (ALT)TROPONIN HIGH SENSITIVITY* You were discharged from [facility] on 02/16/2022 18:55 Should you have any questions prior to [...]
--- OUTSIDE RECORDS SUMMARY | 2022-08-27 18:04 | XMS_ITS | CCD ---
Author Name Unknown Address [address] [place] [address] [phone] Organization Unknown Address [address] [place] [address] [phone] Care Team Providers Care Fur Dry Cleaner Name Role Phone BAUTISTA RG Attending Physician jerome Vital Signs Unknown or Not Available. Allergies [...] Chronic obstructive pulmonary disease, unspecifi ed J449 02/15/2022 Social History Unknown or Not Available. Patient Decision Aids Unknown or Not Available. Discharge Instructions You were admitted to [facility] on 02/15/2022 10:40 with a principal diagnosis of Chronic obstructive pulmonary disease, unspecified You were discharged from [facility] on 02/15/2022 10:40 Should you have any questions prior to [...]
--- OUTSIDE RECORDS SUMMARY | 2022-08-27 18:04 | XMS_ITS | CCD ---
Author Name Unknown Address [address] [place] [address] [phone] Organization Unknown Address [address] [place] [address] [phone] Care Team Providers Care Lead Generator Name Role Phone DARREN MCCLURE Attending Physician [phone] DARREN MCCLURE Rounding (Secondary) Physician [phone] Vital Signs Unknown or Not Available. Allergies Allergy Code Allergy Type Reaction Status No Known Drug Allergies 0 No known drug allergies Active Procedures Unknown or Not Available. History of Immunizations Unknown or Not Available. Problems Unknown or Not Available. Results Unknown or Not Available. Active Medications Unknown or Not Available. Medications Administered During Visit Unknown or Not Available. Encounters Unknown or Not Available. Social History Unknown or Not Available. Patient Decision Aids Unknown or Not Available. Discharge Instructions You were admitted to [facility] You were discharged from [facility] Should you have any questions prior to [...]
--- OUTSIDE RECORDS SUMMARY | 2022-08-27 18:04 | XMS_ITS | CCD ---
Author Name Unknown Address [address] [place] [address] [phone] Organization Unknown Address [address] [place] [address] [phone] Care Team Providers Care Molding Line Assistant Name Role Phone JOHNIE RAMIREZ Attending Physician [phone] Vital Signs Unknown or Not Available. Allergies [...] Encounters Encounter Diagnosis Diagnosis Code Start Date Sprain of anterior cruciate ligament of right knee, initial encounter [id number] 02/23/2022 Social History Unknown or Not Available. Patient Decision Aids Unknown or Not Available. Discharge Instructions You were admitted to [facility] on 02/23/2022 13:47 with a principal diagnosis of Sprain of anterior cruciate ligament of right knee, initial encounter You were discharged from [facility] on 02/23/2022 13:47 Should you have any questions prior to discharge, please contact a member of your healthcare team. If you have left the hospital and have any questions, please contact your primary care physician. Chief Complaint and Reason For Visit Chief Complaint Date of Onset RT KNEE PAIN Function Status Unknown or Not Available. Plan of Care Unknown or Not Available. Referral/Transition of Care Unknown or Not Available.
--- OUTSIDE RECORDS SUMMARY | 2022-08-27 18:04 | XMS_ITS | CCD ---
Author Name Unknown Address [address] [place] [address] [id number] Organization Unknown Address [address] [place] [address] [phone] Care Team Providers Care Surgical Elastic Knitter Hand Frame Name Role Phone JOHNIE RAMIREZ Attending Physician [phone] JOHNIE RAMIREZ Rounding (Secondary) Physician [phone] Vital Signs Unknown or Not Available. Allergies [...] Encounter Diagnosis Diagnosis Code Start Date Unspecified injury of right lower leg, initial e ncounter [id number] 02/15/2022 Social History Unknown or Not Available. Patient Decision Aids Unknown or Not Available. Discharge Instructions You were admitted to [facility] on 02/15/2022 08:50 with a principal diagnosis of Injury of right knee You were discharged from [facility] on 02/15/2022 00:00 Should you have any questions prior [...]
--- OUTSIDE RECORDS SUMMARY | 2022-08-27 18:04 | XMS_ITS | CCD ---
Author Name Unknown Address [address] [place] [address] [phone] Organization Unknown Address [address] [place] [address] [phone] Care Team Providers Care Riding Silks Custodian Name Role Phone INGRIS HENNING Attending Physician [phone] INGRIS HENNING Rounding (Secondary) Physician [phone] Vital Signs Unknown or Not Available. Allergies [...] Date Sprain of anterior cruciate ligament of knee [id number] 03/16/2022 Social History Unknown or Not Available. Patient Decision Aids Unknown or Not Available. Discharge Instructions You were admitted to [facility] on 03/16/2022 15:22 with a principal diagnosis of Sprain of anterior cruciate ligament of right knee, initial encounter You were discharged from [facility] on 03/16/2022 00:00 Should you have any questions prior [...]
--- NOTE | 2022-08-27 18:11 | ED.GENADUL_ITS ---
. Patient who presented agitated with drinking and using cocaine who was signed out to me he was signed out to the next provider Discharge Plan Discharge Details Chief Complaint: PsychEval Primary Care Provider: Tawanda Dooley ED Provider: Rasheed Go Home Meds and New Rx's Prescriptions: No Action olanzapine 5 mg tablet 1 tab PO DAILY PRN Patient Comments: TAKE 1 TABLET BY MOUTH DIRECTED TAKE ONLY IF NEEDED FOR MODD SWINGS clopidogrel 75 mg tablet 1 tab PO QAM carboxymethylcellulose-glycern 1-0.25 % Drops OPHTHALMIC (EYE) acetaminophen 500 mg Tablet 1,000 mg PO TID PRN clopidogrel 75 mg tablet 75 mg PO DAILY Compression Stocking miscellaneous Trelegy Ellipta 100-62.5-25 mcg blister with device 1 inh inhalation DAILY albuterol sulfate 8.5 GM HFA aerosol inhaler 2 puff Inhalation PRN aspirin [Aspirin Low-Strength] 81 MG tablet,chewable 81 mg PO DAILY atorvastatin [Lipitor] 80 MG tablet 80 mg PO QPM nitroglycerin [Nitrostat] 0.4 MG tablet, sublingual 0.4 mg Sublingual Q5 MIN PRN X3 PRNQty: 100 0RF pantoprazole [Protonix] 20 MG tablet,delayed release (DR/EC) 40 mg PO QPM risperidone 2 MG tablet 2 mg PO HS lithium carbonate 300 mg tablet extended release 1,200 mg PO QPM Patient Comments: Take 4 tablet by mouth every evening isosorbide mononitrate 30 mg tablet extended release 24 hr 30 mg PO QAM Patient Comments: Take 1 tablet by mouth once a day for chest pain furosemide 40 mg tablet 40 mg PO DAILY Patient Comments: Take 1 tablet by mouth once a day carvedilol 6.25 mg tablet 6.25 mg PO BID Patient Comments: Take 1 tablet by mouth twice a day thiamine HCl (vitamin B1) 100 mg tablet 100 mg PO DAILY Patient Comments: Take 1 tablet by mouth once a day levetiracetam 750 mg tablet 750 mg PO BID Patient Comments: Take 1 tablet by mouth twice a day lamotrigine 100 mg tablet 100 mg PO QPM Patient Comments: TAKE 1 TABLET BY MOUTH EVERY DAY Trelegy Ellipta 100-62.5-25 mcg blister with device 1 inh inhalation DAILY Medical Decision Making 62-year-old male presents to the ER via EMS with a chief complaint of suicidal ideation, alcohol intoxication and substance abuse. Patient reports drinking prior to arrival, using cocaine. Patient has no plan, he does state that he does not want to cause his however he does not want to live anymore because of his drug abuse. He is complaining of some chest pain upon arrival. Does have a history of CHF, COPD, hepatitis C, hyperlipidemia hypertension, schizoaffective disorder bipolar disorder and depression. He does have a history of suicide attempt by hanging. He did have a coronary angioplasty in 2014 and a stent placement. Work-up ordered for medical clearance including alcohol level, urine drug screen, troponin CBC CMP TSH level Tylenol salicylate level. EKG ordered. Mental health eval and sitter ordered. At this time patient is calm and cooperative. EKG was reviewed by Dr. Geeta Dunn ER attending, please see his official report, old EKG available for review. CBC shows white blood cell count of 12.42, absolute neutrophils 8.78, sodium is 143 potassium 2.8 anion gap 16.1 glucose 117 alk phos 150 TSH within normal limits, urinalysis shows 500 glucose, UDS is positive for cocaine, ethyl alcohol is 109.4. Magnesium within normal limits. Patient was given 40 meq potassium liquid p.o. 1955: scrum coach at Bedside to speak with patient. 1999: scrum coach affirms that patient is suicidal and requesting to go to [facility]. Will await for ETOH metabolisim and call [facility]. 2010: Paient given sandwich and jose a robyn. 2142: Mental health paged for eval. Spoke with [facility] psych liason who recommends voluntary inpatient placement. Patient is requesting voluntary placement. Patient's daily medication med orders placed. Care is to be handed off to oncoming provider Dr. Go pending voluntary inpatient mental psychiatric placement. Patient is calm and cooperative and has remained so so far. Medical Records Medical records reviewed: Yes I reviewed the patient's medical records. Lab Data Lab results reviewed: Yes I reviewed the patient's lab results. Labs: Laboratory Tests Range/Units 08/27/22 08/27/22 08/27/22 18:10 18:10 18:10 WBC (4.4-10.8) 10^3/uL 12.42 H RBC (4.36-5.78) 10^6/uL 4.66 Hgb (13.5-17.5) g/dL 13.9 Hct (40.0-50.0) % 41.0 MCV (80-95) fL 88 MCH (27.0-33.0) pg 29.8 MCHC (32.0-36.0) % 33.9 RDW (11.8-14.1) % 13.0 Plt Count (130-400) 10^3/uL 248 MPV (8.0-11.0) fL 8.7 Immature Gran % 0.6 Neutrophils % 70.7 Lymphocytes % 20.0 Monocytes % 7.3 Eosinophils % 0.9 Basophils % 0.5 Nucleated RBC % (0.0-0.3) % 0.0 Absolute Neutrophils (1.2-6.7) 10^3/uL 8.78 H Absolute Lymphocytes (1.2-3.4) 10^3/uL 2.48 Absolute Monocytes (0.1-0.8) 10^3/uL 0.91 H Absolute Eosinophils (0.0-0.7) 10^3/uL 0.11 Absolute Basophils (0.0-0.2) 10^3/uL 0.06 Sodium (136-145) mmol/L 143 Potassium (3.5-5.1) mmol/L 2.8 L* Chloride (98-107) mmol/L 103 Carbon Dioxide (21.0-32.0) mmol/L 23.9 Anion Gap (3-11) mmol/L 16.1 H BUN (7-18) mg/dL 11 Creatinine (0.70-1.30) mg/dL 1.0 Est GFR (CKD-EPI 2020) (mL/min/1.73m2) 86.16 Glucose (74-106) mg/dL 117 H Calcium (8.5-10.1) mg/dL 9.5 Magnesium (1.8-2.4) mg/dL Total Bilirubin (0.2-1.0) mg/dL 0.6 AST (15-37) U/L 20 ALT (16-63) U/L 39 Alkaline Phosphatase (46-116) U/L 150 H Troponin I (<or=60) ng/L Total Protein (6.4-8.2) g/dL 8.0 Albumin (3.4-5.0) g/dL 4.1 TSH (0.36-3.74) uIU/mL 0.91 Urine Color (Yellow) Urine Clarity (Clear) Urine pH (5-8) Ur Specific [place] (1.005-1.025) Urine Protein (Negative) mg/dL Urine Ketones (Negative) mg/dL Urine Blood (Negative) Urine Nitrite (Negative) Urine Bilirubin (Negative) Urine Urobilinogen (Up to 0.2) mg/dL Ur Leukocyte Esterase (Negative) Urine RBC (0-2) HPF Urine WBC (0-5) HPF Ur Epithelial Cells (Negative) HPF Urine Crystals (Negative) HPF Urine Bacteria (Negative) HPF Urine Casts (Negative) LPF Urine Mucus (Negative) Ur Culture Indicated? Urine Glucose (Negative) mg/dL Salicylates (<2.8) mg/dL < 2.8 Urine Opiates Screen (Negative) Urine Methadone Screen (Negative) Acetaminophen (10-30) ug/mL < 2 Ur Barbiturates Screen (Negative) Ur Tricyclics Screen (Negative) Ur Amphetamines Screen (Negative) U Benzodiazepines Scrn (Negative) Urine Cocaine Screen (Negative) Ur THC Screen (Negative) Ethyl Alcohol (<10) mg/dL 109.4 H Add-On Test Request Range/Units 08/27/22 08/27/22 08/27/22 18:10 18:10 18:40 WBC (4.4-10.8) 10^3/uL RBC (4.36-5.78) 10^6/uL Hgb (13.5-17.5) g/dL Hct (40.0-50.0) % MCV (80-95) fL MCH (27.0-33.0) pg MCHC (32.0-36.0) % RDW (11.8-14.1) % Plt Count (130-400) 10^3/uL MPV (8.0-11.0) fL Immature Gran % Neutrophils % Lymphocytes % Monocytes % Eosinophils % Basophils % Nucleated RBC % (0.0-0.3) % Absolute Neutrophils (1.2-6.7) 10^3/uL Absolute Lymphocytes (1.2-3.4) 10^3/uL Absolute Monocytes (0.1-0.8) 10^3/uL Absolute Eosinophils (0.0-0.7) 10^3/uL Absolute Basophils (0.0-0.2) 10^3/uL Sodium (136-145) mmol/L Potassium (3.5-5.1) mmol/L Chloride (98-107) mmol/L Carbon Dioxide (21.0-32.0) mmol/L Anion Gap (3-11) mmol/L BUN (7-18) mg/dL Creatinine (0.70-1.30) mg/dL Est GFR (CKD-EPI 2020) (mL/min/1.73m2) Glucose (74-106) mg/dL Calcium (8.5-10.1) mg/dL Magnesium (1.8-2.4) mg/dL 2.1 Total Bilirubin (0.2-1.0) mg/dL AST (15-37) U/L ALT (16-63) U/L Alkaline Phosphatase (46-116) U/L Troponin I (<or=60) ng/L < 50 Total Protein (6.4-8.2) g/dL Albumin (3.4-5.0) g/dL TSH (0.36-3.74) uIU/mL Urine Color (Yellow) Urine Clarity (Clear) Urine pH (5-8) Ur Specific [place] (1.005-1.025) Urine Protein (Negative) mg/dL Urine Ketones (Negative) mg/dL Urine Blood (Negative) Urine Nitrite (Negative) Urine Bilirubin (Negative) Urine Urobilinogen (Up to 0.2) mg/dL Ur Leukocyte Esterase (Negative) Urine RBC (0-2) HPF Urine WBC (0-5) HPF Ur Epithelial Cells (Negative) HPF Urine Crystals (Negative) HPF Urine Bacteria (Negative) HPF Urine Casts (Negative) LPF Urine Mucus (Negative) Ur Culture Indicated? Urine Glucose (Negative) mg/dL Salicylates (<2.8) mg/dL Urine Opiates Screen (Negative) Negative Urine Methadone Screen (Negative) Negative Acetaminophen (10-30) ug/mL Ur Barbiturates Screen (Negative) Negative Ur Tricyclics Screen (Negative) Negative Ur Amphetamines Screen (Negative) Negative U Benzodiazepines Scrn (Negative) Negative Urine Cocaine Screen (Negative) Positive A Ur THC Screen (Negative) Negative Ethyl Alcohol (<10) mg/dL Add-On Test Request Range/Units 08/27/22 08/27/22 08/27/22 18:40 18:50 21:19 WBC (4.4-10.8) 10^3/uL RBC (4.36-5.78) 10^6/uL Hgb (13.5-17.5) g/dL Hct (40.0-50.0) % MCV (80-95) fL MCH (27.0-33.0) pg MCHC (32.0-36.0) % RDW (11.8-14.1) % Plt Count (130-400) 10^3/uL MPV (8.0-11.0) fL Immature Gran % Neutrophils % Lymphocytes % Monocytes % Eosinophils % Basophils % Nucleated RBC % (0.0-0.3) % Absolute Neutrophils (1.2-6.7) 10^3/uL Absolute Lymphocytes (1.2-3.4) 10^3/uL Absolute Monocytes (0.1-0.8) 10^3/uL Absolute Eosinophils (0.0-0.7) 10^3/uL Absolute Basophils (0.0-0.2) 10^3/uL Sodium (136-145) mmol/L Potassium (3.5-5.1) mmol/L Chloride (98-107) mmol/L Carbon Dioxide (21.0-32.0) mmol/L Anion Gap (3-11) mmol/L BUN (7-18) mg/dL Creatinine (0.70-1.30) mg/dL Est GFR (CKD-EPI 2020) (mL/min/1.73m2) Glucose (74-106) mg/dL Calcium (8.5-10.1) mg/dL Magnesium (1.8-2.4) mg/dL Total Bilirubin (0.2-1.0) mg/dL AST (15-37) U/L ALT (16-63) U/L Alkaline Phosphatase (46-116) U/L Troponin I (<or=60) ng/L < 50 Total Protein (6.4-8.2) g/dL Albumin (3.4-5.0) g/dL TSH (0.36-3.74) uIU/mL Urine Color (Yellow) Yellow Urine Clarity (Clear) Clear Urine pH (5-8) 5.5 Ur Specific [place] (1.005-1.025) 1.020 Urine Protein (Negative) mg/dL 100 H Urine Ketones (Negative) mg/dL Negative Urine Blood (Negative) Negative Urine Nitrite (Negative) Negative Urine Bilirubin (Negative) Negative Urine Urobilinogen (Up to 0.2) mg/dL 0.2 Ur Leukocyte Esterase (Negative) Negative Urine RBC (0-2) HPF 0-2 Urine WBC (0-5) HPF 0-2 Ur Epithelial Cells (Negative) HPF Rare Urine Crystals (Negative) HPF Negative Urine Bacteria (Negative) HPF Negative Urine Casts (Negative) LPF Negative Urine Mucus (Negative) Trace Ur Culture Indicated? No Urine Glucose (Negative) mg/dL 500 H Salicylates (<2.8) mg/dL Urine Opiates Screen (Negative) Urine Methadone Screen (Negative) Acetaminophen (10-30) ug/mL Ur Barbiturates Screen (Negative) Ur Tricyclics Screen (Negative) Ur Amphetamines Screen (Negative) U Benzodiazepines Scrn (Negative) Urine Cocaine Screen (Negative) Ur THC Screen (Negative) Ethyl Alcohol (<10) mg/dL Add-On Test Request DONE Range/Units 08/27/22 21:19 WBC (4.4-10.8) 10^3/uL RBC (4.36-5.78) 10^6/uL Hgb (13.5-17.5) g/dL Hct (40.0-50.0) % MCV (80-95) fL MCH (27.0-33.0) pg MCHC (32.0-36.0) % RDW (11.8-14.1) % Plt Count (130-400) 10^3/uL MPV (8.0-11.0) fL Immature Gran % Neutrophils % Lymphocytes % Monocytes % Eosinophils % Basophils % Nucleated RBC % (0.0-0.3) % Absolute Neutrophils (1.2-6.7) 10^3/uL Absolute Lymphocytes (1.2-3.4) 10^3/uL Absolute Monocytes (0.1-0.8) 10^3/uL Absolute Eosinophils (0.0-0.7) 10^3/uL Absolute Basophils (0.0-0.2) 10^3/uL Sodium (136-145) mmol/L Potassium (3.5-5.1) mmol/L Chloride (98-107) mmol/L Carbon Dioxide (21.0-32.0) mmol/L Anion Gap (3-11) mmol/L BUN (7-18) mg/dL Creatinine (0.70-1.30) mg/dL Est GFR (CKD-EPI 2020) (mL/min/1.73m2) Glucose (74-106) mg/dL Calcium (8.5-10.1) mg/dL Magnesium (1.8-2.4) mg/dL Total Bilirubin (0.2-1.0) mg/dL AST (15-37) U/L ALT (16-63) U/L Alkaline Phosphatase (46-116) U/L Troponin I (<or=60) ng/L Total Protein (6.4-8.2) g/dL Albumin (3.4-5.0) g/dL TSH (0.36-3.74) uIU/mL Urine Color (Yellow) Urine Clarity (Clear) Urine pH (5-8) Ur Specific [place] (1.005-1.025) Urine Protein (Negative) mg/dL Urine Ketones (Negative) mg/dL Urine Blood (Negative) Urine Nitrite (Negative) Urine Bilirubin (Negative) Urine Urobilinogen (Up to 0.2) mg/dL Ur Leukocyte Esterase (Negative) Urine RBC (0-2) HPF Urine WBC (0-5) HPF Ur Epithelial Cells (Negative) HPF Urine Crystals (Negative) HPF Urine Bacteria (Negative) HPF Urine Casts (Negative) LPF Urine Mucus (Negative) Ur Culture Indicated? Urine Glucose (Negative) mg/dL Salicylates (<2.8) mg/dL Urine Opiates Screen (Negative) Urine Methadone Screen (Negative) Acetaminophen (10-30) ug/mL Ur Barbiturates Screen (Negative) Ur Tricyclics Screen (Negative) Ur Amphetamines Screen (Negative) U Benzodiazepines Scrn (Negative) Urine Cocaine Screen (Negative) Ur THC Screen (Negative) Ethyl Alcohol (<10) mg/dL 35.9 H Add-On Test Request HPI General Mode of arrival: EMS . Date/Time Provider Initiated Documentation: 08/27/22 18:00 . Limitations to Documentation: physical limitation . Information obtained by: patient, RN notes reviewed and old records reviewed . HPI Narrative: 62-year-old male presents to the ER via EMS with a chief complaint of suicidal ideation, alcohol intoxication and substance abuse. Patient reports drinking prior to arrival, using cocaine. Patient has no plan, he does state that he does not want to cause his however he does not want to live anymore because of his drug abuse. He is complaining of some chest pain upon arrival. Does have a history of CHF, COPD, hepatitis C, hyperlipidemia hypertension, schizoaffective disorder bipolar disorder and depression. He does have a history of suicide attempt by hanging. He did have a coronary angioplasty in 2014 and a stent placement. Related Data Home Medications Medication Instructions Recorded Confirmed albuterol sulfate 90 mcg/actuation 2 puff inhalation PRN 11/13/13 08/27/22 aerosol inhaler aspirin 81 mg chewable tablet 81 mg PO DAILY 09/25/14 07/02/22 (Aspirin Low-Strength) atorvastatin 80 mg tablet (Lipitor) 80 mg PO QPM 09/25/14 08/27/22 nitroglycerin 0.4 mg sublingual 0.4 mg sublingual Q5 MIN PRN X3 09/25/14 08/27/22 tablet (Nitrostat) PRN ##100 pantoprazole 20 mg tablet,delayed 40 mg PO QPM 05/20/15 08/27/22 release (Protonix) risperidone 2 mg tablet 2 mg PO HS 05/20/15 08/27/22 fluticasone fur. 100 mcg-umeclid 1 inh inhalation DAILY 02/10/21 08/27/22 62.5 mcg-vilant 25 mcg inhalat.powder (Trelegy Ellipta) lamotrigine 100 mg tablet 100 mg PO QPM 02/10/21 08/27/22 Compression Stocking miscellaneous 03/20/21 03/24/21 fluticasone fur. 100 mcg-umeclid 1 inh inhalation DAILY 06/24/21 08/27/22 62.5 mcg-vilant 25 mcg inhalat.powder (Trelegy Ellipta) acetaminophen 500 mg tablet 1,000 mg PO TID PRN 09/22/21 08/27/22 carboxymethylcellulose-glycerin 1 drp ophthalmic (eye) 09/22/21 %-0.25 % eye drops clopidogrel 75 mg tablet 1 tab PO QAM 09/22/21 08/27/22 olanzapine 5 mg tablet 1 tab PO DAILY PRN 09/22/21 08/27/22 isosorbide mononitrate 30 mg 30 mg PO QAM 06/14/22 08/27/22 tablet,extended release 24 hr lithium carbonate 300 mg 1,200 mg PO QPM 06/14/22 08/27/22 tablet,extended release carvedilol 6.25 mg tablet 6.25 mg PO BID 07/02/22 08/27/22 furosemide 40 mg tablet 40 mg PO DAILY 07/02/22 08/27/22 levetiracetam 750 mg tablet 750 mg PO BID 07/02/22 08/27/22 thiamine HCl (vitamin B1) 100 mg 100 mg PO DAILY 07/02/22 08/27/22 tablet clopidogrel 75 mg tablet 75 mg PO DAILY 07/13/22 08/27/22 Previous Rx's Medication Instructions Recorded nitroglycerin 0.4 mg sublingual 0.4 mg sublingual Q5 MIN PRN X3 09/25/14 tablet (Nitrostat) PRN ##100 Allergies Allergy/AdvReac Type Severity Reaction Status Date / Time No Known Allergies Allergy Unverified 07/02/22 20:59 General Stated Complaint: PsychEval ZEINAB: 2 Review of Systems All systems reviewed & are unremarkable except as noted in HPI and below Cardiovascular Cardiovascular: Reports chest pain Psychiatric Psychiatric: Reports as per HPI, Reports depression and Reports suicidal ideation PFSH All Active Problems (Updated 08/03/22 @ 00:05 by EMILI MARINO) Visual field scotoma (Acute) Unstable angina (Acute) CHF (congestive heart failure), NYHA class III (Acute) Tinnitus, bilateral (Acute) Medical History Abnormal brain MRI Alcohol dependence in remission Altered mental status Back pain CAD (coronary artery disease) Cellulitis of left upper extremity Chronic low back pain COPD (chronic obstructive pulmonary disease) COPD (chronic obstructive pulmonary disease) COPD exacerbation Coronary atherosclerosis of eek coronary artery (09/25/14) COVID-19 ruled out by laboratory testing Depression DVT prophylaxis Edema of both ankles GERD (gastroesophageal reflux disease) GERD (gastroesophageal reflux disease) Gout of ankle Hearing loss History of hepatitis C HTN (hypertension) Hyperlipidemia Hypertension Leukocytosis continuous 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 use of antithrombotics/antiplatelets (09/25/14) Low back pain Lower urinary tract symptoms Lung nodule Old myocardial infarction (09/25/14) Osteoarthritis of hips, bilateral Polysubstance abuse Prediabetes Rhabdomyolysis Right sided abdominal pain Schizoaffective disorder Schizoaffective disorder, bipolar type Seasonal allergies Sebaceous cyst Sensorineural hearing loss, bilateral Smoking Suicidal ideation Suicide attempt by hanging Thoracic back pain Surgical History Coronary angioplasty status (09/25/14) H/O heart artery stent 3 History of tonsillectomy and adenoidectomy Family History Father Stroke Mother Lung cancer Other Cancer Social History Smoking/Tobacco Use Status: Former Tobacco Use Smoking risk assessment performed?: Yes Alcohol Intake: never Drug use: Current Sobriety Substance use type: marijuana and crack/cocaine Details: marijuana - when having a hard time sleeping; once a week; Crack - binges Pets and animals: Yes (4) Pets and animals: dog(s) Do you feel safe at home: Yes Do you feel safe in your relationship?: Yes Exam Narrative Exam Narrative: Constitutional: Alert and oriented x3. Appears stated age. Normal body habitus. Smells strongly of EtOH. Slurred speech. Head: Normocephalic, no trauma. Eyes: Pupils PERRL, Red reflex noted, EOM's intact. Eyelids symmetrical without lesions, discharge, or swelling. ENT: Bilateral TM's WNL, External ear normal to inspection, no mastoid TTP, swelling, or erythema, Nasal turbinates WNL, no nasal discharge. Normal dentition, Posterior pharynx WNL, no exudate. Chest: RRR, Normal S1, S2, distal pulses intact. Resp: Lungs clear to auscultation bilaterally, no wheezes, rales, or rhonchi. Abdomen: Soft, non-distended, Normoactive bowel sounds all 4 quads. Musculoskeletal: Normal gait, 5/5 strength to all four extremities. Skin: No suspicious rashes or lesions. Capillary refill less than 2 sec. Neurologic: Cranial nerves II-XII intact. Alert and oriented x 3. Motor: No deficits noted. Sensory: Intact bilaterally all 4 extremities. Reflexes: DTR's intact bilaterally.. Hematologic/Lymphatic: No ecchymosis, no lymphadenopathy. Course Vital Signs Vital signs: Vital Signs Temperature 36.9 C 08/27/22 17:59 Pulse 100 H 08/27/22 17:59 Respiratory Rate 18 08/27/22 17:59 Blood Pressure 142/84 H 08/27/22 17:59 Pulse Oximetry 94 08/27/22 17:59 Temperature 36.9 C 08/27/22 17:59 Temperature Source Oral 08/27/22 17:59 Pulse 100 H 08/27/22 17:59 Respiratory Rate 18 08/27/22 17:59 Blood Pressure 142/84 H 08/27/22 17:59 Blood Pressure Position Supine 08/27/22 17:59 Pulse Oximetry 94 08/27/22 17:59 Oxygen Delivery Method Room Air 08/27/22 17:59 Oxygen Flow Rate 0 08/27/22 17:59 Sign Out Sign Out Data: Sign Out Comment: Pending Voluntary inpatient psychiatric placement. Hx of Schizoaffective and Bipolar, CHF and CAD. Presented intoxicated and endorses cocaine use. Has been calm and cooperative throughout stay. Last updated by Saritha Saucedo NP at 08/27/22 23:05
[2022-08-27 18:17] LABS: Abs Immature Grans 0.08 10^3/uL (0.0-0.06); Absolute Basophil Count 0.06 10^3/uL (0.0-0.2); Absolute Eosinophil Count 0.11 10^3/uL (0.0-0.7); Absolute Lymphocyte Count 2.48 10^3/uL (1.2-3.4); Absolute Monocyte Count 0.91 10^3/uL (0.1-0.8); Absolute Neutrophil Count 8.78 10^3/uL (1.2-6.7); Basophils % 0.5; Eosinophils % 0.9; HGB 13.9 g/dL (13.5-17.5); Immature Grans % 0.6; MCH 29.8 pg (27.0-33.0); MCHC 33.9 % (32.0-36.0); MCV 88 fL (80-95); MPV 8.7 fL (8.0-11.0); Monocytes % 7.3; Neutrophils % 70.7; Platelet Count 248 10^3/uL (130-400); RBC 4.66 10^6/uL (4.36-5.78); RDW-SD 41.2 fL; WBC 12.42 10^3/uL (4.4-10.8)
--- NOTE | 2022-08-27 18:30 | NUR.NOTE ---
Nursing Note: Pt reports he took cocaine today because I like to get high, nothing happened today I'm just a drug addict and I'm sick of it pt stated again he does not want to hurt himself but yes I wish I was so I don't have to do this anymore but I'm not going to do anything to harm myself. I have so much empathy for all the pain I have caused to people because of my drug problem. Pt cooperative with staff and procedures.
[2022-08-27 18:34] LABS: Troponin I < 50 ng/L (<or=60)
[2022-08-27 18:45] LABS: ALT 39 U/L (16-63); AST 20 U/L (15-37); Albumin 4.1 g/dL (3.4-5.0); Alkaline Phosphatase 150 U/L (46-116); Anion Gap 16.1 mmol/L (3-11); BUN 11 mg/dL (7-18); Bilirubin, Total 0.6 mg/dL (0.2-1.0); CO2 23.9 mmol/L (21.0-32.0); Calcium 9.5 mg/dL (8.5-10.1); Chloride 103 mmol/L (98-107); ETHANOL BLOOD 109.4 mg/dL (<10); Estimated GFR 86.16 (mL/min/1.73m2); Glucose 117 mg/dL (74-106); Sodium 143 mmol/L (136-145); TSH (W/Ref FT4) 0.91 uIU/mL (0.36-3.74)
[2022-08-27 18:48] LABS: Potassium 2.8 mmol/L (3.5-5.1)
[2022-08-27 18:49] LABS: Bilirubin Negative (Negative); Blood Negative (Negative); Clarity Clear (Clear); Glucose 500 mg/dL (Negative); Ketones Negative (Negative); Leukocyte Esterase Negative (Negative); Nitrite Negative (Negative); Urobilinogen 0.2 mg/dL (Up to 0.2); pH 5.5 (5-8)
[2022-08-27 18:51] LABS: Acetaminophen < 2 ug/mL (10-30); Salicylate < 2.8 mg/dL (<2.8)
[2022-08-27 18:56] LABS: Bacteria Negative HPF (Negative); C & S Indicated? No; Casts Negative LPF (Negative); Crystals Negative HPF (Negative); Epithelial Cells Rare HPF (Negative); Mucus Trace (Negative); RBC 0-2 HPF (0-2); WBC 0-2 HPF (0-5)
[2022-08-27 19:06] LABS: *AMPHETAMINES SCREEN URINE Negative (Negative); *BARBITURATES SCREEN URINE Negative (Negative); *BENZODIAZEPINES SCREEN URINE Negative (Negative); Cannabinoids THC Negative (Negative); Cocaine Screen,Urine Positive (Negative); METHADONE URINE SCREEN Negative (Negative); OPIATES URINE SCREEN Negative (Negative)
[2022-08-27 19:07] LABS: Tricyclic Antidepressants Negative (Negative)
[2022-08-27 19:12] LABS: Lab Add On Test DONE
[2022-08-27 19:19] LABS: Magnesium 2.1 mg/dL (1.8-2.4)
[2022-08-27] MEDS: Potassium Chloride Liquid 20 MEQ PKT 40 MEQ PO (19:27)
[2022-08-27 21:33] LABS: ETHANOL BLOOD 35.9 mg/dL (<10)
[2022-08-27 21:41] LABS: Troponin I < 50 ng/L (<or=60)
[2022-08-28 07:33] VITALS: BP 122/74; PULSE 64; RESP 20; O2SAT 87; O2SAT 92
[2022-08-28] MEDS: lamoTRIgine 100 MG TAB PO (08:45)
[2022-08-28] MEDS: Carvedilol 6.25 MG TAB PO ×2 (08:45→20:25)
[2022-08-28] MEDS: Empaglifozin 10 MG TAB PO (08:45)
[2022-08-28] MEDS: Pantoprazole 40 MG TABCR PO (08:45)
[2022-08-28] MEDS: Furosemide 40 MG TAB PO (08:45)
[2022-08-28] MEDS: Isosorbide Mononitrate 30 MG TABCR PO (08:45)
[2022-08-28] MEDS: Clopidogrel 75 MG TAB PO (08:45)
[2022-08-28] MEDS: levETIRAcetam 500 MG TAB 750 MG PO ×2 (08:45→20:25)
[2022-08-28 08:46] VITALS: BP 135/77; PULSE 65
--- NOTE | 2022-08-28 08:48 | NUR.NOTE ---
MD Ayala made aware of pts potassium level and his order for furosemide. Awaiting potassium order at this time
[2022-08-28] MEDS: Potassium Chloride 20 MEQ TABCR PO (10:06)
[2022-08-28 12:51] LABS: Potassium 3.4 mmol/L (3.5-5.1)
--- NOTE | 2022-08-28 17:40 | PDOC.CMSAFE ---
Date of service: 08/28/22 Time of Service: 17:40 Care Management Safety Plan Status Status: Voluntary Reason for Wait Reason for Wait: Inpatient Admission Safety Plan Safety Plan: Patient presented with SI, alcohol intoxication and cocaine use. He is seeking voluntary placement. A bed has been secured at [facility] for tomorrow morning. Mikael has been cooperative and compliant since arrival. Safety plan has been established to meet the needs of the patient, and consideration of the care team, to adhere to patient goals, identify restrictions based on behavioral status, address nutrition, and determine allowed personal belongings, tools for hygiene and personal care. Determine level of activity including ambulation, level of supervision, visitors, and determine privileges based on behaviors and level of engagement by pt. SAFETY PLAN: 1. Will remain on SI/HI precautions. In Paper Clothes 2. Will remain in room under direct supervision of one-on-one staff at all times provided by [employer]; OUSMANE, BATCHING OPERATOR sizing machine operator. 3. May have paper cups, plates, finger foods as well as a cardboard spoon 4. Follow [facility] Management of the Admitted Behavioral Health Patient policy. 5. Comfort bath system only. 6. No personal belongings 7. Visitors: none 8. Activities:soft activity cart items 9. ?Bathroom privileges with supervision 10. Phone: None at this time 11. Due to INVOLUNTARY status, patient is being held at [facility] by the Department of Mental Health ([facility]) until 2nd certification by [facility] Psychiatrist can be performed (within 24 hours). Staff will provide de-escalation support (CPI) as needed. If patient wishes to leave [facility], staff will contact [facility] Crisis Screener ([phone]) and On-Call [employer] Developer ([phone]) as soon as possible. In the event of elopement, notify [place] [employer] ([phone]). Patient is currently involuntarily at [facility]. [facility] Frontline Physician Chief Of Pathology will continue seeking placement. Please contact the Mathematics Professor [employer] Developer ([phone]) for any needed changes to Safety Plan. Safety plan has been provided to interdepartmental care team. Patient will be transported by [facility] at time of discharge.
--- NOTE | 2022-08-28 17:40 | CMSP_ITS ---
Date of service: 08/28/22 Time of Service: 17:40 Care Management Safety Plan Status Status: Voluntary Reason for Wait Reason for Wait: Inpatient Admission Safety Plan Safety Plan: Patient presented with SI, alcohol intoxication and cocaine use. He is seeking voluntary placement. A bed has been secured at [facility] for tomorrow morning. Mikael has been cooperative and compliant since arrival. Safety plan has been established to meet the needs of the patient, and consideration of the care team, to adhere to patient goals, identify re strictions based on behavioral status, address nutrition, and determine allowed personal belongings, tools for hygiene and personal care. Determine level of activity including ambulation, level of supervision, visitors, and determine privileges based on behaviors and level of engagement by pt. SAFETY PLAN: 1. Will remain on SI/HI precautions. In Paper Clothes 2. Will remain in room under direct supervision of one-on-one staff at all times provided by [employer]; OUSMANE, GRAVITY METER OBSERVER phlebotomy program coordinator. 3. May have paper cups, plates, finger foods as well as a cardboard spoon 4. Follow [facility] Management of the Admitted Behavioral Health Patient policy. 5. Comfort bath system only. 6. No personal belongings 7. Visitors: none 8. Activities:soft activity cart items 9. ?Bathroom privileges with supervision 10. Phone: None at this time 11. Due to INVOLUNTARY status, patient is being held at [facility] by the Department of Mental Health ([facility]) until 2nd certification by [facility] Psychiatrist can be performed (within 24 hours). Staff will provide de-escalation support (CPI) as needed. If patient wishes to leave [facility], staff will contact [facility] Crisis Screener ([phone]) and On-Call Bending Machine Set Up Operator ([phone]) as soon as possible. In the event of elopement, notify [place] [employer] ([phone]). Patient is currently involuntarily at [facility]. [facility] Frontline Plywood Scarfer Tender will continue seeking placement. Please contact the Cookie Breaker Bending Machine Set Up Operator ([phone]) for any needed changes to Safety Plan. Safety plan has been provided to interdepartmental care team. Patient will be transported by [employer] at time of discharge.
--- NOTE | 2022-08-28 18:26 | W.EDPROG ---
Date of service: 08/28/22 Time of Service: 08:00 Medical Decision Making 0800 --please see previous providers notes for initial presentation, exam and plan. Case endorsed to continue to monitor while awaiting placement. Patient has remained hemodynamically stable and has demonstrated no signs of alcohol withdrawal. 1730 --no events today. Patient has been accepted to [facility]. He will go at 8 AM tomorrow morning. Provider overnight will need to call for Doc to Doc report at 730 tomorrow morning. Medical Records Medical records reviewed: Yes I reviewed the patient's medical records. Sign Out Sign Out Data: Sign Out Comment: Pending Voluntary inpatient psychiatric placement. Hx of Schizoaffective and Bipolar, CHF and CAD. Presented intoxicated and endorses cocaine use. Has been calm and cooperative throughout stay. Last updated by Saritha Saucedo NP at 08/27/22 23:05 Discharge Plan Disposition Patient Disposition: Psychiatric Hospital/Unit Specific Psychiatric Facility: [facility] Condition: Stable Discharge Details Clinical Impression: Suicidal ideation, Major depression, Polysubstance abuse Primary Care Provider: Tawanda Dooley ED Provider: Josefina Ayala Home Meds and New Rx's Prescriptions: No Action olanzapine 5 mg tablet 1 tab PO DAILY PRN Patient Comments: TAKE 1 TABLET BY MOUTH DIRECTED TAKE ONLY IF NEEDED FOR MODD SWINGS clopidogrel 75 mg tablet 1 tab PO QAM carboxymethylcellulose-glycern 1-0.25 % Drops OPHTHALMIC (EYE) acetaminophen 500 mg Tablet 1,000 mg PO TID PRN clopidogrel 75 mg tablet 75 mg PO DAILY Compression Stocking miscellaneous Trelegy Ellipta 100-62.5-25 mcg blister with device 1 inh inhalation DAILY albuterol sulfate 8.5 GM HFA aerosol inhaler 2 puff Inhalation PRN aspirin [Aspirin Low-Strength] 81 MG tablet,chewable 81 mg PO DAILY atorvastatin [Lipitor] 80 MG tablet 80 mg PO QPM nitroglycerin [Nitrostat] 0.4 MG tablet, sublingual 0.4 mg Sublingual Q5 MIN PRN X3 PRNQty: 100 0RF pantoprazole [Protonix] 20 MG tablet,delayed release (DR/EC) 40 mg PO QPM risperidone 2 MG tablet 2 mg PO HS lithium carbonate 300 mg tablet extended release 1,200 mg PO QPM Patient Comments: Take 4 tablet by mouth every evening furosemide 40 mg tablet 40 mg PO DAILY Patient Comments: Take 1 tablet by mouth once a day carvedilol 6.25 mg tablet 6.25 mg PO BID Patient Comments: Take 1 tablet by mouth twice a day thiamine HCl (vitamin B1) 100 mg tablet 100 mg PO DAILY Patient Comments: Take 1 tablet by mouth once a day levetiracetam 750 mg tablet 750 mg PO BID Patient Comments: Take 1 tablet by mouth twice a day lamotrigine 100 mg tablet 100 mg PO QPM Patient Comments: TAKE 1 TABLET BY MOUTH EVERY DAY Trelegy Ellipta 100-62.5-25 mcg blister with device 1 inh inhalation DAILY isosorbide mononitrate 30 mg tablet extended release 24 hr 30 mg PO DAILY Patient Comments: TAKE ONE TABLET BY MOUTH EVERY DAY FOR CHEST PAIN
[2022-08-28] MEDS: Atorvastatin 40 MG TAB 80 MG PO (20:25)
--- NOTE | 2022-08-29 06:52 | NUR.NOTE ---
Nursing Note: Nurse to nurse report given to Maricarmen from [facility].
--- NOTE | 2022-08-29 07:30 | ED.PROG_ITS ---
Date of service: 08/29/22 Time of Service: 07:30 Medical Decision Making Patient signed out to me by my colleague Dr. Ayala. We were awaiting doc to doc at 730 this morning. I spoke with Dr. De La O at the [facility] and she accepts the patient for transfer. Initial signout had already been performed by Dr. Ayala to the physician there, however repeat doc to doc this morning was completed as well. No intervention is needed throughout the night. Patient stable. I have extensively reviewed the treatment plan with the patient. I have addressed all patient concerns at this time. I have also discussed the plan with the admitting physician and they agree with the current assessment and plan and have agreed to assume responsibility for the patient. All parties demonstrate verbal understanding and agreement with our assessment and plan at this time. The documentation in this chart was dictated using [employer] dictation software. Please excuse any dictation errors. Sign Out Sign Out Data: Sign Out Comment: Pending Voluntary inpatient psychiatric placement. Hx of Schizoaffective and Bipolar, CHF and CAD. Presented intoxicated and endorses cocaine use. Has been calm and cooperative throughout stay. Last updated by Saritha Saucedo NP at 08/27/22 23:05 Sign Out Comment: Voluntary. Medically cleared. No events today. Patient has been accepted to [facility] and will go tomorrow at 8 AM. Plan is for oncoming provider to call for doc to doc report at 7:30 AM tomorrow morning. Last updated by Josefina Ayala DO at 08/28/22 19:38 Sign Out Comment: Stable throughout the night. No interventions needed. Patient has been accepted to [facility]. Calling for doc to [facility] and subsequent transfer to [facility]. Last updated by Sancho Vargas DO at 08/29/22 03:30 Discharge Plan Disposition Patient Disposition: Psychiatric Hospital/Unit Specific Psychiatric Facility: [facility] Condition: Stable Discharge Details Clinical Impression: Suicidal ideation, Major depression, Polysubstance abuse Primary Care Provider: Tawanda Dooley ED Provider: Sancho Vargas Home Meds and New Rx's Prescriptions: No Action olanzapine 5 mg tablet 1 tab PO DAILY PRN Patient Comments: TAKE 1 TABLET BY MOUTH DIRECTED TAKE ONLY IF NEEDED FOR MODD SWINGS clopidogrel 75 mg tablet 1 tab PO QAM carboxymethylcellulose-glycern 1-0.25 % Drops OPHTHALMIC (EYE) acetaminophen 500 mg Tablet 1,000 mg PO TID PRN clopidogrel 75 mg tablet 75 mg PO DAILY Compression Stocking miscellaneous Trelegy Ellipta 100-62.5-25 mcg blister with device 1 inh inhalation DAILY albuterol sulfate 8.5 GM HFA aerosol inhaler 2 puff Inhalation PRN aspirin [Aspirin Low-Strength] 81 MG tablet,chewable 81 mg PO DAILY atorvastatin [Lipitor] 80 MG tablet 80 mg PO QPM nitroglycerin [Nitrostat] 0.4 MG tablet, sublingual 0.4 mg Sublingual Q5 MIN PRN X3 PRNQty: 100 0RF pantoprazole [Protonix] 20 MG tablet,delayed release (DR/EC) 40 mg PO QPM risperidone 2 MG tablet 2 mg PO HS lithium carbonate 300 mg tablet extended release 1,200 mg PO QPM Patient Comments: Take 4 tablet by mouth every evening furosemide 40 mg tablet 40 mg PO DAILY Patient Comments: Take 1 tablet by mouth once a day carvedilol 6.25 mg tablet 6.25 mg PO BID Patient Comments: Take 1 tablet by mouth twice a day thiamine HCl (vitamin B1) 100 mg tablet 100 mg PO DAILY Patient Comments: Take 1 tablet by mouth once a day levetiracetam 750 mg tablet 750 mg PO BID Patient Comments: Take 1 tablet by mouth twice a day lamotrigine 100 mg tablet 100 mg PO QPM Patient Comments: TAKE 1 TABLET BY MOUTH EVERY DAY Trelegy Ellipta 100-62.5-25 mcg blister with device 1 inh inhalation DAILY isosorbide mononitrate 30 mg tablet extended release 24 hr 30 mg PO DAILY Patient Comments: TAKE ONE TABLET BY MOUTH EVERY DAY FOR CHEST PAIN
--- NOTE | 2022-08-29 07:45 | NUR.NOTE ---
Patient went to [facility] this morning, the cotton tier found his hearing aid in the room after he had left. I put it in a bag in the back room with his patient label on it. Nursing Note:
--- NOTE | 2022-08-30 17:54 | NUR.NOTE ---
Nursing Note: Hearing aid left behind after patient was transferred. It has been sent to [facility] via Fed Ex or UPS. It is insured for $2500.00 and will get a signature of receipt. A letter was included to be sure that the patient receives the hearing aid.
== END 2022-08-29 07:34 ==
PROVIDERS: Registered Nurse Emergency; Emergency Provider Physician Assistant; PCP Family Medicine
DX: R07.9 Chest pain, unspecified (principal); J44.9 Chronic obstructive pulmonary disease, unspecified; R45.851 Suicidal ideations; F32.A Depression, unspecified; F14.920 Cocaine use, unspecified with intoxication, uncomplicated; F10.229 Alcohol dependence with intoxication, unspecified; Y90.5 Blood alcohol level of 100-119 mg/100 ml; E87.6 Hypokalemia; I11.0 Hypertensive heart disease with heart failure; I50.9 Heart failure, unspecified; Z91.51 Personal history of suicidal behavior; Z79.899 Other long term (current) drug therapy
CPT/HCPCS: 80053; 80307; 93005; 99285; 80320; 80329; 81003; 81015; 83735; 84132; 84443; 84484; 85025; 93010

== ENCOUNTER 2022-11-08 15:57 | Outpatient (REF) | payer MEDICARE, SELFPAY ==
[2022-11-08 19:33] LABS: Anion Gap 7.8 mmol/L (3-11); BUN 15 mg/dL (7-18); CO2 30.2 mmol/L (21.0-32.0); CREATININE 0.8 mg/dL (0.70-1.30); Calcium 9.1 mg/dL (8.5-10.1); Chloride 106 mmol/L (98-107); Estimated GFR 101.32 (mL/min/1.73m2); Glucose 110 mg/dL (74-106); Magnesium 2.1 mg/dL (1.8-2.4); Potassium 3.9 mmol/L (3.5-5.1); Sodium 144 mmol/L (136-145)
[2022-11-10 11:20] LABS: HCV RNA Qualitative Undetected (Undetected)
[2022-11-10 11:38] LABS: Hepatitis B Surface Ag Negative (Negative)
[2022-11-10 12:25] LABS: HIV-1/2 Ag & Ab Screen Negative (Negative)
== END 2022-11-08 15:58 | disposition home or self-care (01) ==
LOC: NCHCN 15:57
PROVIDERS: PCP Family Medicine; Visit Provider Family Medicine
DX: I25.10 Atherosclerotic heart disease of native coronary artery without angina pectoris (principal); Z11.4 Encounter for screening for human immunodeficiency virus [HIV]; Z11.59 Encounter for screening for other viral diseases; Z00.00 Encounter for general adult medical examination without abnormal findings
CPT/HCPCS: 80048; 87340; 87389; 87522; 83735

== ENCOUNTER → 2023-06-17 00:10 | Outpatient (CLI) | payer MEDICARE, SELFPAY ==
--- NOTE | 2023-06-17 | DI.CT_ITS ---
Exam(s) CT CHEST WO EXAM: CT CHEST WO CLINICAL HISTORY: NODULE OF LUNG R91.1. TECHNIQUE: Imaging protocol: Axial computed tomography images were obtained and coronal and sagittal reformatted images were created and reviewed. COMPARISON: CT CT CHEST WO from 10/20/[address] CHEST PE CTA from 06/14/2022 FINDINGS: Tracheobronchial tree: Patent where visualized. Pulmonary parenchyma: No consolidation or dominant measurable mass. There is again seen scarring in t he left lower lobe. The previously described nodule is not visualized. There is scarring also again seen in the right lower lobe. No new pulmonary nodules or areas of consolidation are seen. Mediastinum and Mel: No dominant adenopathy or fluid collection. The esophagus is unremarkable. Thyroid gland: Unremarkable. Pleura: No effusion or pneumothorax. Heart: The heart is not dilated. Coronary artery calcifications and/or stents are present. No perica rdial effusion. Aorta: Thoracic aorta non-dilated. Atherosclerotic calcification is noted. Upper abdomen: Unremarkable. Lymph nodes: Within normal limits. Soft tissues: Unremarkable. Bones:Within normal limits for the patient's age. Old fracture deformities of the ribs. IMPRESSION: 1. No pulmonary nodules are identified. 2. Stable scarring in the lungs. 3. No acute pulmonary process. RADIATION DOSE DELIVERED: Total DLP Total DLP DATA REPOSITORY: All CT scans at this facility are submitted to the National Radiology Data Registry (NRDR) Dose Index Registry (DIR) with the [employer] (ACR). RADIATION OPTIMIZATION: All CT scans at this facility use at least one of these dose optimization te chniques: automated exposure control; mA and/or kV adjustment per patient size (includes targeted exa ms where dose is matched to clinical indication); or iterative reconstruction.
== END ==
PROVIDERS: PCP Family Medicine; Visit Provider Family Medicine
DX: R91.1 Solitary pulmonary nodule (principal)
CPT/HCPCS: 71250

== ENCOUNTER 2023-10-24 10:34 | Outpatient (REF) | payer MEDICARE, SELFPAY | END 2023-10-24 10:35 | disposition home or self-care (01) | LOC: LBN 10:34 | PROVIDERS: PCP Family Medicine; Visit Provider Physician Assistant | DX: L98.9 Disorder of the skin and subcutaneous tissue, unspecified (principal) | CPT/HCPCS: 87077; 87070; 87186; 87205 ==

== ENCOUNTER 2024-06-04 13:26 | Emergency (ER) | payer MEDICARE, SELFPAY ==
[2024-06-04 13:35] VITALS: BP 167/89; PULSE 80; RESP 18; TEMP 36.5; O2SAT 94
--- NOTE | 2024-06-04 13:41 | NUR.NOTE ---
Patient state he will not be staying because his vitals are stable and there are too much sick people in the waiting room room for him to stay
== END 2024-06-04 13:49 | disposition left against medical advice (07) ==
LOC: ER 13:42
PROVIDERS: PCP Student in an Organized Health Care Education/Training Program
DX: Z53.21 Procedure and treatment not carried out due to patient leaving prior to being seen by health care provider (principal)

== ENCOUNTER 2024-10-17 04:59 | Emergency (ER) | payer MEDICARE, SELFPAY ==
[2024-10-17] VITALS (42 sets, daily range): BP systolic 120–182; BP diastolic 54–99; PULSE 76–100; RESP 12–35; TEMP 37.7–39.1; O2SAT 92–99
--- NOTE | 2024-10-17 05:06 | W.ED.GENAD ---
Discharge Plan Discharge Details Chief Complaint: GenMedical Primary Care Provider: Rusty Harmon ED Provider: Lian Centeno Home Meds and New Rx's Prescriptions: No Action mupirocin 2 % ointment 1 applic topical TID Qty: 15 0RF olanzapine 5 mg tablet 1 tab PO DAILY PRN Patient Comments: TAKE 1 TABLET BY MOUTH DIRECTED TAKE ONLY IF NEEDED FOR MODD SWINGS carboxymethylcellulose-glycern 1-0.25 % Drops OPHTHALMIC (EYE) acetaminophen 500 mg Tablet 1,000 mg PO TID PRN clopidogrel 75 mg tablet 75 mg PO DAILY azithromycin 250 mg tablet See Rx Instructions PO .COMPLEX Qty: 6 0RF Rx Instructions: For 250 mg dose pack: take 500 mg today (day 1), then 250 mg for 4 days (days 2-5) PO amoxicillin-pot clavulanate 875-125 mg tablet 1 tab PO Q12H Qty: 14 0RF prednisone 5 mg tablet 5 mg PO DAILY Qty: 49 0RF Rx Instructions: 40mg x 2 days, 30mg x 2 days, 20mg x 2 days, 15 mg x 2 days, 10 mg x 2 days, 5 mg x 2 days, 2.5 mg x 2 days. Compression Stocking miscellaneous Trelegy Ellipta 100-62.5-25 mcg blister with device 1 inh inhalation DAILY albuterol sulfate 8.5 GM HFA aerosol inhaler 2 puff Inhalation PRN aspirin [Aspirin Low-Strength] 81 MG tablet,chewable 81 mg PO DAILY nitroglycerin [Nitrostat] 0.4 MG tablet, sublingual 0.4 mg Sublingual Q5 MIN PRN X3 PRNQty: 100 0RF risperidone 2 MG tablet 2 mg PO HS lithium carbonate 300 mg tablet extended release 1,200 mg PO QPM Patient Comments: Take 4 tablet by mouth every evening Trelegy Ellipta 100-62.5-25 mcg blister with device 1 inh inhalation DAILY HPI General Mode of arrival: EMS. Date/Time Provider Initiated Documentation: 10/17/24 05:01. Limitations to Documentation: no limitations. Information obtained by: patient and EMS. HPI Narrative: 64yo M with hx HTN, HLD, CAD with RCA stent, CHF, GERD, COPD, biopolar, cocaine abuse, presenting for right leg pain. Pain woke him from sleep tonight; felt normal yesterday. Pain is severe, cramping, leg feels hard and looks red. Febrile for EMS, pt does not think he has had any fevers at home. No leg swelling. Reports relapsing and using cocaine this morning which he has not in a long time. Otherwise in his usual state of health with no chills, nausea, vomiting, abdominal pain, chest pain, shortness of breath, numbness, weakness, or other concerns. Related Data Home Medications ?Medication ?Instructions ?Recorded ?Confirmed albuterol sulfate 90 mcg/actuation 2 puff inhalation PRN 11/13/13 06/04/24 aerosol inhaler aspirin 81 mg chewable tablet 81 mg PO DAILY 09/25/14 06/04/24 (Aspirin Low-Strength) nitroglycerin 0.4 mg sublingual 0.4 mg sublingual Q5 MIN PRN X3 09/25/14 06/04/24 tablet (Nitrostat) PRN ##100 risperidone 2 mg tablet 2 mg PO HS 05/20/15 06/04/24 fluticasone fur. 100 mcg-umeclid 1 inh inhalation DAILY 02/10/21 06/04/24 62.5 mcg-vilant 25 mcg inhalat.powder (Trelegy Ellipta) Compression Stocking miscellaneous 03/20/21 06/04/24 fluticasone fur. 100 mcg-umeclid 1 inh inhalation DAILY 06/24/21 06/04/24 62.5 mcg-vilant 25 mcg inhalat.powder (Trelegy Ellipta) acetaminophen 500 mg tablet 1,000 mg PO TID PRN 09/22/21 06/04/24 carboxymethylcellulose-glycerin 1 drp ophthalmic (eye) 09/22/21 06/04/24 %-0.25 % eye drops olanzapine 5 mg tablet 1 tab PO DAILY PRN 09/22/21 06/04/24 lithium carbonate 300 mg 1,200 mg PO QPM 06/14/22 06/04/24 tablet,extended release clopidogrel 75 mg tablet 75 mg PO DAILY 07/13/22 06/04/24 mupirocin 2 % topical ointment 1 applic topical TID #15 grams 10/24/23 06/04/24 amoxicillin 875 mg-potassium 1 tab PO Q12H #14 tabs 06/04/24 06/04/24 clavulanate 125 mg tablet azithromycin 250 mg tablet See Rx Instructions PO .COMPLEX #6 06/04/24 06/04/24 tabs prednisone 5 mg tablet 5 mg PO DAILY #49 tabs 06/04/24 06/04/24 Previous Rx's ?Medication ?Instructions ?Recorded nitroglycerin 0.4 mg sublingual 0.4 mg sublingual Q5 MIN PRN X3 09/25/14 tablet (Nitrostat) PRN ##100 mupirocin 2 % topical ointment 1 applic topical TID #15 grams 10/24/23 amoxicillin 875 mg-potassium 1 tab PO Q12H #14 tabs 06/04/24 clavulanate 125 mg tablet azithromycin 250 mg tablet See Rx Instructions PO .COMPLEX #6 06/04/24 tabs prednisone 5 mg tablet 5 mg PO DAILY #49 tabs 06/04/24 Allergies Allergy/AdvReac Type Severity Reaction Status Date / Time No Known Allergies Allergy Unverified 06/04/24 14:12 General Stated Complaint: GenMedical ZEINAB: 3 Review of Systems Narrative: see HPI Exam Narrative Exam Narrative: General: Alert, non-toxic Head: Normocephalic, atraumatic Neck: Trachea midline, ?Neck supple. ENT: ?MMM.? Cardiac: ?RRR, no murmurs appreciated Resp: No respiratory distress. CTAB. Abd: ?Soft, non-distended, nontender Extremities: ?No deformities.? Distal RLE warm, erythematous. No vesicles, pustules, or evident abscess Neurologic: GCS 15. ? Moves all extremities freely against gravity Course Vital Signs Vital signs: Vital Signs Temperature 39.1 C H 10/17/24 04:47 Pulse 89 10/17/24 04:47 Respiratory Rate 22 10/17/24 04:47 Blood Pressure 182/71 H 10/17/24 04:47 Pulse Oximetry 96 10/17/24 04:47 Temperature 39.1 C H 10/17/24 04:47 Temperature Source Oral 10/17/24 04:47 Pulse 89 10/17/24 04:47 Respiratory Rate 20 10/17/24 04:57 Respiratory Effort Normal 10/17/24 04:57 Respiratory Depth Normal 10/17/24 04:57 Respiratory Pattern Normal 10/17/24 04:57 Blood Pressure 182/71 H 10/17/24 04:47 Pulse Oximetry 96 10/17/24 04:47 Oxygen Delivery Method Room Air 10/17/24 04:47 Oxygen Flow Rate 0 10/17/24 04:47 Medical Decision Making 64yo M with hx HTN, HLD, CAD with RCA stent, CHF, GERD, COPD, biopolar, cocaine abuse, presenting for right leg pain which woke him from sleep. Febrile for EMS. Cocaine use this morning. Hypertensive on arrival, temp 39.1. Vital signs otherwise reassuring, no tachycardia. Non-toxic on exam; RLE with warmth and erythema. Not overtly septic. Most suggestive of cellulitis; given IV drug use will cover with ceftriaxone and zyvox. Must also consider DVT; will send dimer. Labs reviewed as below, CBC with leukocytosis to 14 (nonspecific), CMP reassuring with no actionable abnormalities, Mg normal, lactate normal, dimer >1000 At ~0540 at bedside reported to nursing that patient was having severe chest pain. EKG performed with no ST segment or T wave abnormalities to suggest occlusive NM; ordered 325 of ASA;. On my assessment patient reports he had dull substernal chest pressure that 'felt like I can't breathe'. Repeat vital signs improved with BP now 140's/80's. He states that it felt 'more like a panic attack'. These symptoms are no longer present. Given his high risk medical history and recent cocaine use as well as presenting c/o leg pain/warmth and positive dimer, concern for pulmonary embolism, aortic dissection, acute coronary syndromes. Will get CTA and send troponins, add BNP. BNP not suggestive of acute heart failure. Initial troponin 28; repeat stable. Will be signed out to oncoming physician, patient pending CTA, UA, three hour troponin. Disposition pending results. Lab Data Lab results reviewed: Yes I reviewed the patient's lab results. Labs: 10/17/24 05:10 Blood Blood Culture - Pending 10/17/24 05:15 Blood Blood Culture - Pending Laboratory Tests Range/Units 10/17/24 10/17/24 05:10 06:32 WBC (4.4-10.8) 10^3/uL 14.81 H RBC (4.36-5.78) 10^6/uL 5.06 Hgb (13.5-17.5) g/dL 15.8 Hct (40.0-50.0) % 46.7 MCV (80-95) fL 92 MCH (27.0-33.0) pg 31.2 MCHC (32.0-36.0) % 33.8 RDW (11.8-14.1) % 12.9 Plt Count (130-400) 10^3/uL 213 MPV (8.0-11.0) fL 9.2 Immature Gran % % 0.4 Neutrophils % % 87.9 Lymphocytes % % 6.3 Monocytes % % 4.5 Eosinophils % % 0.6 Basophils % % 0.3 Nucleated RBC % (0.0-0.3) % 0.0 Absolute Neutrophils (1.2-6.7) 10^3/uL 13.02 H Absolute Lymphocytes (1.2-3.4) 10^3/uL 0.93 L Absolute Monocytes (0.1-0.8) 10^3/uL 0.67 Absolute Eosinophils (0.0-0.7) 10^3/uL 0.09 Absolute Basophils (0.0-0.2) 10^3/uL 0.04 D-Dimer (<500) ng/mlFEU 1175 H VBG Lactate (<or=2.0) mmol/L 1.9 Sodium (136-145) mmol/L 139 Potassium (3.5-5.1) mmol/L 3.6 Chloride (98-107) mmol/L 101 Carbon Dioxide (21.0-32.0) mmol/L 30.4 Anion Gap (3-11) mmol/L 7.6 BUN (7-18) mg/dL 16 Creatinine (0.70-1.30) mg/dL 0.8 Est GFR (CKD-EPI 2020) (mL/min/1.73m2) 100.06 Glucose (74-106) mg/dL 114 H Calcium (8.5-10.1) mg/dL 9.0 Magnesium (1.8-2.4) mg/dL 1.9 Total Bilirubin (0.2-1.0) mg/dL 0.7 AST (15-37) U/L 16 ALT (16-63) U/L 24 Alkaline Phosphatase (46-116) U/L 118 H Creatine Kinase (39-308) U/L 123 Troponin I (<or=76) ng/L 28 25 NT-Pro-B Natriuret Pep (<300) pg/mL 130 Total Protein (6.4-8.2) g/dL 7.5 Albumin (3.4-5.0) g/dL 3.8 PFSH All Active Problems Visual field scotoma (Acute) Unstable angina (Acute) CHF (congestive heart failure), NYHA class III (Acute) Tinnitus, bilateral (Acute) Medical History Depression Low back pain Hearing loss Abnormal brain MRI Chronic low back pain History of hepatitis C Alcohol dependence in remission Smoking Edema of both ankles Gout of ankle Lower urinary tract symptoms Prediabetes Seasonal allergies Osteoarthritis of hips, bilateral Schizoaffective disorder, bipolar type Lung nodule Sebaceous cyst Sensorineural hearing loss, bilateral Thoracic back pain Altered mental status Leukocytosis Back pain Right sided abdominal pain COVID-19 ruled out by laboratory testing Suicidal ideation COPD exacerbation DVT prophylaxis Cellulitis of left upper extremity Rhabdomyolysis Suicide attempt by hanging Polysubstance abuse Schizoaffective disorder COPD (chronic obstructive pulmonary disease) GERD (gastroesophageal reflux disease) HTN (hypertension) CAD (coronary artery disease) Hyperlipidemia Hypertension GERD (gastroesophageal reflux disease) COPD (chronic obstructive pulmonary disease) Coronary atherosclerosis of [place] coronary artery (09/25/14) 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 (09/25/14) Old myocardial infarction (09/25/14) Surgical History History of tonsillectomy and adenoidectomy H/O heart artery stent 3 Coronary angioplasty status (09/25/14) Family History Father Stroke Mother Lung cancer Other Cancer Social History Smoking/Tobacco Use Status: Former Tobacco Use Smoking risk assessment performed?: Yes Alcohol Intake: never Drug use: Binges Substance use type: marijuana and crack/cocaine Details: marijuana - when having a hard time sleeping; once a week; Crack - binges Pets and animals: Yes (4) Pets and animals: dog(s) Do you feel safe at home: Yes Do you feel safe in your relationship?: Yes
[2024-10-17 05:28] LABS: Abs Immature Grans 0.06 10^3/uL (0.0-0.06); HCT 46.7 % (40.0-50.0); HGB 15.8 g/dL (13.5-17.5); Immature Grans % 0.4 %; MCH 31.2 pg (27.0-33.0); MCHC 33.8 % (32.0-36.0); MCV 92 fL (80-95); MPV 9.2 fL (8.0-11.0); Platelet Count 213 10^3/uL (130-400); RBC 5.06 10^6/uL (4.36-5.78); RDW 12.9 % (11.8-14.1); RDW-SD 43.2 fL; WBC 14.81 10^3/uL (4.4-10.8)
--- NOTE | 2024-10-17 05:30 | RT.EKG_ITS ---
APPROVED REPORT Exam: Resting ECG Reason for Exam: Patient Location: E HR:91 bpm ECG Measurements Heart Rate 91 AXIS UT 152 P 72 QRSd 93 QRS 44 QT 371 T 21 QTc 457 Conclusion Sinus rhythm...normal P axis, V-rate 60- 99 Ventricular premature complex...V complex w/ short R-R interval Anteroseptal infarct, old...Q >40mS, V1-V2 Borderline ST depression, diffuse leads...ST <-0.07mV, ant/lat/inf no ST segment or T wave abnormalities to suggest occlusive [place]
[2024-10-17 05:45] LABS: ALT 24 U/L (16-63); AST 16 U/L (15-37); Albumin 3.8 g/dL (3.4-5.0); Alkaline Phosphatase 118 U/L (46-116); Anion Gap 7.6 mmol/L (3-11); BUN 16 mg/dL (7-18); Bilirubin, Total 0.7 mg/dL (0.2-1.0); CO2 30.4 mmol/L (21.0-32.0); Calcium 9.0 mg/dL (8.5-10.1); Chloride 101 mmol/L (98-107); Estimated GFR 100.06 (mL/min/1.73m2); Glucose 114 mg/dL (74-106); Magnesium 1.9 mg/dL (1.8-2.4); Potassium 3.6 mmol/L (3.5-5.1); Sodium 139 mmol/L (136-145); Total Protein 7.5 g/dL (6.4-8.2)
[2024-10-17] MEDS: Ondansetron 4 MG/2 ML VIAL IVP (05:56)
[2024-10-17] MEDS: Aspirin 81 MG CHEW 324 MG CH (05:57)
[2024-10-17 06:24] LABS: D-Dimer 1175 ng/mlFEU (<500)
[2024-10-17 06:28] LABS: NT-proBNP 130 pg/mL (<300); Troponin I 28 ng/L (<or=76)
--- NOTE | 2024-10-17 06:30 | DI.CT_ITS ---
Exam(s) CT THORAX ABD/PEL CTA EXAM: CT THORAX ABD/PEL CTA CLINICAL HISTORY: eval for aortic dissection. TECHNIQUE: Imaging Protocol: Axial CT angiography was performed with multi- slice acquisition and multi-planar and/or 3D reconstructions. CONTRAST MATERIAL: Intravenous: Omnipaque 350 Contrast volume:85 ml Oral: / no COMPARISON: CT CT CHEST WO from 06/17/2023 FINDINGS: CHEST: The exam is limited by motion artifact. Pulmonary Arteries: No evidence of filling defect to suggest pulmonary emboli. Tracheobronchial tree: Patent where visualized. Mediastinum and Mel: No dominant adenopathy or fluid collection. Pulmonary parenchyma: No consolidation or dominant measurable mass. Basilar atelectasis versus scarring. Minimal emphysematous changes. Pleura: No effusion or pneumothorax. Heart: The heart is mildly dilated. Coronary artery calcifications are seen. Aorta: Thoracic aorta non-dilated. No evidence of dissection. Bones: Old right rib fractures. Degenerative changes and kyphoscoliosis. Tubes, Catheters, and Lines: None ABDOMEN AND PELVIS: Abdomen: Celiac axis/mesenteric arteries: No evidence of occlusion or significant stenosis. Renal Arteries: No evidence of occlusion or significant stenosis. There is a single renal artery perfusing each kidney. Aorta: No evidence of occlusion or significant stenosis. Atherosclerotic changes. Dilatation of the distal aorta to 3.3 cm. Pelvis: Iliac Arteries: No evidence of occlusion or significant stenosis. Common Femoral Arteries: No evidence of occlusion or significant stenosis. ABDOMEN: Liver: Mildly enlarged. Mild fatty infiltration. No measurable mass. Portal, Superior Mesenteric, and Splenic Veins: Unremarkable. Gallbladder and Biliary Tract: No radiodense calculus or dilation. Pancreas: Normal density, no abnormal calcifications or inflammatory process. Spleen: Normal. Adrenals: No masses seen. Kidneys: Normal size, contour and axis. No radiodense stones or obstructive uropathy. Small right renal cyst. No suspicious masses seen. Bowel: No obstruction or bowel wall thickening. Appendix is unremarkable. Mild sigmoid diverticulosis. Peritoneal Cavity: No ascites, collection or mesenteric inflammatory response. Lymph Nodes: Within normal limits. Bones: Extensive degenerative changes in the spine. Soft Tissues: Unremarkable. PELVIS: Bladder: Symmetric distention, no gross wall thickening. Reproductive Organs: Unremarkable as visualized. Lymph Nodes: Within normal limits. Bones: Unremarkable for age. IMPRESSION: No evidence of aortic dissection. 3.3 centimeter distal abdominal aortic aneurysm. The preliminary [facility] report was reviewed. RADIATION DOSE DELIVERED: 614.74mGy.cm Total DLP DATA REPOSITORY: All CT scans at this facility are submitted to the National Radiology Data Registry (NRDR) Dose Index Registry (DIR) with the [employer] ([employer]). RADIATION OPTIMIZATION: All CT scans at this facility use at least one of these dose optimization techniques: automated exposure control; mA and/or kV adjustment per patient size (includes targeted exams where dose is matched to clinical indication); or iterative reconstruction.
--- NOTE | 2024-10-17 06:30 | DI.US_ITS ---
Exam(s) US LOWER EXTREMITY VENOUS RT EXAM: US LOWER EXTREMITY VENOUS RT CLINICAL HISTORY: r/o DVT. TECHNIQUE: Lower extremity venous ultrasound performed using grayscale, color- flow, and spectral Doppler analysis. COMPARISON: No exams were available for comparison FINDINGS: The common femoral, femoral and popliteal veins demonstrate normal compressibility, augmentation, and color Doppler. The posterior tibial and peroneal veins are patent. No saphenous vein thrombosis or other superficial venous thrombosis is seen. No hematoma or Jerez's cyst is seen. IMPRESSION: Negative lower extremity ultrasound. No evidence of DVT. DATA REPOSITORY:
[2024-10-17 06:31] LABS: Creatine Kinase 123 U/L (39-308)
[2024-10-17] MEDS: cefTRIAXone 1 GM/50 ML BAG IVPB (06:45)
[2024-10-17] MEDS: LINEZOLID 600 MG/300 ML BAG 300 MG IVPB (06:52)
[2024-10-17 07:01] LABS: Troponin I 25 ng/L (<or=76)
[2024-10-17] MEDS: Acetaminophen 500 MG TAB 1000 MG PO (07:01)
[2024-10-17] MEDS: Omnipaque 350 MG/ML 100 ML BTL IJ (07:04)
[2024-10-17] MEDS: Normal Saline - Diluent 50 ML VIAL IJ (07:06)
--- NOTE | 2024-10-17 08:15 | DI.[facility]_ITS ---
PROCEDURE INFORMATION: Exam: CTA Chest With Contrast CTA Abdomen and Pelvis With Contrast Exam date and time: 10/17/2024 7:05 AM Age: 64 years old Clinical indication: Screening exam; Other screening; Purpose: Eval for aortic dissection TECHNIQUE: Imaging protocol: Computed tomographic angiography of the chest with contrast. Exam focused on the arteries. Computed tomographic angiography of the abdomen and pelvis with contrast. Exam focused on the arteries. 3D rendering (Not supervised by radiologist): MIP and/or 3D reconstructed images were created by the technologist. COMPARISON: CT CHEST PE CTA 06/14/2022 3:09 PM FINDINGS: Limitations: Motion artifact degrades image quality. VASCULATURE: Pulmonary arteries: No definite pulmonary embolus identified, within the limitations noted above. Aorta: Atherosclerotic changes in the aorta and its branches. 3.3 cm infrarenal abdominal aortic aneurysm. No dissection seen. Celiac trunk and mesenteric arteries: No occlusion or significant stenosis. Renal arteries: No occlusion or significant stenosis. Right iliac arteries: No occlusion or significant stenosis. Left iliac arteries: No occlusion or significant stenosis. CHEST: Lungs: Faint ground-glass opacities in the lungs, likely underinflation. Pleural spaces: Nopleural effusion. Heart: Unremarkable. No pericardial effusion. Coronary arteries: Coronary artery calcifications. Coronary artery calcifications. ABDOMEN AND PELVIS: Liver: Hepatic steatosis. Hepatomegaly. Gallbladder and biliary ducts: No radiodense gallbladder calculi identified. Pancreas: No evidence for acute pancreatitis. Spleen: No splenomegaly. Adrenal glands: No mass. Kidneys and ureters: No hydronephrosis. Low attenuation lesion in the right kidney too small to accurately characterize on CT. Stomach and bowel: No intestinal obstruction is evident. Fluid in nondilated small bowel, nonspecific. Areas of apparent mural thickening in the colon commensurate with underdistention. Appendix: No evidence of appendicitis. Intraperitoneal space: No free air. Urinary bladder: Distended urinary bladder. Reproductive: Prostatic calcifications. Lymph nodes: Nonspecific mediastinal lymph nodes. Bones/joints: Endplate deformities in the spine appear chronic. Soft tissues: Small fat containing umbilical hernia. IMPRESSION: 1. Infrarenal abdominal aortic aneurysm. No dissection seen at this time. 2. Additional findings as above. Dictated and Authenticated by: Sandy Colvin MD. Orderin Taryn Beal MD
--- NOTE | 2024-10-17 08:52 | W.EDPROG ---
Date of service: 10/17/24 Time of Service: 09:26 Medical Decision Making Care assumed from outgoing provider. Patient is a 64-year-old gentleman that presenting with right lower extremity pain in the setting of cocaine use. Concern for fever and infectious etiology. Treated with antibiotics in the emergency department. No evidence of sepsis. Patient did develop chest pain while in the emergency department. CT imaging did not reveal any acute abnormality. There was an incidental finding of a 3.5 AAA. Patient was advised of this and recommend that he have annual screening ultrasounds performed via his primary care. Patient was discharged with oral antibiotics. Strict return precautions advised. Referred for established care with primary Discharge Plan Disposition Patient Disposition: Home Condition: Improving Discharge Details Clinical Impression: Cellulitis, Chest pain Primary Care Provider: Rusty Harmon ED Provider: Fox Martinez Home Meds and New Rx's Prescriptions: New sulfamethoxazole-trimethoprim [Bactrim DS] 800-160 mg tablet 1 tab PO BID 7 Days Qty: 14 0RF No Action mupirocin 2 % ointment 1 applic topical TID Qty: 15 0RF olanzapine 5 mg tablet 1 tab PO DAILY PRN Patient Comments: TAKE 1 TABLET BY MOUTH DIRECTED TAKE ONLY IF NEEDED FOR MODD SWINGS carboxymethylcellulose-glycern 1-0.25 % Drops OPHTHALMIC (EYE) acetaminophen 500 mg Tablet 1,000 mg PO TID PRN clopidogrel 75 mg tablet 75 mg PO DAILY azithromycin 250 mg tablet See Rx Instructions PO .COMPLEX Qty: 6 0RF Rx Instructions: For 250 mg dose pack: take 500 mg today (day 1), then 250 mg for 4 days (days 2-5) PO amoxicillin-pot clavulanate 875-125 mg tablet 1 tab PO Q12H Qty: 14 0RF prednisone 5 mg tablet 5 mg PO DAILY Qty: 49 0RF Rx Instructions: 40mg x 2 days, 30mg x 2 days, 20mg x 2 days, 15 mg x 2 days, 10 mg x 2 days, 5 mg x 2 days, 2.5 mg x 2 days. Compression Stocking miscellaneous Trelegy Ellipta 100-62.5-25 mcg blister with device 1 inh inhalation DAILY albuterol sulfate 8.5 GM HFA aerosol inhaler 2 puff Inhalation PRN aspirin [Aspirin Low-Strength] 81 MG tablet,chewable 81 mg PO DAILY nitroglycerin [Nitrostat] 0.4 MG tablet, sublingual 0.4 mg Sublingual Q5 MIN PRN X3 PRNQty: 100 0RF risperidone 2 MG tablet 2 mg PO HS lithium carbonate 300 mg tablet extended release 1,200 mg PO QPM Patient Comments: Take 4 tablet by mouth every evening Trelegy Ellipta 100-62.5-25 mcg blister with device 1 inh inhalation DAILY Discharge Instructions Instructions: Cellulitis (Skin Infection), Adult ED Additional Instructions: please avoid using drugs like cocaine, this can be lethal with your heart problems take the antibiotics as prescribed. return with worsening symptoms your imaging noted a small aneurysm in your distal aorta. this should be monitored with annual ultrasounds that can be managed by your PCP office you have been referred to establish primary care
[2024-10-17 09:08] LABS: Troponin I 29 ng/L (<or=76)
== END 2024-10-17 09:52 | disposition home or self-care (01) ==
PROVIDERS: Student in an Organized Health Care Education/Training Program; Emergency Provider Emergency Medicine; PCP Student in an Organized Health Care Education/Training Program
DX: R07.9 Chest pain, unspecified (principal); L03.115 Cellulitis of right lower limb; I10 Essential (primary) hypertension; M79.604 Pain in right leg; F14.90 Cocaine use, unspecified, uncomplicated; Z86.79 Personal history of other diseases of the circulatory system
CPT/HCPCS: 99284; 99285; 96375; 36415; 00123; 71275; 80053; 82550; 87040; 93005; 96365; 96368; 74174; 83605; 83735; 83880; 84484; 85025; 85379; 93010; 93971; J0696; J2020; J2405; J3490

== ENCOUNTER 2024-10-19 11:13 | Emergency (ER) | payer MEDICARE, SELFPAY ==
[2024-10-19 11:16] VITALS: BP 142/83; PULSE 76; RESP 16; TEMP 37.4; O2SAT 95
== END 2024-10-19 12:23 ==
LOC: ER 11:21
PROVIDERS: PCP Student in an Organized Health Care Education/Training Program
DX: Z53.21 Procedure and treatment not carried out due to patient leaving prior to being seen by health care provider (principal)